=== PATIENT | female | born 1935 | race Caucasian/White ===

== ENCOUNTER → 2017-02-11 | Outpatient (CLI) | payer MEDICARE, MEDICAID ==
[~2017-02-11] MED LIST: AC325T PO; ACET-461 PO; ACET325T38 PO; ACHD5005 PO; ACID1TAB PO; ASPI-84 PO; AZIT-21 PO; CALC-53 PO; CALC-671 PO; CITA20TA12 PO; CLC200NA2; CYAN100081 SL; CYAN25005 SL; CYCL5TAB PO; DICL100G13 TOP; DIPH25TA82 PO; FEN12TD TD; FENT1PAT2 TD; FURO-125 PO; GUAI100S PO; HYDR-1231 PO; HYDR-3714 PO; HYDR12.570 PO; IBUP-1780 PO; IBUP800T26 PO; KCL20TCR PO; LISI10TA PO; LORA0.5T PO; LORA0.5T34 PO; MELA1TAB10 PO; MELA1TAB11 PO; MELA5CAP PO; METO25TA2 PO; METO50TA2 PO; MULT-301 PO; MULT1CAP27 PO; Mirtazapine PO; OLIV30OI EACH EAR; OMEG1CAP51 PO; OMEG1CAP58 PO; PANT40SU PO; PED1TAB. PO; PNT40TEC PO; POLY17PO23 PO; POLY17PO6 PO; PRV20T PO; SCR1T1 PO
--- NOTE | 2017-02-11 11:01 | Diagnostic Imaging Report ---
PROCEDURE: MRI lumbar spine. TECHNIQUE: Multiplanar, multisequence MRI of the lumbar spine was performed without contrast. INDICATION: Back pain. FINDINGS: The alignment of the posterior spinal line is satisfactory. There is however scoliosis convex to the left centered around L3 level. There are compression fractures involving all lumbar spine levels and T12 with kyphoplasty changes at L1 and L4. There is prominent vertebral body height loss at T12, L2, and L4. There is no significant marrow signal abnormality in the lumbar spine vertebra to suggest an acute fracture. There is mild bone marrow signal edema seen within T12 vertebra. This does not however appear to be related to an acute fracture component and is probably a reactive change to altered mechanical forces from the scoliosis and the fractures. Similarly, there is mild bone marrow edema along the anterior aspect of L2. There is disc desiccation at all levels. The cauda equina and conus medullaris appear grossly unremarkable. T11/12: There is minimal retropulsion of the upper endplates of T12 level from the compression fracture without significant spinal canal stenosis. No foraminal narrowing. T12/L1: There is no disc herniation, no spinal canal or foraminal stenosis. L1/2: There is a right posterolateral disc protrusion resulting in moderate to severe right lateral recess stenosis. There is no central canal or left lateral recess stenosis. No foraminal stenosis. L2/L3: There is minimal disc bulge. There is moderate to severe facet and ligamentous hypertrophy worse on the right side. There is no central canal or left lateral recess stenosis. There is moderate right lateral recess stenosis. The foramina demonstrate mild stenosis on the right side and no significant stenosis on the left. L3/4: There is no disc herniation. The facet joints demonstrate moderate to severe hypertrophic arthropathy. No central canal stenosis. There is mild to moderate lateral recess stenosis seen bilaterally. The foramina demonstrate no significant stenosis. L4/5: There is a diffuse disc bulge and bilateral severe facet hypertrophy. No central canal stenosis. There is bilateral lateral recess stenosis moderate to severe on the right side and severe on the left side abutting the descending L5 nerve roots particularly on the left. The foramina demonstrate severe stenosis on the right and moderate to severe stenosis on the left. L5/S1: There is minimal disc bulge and moderate to severe facet hypertrophy. No central canal, lateral recess or foramina stenosis. IMPRESSION: There is scoliosis, degenerative facet and disc changes and multilevel old compression fractures from T12-L5 levels. There is severe neural foraminal stenosis on the right side at L4/5 level and severe lateral recess stenosis on the left at L4/5 compressing the descending left L5 nerve roots. Other findings are described above. Dictated by: Dictated on workstation # [id number]
== END ==
LOC: RAD 07:45
PROVIDERS: ATTEND Physician Assistant
DX: M41.26 Other idiopathic scoliosis, lumbar region (principal); M51.16 Intervertebral disc disorders with radiculopathy, lumbar region; M48.00 Spinal stenosis, site unspecified; M48.56XA Collapsed vertebra, not elsewhere classified, lumbar region, initial encounter for fracture
CPT/HCPCS: 72148

== ENCOUNTER 2018-02-25 23:54 | Observation (INO) | payer MEDICARE, MEDICAID ==
[~2018-02-25] VITALS: Ht 152.4 cm; Wt 88.6 kg
[~2018-02-25 23:54] MED LIST changes: +METO50TA15 PO; -METO50TA2 PO
--- OUTSIDE RECORDS SUMMARY | 2018-02-26 00:02 | XMS REPORT | CCD ---
Author Author [facility] Address [address] [place] [address] Phone Care Team Providers Care Multi Punch Operator Name Role Phone Pushpa Bernabe PP Unavailable CCM Unavailable Summary Purpose Interface Exchange Insurance Providers Payer name Policy type / Coverage type Covered green party ID Effective Begin Date Effective End Date WPS Medicare Part B Medicare Part B [id number] Unknown Unknown [facility] Medicare Part B [id number] Unknown Unknown Family history Daughter Diagnosis Age At Onset No Family Disease Entered N/A Mother Diagnosis Age At Onset No Family Disease Entered N/A Daughter Diagnosis Age At Onset No Family Disease Entered N/A Son Diagnosis Age At Onset No Family Disease Entered N/A Brother Diagnosis Age At Onset No Family Disease Entered N/A Brother Diagnosis Age At Onset No Family Disease Entered N/A Daughter Diagnosis Age At Onset No Family Disease Entered N/A Sister Diagnosis Age At Onset No Family Disease Entered N/A Sister Diagnosis Age At Onset No Family Disease Entered N/A Daughter Diagnosis Age At Onset No Family Disease Entered N/A Brother Diagnosis Age At Onset No Family Disease Entered N/A Sister Diagnosis Age At Onset No Family Disease Entered N/A Father Diagnosis Age At Onset No Family Disease Entered N/A Sister Diagnosis Age At Onset No Family Disease Entered N/A Brother Diagnosis Age At Onset No Family Disease Entered N/A Daughter Diagnosis Age At Onset No Family Disease Entered N/A Son Diagnosis Age At Onset No Family Disease Entered N/A Social History Social History Element Codes Description Effective Dates Marital status Unknown 10/07/2016 Living arrangements Unknown Assisted Living 04/10/[address]: 731067000 Never smoker 05/22/[address]: 955991813 Never drinks alcohol 05/22/2012 Has the patient ever used illegal drugs? Unknown Has never used illegal drugs 05/22/2012 Allergies, Adverse Reactions, Alerts Allergies, Adverse Reactions, Alerts data not found Past Medical History Illness Codes Condition Status Onset Date Resolved Date Essential (primary) hypertension ICD-9: 401.9 ICD-10: I10 Active 02/23/2016 Unknown Major depressive disorder, single episode, unspecified ICD-9: 311 ICD-10: F32.9 Active 02/23/2016 Unknown Hypo-osmolality and hyponatremia ICD-9: 276.1 ICD-10: E87.1 Active 11/19/2015 Unknown Abnormal weight gain ICD-9: 783.1 ICD-10: R63.5 Active 05/29/2015 Unknown Anemia, unspecified ICD-9: 285.9 ICD-10: D64.9 Active 05/29/2015 Unknown DEPRESSIVE DISORDER NEC ICD-9: 311 Active 11/15/2013 Unknown ESSENTIAL HYPERTENSION ICD-9: 401.9 Active 06/13/2014 Unknown Lumbar pain ICD-9: 724.2 Active 07/08/2014 Unknown Vertebral compression fracture ICD-9: 805.8 Active 07/08/2014 Unknown COUGH ICD-9: 786.2 Active 06/13/2014 Unknown Seasonal allergies ICD -9: 477.9 Active 06/13/2014 Unknown VACCIN FOR INFLUENZA ICD-9: V04.81 ICD-10: Z23 Active 01/03/2014 Unknown INSOMNIA NOS ICD-9: 780.52 Active 11/15/2013 Unknown Memory loss ICD-9: 780.93 Active 11/15/2013 Unknown OSTEOPOROSIS ICD-9: 733.00 Active 11/15/2013 Unknown Depression Unknown Active 05/22/2012 Unknown Hyperlipidemia Unknown Active 05/22/2012 Unknown Hypertension Unknown Active 05/22/2012 Unknown HYPERLIPIDEMIA ICD-9: 272.4 Active 05/22/2012 Unknown Rash ICD-9: 782.1 Active 05/22/2012 Unknown Problems Condition Codes Effective Dates Condition Status Essential (primary) hypertension ICD-9: 401.9 ICD-10: I10 02/23/2016 Active Major depressive disorder, single episode, unspecified ICD-9: 311 ICD-10: F32.9 02/23/2016 Active Hypo-osmolality and hyponatremia ICD-9: 276.1 ICD-10: E87.1 11/19/2015 Active Abnormal weight gain ICD-9: 783.1 ICD-10: R63.5 05/29/2015 Active Anemia, unspecified ICD-9: 285.9 ICD-10: D64.9 05/29/2015 Active DEPRESSIVE DISORDER NEC ICD-9: 311 11/15/2013 Active ESSENTIAL HYPERTENSION ICD-9: 401.9 06/13/2014 Active Lumbar pain ICD-9: 724.2 07/08/2014 Active Vertebral compression fracture ICD-9: 805.8 07/08/2014 Active COUGH ICD-9: 786.2 06/13/2014 Active Seasonal allergies ICD -9: 477.9 06/13/2014 Active VACCIN FOR INFLUENZA ICD-9: V04.81 ICD-10: Z23 01/03/2014 Active INSOMNIA NOS ICD-9: 780.52 11/15/2013 Active Memory loss ICD-9: 780.93 11/15/2013 Active OSTEOPOROSIS ICD-9: 733.00 11/15/2013 Active Depression Unknown 05/22/2012 Active Hyperlipidemia Unknown 05/22/2012 Active Hypertension Unknown 05/22/2012 Active HYPERLIPIDEMIA ICD-9: 272.4 05/22/2012 Active Rash ICD-9: 782.1 05/22/2012 Active Medications Medication Codes Instructions Start Date Stop Date Status Fill Instructions sucralfate 1 gram tablet RxNorm: 869592 TAKE ONE TABLET BY MOUTH FOUR TIMES A DAY BEFORE MEALS AND AT BEDTIME 05/18/2017 Active metoprolol tartrate 50 mg tablet RxNorm: 114907 TAKE ONE TABLET BY MOUTH TWICE A DAY 03/31/2017 01/24/2018 Active K-Dur 20 mEq tablet,extended release RxNorm: 088411 TAKE ONE TABLET BY MOUTH TWICE A DAY WITH FOOD OR SNACK AND PLENTY OF WATER 201603/17/2018 Active lorazepam 0.5 mg tablet RxNorm: 481769 1 Tablet(s) TAKE ONE TABLET BY MOUTH AT BEDTIME FOR INSOMNIA 07/19/20162016 Inactive Lortab 5 mg-325 mg tablet RxNorm: 0066600 1 Tablet(s) PO Q4H as needed for pain 06/04/2016 06/13/2016 Inactive Tessalon Perles 100 mg capsule RxNorm: 118780 1-2 Capsule(s) PO TID as needed cough 05/14/2016 No Stop Date Active sucralfate 1 gram tablet RxNorm: 968441 TAKE ONE TABLET BY MOUTH FOUR TIMES A DAY BEFORE MEALS AND AT BEDTIME 05/12/201603/2017 Inactive lorazepam 0.5 mg tablet RxNorm: Tablet(s) TAKE ONE TABLET BY MOUTH AT BEDTIME FOR INSOMNIA 05/07/20162016 Inactive citalopram 20 mg tablet RxNorm: 841976 1 Tablet(s) PO QHS 05/0503/30/2017 Inactive K-Dur 20 mEq tablet,extended release RxNorm: 255361 1 Tablet(s) PO BID 05/05/2016 03/22/2017 Inactive metoprolol tartrate 50 mg tablet RxNorm: 147622 1 Tablet(s) PO BID 05/05/2016 03/30/2017 Inactive lorazepam 0.5 mg tablet RxNorm: Tablet(s) TAKE ONE TABLET BY MOUTH AT BEDTIME FOR INSOMNIA 03/03/20162015 Inactive lorazepam 0.5 mg tablet RxNorm: Tablet(s) TAKE ONE TABLET BY MOUTH AT BEDTIME FOR INSOMNIA 01/07/20162015 Inactive Lortab 5 mg-325 mg tablet RxNorm: 1635594 1 Tablet(s) PO Q4H as needed for pain 11/28/2015 06/03/2016 Inactive potassium chloride ER 20 mEq tablet,extended release(part/ cryst) RxNorm: 3286255 1 Tablet(s) PO BID 11/20/2015 No Stop Date Active calcium carbonate 600 mg-ergocalciferol (vit D2) 200 unit capsule RxNorm: 017975 1 Capsule(s) PO BID 11/20/2015 No Stop Date Active lorazepam 0.5 mg tablet RxNorm: 1/2 Tablet(s) PO Q6 as needed anxiety 10/17/2015 10/17/2015 Inactive lorazepam 0.5 mg tablet RxNorm: TAKE ONE TABLET BY MOUTH AT BEDTIME FOR INSOMNIA 10/17/2015 01/13/2016 Inactive Lasix 20 mg tablet RxNorm: 117040 1 Tablet(s) PO as needed Give with10 meq K+ for gain >3lbs in 3 days 04/18/20152015 Inactive lorazepam 0.5 mg tablet RxNorm: 1 Tablet(s) PO QHS 04/1806/20/2015 Inactive Miralax 17 gram oral powder packet RxNorm: 387045 17 Gram(s) PO daily as needed constipation 04/18/2015 11/19/2015 Inactive lorazepam 0.5 mg tablet RxNorm: 044524 1 Tablet(s) PO QHS as needed 02/20/2015 04/17/2015 Inactive lorazepam 0.5 mg tablet RxNorm: 138289 1 Tablet(s) PO QHS as needed 02/20/2015 02/19/2015 Inactive sucralfate 1 gram tablet RxNorm: 184973 1 Tablet(s) PO AC & HS 02/07/2015 02/06/2015 Inactive sucralfate 1 gram tablet RxNorm: 420857 1 Tablet(s) PO AC & HS 02/07/2015 05/07/2015 Inactive mirtazapine 15 mg tablet RxNorm: 421624 1/2 Tablet(s) PO QHS 04/17/2015 Inactive mirtazapine 15 mg tablet RxNorm: 348110 1/2 Tablet(s) PO QHS 01/26/2015 Inactive K-Dur 20 mEq tablet,extended release RxNorm: 254728 1 Tablet(s) PO BID 12/17/2014 12/16/2014 Inactive K-Dur 20 mEq tablet,extended release RxNorm: 323836 1 Tablet(s) PO BID 12/17/2014 04/15/2015 Inactive metoprolol tartrate 50 mg tablet RxNorm: 052554 1 Tablet(s) PO BID 11/18/2014 11/12/2015 Inactive hydrocodone 5 mg-acetaminophen 325 mg tablet RxNorm: 802511 1 Tablet(s) PO BID and 1 tabs po q 4 hours prn 10/15/2014 Inactive [SAVINGS FOR NON-COVERED DRUGS -- BIN:547149, PCN: ASPROD1, Group: XXXXX, ID# [id number], Questions: [phone]. THIS IS NOT INSURANCE.] lisinopril 10 mg tablet RxNorm: 554339 TAKE 1 TABLET BY MOUTH DAILY 10/15/2014 04/17/2015 Inactive Generic For:ZESTRIL 10 MG TABLET hydrocodone 5 mg-acetaminophen 325 mg tablet RxNorm: 733882 1 Tablet(s) PO BID and 1 tabs po q 4 hours prn 10/01/2014 Inactive [SAVINGS FOR NON-COVERED DRUGS -- BIN:929168, PCN: ASPROD1, Group: XXXXX, ID# [id number], Questions: [phone]. THIS IS NOT INSURANCE.] Voltaren 1 % topical gel RxNorm: 713462 TOP apply 4 grams to lower back four times daily 07/30/2014 07/29/2014 Inactive Voltaren 1 % topical gel RxNorm: 700508 TOP apply 4 grams to lower back four times daily 07/30/2014 09/23/2014 Inactive [SAVINGS FOR NON-COVERED DRUGS -- BIN: 095469, PCN: ASPROD1, Group: XXXXX, ID# [id number], Questions: . THIS IS NOT INSURANCE.] hydrocodone 5 mg-acetaminophen 325 mg tablet RxNorm: 733604 2 Tablet(s) PO BID and 1-2 tabs po q 4 hours prn 07/16/2014 09/30/2014 Inactive [SAVINGS FOR NON- COVERED DRUGS -- BIN:727870, PCN: ASPROD1, Group: XXXXX, ID# [id number], Questions : . THIS IS NOT INSURANCE.] calcitonin (salmon) 200 unit/actuation nasal spray RxNorm: 641399 1 Epworth in one nostril NASAL daily alternate nostril daily 07/08/2014 04/17/2015 Inactive [ SAVINGS FOR NON-COVERED DRUGS -- BIN:778567, PCN: ASPROD1, Group: XXXXX, ID# [id number], Questions: . THIS IS NOT INSURANCE.] betamethasone valerate 0.1 % topical ointment RxNorm: 284423 1 Application TOP TID to affected skin on arm, buttock, upper back and right ankle 06/13/2014 08/11/2014 Inactive [SAVINGS FOR UNINSURED PATIENTS -- BIN:635103, PCN: ASPROD1, Group : [id number], ID# [id number], Process claim through [employer], for questions: [phone]. THIS IS NOT INSURANCE.] Celexa 20 mg tablet RxNorm: 696663 1 Tablet(s) PO QPM 201411/23/2014 Inactive pt needs to start on 1/2 pill daily x 1 week, then increase to 1 pill at night fluticasone 50 mcg/actuation nasal spray,suspension RxNorm: 610922 1 Epworth NASAL BID 04/01/2014 07/29/2014 Inactive [SAVINGS FOR UNINSURED PATIENTS -- BIN:602111, PCN: ASPROD1, Group: [id number], ID# [id number], Process claim through [employer], for questions: . THIS IS NOT INSURANCE.] fluticasone 50 mcg/actuation nasal spray,suspension RxNorm: 803019 1 Epworth NASAL BID 03/07/2014 03/31/2014 Inactive [SAVINGS FOR UNINSURED PATIENTS -- BIN:069053, PCN: ASPROD1, Group: [id number], ID# [id number], Process claim through [employer], for questions: . THIS IS NOT INSURANCE.] Celexa 10 mg tablet RxNorm: 970598 1 Tablet(s) PO QPM 201305/27/2014 Inactive pt needs to start on 1/2 pill daily x 1 week, then increase to 1 pill at night prednisone 20 mg tablet RxNorm: 339977 Tablet(s) PO 07/12/2012 03/06/2014 Inactive 40 mg daily x 2 days then 20 mg daily x 3 days then stop Celexa 10 mg tablet RxNorm: 712878 1 Tablet(s) PO daily 201207/20/2012 Inactive calcium 500 mg tablet RxNorm: 2 Tablet(s) PO BID 05/22/2012 04/17/2015 Inactive pt take 1000mg bid Vitamin B-12 1,000 mcg/mL oral drops RxNorm: 1866397 1 Milliliter(s) SL daily No Start Date Active Systane Balance 0.6 % eye drops RxNorm: 3362905 1 Drop(s) OPH (BOTH EYES) BID No Start Date Active Protonix 40 mg tablet,delayed release RxNorm: 731009 1 Tablet(s) PO BID No Start Date Active Remeron 15 mg tablet RxNorm: 367157 1/2 Tablet(s) PO QHS No Start Date Active melatonin 3 mg tablet RxNorm: 359501 2 Tablet(s) PO QHS No Start Date Active multivitamin tablet RxNorm: 1 Tablet(s) PO daily No Start Date Active Lactobacillus acidophilus chewable tablet RxNorm: 1 Tablet(s) PO AC No Start Date Active calcium carbonate 600 mg (1,500 mg)-vitamin D3 200 unit tablet RxNorm: 234215 1 Tablet(s) PO BID No Start Date Active Tylenol Extra Strength 500 mg tablet RxNorm: 101474 2 Tablet(s) PO Q6 as needed for pain or increased temp No Start Date Active ketoconazole 2 % Shampoo RxNorm: 651468 1 Application TOP TIW use three times per week until rash resolved No Start Date Inactive Sweet Oil with Dropper RxNorm: 1 Drop(s) OTIC QW at bedtime No Start Date 08/20/2015 Inactive prednisone 20 mg tablet RxNorm: 036739 Tablet(s) PO No Start Date 07/11/2012 Inactive Lasix 20 mg tablet RxNorm: 844450 1 Tablet(s) PO as needed Give with K+ for gain >3lbs in 3 days No Start Date 2014 Inactive lorazepam 0.5 mg tablet RxNorm: 358793 1/2 Tablet(s) PO Q6 as needed anxiety No Start Date 10/16/2015 Inactive calcium carbonate 600 mg-ergocalciferol (vit D2) 200 unit capsule RxNorm: 878698 1 Capsule(s) PO BID No Start Date 2014 Inactive Tylenol Extra Strength 500 mg tablet RxNorm: 956726 1 Tablet(s) PO QPM No Start Date 04/17/2015 Inactive Sweet Oil with Dropper RxNorm: 1 Drop(s) OTIC BOTH EARS as needed EAR WAX No Start Date 11/19/2015 Inactive hydrocodone 5 mg-acetaminophen 325 mg tablet RxNorm: 884476 2 Tablet(s) PO BID and 1-2 tabs po q 4 hours prn No Start Date 07/15/2014 Inactive aspirin 81 mg tablet RxNorm: 558638 1 Tablet(s) PO daily No Start Date 04/17/2015 Inactive Fish Oil 1,000 mg capsule RxNorm: 1 Capsule(s) PO BID No Start Date 04/17/2015 Inactive melatonin 3 mg tablet RxNorm: 239376 1 Tablet(s) PO QHS No Start Date 04/17/2015 Inactive Benadryl 25 mg capsule RxNorm: 2283600 1 Capsule(s) PO QPM No Start Date 11/22/2013 Inactive citalopram 20 mg tablet RxNorm: 111310 1 Tablet(s) PO QHS No Start Date 05/04/2016 Inactive Tessalon Perles 100 mg capsule RxNorm: 545203 1-2 Capsule(s) PO TID as needed cough No Start Date 05/13/2016 Inactive lisinopril 10 mg tablet RxNorm: 395982 1 Tablet(s) PO daily No Start Date 10/14/2014 Inactive potassium chloride ER 10 mEq tablet,extended release RxNorm: 276124 1 Tablet(s) PO as needed edema; 1 TAB WITH 20 MG LASIX IF WEIGHT GAIN >3 LBS IN 3 DAYS No Start Date 11/19/2015 Inactive calcium 500 mg tablet RxNorm: 2 Tablet(s) PO daily No Start Date 05/21/2012 Inactive pt take 1000mg bid Lortab 5 mg-325 mg tablet RxNorm: 9591500 1 Tablet(s) PO Q4H as needed for pain No Start Date 11/27/2015 Inactive pravastatin 10 mg tablet RxNorm: 885455 1 Tablet(s) PO QPM No Start Date 04/17/2015 Inactive Miralax 17 gram oral powder packet RxNorm: 886035 17 Gram(s) PO daily No Start Date 04/17/2015 Inactive potassium chloride ER 20 mEq tablet,extended release RxNorm: 973487 1 Tablet(s) PO BID No Start Date 04/17/2015 Inactive Medication Administered No Medication Administered data Immunizations Vaccine Codes Date Status Influenza CVX: 141 01/03/2014 completed Influenza CVX: 141 01/24/2013 completed Assessments Condition Codes Effective Dates Major depressive disorder, single episode, unspecified ICD- 10: F32.9 ICD-9: 311 10/07/2016 Essential (primary) hypertension ICD-10: I10 ICD-9: 401.9 10/07/2016 Hypo-osmolality and hyponatremia ICD-10: E87.1 ICD-9: 276.1 11/20/2015 Abnormal weight gain ICD-10: R63.5 ICD-9: 783.1 05/30/2015 Anemia, unspecified ICD-10: D64.9 ICD-9: 285.9 05/30/2015 Osteoporosis ICD-9: 733.00 12/19/2014 ESSENTIAL HYPERTENSION ICD-9: 401.9 12/19 DEPRESSIVE DISORDER NEC ICD-9: 311 2014 Lumbar pain ICD-9: 724.2 07/08/2014 Vertebral compression fracture ICD-9: 805.8 07/08/2014 COUGH ICD-9: 786.2 06/13/2014 Seasonal allergies ICD-9: 477.9 2014 Nasal congestion ICD-9: 478.19 2013 VACCIN FOR INFLUENZA ICD-10: Z23 ICD-9: V04.81 01/03/2014 INSOMNIA NOS ICD-9: 780.52 11/15/2013 Memory loss ICD-9: 780.93 11/15/2013 HYPERLIPIDEMIA ICD-9: 272.4 05/22/2012 Rash ICD-9: 782.1 05/22/2012 Reason For Visit Reason For Visit Effective Dates Notes weight gain/obesity 10/07/2016 weight gain/obesity 02/24/2016 weight gain/obesity 11/20/2015 weight gain/obesity 08/21/2015 weight gain/obesity 05/30/2015 hypertension 12/19/2014 Hospital Follow Up 09/19/2014 memory loss 07/08/2014 memory loss 06/13/2014 memory loss 03/07/2014 memory loss 02/06/2014 memory loss 01/03/2014 memory loss 11/15/2013 anxiety 05/22/2012 Results Observation Observation Code Item Item Code Result Date Comp Metabolic Rhs626 NA 128 mEq/L 10/08/2016 Comp Metabolic Ced041 K 4.6 mEq/L 10/08/2016 Comp Metabolic Tkf205 CL 90 mEq/L 10/08/2016 Comp Metabolic Xyx514 CO2 27.0 mEq/L 10/08/2016 Comp Metabolic Ans467 ANION GAP 16 10/08/2016 Comp Metabolic Sui300 GLUCOSE 130 mg/dL 10/08/2016 Comp Metabolic Uyg905 Creat 0.6 mg/dL 10/08/2016 Comp Metabolic Onl907 eGFR 110 ml/min/1.73m2 10/08/2016 Comp Metabolic Edy064 BUN 9 mg/dL 10/08/2016 Comp Metabolic Ebb402 B/C Ratio 16.1 Ratio 10/08/2016 Comp Metabolic Zih848 CALCIUM 8.8 mg/dL 10/08/2016 Comp Metabolic Vkc305 ALK PHOS 47 U/L 10/08/2016 Comp Metabolic Cym374 AST(SGOT) 14 U/L 10/08/2016 Comp Metabolic Iad682 ALT(SGPT) 12 U/L 10/08/2016 Comp Metabolic Tto495 BILI T 0.6 mg/dL 10/08/2016 Comp Metabolic Tvm938 ALBUMIN 4.0 g/dL 10/08/2016 Comp Metabolic Vtu391 TPRO 6.4 g/dL 10/08/2016 Comp Metabolic Vog211 GLOB 2.4 g/dL 10/08/2016 Comp Metabolic Mua040 A/G Ratio 1.6 Ratio 10/08/2016 Comp Metabolic Znu692 Osmo 258 mOsmo 10/08/2016 Cbc With Differential Ord2 WBC 7.42 K/ul 10/08/2016 Cbc With Differential Ord2 RBC 5.00 M/ul 10/08/2016 Cbc With Differential Ord2 HGB 14.4 g/dl 10/08/2016 Cbc With Differential Ord2 Neut% 69.7 % 10/08/2016 Cbc With Differential Ord2 HCT 42.3 % 10/08/2016 Cbc With Differential Ord2 MCV 84.6 fl 10/08/2016 Cbc With Differential Ord2 Lymph% 22.6 % 10/08/2016 Cbc With Differential Ord2 MCH 28.8 pg 10/08/2016 Cbc With Differential Ord2 Amador% 4.9 % 10/08/2016 Cbc With Differential Ord2 MCHC 34.0 pg 10/08/2016 Cbc With Differential Ord2 Eos% 2.3 % 10/08/2016 Cbc With Differential Ord2 PLT 252 K/ul 10/08/2016 Cbc With Differential Ord2 Baso% 0.5 % 10/08/2016 Cbc With Differential Ord2 RDW 15.7 % 10/08/2016 Cbc With Differential Ord2 Neut ABS# 5.17 K/ul 10/08/2016 Cbc With Differential Ord2 Lymph ABS# 1.68 K/ul 10/08/2016 Cbc With Differential Ord2 Amador ABS# 0.4 K/ul 10/08/2016 Cbc With Differential Ord2 Eos ABS# 0.2 K/ul 10/08/2016 Cbc With Differential Ord2 Baso ABS# 0.0 K/ul 10/08/2016 Tsh Ord6 hTSH II 1.46 uIU/mL 10/08/2016 Comp Metabolic Kto067 NA 129 mEq/L 11/20/2015 Comp Metabolic Bsx465 K 4.5 mEq/L 11/20/2015 Comp Metabolic Hes497 CL 94 mEq/L 11/20/2015 Comp Metabolic Zpz790 CO2 30.0 mEq/L 11/20/2015 Comp Metabolic Ojb399 ANION GAP 10 11/20/2015 Comp Metabolic Htk502 GLUCOSE 103 mg/dL 11/20/2015 Comp Metabolic Dgb476 Creat 0.6 mg/dL 11/20/2015 Comp Metabolic Ycl145 eGFR 102 ml/min/1.73m2 11/20/2015 Comp Metabolic Jnh014 BUN 10 mg/dL 11/20/2015 Comp Metabolic Bdk731 B/C Ratio 16.7 Ratio 11/20/2015 Comp Metabolic Sid396 CALCIUM 8.9 mg/dL 11/20/2015 Comp Metabolic Tqb722 ALK PHOS 46 U/L 11/20/2015 Comp Metabolic Wyc052 AST(SGOT) 13 U/L 11/20/2015 Comp Metabolic Eto206 ALT(SGPT) 12 U/L 11/20/2015 Comp Metabolic Ljd097 BILI T 0.4 mg/dL 11/20/2015 Comp Metabolic Huo560 ALBUMIN 4.1 g/dL 11/20/2015 Comp Metabolic Goz003 TPRO 6.2 g/dL 11/20/2015 Comp Metabolic Awh851 GLOB 2.2 g/dL 11/20/2015 Comp Metabolic Zpl101 A/G Ratio 1.9 Ratio 11/20/2015 Comp Metabolic Tbc398 Osmo 258 mOsmo 11/20/2015 Cbc With Differential Ord2 WBC 7.23 K/ul 11/20/2015 Cbc With Differential Ord2 RBC 4.68 M/ul 11/20/2015 Cbc With Differential Ord2 HGB 13.7 g/dl 11/20/2015 Cbc With Differential Ord2 Neut% 68.4 % 11/20/2015 Cbc With Differential Ord2 HCT 41.2 % 11/20/2015 Cbc With Differential Ord2 MCV 88.0 fl 11/20/2015 Cbc With Differential Ord2 Lymph% 18.1 % 11/20/2015 Cbc With Differential Ord2 MCH 29.3 pg 11/20/2015 Cbc With Differential Ord2 Amador% 11.6 % 11/20/2015 Cbc With Differential Ord2 MCHC 33.3 pg 11/20/2015 Cbc With Differential Ord2 Eos% 1.5 % 11/20/2015 Cbc With Differential Ord2 PLT 264 K/ul 11/20/2015 Cbc With Differential Ord2 Baso% 0.4 % 11/20/2015 Cbc With Differential Ord2 RDW 15.2 % 11/20/2015 Cbc With Differential Ord2 Neut ABS# 4.94 K/ul 11/20/2015 Cbc With Differential Ord2 Lymph ABS# 1.31 K/ul 11/20/2015 Cbc With Differential Ord2 Amador ABS# 0.8 K/ul 11/20/2015 Cbc With Differential Ord2 Eos ABS# 0.1 K/ul 11/20/2015 Cbc With Differential Ord2 Baso ABS# 0.0 K/ul 11/20/2015 Cbc With Differential Ord2 WBC 8.04 K/ul 09/11/2015 Cbc With Differential Ord2 RBC 4.87 M/ul 09/11/2015 Cbc With Differential Ord2 HGB 14.0 g/dl 09/11/2015 Cbc With Differential Ord2 Neut% 67.2 % 09/11/2015 Cbc With Differential Ord2 HCT 41.8 % 09/11/2015 Cbc With Differential Ord2 MCV 85.8 fl 09/11/2015 Cbc With Differential Ord2 Lymph% 21.4 % 09/11/2015 Cbc With Differential Ord2 MCH 28.7 pg 09/11/2015 Cbc With Differential Ord2 Amador% 9.3 % 09/11/2015 Cbc With Differential Ord2 MCHC 33.5 pg 09/11/2015 Cbc With Differential Ord2 Eos% 1.9 % 09/11/2015 Cbc With Differential Ord2 PLT 274 K/ul 09/11/2015 Cbc With Differential Ord2 Baso% 0.2 % 09/11/2015 Cbc With Differential Ord2 RDW 16.0 % 09/11/2015 Cbc With Differential Ord2 Neut ABS# 5.40 K/ul 09/11/2015 Cbc With Differential Ord2 Lymph ABS# 1.72 K/ul 09/11/2015 Cbc With Differential Ord2 Amador ABS# 0.8 K/ul 09/11/2015 Cbc With Differential Ord2 Eos ABS# 0.2 K/ul 09/11/2015 Cbc With Differential Ord2 Baso ABS# 0.0 K/ul 09/11/2015 Cbc With Differential Ord2 New Analyzer Notice Please note new ref ranges starting 05-14-2015 due to implemntation of new five part differential hematolgy analyzer. 09/11/2015 Tsh Ord6 hTSH II 1.54 uIU/mL 09/11/2015 Comp Metabolic Ulu526 NA 130 mEq/L 09/11/2015 Comp Metabolic Sih268 K 4.4 mEq/L 09/11/2015 Comp Metabolic Fvh952 CL 88 mEq/L 09/11/2015 Comp Metabolic Gzq658 CO2 30.0 mEq/L 09/11/2015 Comp Metabolic Rrv260 ANION GAP 16 09/11/2015 Comp Metabolic Xzz405 GLUCOSE 90 mg/dL 09/11/2015 Comp Metabolic Gls425 Creat 0.6 mg/dL 09/11/2015 Comp Metabolic Nsn278 eGFR 112 ml/min/1.73m2 09/11/2015 Comp Metabolic Twv514 BUN 9 mg/dL 09/11/2015 Comp Metabolic Uxo040 B/C Ratio 16.4 Ratio 09/11/2015 Comp Metabolic Dfn314 CALCIUM 8.9 mg/dL 09/11/2015 Comp Metabolic Hoz291 ALK PHOS 50 U/L 09/11/2015 Comp Metabolic Obg989 AST(SGOT) 14 U/L 09/11/2015 Comp Metabolic Rbl187 ALT(SGPT) 12 U/L 09/11/2015 Comp Metabolic Fue443 BILI T 0.6 mg/dL 09/11/2015 Comp Metabolic Hhb326 ALBUMIN 4.2 g/dL 09/11/2015 Comp Metabolic Bew041 TPRO 6.7 g/dL 09/11/2015 Comp Metabolic Unf633 GLOB 2.5 g/dL 09/11/2015 Comp Metabolic Dhb233 A/G Ratio 1.6 Ratio 09/11/2015 Comp Metabolic Jhn972 Osmo 259 mOsmo 09/11/2015 Cbc With Differential Ord2 WBC 8.31 K/ul 08/21/2015 Cbc With Differential Ord2 RBC 4.87 M/ul 08/21/2015 Cbc With Differential Ord2 HGB 13.9 g/dl 08/21/2015 Cbc With Differential Ord2 Neut% 67.9 % 08/21/2015 Cbc With Differential Ord2 HCT 43.0 % 08/21/2015 Cbc With Differential Ord2 MCV 88.3 fl 08/21/2015 Cbc With Differential Ord2 Lymph% 19.0 % 08/21/2015 Cbc With Differential Ord2 MCH 28.5 pg 08/21/2015 Cbc With Differential Ord2 Amador% 10.6 % 08/21/2015 Cbc With Differential Ord2 MCHC 32.3 pg 08/21/2015 Cbc With Differential Ord2 Eos% 2.0 % 08/21/2015 Cbc With Differential Ord2 PLT 231 K/ul 08/21/2015 Cbc With Differential Ord2 Baso% 0.5 % 08/21/2015 Cbc With Differential Ord2 RDW 16.1 % 08/21/2015 Cbc With Differential Ord2 Neut ABS# 5.64 K/ul 08/21/2015 Cbc With Differential Ord2 Lymph ABS# 1.58 K/ul 08/21/2015 Cbc With Differential Ord2 Amador ABS# 0.9 K/ul 08/21/2015 Cbc With Differential Ord2 Eos ABS# 0.2 K/ul 08/21/2015 Cbc With Differential Ord2 Baso ABS# 0.0 K/ul 08/21/2015 Cbc With Differential Ord2 New Analyzer Notice Please note new ref ranges starting 05-14-2015 due to implemntation of new five part differential hematolgy analyzer. 08/21/2015 Comp Metabolic Fve437 NA 129 mEq/L 08/21/2015 Comp Metabolic Cae220 K 4.6 mEq/L 08/21/2015 Comp Metabolic Pwj264 CL 93 mEq/L 08/21/2015 Comp Metabolic Glm155 CO2 28.0 mEq/L 08/21/2015 Comp Metabolic Cmo373 ANION GAP 13 08/21/2015 Comp Metabolic Hxb726 GLUCOSE 101 mg/dL 08/21/2015 Comp Metabolic Xdi369 Creat 0.7 mg/dL 08/21/2015 Comp Metabolic Tfr743 eGFR 93 ml/min/1.73m2 08/21/2015 Comp Metabolic Wdd318 BUN 11 mg/dL 08/21/2015 Comp Metabolic Ryw150 B/C Ratio 16.9 Ratio 08/21/2015 Comp Metabolic Oep179 CALCIUM 9.3 mg/dL 08/21/2015 Comp Metabolic Vgy276 ALK PHOS 44 U/L 08/21/2015 Comp Metabolic Dfo282 AST(SGOT) 14 U/L 08/21/2015 Comp Metabolic Yds834 ALT(SGPT) 14 U/L 08/21/2015 Comp Metabolic Wmp224 BILI T 0.5 mg/dL 08/21/2015 Comp Metabolic Kfa009 ALBUMIN 4.1 g/dL 08/21/2015 Comp Metabolic Vbf708 TPRO 6.4 g/dL 08/21/2015 Comp Metabolic Lol610 GLOB 2.4 g/dL 08/21/2015 Comp Metabolic Uoj595 A/G Ratio 1.7 Ratio 08/21/2015 Comp Metabolic Oza879 Osmo 258 mOsmo 08/21/2015 Cbc With Differential Ord2 WBC 7.02 K/ul 05/30/2015 Cbc With Differential Ord2 RBC 5.14 M/ul 05/30/2015 Cbc With Differential Ord2 HGB 13.7 g/dl 05/30/2015 Cbc With Differential Ord2 Neut% 64.2 % 05/30/2015 Cbc With Differential Ord2 HCT 42.0 % 05/30/2015 Cbc With Differential Ord2 MCV 81.7 fl 05/30/2015 Cbc With Differential Ord2 Lymph% 20.4 % 05/30/2015 Cbc With Differential Ord2 MCH 26.7 pg 05/30/2015 Cbc With Differential Ord2 Amador% 12.5 % 05/30/2015 Cbc With Differential Ord2 MCHC 32.6 pg 05/30/2015 Cbc With Differential Ord2 Eos% 2.3 % 05/30/2015 Cbc With Differential Ord2 PLT 235 K/ul 05/30/2015 Cbc With Differential Ord2 Baso% 0.6 % 05/30/2015 Cbc With Differential Ord2 Neut ABS# 4.51 K/ul 05/30/2015 Cbc With Differential Ord2 RDW 26.0 % 05/30/2015 Cbc With Differential Ord2 Lymph ABS# 1.43 K/ul 05/30/2015 Cbc With Differential Ord2 Amador ABS# 0.9 K/ul 05/30/2015 Cbc With Differential Ord2 Eos ABS# 0.2 K/ul 05/30/2015 Cbc With Differential Ord2 Baso ABS# 0.0 K/ul 05/30/2015 Cbc With Differential Ord2 New Analyzer Notice Please note new ref ranges starting 05-14-2015 due to implemntation of new five part differential hematolgy analyzer. 05/30/2015 Comp Metabolic Krm635 NA 131 mEq/L 05/30/2015 Comp Metabolic Wpe738 K 4.6 mEq/L 05/30/2015 Comp Metabolic Kgb773 CL 95 mEq/L 05/30/2015 Comp Metabolic Yxl882 CO2 26.0 mEq/L 05/30/2015 Comp Metabolic Rcr043 ANION GAP 15 05/30/2015 Comp Metabolic Yce153 GLUCOSE 96 mg/dL 05/30/2015 Comp Metabolic Anx145 Creat 0.7 mg/dL 05/30/2015 Comp Metabolic Bob101 eGFR 86 ml/min/1.73m2 05/30/2015 Comp Metabolic Wox468 BUN 10 mg/dL 05/30/2015 Comp Metabolic Tgr908 B/C Ratio 14.5 Ratio 05/30/2015 Comp Metabolic Bmt606 CALCIUM 9.3 mg/dL 05/30/2015 Comp Metabolic Rfl400 ALK PHOS 46 U/L 05/30/2015 Comp Metabolic Jel769 AST(SGOT) 17 U/L 05/30/2015 Comp Metabolic Hld253 ALT(SGPT) 15 U/L 05/30/2015 Comp Metabolic Mgi258 BILI T 0.5 mg/dL 05/30/2015 Comp Metabolic Otw801 ALBUMIN 4.1 g/dL 05/30/2015 Comp Metabolic Iva924 TPRO 6.5 g/dL 05/30/2015 Comp Metabolic Jjh406 GLOB 2.4 g/dL 05/30/2015 Comp Metabolic Ebr058 A/G Ratio 1.7 Ratio 05/30/2015 Comp Metabolic Qpr091 Osmo 262 mOsmo 05/30/2015 B Type Natriuretic Peptide Udt9486 B-CONFIGURATOR 105.00 pg/ml 2015 Cbc With Differential Ord2 WBC 5.5 K/uL 03/20/2015 Cbc With Differential Ord2 LYM 1.7 K/uL 03/20/2015 Cbc With Differential Ord2 LYM% 30.9 % 03/20/2015 Cbc With Differential Ord2 NEUT/GRAN 3.1 K/uL 03/20/2015 Cbc With Differential Ord2 NEUT/GRAN % 56.1 % 03/20/2015 Cbc With Differential Ord2 MID 0.7 K/uL 03/20/2015 Cbc With Differential Ord2 MID% 13.0 % 03/20/2015 Cbc With Differential Ord2 RBC 3.78 M/uL 03/20/2015 Cbc With Differential Ord2 HGB 7.8 Result Verified By Repeat Analysis g/dL 03/20/2015 Cbc With Differential Ord2 HCT 25.4 % 03/20/2015 Cbc With Differential Ord2 MCV 67 fL 03/20/2015 Cbc With Differential Ord2 MCH 21 pg 03/20/2015 Cbc With Differential Ord2 MCHC 31 g/dL 03/20/2015 Cbc With Differential Ord2 PLT 283 K/uL 03/20/2015 Cbc With Differential Ord2 RDW 20.0 % 03/20/2015 Tsh Ord6 hTSH II 1.04 uIU/mL 03/20/2015 Comp Metabolic Hmm618 NA 133 mEq/L 03/20/2015 Comp Metabolic Szy778 K 5.2 mEq/L 03/20/2015 Comp Metabolic Mkl304 CL 97 mEq/L 03/20/2015 Comp Metabolic Elz434 CO2 30.0 mEq/L 03/20/2015 Comp Metabolic Lse402 ANION GAP 11 03/20/2015 Comp Metabolic Dbd484 GLUCOSE 84 mg/dL 03/20/2015 Comp Metabolic Mme481 Creat 0.6 mg/dL 03/20/2015 Comp Metabolic Xcc651 eGFR 100 ml/min/1.73m2 03/20/2015 Comp Metabolic Dsy291 BUN 11 mg/dL 03/20/2015 Comp Metabolic Cqe647 B/C Ratio 18.0 Ratio 03/20/2015 Comp Metabolic Zph475 CALCIUM 8.8 mg/dL 03/20/2015 Comp Metabolic Iuj695 ALK PHOS 45 U/L 03/20/2015 Comp Metabolic Ntx922 AST(SGOT) 12 U/L 03/20/2015 Comp Metabolic Hup500 ALT(SGPT) 9 U/L 03/20/2015 Comp Metabolic Ebp705 BILI T 0.3 mg/dL 03/20/2015 Comp Metabolic Qco340 ALBUMIN 3.5 g/dL 03/20/2015 Comp Metabolic Jfj484 TPRO 5.5 g/dL 03/20/2015 Comp Metabolic Vyn744 GLOB 2.0 g/dL 03/20/2015 Comp Metabolic Ann310 A/G Ratio 1.8 Ratio 03/20/2015 Comp Metabolic Dht723 Osmo 265 mOsmo 03/20/2015 Metabolic Ord15 NA 129 mEq/L 03/17/2015 Metabolic Ord15 K 4.5 mEq/L 03/17/2015 Metabolic Ord15 CL 93 mEq/L 03/17/2015 Metabolic Ord15 CO2 26.0 mEq/L 03/17/2015 Metabolic Ord15 GLUCOSE 93 mg/dL 03/17/2015 Metabolic Ord15 BUN 10 mg/dL 03/17/2015 Metabolic Ord15 Creat 0.6 mg/dL 03/17/2015 Metabolic Ord15 B/C Ratio 15.9 Ratio 03/17/2015 Metabolic Ord15 eGFR 96 ml/min/1.73m2 03/17/2015 Metabolic Ord15 Osmo 258 mOsmo 03/17/2015 Metabolic Ord15 ANION GAP 15 03/17/2015 Metabolic Ord15 CALCIUM 8.9 mg/dL 03/17/2015 Metabolic Ord15 NA 131 mEq/L 11/29/2014 Metabolic Ord15 K 4.6 mEq/L 11/29/2014 Metabolic Ord15 CL 94 mEq/L 11/29/2014 Metabolic Ord15 CO2 30.0 mEq/L 11/29/2014 Metabolic Ord15 GLUCOSE 90 mg/dL 11/29/2014 Metabolic Ord15 BUN 10 mg/dL 11/29/2014 Metabolic Ord15 Creat 0.6 mg/dL 11/29/2014 Metabolic Ord15 B/C Ratio 18.2 Ratio 11/29/2014 Metabolic Ord15 eGFR 112 ml/min/1.73m2 11/29/2014 Metabolic Ord15 Osmo 261 mOsmo 11/29/2014 Metabolic Ord15 ANION GAP 12 11/29/2014 Metabolic Ord15 CALCIUM 9.1 mg/dL 11/29/2014 CHEM 14 [id number] AST 18 U/L 11/15/2013 CHEM 14 [id number] ALT 13 U/L 11/15/2013 CHEM 14 [id number] BUN 10 MG/DL 11/15/2013 CHEM 14 [id number] ALBUMIN 4.4 GM/DL 11/15/2013 CHEM 14 0699102 CHLORIDE 89 MMOL/L 11/15/2013 CHEM 14 7561275 BILI TOT 0.4 MG/DL 11/15/2013 CHEM 14 7280217 ALK PHOS 47 U/L 11/15/2013 CHEM 14 3920996 SODIUM 128 MMOL/L 11/15/2013 CHEM 14 [id number] CREATININE 0.56 MG/DL 11/15/2013 CHEM 14 5553694 CALCIUM 9.5 MG/DL 11/15/2013 CHEM 14 5445535 POTASSIUM 4.5 MMOL/L 11/15/2013 CHEM 14 8734422 PROT TOT 7.1 GM/DL 11/15/2013 CHEM 14 0336093 GLUCOSE 92 MG/DL 11/15/2013 CHEM 14 3312584 BICARB 26 MMOL/L 11/15/2013 CHEM 14 7643092 ANION GAP 13 MMOL/L 11/15/2013 GFR CALC 2214406 GFR AA >60 ML/MIN 11/15/2013 GFR CALC 7710126 GFR NON-AA >60 ML/MIN 11/15/2013 VIT B 12 9686002 VIT B 12 563 PG/ML 11/15/2013 CHEM 14 5522606 AST 18 U/L 11/15/2013 CHEM 14 0146821 ALT 13 U/L 11/15/2013 CHEM 14 8830771 BUN 10 MG/DL 11/15/2013 CHEM 14 2699111 ALBUMIN 4.4 GM/DL 11/15/2013 CHEM 14 4836590 CHLORIDE 89 MMOL/L 11/15/2013 CHEM 14 3900629 BILI TOT 0.4 MG/DL 11/15/2013 CHEM 14 6560638 ALK PHOS 47 U/L 11/15/2013 CHEM 14 9366966 SODIUM 128 MMOL/L 11/15/2013 CHEM 14 4414393 CREATININE 0.56 MG/DL 11/15/2013 CHEM 14 3821236 CALCIUM 9.5 MG/DL 11/15/2013 CHEM 14 3796744 POTASSIUM 4.5 MMOL/L 11/15/2013 CHEM 14 2781832 PROT TOT 7.1 GM/DL 11/15/2013 CHEM 14 8430226 GLUCOSE 92 MG/DL 11/15/2013 CHEM 14 1825623 BICARB 26 MMOL/L 11/15/2013 CHEM 14 2145063 ANION GAP 13 MMOL/L 11/15/2013 VIT D TOTL 9014139 VIT D TOTL 43 NG/ML 11/15/2013 Review of Systems System Result Effective Dates Constitutional No recent illness 2016 Constitutional No chills 10/07/2016 Constitutional No diaphoresis 10/07/2016 Constitutional fatigue 10/07/2016 Constitutional No fever 10/07/2016 Constitutional weight gain 10/07/2016 Eyes No eye discharge 10/07/2016 Eyes No eye erythema 10/07/2016 Ears/Nose/Throat/Neck No nasal discharge 10/07/2016 Cardiovascular No chest pain/pressure 11/2016 Cardiovascular No dyspnea 10/07/2016 Respiratory No cough 10/07/2016 Gastrointestinal No abdominal pain 2016 Gastrointestinal No constipation 2016 Gastrointestinal No diarrhea 10/07/2016 Gastrointestinal No nausea 10/07/2016 Gastrointestinal No vomiting 10/07/2016 Musculoskeletal No joint complaint 2016 Dermatologic No rash 10/07/2016 Dermatologic No sores 10/07/2016 Neurologic No alteration of consciousness 10/07/2016 Psychiatric anxiety 10/07/2016 Psychiatric depression 10/07/2016 Ears/Nose/Throat/Neck No nasal allergies 10/07/2016 Respiratory No dyspnea 10/07/2016 Constitutional No recent illness 2015 Constitutional No anorexia 02/24/2016 Constitutional No night sweats 2015 Constitutional No chills 02/24/2016 Constitutional No diaphoresis 02/24/2016 Constitutional fatigue 02/24/2016 Constitutional No fever 02/24/2016 Constitutional No insomnia 02/24/2016 Constitutional No malaise 02/24/2016 Constitutional No weight loss 02/24/2016 Constitutional weight gain 02/24/2016 Eyes No eye discharge 02/24/2016 Eyes No eye erythema 02/24/2016 Ears/Nose/Throat/Neck No dizziness 2015 Ears/Nose/Throat/Neck No headache 2015 Ears/Nose/Throat/Neck No nasal discharge 02/24/2016 Cardiovascular No chest pain/pressure Cardiovascular No dyspnea 02/24/2016 Cardiovascular edema 02/24/2016 Respiratory No productive sputum 2015 Respiratory No chest congestion 2015 Respiratory No cough 02/24/2016 Gastrointestinal No abdominal pain 2015 Gastrointestinal No constipation 2015 Gastrointestinal No diarrhea 02/24/2016 Gastrointestinal No nausea 02/24/2016 Gastrointestinal No vomiting 02/24/2016 Genitourinary/Nephrology No dysuria 02/23 Musculoskeletal No joint complaint 2015 Dermatologic No rash 02/24/2016 Dermatologic No sores 02/24/2016 Neurologic No alteration of consciousness 02/24/2016 Psychiatric anxiety 02/24/2016 Psychiatric depression 02/24/2016 Constitutional No recent illness 2015 Constitutional No anorexia 11/20/2015 Constitutional No night sweats 2015 Constitutional No chills 11/20/2015 Constitutional No diaphoresis 11/20/2015 Constitutional fatigue 11/20/2015 Constitutional No fever 11/20/2015 Constitutional No insomnia 11/20/2015 Constitutional No malaise 11/20/2015 Constitutional No weight loss 11/20/2015 Constitutional weight gain 11/20/2015 Eyes No eye discharge 11/20/2015 Eyes No eye erythema 11/20/2015 Ears/Nose/Throat/Neck No dizziness 2015 Ears/Nose/Throat/Neck No headache 2015 Ears/Nose/Throat/Neck No nasal discharge 11/20/2015 Cardiovascular No chest pain/pressure Cardiovascular No dyspnea 11/20/2015 Cardiovascular edema 11/20/2015 Respiratory No productive sputum 2015 Respiratory No chest congestion 2015 Respiratory No cough 11/20/2015 Gastrointestinal No abdominal pain 2015 Gastrointestinal No constipation 2015 Gastrointestinal No diarrhea 11/20/2015 Gastrointestinal No nausea 11/20/2015 Gastrointestinal No vomiting 11/20/2015 Genitourinary/Nephrology No dysuria 11/19 Musculoskeletal No joint complaint 2015 Dermatologic No rash 11/20/2015 Dermatologic No sores 11/20/2015 Psychiatric anxiety 11/20/2015 Psychiatric depression 11/20/2015 Neurologic No alteration of consciousness 11/20/2015 Constitutional No night sweats 2015 Constitutional No recent illness 2015 Constitutional No anorexia 08/21/2015 Constitutional weight gain 08/21/2015 Constitutional No chills 08/21/2015 Constitutional No diaphoresis 08/21/2015 Constitutional fatigue 08/21/2015 Constitutional No fever 08/21/2015 Constitutional No insomnia 08/21/2015 Constitutional No malaise 08/21/2015 Eyes No eye discharge 08/21/2015 Eyes No eye erythema 08/21/2015 Ears/Nose/Throat/Neck No dizziness 2015 Ears/Nose/Throat/Neck No headache 2015 Ears/Nose/Throat/Neck No nasal discharge 08/21/2015 Cardiovascular No chest pain/pressure Cardiovascular No dyspnea 08/21/2015 Respiratory No productive sputum 2015 Respiratory No chest congestion 2015 Respiratory No cough 08/21/2015 Gastrointestinal No abdominal pain 2015 Gastrointestinal No constipation 2015 Gastrointestinal No diarrhea 08/21/2015 Gastrointestinal No nausea 08/21/2015 Gastrointestinal No vomiting 08/21/2015 Genitourinary/Nephrology No dysuria 08/20 Musculoskeletal No joint complaint 2015 Dermatologic No rash 08/21/2015 Dermatologic No sores 08/21/2015 Psychiatric anxiety 08/21/2015 Psychiatric depression 08/21/2015 Musculoskeletal back pain 08/21/2015 Constitutional No weight loss 08/21/2015 Cardiovascular edema 08/21/2015 Constitutional No recent illness 2015 Constitutional No anorexia 05/30/2015 Constitutional No night sweats 2015 Constitutional No chills 05/30/2015 Constitutional No diaphoresis 05/30/2015 Constitutional fatigue 05/30/2015 Constitutional No fever 05/30/2015 Constitutional No insomnia 05/30/2015 Constitutional No malaise 05/30/2015 Eyes No eye discharge 05/30/2015 Eyes No eye erythema 05/30/2015 Ears/Nose/Throat/Neck No dizziness 2015 Ears/Nose/Throat/Neck No headache 2015 Ears/Nose/Throat/Neck No nasal discharge 05/30/2015 Cardiovascular No chest pain/pressure Cardiovascular No dyspnea 05/30/2015 Respiratory No productive sputum 2015 Respiratory No chest congestion 2015 Respiratory No cough 05/30/2015 Gastrointestinal No abdominal pain 2015 Gastrointestinal No constipation 2015 Gastrointestinal No diarrhea 05/30/2015 Gastrointestinal No nausea 05/30/2015 Gastrointestinal No vomiting 05/30/2015 Genitourinary/Nephrology No dysuria 05/30 Musculoskeletal No joint complaint 2015 Dermatologic No rash 05/30/2015 Dermatologic No sores 05/30/2015 Psychiatric anxiety 05/30/2015 Psychiatric depression 05/30/2015 Constitutional weight gain 05/30/2015 Constitutional recent illness 12/19/2014 Constitutional No anorexia 12/19/2014 Constitutional No night sweats 2014 Constitutional No chills 12/19/2014 Constitutional No diaphoresis 12/19/2014 Constitutional fatigue 12/19/2014 Constitutional No fever 12/19/2014 Constitutional No insomnia 12/19/2014 Constitutional No malaise 12/19/2014 Eyes No eye discharge 12/19/2014 Eyes No eye erythema 12/19/2014 Ears/Nose/Throat/Neck No dizziness 2014 Ears/Nose/Throat/Neck No headache 2014 Ears/Nose/Throat/Neck No nasal discharge 12/19/2014 Cardiovascular No chest pain/pressure Cardiovascular No dyspnea 12/19/2014 Respiratory No productive sputum 2014 Respiratory No chest congestion 2014 Respiratory No cough 12/19/2014 Gastrointestinal No abdominal pain 2014 Gastrointestinal No constipation 2014 Gastrointestinal No diarrhea 12/19/2014 Gastrointestinal No nausea 12/19/2014 Gastrointestinal No vomiting 12/19/2014 Genitourinary/Nephrology No dysuria 12/19 Musculoskeletal back pain 12/19/2014 Musculoskeletal No joint complaint 2014 Dermatologic No rash 12/19/2014 Dermatologic No sores 12/19/2014 Psychiatric anxiety 12/19/2014 Psychiatric depression 12/19/2014 Constitutional recent illness 09/19/2014 Constitutional No anorexia 09/19/2014 Constitutional No night sweats 2014 Constitutional No chills 09/19/2014 Constitutional No diaphoresis 09/19/2014 Constitutional fatigue 09/19/2014 Constitutional No fever 09/19/2014 Constitutional No insomnia 09/19/2014 Constitutional No malaise 09/19/2014 Eyes No eye discharge 09/19/2014 Eyes No eye erythema 09/19/2014 Ears/Nose/Throat/Neck No dizziness 2014 Ears/Nose/Throat/Neck No headache 2014 Ears/Nose/Throat/Neck No nasal discharge 09/19/2014 Cardiovascular No chest pain/pressure Cardiovascular No dyspnea 09/19/2014 Respiratory No productive sputum 2014 Respiratory No chest congestion 2014 Respiratory No cough 09/19/2014 Gastrointestinal No abdominal pain 2014 Gastrointestinal No constipation 2014 Gastrointestinal No diarrhea 09/19/2014 Gastrointestinal No nausea 09/19/2014 Gastrointestinal No vomiting 09/19/2014 Genitourinary/Nephrology No dysuria 09/19 Musculoskeletal No joint complaint 2014 Dermatologic No rash 09/19/2014 Dermatologic No sores 09/19/2014 Psychiatric anxiety 09/19/2014 Psychiatric depression 09/19/2014 Musculoskeletal back pain 09/19/2014 Cardiovascular No chest pain/pressure 12/2014 Cardiovascular No dyspnea 07/08/2014 Cardiovascular edema 07/08/2014 Respiratory No cough 07/08/2014 Respiratory No chest congestion 2014 Ears/Nose/Throat/Neck nasal discharge 12/2014 Gastrointestinal constipation 07/08/2014 Gastrointestinal No diarrhea 07/08/2014 Gastrointestinal No vomiting 07/08/2014 Gastrointestinal No nausea 07/08/2014 Gastrointestinal No abdominal pain 2014 Musculoskeletal back pain 07/08/2014 Constitutional recent illness 07/08/2014 Constitutional No anorexia 07/08/2014 Constitutional No night sweats 2014 Constitutional No chills 07/08/2014 Constitutional No diaphoresis 07/08/2014 Constitutional fatigue 07/08/2014 Constitutional No fever 07/08/2014 Constitutional No insomnia 07/08/2014 Constitutional No malaise 07/08/2014 Eyes No eye discharge 07/08/2014 Eyes No eye erythema 07/08/2014 Ears/Nose/Throat/Neck No dizziness 2014 Ears/Nose/Throat/Neck No headache 2014 Respiratory No productive sputum 2014 Genitourinary/Nephrology No dysuria 07/08 Musculoskeletal joint complaint 2014 Dermatologic No rash 07/08/2014 Dermatologic No sores 07/08/2014 Psychiatric anxiety 07/08/2014 Psychiatric depression 07/08/2014 Musculoskeletal stiffness 07/08/2014 Constitutional No recent illness 2014 Constitutional No anorexia 06/13/2014 Constitutional No night sweats 2014 Constitutional No chills 06/13/2014 Constitutional No diaphoresis 06/13/2014 Constitutional fatigue 06/13/2014 Constitutional No fever 06/13/2014 Constitutional No insomnia 06/13/2014 Constitutional No malaise 06/13/2014 Constitutional No weight loss 06/13/2014 Constitutional No weight gain 06/13/2014 Eyes No eye discharge 06/13/2014 Eyes No eye erythema 06/13/2014 Ears/Nose/Throat/Neck No dizziness 2014 Ears/Nose/Throat/Neck No headache 2014 Ears/Nose/Throat/Neck No nasal discharge 06/13/2014 Cardiovascular No chest pain/pressure 04/2015 Cardiovascular No dyspnea 06/13/2014 Respiratory No productive sputum 2014 Respiratory No chest congestion 2014 Respiratory No cough 06/13/2014 Gastrointestinal No abdominal pain 2014 Gastrointestinal No constipation 2014 Gastrointestinal No diarrhea 06/13/2014 Gastrointestinal No nausea 06/13/2014 Gastrointestinal No vomiting 06/13/2014 Genitourinary/Nephrology No dysuria 06/13 Musculoskeletal No joint complaint 2014 Dermatologic No rash 06/13/2014 Dermatologic No sores 06/13/2014 Psychiatric anxiety 06/13/2014 Psychiatric depression 06/13/2014 Constitutional No recent illness 2013 Constitutional No anorexia 03/07/2014 Constitutional No night sweats 2013 Constitutional No chills 03/07/2014 Constitutional No diaphoresis 03/07/2014 Constitutional fatigue 03/07/2014 Constitutional No fever 03/07/2014 Constitutional No insomnia 03/07/2014 Constitutional No malaise 03/07/2014 Constitutional No weight loss 03/07/2014 Constitutional No weight gain 03/07/2014 Eyes No eye discharge 03/07/2014 Eyes No eye erythema 03/07/2014 Ears/Nose/Throat/Neck No dizziness 2013 Ears/Nose/Throat/Neck No headache 2013 Ears/Nose/Throat/Neck No nasal discharge 03/07/2014 Cardiovascular No chest pain/pressure 09/2013 Cardiovascular No dyspnea 03/07/2014 Respiratory No productive sputum 2013 Respiratory No chest congestion 2013 Respiratory No cough 03/07/2014 Gastrointestinal No abdominal pain 2013 Gastrointestinal No constipation 2013 Gastrointestinal No diarrhea 03/07/2014 Gastrointestinal No nausea 03/07/2014 Gastrointestinal No vomiting 03/07/2014 Genitourinary/Nephrology No dysuria 03/07 Musculoskeletal No joint complaint 2013 Dermatologic No rash 03/07/2014 Dermatologic No sores 03/07/2014 Psychiatric anxiety 03/07/2014 Psychiatric depression 03/07/2014 Constitutional No recent illness 2013 Constitutional No anorexia 02/06/2014 Constitutional No night sweats 2013 Constitutional No chills 02/06/2014 Constitutional No diaphoresis 02/06/2014 Constitutional fatigue 02/06/2014 Constitutional No fever 02/06/2014 Constitutional No insomnia 02/06/2014 Constitutional No malaise 02/06/2014 Constitutional No weight loss 02/06/2014 Constitutional No weight gain 02/06/2014 Eyes No eye discharge 02/06/2014 Eyes No eye erythema 02/06/2014 Ears/Nose/Throat/Neck No dizziness 2013 Ears/Nose/Throat/Neck No headache 2013 Ears/Nose/Throat/Neck No nasal discharge 02/06/2014 Cardiovascular No chest pain/pressure 11/2013 Cardiovascular No dyspnea 02/06/2014 Respiratory No productive sputum 2013 Respiratory No chest congestion 2013 Respiratory No cough 02/06/2014 Gastrointestinal No abdominal pain 2013 Gastrointestinal No constipation 2013 Gastrointestinal No diarrhea 02/06/2014 Gastrointestinal No nausea 02/06/2014 Gastrointestinal No vomiting 02/06/2014 Genitourinary/Nephrology No dysuria 02/06 Musculoskeletal No joint complaint 2013 Dermatologic No rash 02/06/2014 Dermatologic No sores 02/06/2014 Psychiatric anxiety 02/06/2014 Psychiatric depression 02/06/2014 Constitutional No recent illness 2013 Constitutional No anorexia 01/03/2014 Constitutional No night sweats 2013 Constitutional No chills 01/03/2014 Constitutional No diaphoresis 01/03/2014 Constitutional fatigue 01/03/2014 Constitutional No fever 01/03/2014 Constitutional No insomnia 01/03/2014 Constitutional No malaise 01/03/2014 Constitutional No weight loss 01/03/2014 Constitutional No weight gain 01/03/2014 Eyes No eye discharge 01/03/2014 Eyes No eye erythema 01/03/2014 Ears/Nose/Throat/Neck No dizziness 2013 Ears/Nose/Throat/Neck No headache 2013 Ears/Nose/Throat/Neck No nasal discharge 01/03/2014 Cardiovascular No chest pain/pressure 07/2013 Cardiovascular No dyspnea 01/03/2014 Respiratory No productive sputum 2013 Respiratory No chest congestion 2013 Respiratory No cough 01/03/2014 Gastrointestinal No abdominal pain 2013 Gastrointestinal No constipation 2013 Gastrointestinal No diarrhea 01/03/2014 Gastrointestinal No nausea 01/03/2014 Gastrointestinal No vomiting 01/03/2014 Genitourinary/Nephrology No dysuria 01/03 Musculoskeletal No joint complaint 2013 Dermatologic No rash 01/03/2014 Dermatologic No sores 01/03/2014 Psychiatric anxiety 01/03/2014 Psychiatric depression 01/03/2014 Constitutional No recent illness 2013 Constitutional No anorexia 11/15/2013 Constitutional No night sweats 2013 Constitutional No chills 11/15/2013 Constitutional No diaphoresis 11/15/2013 Constitutional fatigue 11/15/2013 Constitutional No fever 11/15/2013 Constitutional No insomnia 11/15/2013 Constitutional No malaise 11/15/2013 Constitutional No weight loss 11/15/2013 Constitutional No weight gain 11/15/2013 Eyes No eye discharge 11/15/2013 Eyes No eye erythema 11/15/2013 Ears/Nose/Throat/Neck No dizziness 2013 Ears/Nose/Throat/Neck No headache 2013 Ears/Nose/Throat/Neck No nasal discharge 11/15/2013 Cardiovascular No chest pain/pressure Cardiovascular No dyspnea 11/15/2013 Respiratory No productive sputum 2013 Respiratory No chest congestion 2013 Respiratory No cough 11/15/2013 Gastrointestinal No constipation 2013 Gastrointestinal No diarrhea 11/15/2013 Gastrointestinal No vomiting 11/15/2013 Gastrointestinal No nausea 11/15/2013 Gastrointestinal No abdominal pain 2013 Genitourinary/Nephrology No dysuria 11/15 Musculoskeletal No joint complaint 2013 Dermatologic No rash 11/15/2013 Dermatologic No sores 11/15/2013 Psychiatric anxiety 11/15/2013 Psychiatric depression 11/15/2013 Constitutional No recent illness 2012 Constitutional No anorexia 05/22/2012 Constitutional No night sweats 2012 Constitutional No chills 05/22/2012 Constitutional No diaphoresis 05/22/2012 Constitutional No fatigue 05/22/2012 Constitutional No fever 05/22/2012 Constitutional No insomnia 05/22/2012 Eyes No eye discharge 05/22/2012 Eyes No eye erythema 05/22/2012 Ears/Nose/Throat/Neck No dizziness 2012 Ears/Nose/Throat/Neck No nasal discharge 05/22/2012 Ears/Nose/Throat/Neck No headache 2012 Cardiovascular No chest pain/pressure Cardiovascular No dyspnea 05/22/2012 Cardiovascular No hypertension 2012 Respiratory No productive sputum 2012 Respiratory No chest congestion 2012 Respiratory No cough 05/22/2012 Gastrointestinal No vomiting 05/22/2012 Gastrointestinal No nausea 05/22/2012 Gastrointestinal No constipation 2012 Gastrointestinal No diarrhea 05/22/2012 Gastrointestinal No abdominal pain 2012 Genitourinary/Nephrology No dysuria 05/22 Musculoskeletal No joint complaint 2012 Neurologic No alteration of consciousness 05/22/2012 Physical Exam Exam Name System Name Item Name Status Result Effective Dates Notes Full Exam - General 1994 Constitutional general appearance Overall: well developed 10/07/2016 None Full Exam - General 1994 Constitutional general appearance Overall: in no acute distress 10/07/2016 None Full Exam - General 1994 Constitutional general appearance Overall: well nourished 10/07/2016 None Full Exam - General 1994 Constitutional general appearance Assistive Device: wheelchair 10/07/2016 None Full Exam - General 1994 Eyes conjunctiva /eyelids Overall: conjunctiva clear 10/07/2016 None Full Exam - General 1994 Eyes pupils and irises Overall: pupils equal, round, reactive to light and accomodation 10/07/2016 None Full Exam - General 1994 Ears/Nose/Throat otoscopic exam Overall: external auditory canals clear 10/07/2016 None Full Exam - General 1994 Ears/Nose/Throat otoscopic exam Overall: tympanic membranes clear 10/07/2016 None Full Exam - General 1994 Ears/Nose/Throat oral cavity/pharynx/larynx Overall: oral mucosa clear 10/07/2016 None Full Exam - General 1994 Respiratory auscultation Overall: breath sounds clear bilaterally 10/07/2016 None Full Exam - General 1994 Respiratory respiratory effort/rhythm Overall: no retractions 10/07/2016 None Full Exam - General 1994 Respiratory respiratory effort/rhythm Overall: normal rate 10/07/2016 None Full Exam - General 1994 Cardiovascular auscultation of heart Overall: regular rate 10/07/2016 None Full Exam - General 1994 Cardiovascular auscultation of heart Overall: normal heart sounds 10/07/2016 None Full Exam - General 1994 Abdomen abdominal exam Overall: no tenderness 10/07/2016 None Full Exam - General 1994 Abdomen abdominal exam Overall: normal bowel sounds 10/07/2016 None Full Exam - General 1994 Musculoskeletal head and neck Overall: head atraumatic 10/07/2016 None Full Exam - General 1994 Neurologic mental status Overall: alert 10/07/2016 None Full Exam - General 1994 Neurologic mental status Overall: oriented 10/07/2016 None Full Exam - General 1994 Neurologic cranial nerves Overall: crainial nerves 2 - 12 grossly intact 10/07/2016 None Full Exam - General 1994 Psychiatric orientation/consciousness Overall: oriented to person, place and time 10/07/2016 None Full Exam - General 1994 Psychiatric mood and affect Overall: normal mood and affect 10/07/2016 None Full Exam - General 1994 Psychiatric mood and affect Affect: mood congruent 10/07/2016 None Full Exam - General 1994 Psychiatric mood and affect Appropriateness: appropriate emotional responses 10/07/2016 None Full Exam - General 1994 Ears/Nose/Throat lips/teeth/gingiva Overall: benign lips 10/07/2016 None Full Exam - General 1994 Constitutional general appearance Overall: well developed 02/24/2016 None Full Exam - General 1994 Constitutional general appearance Overall: in no acute distress 02/24/2016 None Full Exam - General 1994 Constitutional general appearance Overall: well nourished 02/24/2016 None Full Exam - General 1994 Eyes conjunctiva /eyelids Overall: conjunctiva clear 02/24/2016 None Full Exam - General 1994 Eyes pupils and irises Overall: pupils equal, round, reactive to light and accomodation 02/24/2016 None Full Exam - General 1994 Ears/Nose/Throat otoscopic exam Overall: external auditory canals clear 02/24/2016 None Full Exam - General 1994 Ears/Nose/Throat otoscopic exam Overall: tympanic membranes clear 02/24/2016 None Full Exam - General 1994 Ears/Nose/Throat oral cavity/pharynx/larynx Overall: oral mucosa clear 02/24/2016 None Full Exam - General 1994 Respiratory auscultation Overall: breath sounds clear bilaterally 02/24/2016 None Full Exam - General 1994 Respiratory respiratory effort/rhythm Overall: no retractions 02/24/2016 None Full Exam - General 1994 Respiratory respiratory effort/rhythm Overall: normal rate 02/24/2016 None Full Exam - General 1994 Cardiovascular auscultation of heart Overall: regular rate 02/24/2016 None Full Exam - General 1994 Cardiovascular auscultation of heart Overall: normal heart sounds 02/24/2016 None Full Exam - General 1994 Abdomen abdominal exam Overall: no tenderness 02/24/2016 None Full Exam - General 1994 Abdomen abdominal exam Overall: normal bowel sounds 02/24/2016 None Full Exam - General 1994 Musculoskeletal gait and station Overall: normal gait 02/24/2016 None Full Exam - General 1994 Musculoskeletal gait and station Overall: normal station 02/24/2016 None Full Exam - General 1994 Musculoskeletal gait and station Gait: unable to turn quickly 02/24/2016 None Full Exam - General 1994 Musculoskeletal head and neck Overall: head atraumatic 02/24/2016 None Full Exam - General 1994 Neurologic deep tendon reflexes Overall: deep tendon reflexes intact 02/24/2016 None Full Exam - General 1994 Neurologic mental status Overall: alert 02/24/2016 None Full Exam - General 1994 Neurologic mental status Overall: oriented 02/24/2016 None Full Exam - General 1994 Neurologic cranial nerves Overall: crainial nerves 2 - 12 grossly intact 02/24/2016 None Full Exam - General 1994 Psychiatric orientation/consciousness Overall: oriented to person, place and time 02/24/2016 None Full Exam - General 1994 Psychiatric mood and affect Overall: normal mood and affect 02/24/2016 None Full Exam - General 1994 Psychiatric mood and affect Affect: mood congruent 02/24/2016 None Full Exam - General 1994 Psychiatric mood and affect Appropriateness: appropriate emotional responses 02/24/2016 None Full Exam - General 1994 Constitutional general appearance Assistive Device: wheelchair 02/24/2016 None Full Exam - General 1994 Constitutional general appearance Overall: well developed 11/20/2015 None Full Exam - General 1994 Constitutional general appearance Overall: in no acute distress 11/20/2015 None Full Exam - General 1994 Constitutional general appearance Overall: well nourished 11/20/2015 None Full Exam - General 1994 Eyes conjunctiva /eyelids Overall: conjunctiva clear 11/20/2015 None Full Exam - General 1994 Eyes pupils and irises Overall: pupils equal, round, reactive to light and accomodation 11/20/2015 None Full Exam - General 1994 Ears/Nose/Throat otoscopic exam Overall: external auditory canals clear 11/20/2015 None Full Exam - General 1994 Ears/Nose/Throat otoscopic exam Overall: tympanic membranes clear 11/20/2015 None Full Exam - General 1994 Ears/Nose/Throat oral cavity/pharynx/larynx Overall: oral mucosa clear 11/20/2015 None Full Exam - General 1994 Respiratory auscultation Overall: breath sounds clear bilaterally 11/20/2015 None Full Exam - General 1994 Respiratory respiratory effort/rhythm Overall: no retractions 11/20/2015 None Full Exam - General 1994 Respiratory respiratory effort/rhythm Overall: normal rate 11/20/2015 None Full Exam - General 1994 Cardiovascular auscultation of heart Overall: regular rate 11/20/2015 None Full Exam - General 1994 Cardiovascular auscultation of heart Overall: normal heart sounds 11/20/2015 None Full Exam - General 1994 Abdomen abdominal exam Overall: no tenderness 11/20/2015 None Full Exam - General 1994 Abdomen abdominal exam Overall: normal bowel sounds 11/20/2015 None Full Exam - General 1994 Musculoskeletal gait and station Overall: normal gait 11/20/2015 None Full Exam - General 1994 Musculoskeletal gait and station Overall: normal station 11/20/2015 None Full Exam - General 1994 Musculoskeletal gait and station Gait: unable to turn quickly 11/20/2015 None Full Exam - General 1994 Musculoskeletal head and neck Overall: head atraumatic 11/20/2015 None Full Exam - General 1994 Neurologic deep tendon reflexes Overall: deep tendon reflexes intact 11/20/2015 None Full Exam - General 1994 Neurologic mental status Overall: alert 11/20/2015 None Full Exam - General 1994 Neurologic mental status Overall: oriented 11/20/2015 None Full Exam - General 1994 Neurologic cranial nerves Overall: crainial nerves 2 - 12 grossly intact 11/20/2015 None Full Exam - General 1994 Psychiatric orientation/consciousness Overall: oriented to person, place and time 11/20/2015 None Full Exam - General 1994 Psychiatric mood and affect Overall: normal mood and affect 11/20/2015 None Full Exam - General 1994 Psychiatric mood and affect Affect: mood congruent 11/20/2015 None Full Exam - General 1994 Psychiatric mood and affect Appropriateness: appropriate emotional responses 11/20/2015 None Full Exam - General 1994 Constitutional general appearance Overall: well developed 08/21/2015 None Full Exam - General 1994 Constitutional general appearance Overall: in no acute distress 08/21/2015 None Full Exam - General 1994 Constitutional general appearance Overall: well nourished 08/21/2015 None Full Exam - General 1994 Eyes conjunctiva /eyelids Overall: conjunctiva clear 08/21/2015 None Full Exam - General 1994 Eyes pupils and irises Overall: pupils equal, round, reactive to light and accomodation 08/21/2015 None Full Exam - General 1994 Ears/Nose/Throat otoscopic exam Overall: external auditory canals clear 08/21/2015 None Full Exam - General 1994 Ears/Nose/Throat otoscopic exam Overall: tympanic membranes clear 08/21/2015 None Full Exam - General 1994 Ears/Nose/Throat oral cavity/pharynx/larynx Overall: oral mucosa clear 08/21/2015 None Full Exam - General 1994 Respiratory auscultation Overall: breath sounds clear bilaterally 08/21/2015 None Full Exam - General 1994 Respiratory respiratory effort/rhythm Overall: no retractions 08/21/2015 None Full Exam - General 1994 Respiratory respiratory effort/rhythm Overall: normal rate 08/21/2015 None Full Exam - General 1994 Cardiovascular auscultation of heart Overall: regular rate 08/21/2015 None Full Exam - General 1994 Cardiovascular auscultation of heart Overall: normal heart sounds 08/21/2015 None Full Exam - General 1994 Abdomen abdominal exam Overall: no tenderness 08/21/2015 None Full Exam - General 1994 Abdomen abdominal exam Overall: normal bowel sounds 08/21/2015 None Full Exam - General 1994 Musculoskeletal gait and station Overall: normal gait 08/21/2015 None Full Exam - General 1994 Musculoskeletal gait and station Overall: normal station 08/21/2015 None Full Exam - General 1994 Musculoskeletal gait and station Gait: unable to turn quickly 08/21/2015 None Full Exam - General 1994 Musculoskeletal head and neck Overall: head atraumatic 08/21/2015 None Full Exam - General 1994 Neurologic deep tendon reflexes Overall: deep tendon reflexes intact 08/21/2015 None Full Exam - General 1994 Neurologic mental status Overall: alert 08/21/2015 None Full Exam - General 1994 Neurologic mental status Overall: oriented 08/21/2015 None Full Exam - General 1994 Neurologic cranial nerves Overall: crainial nerves 2 - 12 grossly intact 08/21/2015 None Full Exam - General 1994 Psychiatric orientation/consciousness Overall: oriented to person, place and time 08/21/2015 None Full Exam - General 1994 Psychiatric mood and affect Appropriateness: appropriate emotional responses 08/21/2015 - pt tearful when discussing the frustrations from her - Full Exam - General 1994 Psychiatric mood and affect Affect: mood congruent 08/21/2015 None Full Exam - General 1994 Psychiatric mood and affect Overall: normal mood and affect 08/21/2015 None Full Exam - General 1994 Constitutional general appearance Overall: well developed 05/30/2015 None Full Exam - General 1994 Constitutional general appearance Overall: in no acute distress 05/30/2015 None Full Exam - General 1994 Constitutional general appearance Overall: well nourished 05/30/2015 None Full Exam - General 1994 Eyes conjunctiva /eyelids Overall: conjunctiva clear 05/30/2015 None Full Exam - General 1994 Eyes pupils and irises Overall: pupils equal, round, reactive to light and accomodation 05/30/2015 None Full Exam - General 1994 Ears/Nose/Throat otoscopic exam Overall: external auditory canals clear 05/30/2015 None Full Exam - General 1994 Ears/Nose/Throat otoscopic exam Overall: tympanic membranes clear 05/30/2015 None Full Exam - General 1994 Ears/Nose/Throat oral cavity/pharynx/larynx Overall: oral mucosa clear 05/30/2015 None Full Exam - General 1994 Respiratory auscultation Overall: breath sounds clear bilaterally 05/30/2015 None Full Exam - General 1994 Respiratory respiratory effort/rhythm Overall: no retractions 05/30/2015 None Full Exam - General 1994 Respiratory respiratory effort/rhythm Overall: normal rate 05/30/2015 None Full Exam - General 1994 Cardiovascular auscultation of heart Overall: regular rate 05/30/2015 None Full Exam - General 1994 Cardiovascular auscultation of heart Overall: normal heart sounds 05/30/2015 None Full Exam - General 1994 Abdomen abdominal exam Overall: no tenderness 05/30/2015 None Full Exam - General 1994 Abdomen abdominal exam Overall: normal bowel sounds 05/30/2015 None Full Exam - General 1994 Musculoskeletal gait and station Overall: normal gait 05/30/2015 None Full Exam - General 1994 Musculoskeletal gait and station Overall: normal station 05/30/2015 None Full Exam - General 1994 Musculoskeletal gait and station Gait: unable to turn quickly 05/30/2015 None Full Exam - General 1994 Musculoskeletal head and neck Overall: head atraumatic 05/30/2015 None Full Exam - General 1994 Neurologic mental status Overall: alert 05/30/2015 None Full Exam - General 1994 Neurologic mental status Overall: oriented 05/30/2015 None Full Exam - General 1994 Neurologic cranial nerves Overall: crainial nerves 2 - 12 grossly intact 05/30/2015 None Full Exam - General 1994 Psychiatric orientation/consciousness Overall: oriented to person, place and time 05/30/2015 None Full Exam - General 1994 Psychiatric mood and affect Affect: mood congruent 05/30/2015 None Full Exam - General 1994 Constitutional general appearance Nourishment: obese 05/30/2015 None Full Exam - General 1994 Psychiatric mood and affect Mood: flat 05/30/2015 None Full Exam - General 1994 Constitutional general appearance Overall: well developed 12/19/2014 None Full Exam - General 1994 Constitutional general appearance Overall: in no acute distress 12/19/2014 None Full Exam - General 1994 Constitutional general appearance Overall: well nourished 12/19/2014 None Full Exam - General 1994 Eyes conjunctiva /eyelids Overall: conjunctiva clear 12/19/2014 None Full Exam - General 1994 Eyes pupils and irises Overall: pupils equal, round, reactive to light and accomodation 12/19/2014 None Full Exam - General 1994 Ears/Nose/Throat otoscopic exam Overall: external auditory canals clear 12/19/2014 None Full Exam - General 1994 Ears/Nose/Throat otoscopic exam Overall: tympanic membranes clear 12/19/2014 None Full Exam - General 1994 Ears/Nose/Throat oral cavity/pharynx/larynx Overall: oral mucosa clear 12/19/2014 None Full Exam - General 1994 Respiratory auscultation Overall: breath sounds clear bilaterally 12/19/2014 None Full Exam - General 1994 Respiratory respiratory effort/rhythm Overall: no retractions 12/19/2014 None Full Exam - General 1994 Respiratory respiratory effort/rhythm Overall: normal rate 12/19/2014 None Full Exam - General 1994 Cardiovascular auscultation of heart Overall: regular rate 12/19/2014 None Full Exam - General 1994 Cardiovascular auscultation of heart Overall: normal heart sounds 12/19/2014 None Full Exam - General 1994 Abdomen abdominal exam Overall: no tenderness 12/19/2014 None Full Exam - General 1994 Abdomen abdominal exam Overall: normal bowel sounds 12/19/2014 None Full Exam - General 1994 Musculoskeletal gait and station Overall: normal gait 12/19/2014 None Full Exam - General 1994 Musculoskeletal gait and station Overall: normal station 12/19/2014 None Full Exam - General 1994 Musculoskeletal gait and station Gait: unable to turn quickly 12/19/2014 None Full Exam - General 1994 Musculoskeletal head and neck Overall: head atraumatic 12/19/2014 None Full Exam - General 1994 Neurologic deep tendon reflexes Overall: deep tendon reflexes intact 12/19/2014 None Full Exam - General 1994 Neurologic mental status Overall: alert 12/19/2014 None Full Exam - General 1994 Neurologic mental status Overall: oriented 12/19/2014 None Full Exam - General 1994 Neurologic cranial nerves Overall: crainial nerves 2 - 12 grossly intact 12/19/2014 None Full Exam - General 1994 Psychiatric orientation/consciousness Overall: oriented to person, place and time 12/19/2014 None Full Exam - General 1994 Psychiatric mood and affect Mood: depressed 12/19/2014 None Full Exam - General 1994 Psychiatric mood and affect Affect: mood congruent 12/19/2014 None Full Exam - General 1994 Psychiatric mood and affect Appropriateness: appropriate emotional responses 12/19/2014 - pt tearful when discussing the frustrations from her - Full Exam - General 1994 Constitutional general appearance Overall: well developed 09/19/2014 None Full Exam - General 1994 Constitutional general appearance Overall: in no acute distress 09/19/2014 None Full Exam - General 1994 Constitutional general appearance Overall: well nourished 09/19/2014 None Full Exam - General 1994 Eyes conjunctiva /eyelids Overall: conjunctiva clear 09/19/2014 None Full Exam - General 1994 Eyes pupils and irises Overall: pupils equal, round, reactive to light and accomodation 09/19/2014 None Full Exam - General 1994 Ears/Nose/Throat otoscopic exam Overall: external auditory canals clear 09/19/2014 None Full Exam - General 1994 Ears/Nose/Throat otoscopic exam Overall: tympanic membranes clear 09/19/2014 None Full Exam - General 1994 Ears/Nose/Throat oral cavity/pharynx/larynx Overall: oral mucosa clear 09/19/2014 None Full Exam - General 1994 Respiratory auscultation Overall: breath sounds clear bilaterally 09/19/2014 None Full Exam - General 1994 Respiratory respiratory effort/rhythm Overall: no retractions 09/19/2014 None Full Exam - General 1994 Respiratory respiratory effort/rhythm Overall: normal rate 09/19/2014 None Full Exam - General 1994 Cardiovascular auscultation of heart Overall: regular rate 09/19/2014 None Full Exam - General 1994 Cardiovascular auscultation of heart Overall: normal heart sounds 09/19/2014 None Full Exam - General 1994 Abdomen abdominal exam Overall: no tenderness 09/19/2014 None Full Exam - General 1994 Abdomen abdominal exam Overall: normal bowel sounds 09/19/2014 None Full Exam - General 1994 Musculoskeletal gait and station Gait: unable to turn quickly 09/19/2014 None Full Exam - General 1994 Musculoskeletal head and neck Overall: head atraumatic 09/19/2014 None Full Exam - General 1994 Neurologic deep tendon reflexes Overall: deep tendon reflexes intact 09/19/2014 None Full Exam - General 1994 Neurologic mental status Overall: alert 09/19/2014 None Full Exam - General 1994 Neurologic mental status Overall: oriented 09/19/2014 None Full Exam - General 1994 Neurologic cranial nerves Overall: crainial nerves 2 - 12 grossly intact 09/19/2014 None Full Exam - General 1994 Psychiatric orientation/consciousness Overall: oriented to person, place and time 09/19/2014 None Full Exam - General 1994 Psychiatric mood and affect Mood: depressed 09/19/2014 None Full Exam - General 1994 Psychiatric mood and affect Affect: mood congruent 09/19/2014 None Full Exam - General 1994 Psychiatric mood and affect Appropriateness: appropriate emotional responses 09/19/2014 - pt tearful when discussing the frustrations from her - Full Exam - General 1994 Musculoskeletal gait and station Overall: normal gait 09/19/2014 None Full Exam - General 1994 Musculoskeletal gait and station Overall: normal station 09/19/2014 None Full Exam - General 1994 Constitutional general appearance Overall: well developed 07/08/2014 None Full Exam - General 1994 Constitutional general appearance Overall: in no acute distress 07/08/2014 None Full Exam - General 1994 Constitutional general appearance Overall: well nourished 07/08/2014 None Full Exam - General 1994 Eyes conjunctiva /eyelids Overall: conjunctiva clear 07/08/2014 None Full Exam - General 1994 Eyes pupils and irises Overall: pupils equal, round, reactive to light and accomodation 07/08/2014 None Full Exam - General 1994 Ears/Nose/Throat otoscopic exam Overall: external auditory canals clear 07/08/2014 None Full Exam - General 1994 Ears/Nose/Throat otoscopic exam Overall: tympanic membranes clear 07/08/2014 None Full Exam - General 1994 Ears/Nose/Throat oral cavity/pharynx/larynx Overall: oral mucosa clear 07/08/2014 None Full Exam - General 1994 Respiratory auscultation Overall: breath sounds clear bilaterally 07/08/2014 None Full Exam - General 1994 Respiratory respiratory effort/rhythm Overall: no retractions 07/08/2014 None Full Exam - General 1994 Respiratory respiratory effort/rhythm Overall: normal rate 07/08/2014 None Full Exam - General 1994 Cardiovascular auscultation of heart Overall: regular rate 07/08/2014 None Full Exam - General 1994 Cardiovascular auscultation of heart Overall: normal heart sounds 07/08/2014 None Full Exam - General 1994 Abdomen abdominal exam Overall: no tenderness 07/08/2014 None Full Exam - General 1994 Abdomen abdominal exam Overall: normal bowel sounds 07/08/2014 None Full Exam - General 1994 Musculoskeletal head and neck Overall: head atraumatic 07/08/2014 None Full Exam - General 1994 Neurologic deep tendon reflexes Overall: deep tendon reflexes intact 07/08/2014 None Full Exam - General 1994 Neurologic mental status Overall: alert 07/08/2014 None Full Exam - General 1994 Neurologic mental status Overall: oriented 07/08/2014 None Full Exam - General 1994 Neurologic cranial nerves Overall: crainial nerves 2 - 12 grossly intact 07/08/2014 None Full Exam - General 1994 Psychiatric orientation/consciousness Overall: oriented to person, place and time 07/08/2014 None Full Exam - General 1994 Psychiatric mood and affect Mood: depressed 07/08/2014 None Full Exam - General 1994 Psychiatric mood and affect Affect: mood congruent 07/08/2014 None Full Exam - General 1994 Psychiatric mood and affect Appropriateness: appropriate emotional responses 07/08/2014 - pt tearful when discussing the frustrations from her - Full Exam - General 1994 Musculoskeletal gait and station Gait: unable to turn quickly 07/08/2014 None Full Exam - General 1994 Constitutional general appearance Overall: well developed 06/13/2014 None Full Exam - General 1994 Constitutional general appearance Overall: in no acute distress 06/13/2014 None Full Exam - General 1994 Constitutional general appearance Overall: well nourished 06/13/2014 None Full Exam - General 1994 Eyes conjunctiva /eyelids Overall: conjunctiva clear 06/13/2014 None Full Exam - General 1994 Eyes pupils and irises Overall: pupils equal, round, reactive to light and accomodation 06/13/2014 None Full Exam - General 1994 Ears/Nose/Throat otoscopic exam Overall: external auditory canals clear 06/13/2014 None Full Exam - General 1994 Ears/Nose/Throat otoscopic exam Overall: tympanic membranes clear 06/13/2014 None Full Exam - General 1994 Ears/Nose/Throat oral cavity/pharynx/larynx Overall: oral mucosa clear 06/13/2014 None Full Exam - General 1994 Respiratory auscultation Overall: breath sounds clear bilaterally 06/13/2014 None Full Exam - General 1994 Respiratory respiratory effort/rhythm Overall: no retractions 06/13/2014 None Full Exam - General 1994 Respiratory respiratory effort/rhythm Overall: normal rate 06/13/2014 None Full Exam - General 1994 Cardiovascular auscultation of heart Overall: regular rate 06/13/2014 None Full Exam - General 1994 Cardiovascular auscultation of heart Overall: normal heart sounds 06/13/2014 None Full Exam - General 1994 Abdomen abdominal exam Overall: no tenderness 06/13/2014 None Full Exam - General 1994 Abdomen abdominal exam Overall: normal bowel sounds 06/13/2014 None Full Exam - General 1994 Musculoskeletal gait and station Overall: normal gait 06/13/2014 None Full Exam - General 1994 Musculoskeletal gait and station Overall: normal station 06/13/2014 None Full Exam - General 1994 Musculoskeletal head and neck Overall: head atraumatic 06/13/2014 None Full Exam - General 1994 Neurologic deep tendon reflexes Overall: deep tendon reflexes intact 06/13/2014 None Full Exam - General 1994 Neurologic mental status Overall: alert 06/13/2014 None Full Exam - General 1994 Neurologic mental status Overall: oriented 06/13/2014 None Full Exam - General 1994 Neurologic cranial nerves Overall: crainial nerves 2 - 12 grossly intact 06/13/2014 None Full Exam - General 1994 Psychiatric orientation/consciousness Overall: oriented to person, place and time 06/13/2014 None Full Exam - General 1994 Psychiatric mood and affect Mood: depressed 06/13/2014 None Full Exam - General 1994 Psychiatric mood and affect Affect: mood congruent 06/13/2014 None Full Exam - General 1994 Psychiatric mood and affect Appropriateness: appropriate emotional responses 06/13/2014 - pt tearful when discussing the frustrations from her - Full Exam - General 1994 Constitutional general appearance Overall: well developed 03/07/2014 None Full Exam - General 1994 Constitutional general appearance Overall: in no acute distress 03/07/2014 None Full Exam - General 1994 Constitutional general appearance Overall: well nourished 03/07/2014 None Full Exam - General 1994 Eyes conjunctiva /eyelids Overall: conjunctiva clear 03/07/2014 None Full Exam - General 1994 Eyes pupils and irises Overall: pupils equal, round, reactive to light and accomodation 03/07/2014 None Full Exam - General 1994 Ears/Nose/Throat otoscopic exam Overall: external auditory canals clear 03/07/2014 None Full Exam - General 1994 Ears/Nose/Throat otoscopic exam Overall: tympanic membranes clear 03/07/2014 None Full Exam - General 1994 Ears/Nose/Throat oral cavity/pharynx/larynx Overall: oral mucosa clear 03/07/2014 None Full Exam - General 1994 Respiratory auscultation Overall: breath sounds clear bilaterally 03/07/2014 None Full Exam - General 1994 Respiratory respiratory effort/rhythm Overall: no retractions 03/07/2014 None Full Exam - General 1994 Respiratory respiratory effort/rhythm Overall: normal rate 03/07/2014 None Full Exam - General 1994 Cardiovascular auscultation of heart Overall: regular rate 03/07/2014 None Full Exam - General 1994 Cardiovascular auscultation of heart Overall: normal heart sounds 03/07/2014 None Full Exam - General 1994 Abdomen abdominal exam Overall: no tenderness 03/07/2014 None Full Exam - General 1994 Abdomen abdominal exam Overall: normal bowel sounds 03/07/2014 None Full Exam - General 1995 Musculoskeletal gait and station Overall: normal gait 03/07/2014 None Full Exam - General 1994 Musculoskeletal gait and station Overall: normal station 03/07/2014 None Full Exam - General 1994 Musculoskeletal head and neck Overall: head atraumatic 03/07/2014 None Full Exam - General 1994 Neurologic deep tendon reflexes Overall: deep tendon reflexes intact 03/07/2014 None Full Exam - General 1994 Neurologic mental status Overall: alert 03/07/2014 None Full Exam - General 1994 Neurologic mental status Overall: oriented 03/07/2014 None Full Exam - General 1994 Neurologic cranial nerves Overall: crainial nerves 2 - 12 grossly intact 03/07/2014 None Full Exam - General 1994 Psychiatric orientation/consciousness Overall: oriented to person, place and time 03/07/2014 None Full Exam - General 1994 Psychiatric mood and affect Mood: depressed 03/07/2014 None Full Exam - General 1994 Psychiatric mood and affect Affect: mood congruent 03/07/2014 None Full Exam - General 1994 Psychiatric mood and affect Appropriateness: appropriate emotional responses 03/07/2014 - pt tearful when discussing the frustrations from her - Full Exam - General 1994 Constitutional general appearance Overall: well developed 02/06/2014 None Full Exam - General 1994 Constitutional general appearance Overall: in no acute distress 02/06/2014 None Full Exam - General 1994 Constitutional general appearance Overall: well nourished 02/06/2014 None Full Exam - General 1994 Eyes conjunctiva /eyelids Overall: conjunctiva clear 02/06/2014 None Full Exam - General 1994 Eyes pupils and irises Overall: pupils equal, round, reactive to light and accomodation 02/06/2014 None Full Exam - General 1994 Ears/Nose/Throat otoscopic exam Overall: external auditory canals clear 02/06/2014 None Full Exam - General 1994 Ears/Nose/Throat otoscopic exam Overall: tympanic membranes clear 02/06/2014 None Full Exam - General 1994 Ears/Nose/Throat oral cavity/pharynx/larynx Overall: oral mucosa clear 02/06/2014 None Full Exam - General 1994 Respiratory auscultation Overall: breath sounds clear bilaterally 02/06/2014 None Full Exam - General 1994 Respiratory respiratory effort/rhythm Overall: no retractions 02/06/2014 None Full Exam - General 1994 Respiratory respiratory effort/rhythm Overall: normal rate 02/06/2014 None Full Exam - General 1994 Cardiovascular auscultation of heart Overall: regular rate 02/06/2014 None Full Exam - General 1994 Cardiovascular auscultation of heart Overall: normal heart sounds 02/06/2014 None Full Exam - General 1994 Abdomen abdominal exam Overall: no tenderness 02/06/2014 None Full Exam - General 1994 Abdomen abdominal exam Overall: normal bowel sounds 02/06/2014 None Full Exam - General 1995 Musculoskeletal gait and station Overall: normal gait 02/06/2014 None Full Exam - General 1994 Musculoskeletal gait and station Overall: normal station 02/06/2014 None Full Exam - General 1994 Musculoskeletal head and neck Overall: head atraumatic 02/06/2014 None Full Exam - General 1994 Neurologic deep tendon reflexes Overall: deep tendon reflexes intact 02/06/2014 None Full Exam - General 1994 Neurologic mental status Overall: alert 02/06/2014 None Full Exam - General 1994 Neurologic mental status Overall: oriented 02/06/2014 None Full Exam - General 1994 Neurologic cranial nerves Overall: crainial nerves 2 - 12 grossly intact 02/06/2014 None Full Exam - General 1994 Psychiatric orientation/consciousness Overall: oriented to person, place and time 02/06/2014 None Full Exam - General 1994 Psychiatric mood and affect Mood: depressed 02/06/2014 None Full Exam - General 1994 Psychiatric mood and affect Affect: mood congruent 02/06/2014 None Full Exam - General 1994 Psychiatric mood and affect Appropriateness: appropriate emotional responses 02/06/2014 - pt tearful when discussing the frustrations from her - Full Exam - General 1994 Constitutional general appearance Overall: well developed 01/03/2014 None Full Exam - General 1994 Constitutional general appearance Overall: in no acute distress 01/03/2014 None Full Exam - General 1994 Constitutional general appearance Overall: well nourished 01/03/2014 None Full Exam - General 1994 Eyes conjunctiva /eyelids Overall: conjunctiva clear 01/03/2014 None Full Exam - General 1994 Eyes pupils and irises Overall: pupils equal, round, reactive to light and accomodation 01/03/2014 None Full Exam - General 1994 Ears/Nose/Throat otoscopic exam Overall: external auditory canals clear 01/03/2014 None Full Exam - General 1994 Ears/Nose/Throat otoscopic exam Overall: tympanic membranes clear 01/03/2014 None Full Exam - General 1994 Ears/Nose/Throat oral cavity/pharynx/larynx Overall: oral mucosa clear 01/03/2014 None Full Exam - General 1994 Respiratory auscultation Overall: breath sounds clear bilaterally 01/03/2014 None Full Exam - General 1994 Respiratory respiratory effort/rhythm Overall: no retractions 01/03/2014 None Full Exam - General 1994 Respiratory respiratory effort/rhythm Overall: normal rate 01/03/2014 None Full Exam - General 1994 Cardiovascular auscultation of heart Overall: regular rate 01/03/2014 None Full Exam - General 1994 Cardiovascular auscultation of heart Overall: normal heart sounds 01/03/2014 None Full Exam - General 1994 Abdomen abdominal exam Overall: no tenderness 01/03/2014 None Full Exam - General 1994 Abdomen abdominal exam Overall: normal bowel sounds 01/03/2014 None Full Exam - General 1994 Musculoskeletal gait and station Overall: normal gait 01/03/2014 None Full Exam - General 1994 Musculoskeletal gait and station Overall: normal station 01/03/2014 None Full Exam - General 1994 Musculoskeletal head and neck Overall: head atraumatic 01/03/2014 None Full Exam - General 1994 Neurologic deep tendon reflexes Overall: deep tendon reflexes intact 01/03/2014 None Full Exam - General 1994 Neurologic mental status Overall: alert 01/03/2014 None Full Exam - General 1994 Neurologic mental status Overall: oriented 01/03/2014 None Full Exam - General 1994 Neurologic cranial nerves Overall: crainial nerves 2 - 12 grossly intact 01/03/2014 None Full Exam - General 1994 Psychiatric orientation/consciousness Overall: oriented to person, place and time 01/03/2014 None Full Exam - General 1994 Constitutional general appearance Overall: well developed 11/15/2013 None Full Exam - General 1994 Constitutional general appearance Overall: in no acute distress 11/15/2013 None Full Exam - General 1994 Constitutional general appearance Overall: well nourished 11/15/2013 None Full Exam - General 1994 Eyes conjunctiva /eyelids Overall: conjunctiva clear 11/15/2013 None Full Exam - General 1994 Eyes pupils and irises Overall: pupils equal, round, reactive to light and accomodation 11/15/2013 None Full Exam - General 1994 Ears/Nose/Throat otoscopic exam Overall: external auditory canals clear 11/15/2013 None Full Exam - General 1994 Ears/Nose/Throat otoscopic exam Overall: tympanic membranes clear 11/15/2013 None Full Exam - General 1994 Ears/Nose/Throat oral cavity/pharynx/larynx Overall: oral mucosa clear 11/15/2013 None Full Exam - General 1994 Respiratory auscultation Overall: breath sounds clear bilaterally 11/15/2013 None Full Exam - General 1994 Respiratory respiratory effort/rhythm Overall: no retractions 11/15/2013 None Full Exam - General 1994 Respiratory respiratory effort/rhythm Overall: normal rate 11/15/2013 None Full Exam - General 1994 Cardiovascular auscultation of heart Overall: regular rate 11/15/2013 None Full Exam - General 1994 Cardiovascular auscultation of heart Overall: normal heart sounds 11/15/2013 None Full Exam - General 1994 Abdomen abdominal exam Overall: no tenderness 11/15/2013 None Full Exam - General 1994 Abdomen abdominal exam Overall: normal bowel sounds 11/15/2013 None Full Exam - General 1994 Musculoskeletal gait and station Overall: normal gait 11/15/2013 None Full Exam - General 1994 Musculoskeletal gait and station Overall: normal station 11/15/2013 None Full Exam - General 1994 Musculoskeletal head and neck Overall: head atraumatic 11/15/2013 None Full Exam - General 1994 Neurologic deep tendon reflexes Overall: deep tendon reflexes intact 11/15/2013 None Full Exam - General 1994 Neurologic mental status Overall: alert 11/15/2013 None Full Exam - General 1994 Neurologic mental status Overall: oriented 11/15/2013 None Full Exam - General 1994 Neurologic cranial nerves Overall: crainial nerves 2 - 12 grossly intact 11/15/2013 None Full Exam - General 1994 Psychiatric orientation/consciousness Overall: oriented to person, place and time 11/15/2013 None Full Exam - General 1994 Constitutional general appearance Overall: well developed 05/22/2012 None Full Exam - General 1994 Constitutional general appearance Overall: in no acute distress 05/22/2012 None Full Exam - General 1994 Constitutional general appearance Overall: well nourished 05/22/2012 None Full Exam - General 1994 Psychiatric orientation/consciousness Overall: oriented to person, place and time 05/22/2012 None Full Exam - General 1994 Neurologic mental status Overall: alert 05/22/2012 None Full Exam - General 1994 Neurologic mental status Overall: oriented 05/22/2012 None Full Exam - General 1994 Neurologic cranial nerves Overall: crainial nerves 2 - 12 grossly intact 05/22/2012 None Full Exam - General 1994 Neurologic deep tendon reflexes Overall: deep tendon reflexes intact 05/22/2012 None Full Exam - General 1994 Integument inspection of skin Location: left arm 05/22/2012 None Full Exam - General 1995 Integument inspection of skin Location: right arm 05/22/2012 None Full Exam - General 1995 Integument inspection of skin Location: left leg 05/22/2012 None Full Exam - General 1994 Integument inspection of skin Location: right leg 05/22/2012 None Full Exam - General 1995 Integument inspection of skin Rash/Lesions: macule 05/22/2012 fine macular rash noted to arms and legs-pruritic Full Exam - General 1994 Musculoskeletal head and neck Overall: head atraumatic 05/22/2012 None Full Exam - General 1994 Musculoskeletal gait and station Overall: normal gait 05/22/2012 None Full Exam - General 1994 Musculoskeletal gait and station Overall: normal station 05/22/2012 None Full Exam - General 1994 Abdomen abdominal exam Overall: no tenderness 05/22/2012 None Full Exam - General 1994 Abdomen abdominal exam Overall: normal bowel sounds 05/22/2012 None Full Exam - General 1994 Cardiovascular auscultation of heart Overall: regular rate 05/22/2012 None Full Exam - General 1994 Cardiovascular auscultation of heart Overall: normal heart sounds 05/22/2012 None Full Exam - General 1994 Respiratory auscultation Overall: breath sounds clear bilaterally 05/22/2012 None Full Exam - General 1994 Respiratory respiratory effort/rhythm Overall: no retractions 05/22/2012 None Full Exam - General 1994 Respiratory respiratory effort/rhythm Overall: normal rate 05/22/2012 None Full Exam - General 1994 Ears/Nose/Throat otoscopic exam Overall: external auditory canals clear 05/22/2012 None Full Exam - General 1995 Ears/Nose/Throat otoscopic exam Overall: tympanic membranes clear 05/22/2012 None Full Exam - General 1994 Ears/Nose/Throat oral cavity/pharynx/larynx Overall: oral mucosa clear 05/22/2012 None Full Exam - General 1994 Eyes pupils and irises Overall: pupils equal, round, reactive to light and accomodation 05/22/2012 None Full Exam - General 1994 Eyes conjunctiva /eyelids Overall: conjunctiva clear 05/22/2012 None Procedures Procedure Codes Date FLU VAC NO PRSV 4 RICH 3 YRS+ CPT-4: 48120 01/03/2014 ADMIN INFLUENZA VIRUS VAC Assigned to/Anne-Marie Oliveira CPT-4: [id number] 01/03/2014 ROUTINE VENIPUNCTURE CPT-4: 73453 11/15/2013 PRESCRIP TRANSMIT VIA ERX SY CPT-4: G8553 05/22/2012 Vital Signs Date Vital 10/07/2016 Blood Pressure 1: 118/88 Code : 8480-6 BMI: 40.4 Code : 11373-1 Heart Rate 1 : 86 bpm Height: 5'1" SpO2: 92% Weight: 214 lbs 02/24/2016 Blood Pressure 1: 128/86 Code : 8480-6 BMI: 39.5 Code : 65330-7 Heart Rate 1 : 68 bpm Height: 5'1" SpO2: 94% Weight: 209 lbs 11/20/2015 Blood Pressure 1: 130/80 Code : 8480-6 BMI: 38.7 Code : 63344-7 Heart Rate 1 : 86 bpm Height: 5'1" SpO2: 91% Weight: 205 lbs 08/21/2015 Blood Pressure 1: 128/82 Code : 8480-6 BMI: 38.0 Code : 83792-7 Heart Rate 1 : 69 bpm Height: 5'1" SpO2: 97% Weight: 201 lbs 05/30/2015 Blood Pressure 1: 138/70 Code : 8480-6 BMI: 37.8 Code : 96192-8 Heart Rate 1 : 71 bpm Height: 5'1" SpO2: 93% Weight: 200 lbs 12/19/2014 Blood Pressure 1: 138/68 Code : 8480-6 BMI: 34.2 Code : 46706-6 Heart Rate 1 : 80 bpm Height: 5'1" SpO2: 96% Weight: 181 lbs 09/19/2014 Blood Pressure 1: 122/72 Code : 8480-6 Heart Rate 1: 77 bpm Height: SpO2: 97% Weight: 07/08/2014 Blood Pressure 1: 136/74 Code : 8480-6 BMI: 33.8 Code : 04402-8 Heart Rate 1 : 80 bpm Height: 5'1" Weight: 179 lbs 06/13/2014 Blood Pressure 1: 138/88 Code : 8480-6 BMI: 34.2 Code : 18636-9 Height: 5'1" Weight: 181 lbs 03/07/2014 Blood Pressure 1: 138/82 Code : 8480-6 BMI: 32.9 Code : 92145-4 Heart Rate 1 : 88 bpm Height: 5'1" Weight: 174 lbs 02/06/2014 Blood Pressure 1: 132/68 Code : 8480-6 BMI: 32.5 Code : 74632-7 Heart Rate 1 : 92 bpm Height: 5'1" SpO2: 98% Weight: 172 lbs 01/03/2014 Blood Pressure 1: 120/74 Code : 8480-6 BMI: 31.9 Code : 50869-6 Heart Rate 1 : 80 bpm Height: 5'1" Weight: 169 lbs 11/15/2013 Blood Pressure 1: 110/60 Code : 8480-6 BMI: 31.0 Code : 39075-7 Heart Rate 1 : 80 bpm Height: 5'1" Weight: 164 lbs 05/22/2012 Blood Pressure 1: 132/82 Code : 8480-6 BMI: 30.6 Code : 25823-3 Heart Rate 1 : 84 bpm Height: 5'1" Weight: 162 lbs Functional Status No Functional Status data History of Present Illness Symptom Name Status Result Effective Date Notes weight gain/obesity Location globally 10/07/2016 None weight gain/obesity Onset and Resolution sudden in onset 10/07/2016 None weight gain/obesity Onset of Symptom 6 months ago 10/07/2016 None weight gain/obesity Weight Status has gained 2 pounds in 06weeks 10/07/2016 None weight gain/obesity Pertinent Findings Denies depressed mood 10/07/2016 None weight gain/obesity Pertinent Findings Denies nausea 10/07/2016 None hypertension Quality chronic 10/07/2016 None hypertension Onset and Resolution ongoing 10/07/2016 None hypertension Onset of Symptom during adulthood 10/07/2016 None hypertension Blood Pressure Values not checking blood pressure at home 10/07/2016 [place] checks bp hypertension Severity mild 10/07/2016 None hypertension Triggers no known associated factors 10/07/2016 None hypertension Pertinent Findings Denies dizziness 10/07/2016 None hypertension Pertinent Findings Denies dyspnea 10/07/2016 None weight gain/obesity Location globally 02/24/2016 None weight gain/obesity Onset and Resolution sudden in onset 02/24/2016 None weight gain/obesity Onset of Symptom 6 months ago 02/24/2016 None weight gain/obesity Weight Status has gained 2 pounds in 06weeks 02/24/2016 None weight gain/obesity Pertinent Findings Denies depressed mood 02/24/2016 None weight gain/obesity Pertinent Findings Denies nausea 02/24/2016 None hypertension Quality chronic 02/24/2016 None hypertension Onset and Resolution ongoing 02/24/2016 None hypertension Onset of Symptom during adulthood 02/24/2016 None hypertension Blood Pressure Values not checking blood pressure at home 02/24/2016 [place] checks bp hypertension Severity mild 02/24/2016 None hypertension Pertinent Findings Denies dizziness 02/24/2016 None hypertension Pertinent Findings Denies dyspnea 02/24/2016 None hypertension Triggers no known associated factors 02/24/2016 None weight gain/obesity Location globally 11/20/2015 None weight gain/obesity Onset and Resolution sudden in onset 11/20/2015 None weight gain/obesity Onset of Symptom 6 months ago 11/20/2015 None weight gain/obesity Weight Status has gained 2 pounds in 06weeks 11/20/2015 None weight gain/obesity Pertinent Findings Denies depressed mood 11/20/2015 None weight gain/obesity Pertinent Findings Denies nausea 11/20/2015 None hypertension Quality chronic 11/20/2015 None hypertension Onset and Resolution ongoing 11/20/2015 None hypertension Onset of Symptom during adulthood 11/20/2015 None hypertension Blood Pressure Values not checking blood pressure at home 11/20/2015 [place] checks bp hypertension Severity mild 11/20/2015 None hypertension Pertinent Findings Denies dizziness 11/20/2015 None hypertension Pertinent Findings Denies dyspnea 11/20/2015 None weight gain/obesity Location globally 08/21/2015 None weight gain/obesity Onset and Resolution sudden in onset 08/21/2015 None weight gain/obesity Onset of Symptom 6 months ago 08/21/2015 None weight gain/obesity Weight Status has gained 2 pounds in 06weeks 08/21/2015 None weight gain/obesity Pertinent Findings Denies depressed mood 08/21/2015 None weight gain/obesity Pertinent Findings Denies nausea 08/21/2015 None hypertension Quality chronic 08/21/2015 None hypertension Onset and Resolution ongoing 08/21/2015 None hypertension Onset of Symptom during adulthood 08/21/2015 None hypertension Severity mild 08/21/2015 None hypertension Pertinent Findings Denies dizziness 08/21/2015 None hypertension Pertinent Findings Denies dyspnea 08/21/2015 None hypertension Blood Pressure Values not checking blood pressure at home 08/21/2015 [place] checks bp weight gain/obesity Location globally 05/30/2015 None weight gain/obesity Onset and Resolution sudden in onset 05/30/2015 None weight gain/obesity Onset of Symptom 6 months ago 05/30/2015 None weight gain/obesity Weight Status has gained 2 pounds in 06weeks 05/30/2015 None hypertension Quality chronic 12/19/2014 None hypertension Onset and Resolution ongoing 12/19/2014 None hypertension Onset of Symptom during adulthood 12/19/2014 None hypertension Severity mild 12/19/2014 None hypertension Pertinent Findings Denies dizziness 12/19/2014 None hypertension Pertinent Findings Denies dyspnea 12/19/2014 None Hospital Follow Up _ Other: _ 09/19/2014 Stayed in the hospital a few days for back surgery. Here for followup. Hospital Follow Up Pertinent Findings Denies pain 09/19/2014 None Hospital Follow Up Quality chronic weakness after surgery but pt feels as if the pain has improved 09/19/2014 None Hospital Follow Up _ musculoskeletal disorder 09/19/2014 None Hospital Follow Up Severity moderate 09/19/2014 None hypertension Pertinent Findings Denies dizziness 09/19/2014 None hypertension Pertinent Findings Denies dyspnea 09/19/2014 None hypertension Quality chronic 09/19/2014 None hypertension Onset and Resolution ongoing 09/19/2014 None hypertension Onset of Symptom during adulthood 09/19/2014 None hypertension Severity mild 09/19/2014 None memory loss Onset of Symptom 4 months ago 07/08/2014 None memory loss Limitation on Activities does not limit activities 07/08/2014 None memory loss Frequency of Episodes increasing 07/08/2014 None memory loss Triggers stress 07/08/2014 very hard of hearing and difficult to communicate with him. She feels as if he is ignoring her on purpose memory loss Pertinent Findings Denies ataxia 07/08/2014 None memory loss Pertinent Findings Denies motor deficits 07/08/2014 None memory loss Pertinent Findings personality changes 07/08/2014 becoming upset with memory loss Quality difficulty remembering names 07/08/2014 None hypertension Blood Pressure Values patient checking blood pressure at home - did not bring in readings 07/08/2014 lives at [facility] hypertension Pertinent Findings Denies dizziness 07/08/2014 None hypertension Pertinent Findings Denies dyspnea 07/08/2014 None hypertension Pertinent Findings Denies edema 07/08/2014 None skin lesion Onset of Symptom _ years ago 07/08/2014 mole under left breast that is itching. Has a crusty place on lower back and has a spot that is itching on right ankle.Using Hydrocortisone on her ankle. Also reports she has a spot under left arm that is itchy. back pain Location lumbar-sacral spine 07/08/2014 None back pain Quality aching 07/08/2014 None back pain Alleviating Factors heat 07/08/2014 None memory loss Onset of Symptom 4 months ago 06/13/2014 None memory loss Limitation on Activities does not limit activities 06/13/2014 None memory loss Frequency of Episodes increasing 06/13/2014 None memory loss Triggers stress 06/13/2014 very hard of hearing and difficult to communicate with him. She feels as if he is ignoring her on purpose memory loss Pertinent Findings Denies ataxia 06/13/2014 None memory loss Pertinent Findings Denies motor deficits 06/13/2014 None memory loss Pertinent Findings personality changes 06/13/2014 becoming upset with memory loss Quality difficulty remembering names 06/13/2014 None hypertension Blood Pressure Values patient checking blood pressure at home - did not bring in readings 06/13/2014 lives at [facility] hypertension Pertinent Findings Denies dizziness 06/13/2014 None hypertension Pertinent Findings Denies dyspnea 06/13/2014 None hypertension Pertinent Findings Denies edema 06/13/2014 None skin lesion Onset of Symptom _ years ago 06/13/2014 mole under left breast that is itching. Has a crusty place on lower back and has a spot that is itching on right ankle.Using Hydrocortisone on her ankle. Also reports she has a spot under left arm that is itchy. memory loss Onset of Symptom 4 months ago 03/07/2014 None memory loss Limitation on Activities does not limit activities 03/07/2014 None memory loss Frequency of Episodes increasing 03/07/2014 None memory loss Triggers stress 03/07/2014 very hard of hearing and difficult to communicate with him. She feels as if he is ignoring her on purpose memory loss Pertinent Findings Denies ataxia 03/07/2014 None memory loss Pertinent Findings Denies motor deficits 03/07/2014 None memory loss Pertinent Findings personality changes 03/07/2014 becoming upset with memory loss Quality difficulty remembering names 03/07/2014 None hypertension Blood Pressure Values patient checking blood pressure at home - did not bring in readings 03/07/2014 lives at [facility] hypertension Pertinent Findings Denies dizziness 03/07/2014 None hypertension Pertinent Findings Denies dyspnea 03/07/2014 None hypertension Pertinent Findings Denies edema 03/07/2014 None cough Location in the throat 03/07/2014 None cough Triggers change of seasons 03/07/2014 None cough Pertinent Findings Denies dyspnea 03/07/2014 None cough Pertinent Findings Denies hoarseness 03/07/2014 None memory loss Limitation on Activities does not limit activities 02/06/2014 None memory loss Onset of Symptom 4 months ago 02/06/2014 None memory loss Frequency of Episodes increasing 02/06/2014 None memory loss Triggers stress 02/06/2014 has alzheimers disease. She is having trouble handling his confusion and his loss of interest in activities. memory loss Pertinent Findings Denies ataxia 02/06/2014 None memory loss Pertinent Findings Denies motor deficits 02/06/2014 None memory loss Pertinent Findings personality changes 02/06/2014 becoming upset with memory loss Quality difficulty remembering names 02/06/2014 None depression Quality stable 02/06/2014 None depression Pertinent Findings depressed mood 02/06/2014 not any worse than it was depression Pertinent Findings Denies anxiety 02/06/2014 None depression Pertinent Findings Denies loss of interest in activities 02/06/2014 doing activities at [employer] depression Pertinent Findings sleep disturbance 02/06/2014 bed at 9pm and awake by 3am gets up for the day at 545 memory loss Limitation on Activities does not limit activities 01/03/2014 None memory loss Onset of Symptom 4 months ago 01/03/2014 None memory loss Frequency of Episodes increasing 01/03/2014 None memory loss Triggers stress 01/03/2014 very hard of hearing and difficult to communicate with him. She feels as if he is ignoring her on purpose memory loss Pertinent Findings Denies ataxia 01/03/2014 None memory loss Pertinent Findings Denies motor deficits 01/03/2014 None memory loss Pertinent Findings personality changes 01/03/2014 becoming upset with memory loss Quality difficulty remembering names 01/03/2014 None memory loss Onset of Symptom 4 months ago 11/15/2013 None memory loss Pertinent Findings personality changes 11/15/2013 becoming upset with memory loss Limitation on Activities does not limit activities 11/15/2013 None memory loss Frequency of Episodes increasing 11/15/2013 None memory loss Triggers stress 11/15/2013 very hard of hearing and difficult to communicate with him. She feels as if he is ignoring her on purpose memory loss Pertinent Findings Denies ataxia 11/15/2013 None memory loss Pertinent Findings Denies motor deficits 11/15/2013 None memory loss Quality difficulty remembering names 11/15/2013 None rash Location-Major on the legs 05/22/2012 None rash Location-Major on the abdomen 05/22/2012 None rash Location-Major on the arms 05/22/2012 None rash Quality acute None rash Onset of Symptom 1 month ago 05/22/2012 None rash Pertinent Findings itching 05/22/2012 None rash Prior Treatments previously untreated 05/22/2012 used hydrocortizone cream without relief. anxiety Quality acute 05/22/2012 None anxiety Onset and Resolution ongoing 05/22/2012 None anxiety Onset of Symptom 6 months ago 05/22/2012 diagnosed with alzheimers about 6 months ago. Thinks they need to go to assisted living but her doesn't think so. anxiety Limitation on Activities does not limit activities 05/22/2012 None anxiety Frequency of Episodes increasing 05/22/2012 None anxiety Significant Family History depression 05/22/2012 None anxiety Pertinent Findings Denies dizziness 05/22/2012 None anxiety Pertinent Findings Denies nausea 05/22/2012 None anxiety Pertinent Findings Denies lightheadedness 05/22/2012 None anxiety Pertinent Findings Denies insomnia 05/22/2012 None anxiety Pertinent Findings Denies tachycardia 05/22/2012 None anxiety Pertinent Findings Denies tachypnea 05/22/2012 None anxiety Pertinent Findings Denies vomiting 05/22/2012 None anxiety Exacerbating Factors activity 05/22/2012 states it is too much for her to take care of a big house. Advance Directives Advance Directives Present Encounters Encounter Performer Location Codes Date EST. PATIENT, LEVEL IV Diagnosis: Essential (primary) hypertension[ICD10: I10] Bee Bernabe MD, [facility] CPT-4: 98323 10/07/2016 [id number]) [id number] EST. PATIENT, LEVEL III Diagnosis: Essential (primary) hypertension[ICD10: I10] Diagnosis: Major depressive disorder, single episode, unspecified[ICD10: F32.9] Alivia Bernabe MD, [facility] CPT-4: 99126 02/24/2016 ([id number]) [id number] EST. PATIENT, LEVEL IV Diagnosis: Hypo-osmolality and hyponatremia[ICD10: E87.1] Diagnosis: Essential (primary) hypertension[ICD10: I10] Diagnosis: Major depressive disorder, single episode, unspecified[ICD10: F32.9] Alivia Bernabe MD, [facility] CPT-4: 12324 11/20/2015 ([id number]) 81830 EST. PATIENT, LEVEL IV Diagnosis: Essential (primary) hypertension[ICD10: I10] Diagnosis: Hypo-osmolality and hyponatremia[ICD10: E87.1] Diagnosis: Major depressive disorder, single episode, unspecified[ICD10: F32.9] Alivia Bernabe MD, [facility] CPT-4: 89191 08/21/2015 16497 EST. PATIENT, LEVEL III Diagnosis: Anemia, unspecified[ICD10: D64.9] Diagnosis: Abnormal weight gain[ICD10: R63.5] Bee Bernabe MD, [facility] CPT-4: 17598 05/30/2015 ([id number]) 75557 EST. PATIENT, LEVEL IV Diagnosis: ESSENTIAL HYPERTENSION[ICD9: 401.9] Diagnosis: DEPRESSIVE DISORDER NEC[ICD9: 311] Diagnosis: Osteoporosis[ICD9: 733.00] Pushpa Bernabe MD, [facility] CPT- 4: 11664 12/19/2014 ([id number]) 09135 EST. PATIENT, LEVEL IV Diagnosis: ESSENTIAL HYPERTENSION[ICD9: 401.9] Diagnosis: DEPRESSIVE DISORDER NEC[ICD9: 311] Pushpa Bernabe MD, [facility] CPT-4: 51340 09/19/2014 ([id number]) 39423 EST. PATIENT, LEVEL IV Diagnosis: Vertebral compression fracture[ICD9: 805.8] Diagnosis: Lumbar pain[ICD9: 724.2] Pushpa Bernabe MD, [facility] CPT-4: 67272 07/08/2014 ([id number]) 50981 EST. PATIENT, LEVEL IV Diagnosis: ESSENTIAL HYPERTENSION[ICD9: 401.9] Diagnosis: Seasonal allergies[ICD9: 477.9] Diagnosis: COUGH[ICD9: 786.2] Pushpa Bernabe MD, [facility] CPT-4: 96421 06/13/2014 ([id number]) 11175 EST. PATIENT, LEVEL IV Diagnosis: ESSENTIAL HYPERTENSION[ICD9: 401.9] Diagnosis: Nasal congestion[ICD9: 478.19] Diagnosis: Seasonal allergies[ICD9: 477.9] Diagnosis: COUGH[ICD9: 786.2] Pushpa Bernabe MD, [facility] CPT-4: 12537 03/07/2014 ([id number]) 40121 EST. PATIENT, LEVEL III Diagnosis: ESSENTIAL HYPERTENSION[ICD9: 401.9] Diagnosis: Depression[ICD9: 311] Pushpa Bernabe MD, [facility] CPT-4: 27593 02/06/2014 ([id number]) 39548 EST. PATIENT, LEVEL IV Diagnosis: ESSENTIAL HYPERTENSION[ICD9: 401.9] Diagnosis: Depression[ICD9: 311] Diagnosis: VACCIN FOR INFLUENZA[ICD10: Z23] Pushpa Bernabe MD, [facility] CPT-4: 42272 01/03/2014 ([id number]) 91321 EST. PATIENT, LEVEL IV Diagnosis: INSOMNIA NOS[ICD9: 780.52] Diagnosis: OSTEOPOROSIS[ICD9: 733.00] Diagnosis: Depression[ICD9: 311] Diagnosis: Memory loss[ICD9: 780.93] Alivia Bernabe MD, [facility] CPT-4: 63060 11/15/2013 OFFICE VISIT, NEW - LEVEL 3 Diagnosis: Rash[ICD9: 782.1] Diagnosis: Depression[ICD9: 311] Diagnosis: ESSENTIAL HYPERTENSION[SNOMED: [id number]] Diagnosis: HYPERLIPIDEMIA[ICD9: 272.4] Alivia Bernabe MD, [facility] CPT-4: 82791 05/22/2012 Plan of Care Planned Activity Notes Codes Status Date Visit Plan: Hypertension - well controlled - continue with current medications, continue with no added salt diet. Pt has been encouraged to exercise daily. The pt has been advised to call the office if there are any acute concerns about change in blood pressure readings at home. 10/07/2016 Visit Plan: Hypertension - well controlled - continue with current medications, continue with no added salt diet. Pt has been encouraged to exercise daily. The pt has been advised to call the office if there are any acute concerns about change in blood pressure readings at home. 10/07/2016 Appointment: [facility]el[facility] ([facility] min[facility] 10/07/2016 Patient Education: Patient Medication Summary Completed 10/07/2016 Patient Education: Obesity Completed 10/07/2016 Patient Education: Hypertension Completed 10/07/2016 Appointment: Alivia Stephenson WPtel: [phone] [place] (30 min) Complex 05/25/2016 Visit Plan: Hypertension - well controlled - continue with current medications, continue with no added salt diet. Pt has been encouraged to exercise daily. The pt has been advised to call the office if there are any acute concerns about change in blood pressure readings at home. Chronic Depression and anxiety - the pt has symptoms of chronic anxiety and depression that have been fairly well controlled since the last office visit. The pt has expected periods of exacerbation with abatement of the symptoms with change in situational exposure. No change in current medications. 02/24/2016 Appointment: Alivia Stephenson WPtel: [phone] (30 min) Complex 02/24/2016 Patient Education: Patient Medication Summary Completed 02/24/2016 Patient Education: Obesity Completed 02/24/2016 Patient Education: Hypertension Completed 02/24/2016 Visit Plan: Hypertension - well controlled - continue with current medications, continue with no added salt diet. Pt has been encouraged to exercise daily. The pt has been advised to call the office if there are any acute concerns about change in blood pressure readings at home. Low sodium- chronic-check sodium level Ycwsdzfexy-zoyvhg-ar changes 11/20/2015 Patient Education: Patient Medication Summary Completed 11/20/2015 Patient Education: Obesity Completed 11/20/2015 Patient Education: Hypertension Completed 11/20/2015 Visit Plan: Hypertension - well controlled - continue with current medications, continue with no added salt diet. Pt has been encouraged to exercise daily. The pt has been advised to call the office if there are any acute concerns about change in blood pressure readings at home. Low sodium- check labs-asking sign language instructor to serve gatorade daily Zwatkqcwtf-pitgezv-cgamnocj stable-no change in medications 08/21/2015 Patient Education: Patient Medication Summary Completed 08/21/2015 Patient Education: Obesity Completed 08/21/2015 Care Plan: BMI Below Normal followup CALC BMI BLW LOW RUBINA F/U SNOMED-CT : [id number] Ordered 07/17/2015 Visit Plan: weight gain - will check labs, monitor hyponatremia, will have pt work with PT to help increase and encourage physical activity. Pt is to be weighed weekly. Obesity - chronic issue with this patient. The pt has been counseled about diet changes, calorie restriction, and need to exercise. 05/30/2015 Appointment: (30 min) Complex 05/30/2015 Patient Education: Patient Medication Summary Completed 05/30/2015 Appointment: Pushpa Bernabe WPtel: [facility] (15 min) Moderate 03/20/2015 Visit Plan: Hypertension - well controlled - continue with current medications, continue with no added salt diet. Pt has been encouraged to exercise daily. The pt has been advised to call the office if there are any acute concerns about change in blood pressure readings at home. Depression - improved with improvement of back pain. Osteoporosis - on calcium, vitamin d. 12/19/2014 Appointment: Pushpa Bernabe WPtel: [facility] Follow up 12/19/2014 Patient Education: Patient Medication Summary Completed 12/19/2014 Visit Plan: Hypertension - well controlled - continue with current medications, continue with no added salt diet. Pt has been encouraged to exercise daily. The pt has been advised to call the office if there are any acute concerns about change in blood pressure readings at home. Chronic Depression and anxiety - the pt has symptoms of chronic anxiety and depression that have been fairly well controlled since the last office visit. The pt has expected periods of exacerbation with abatement of the symptoms with change in situational exposure. No change in current medications. 09/19/2014 Patient Education: Patient Medication Summary Completed 09/19/2014 Patient Education: Hypertension Completed 09/19/2014 Visit Plan: Vertebral compression fracture - recommended pt to have an MRI of the lumbar spine, schedule the hydrocodone and continue with PRN dosing - pt is also to start on calcitonin nasal spray and will have staff start voltaren gel, call if not improving. 07/08/2014 Appointment: Pushpa Bernabe WPtel: [phone] [facility] Follow up 07/08/2014 Patient Education: Patient Medication Summary Completed 07/08/2014 Visit Plan: Hypertension - well controlled - continue with current medications, continue with no added salt diet. Pt has been encouraged to exercise daily. The pt has been advised to call the office if there are any acute concerns about change in blood pressure readings at home. URI - Pt advised to increase fluids, vitamin C. Discussed natural and expected course of this diagnosis and need to alert me if symptoms do not follow expected course, or if any worse. RX sent to patient's pharmacy. 06/13/2014 Appointment: Pushpa Bernabel: [facility] Follow up 06/13/2014 Patient Education: Patient Medication Summary Completed 06/13/2014 Appointment: Pushpa Bernabetel: [address] [place], [place] [id number] Follow up 06/06/2014 Appointment: Pushpa Bernabetel: [address] [place] [address] Follow up 04/04/2014 Visit Plan: Hypertension - well controlled - continue with current medications, continue with no added salt diet. Pt has been encouraged to exercise daily. The pt has been advised to call the office if there are any acute concerns about change in blood pressure readings at home. URI - Pt advised to increase fluids, vitamin C. Discussed natural and expected course of this diagnosis and need to alert me if symptoms do not follow expected course, or if any worse. RX sent to patient's pharmacy. 03/07/2014 Appointment: Pushpa Bernabel: [address] [place], [place] [id number] Follow up 03/07/2014 Patient Education: Patient Medication Summary Completed 03/07/2014 Patient Education: Hypertension Completed 03/07/2014 Visit Plan: Hypertension - well controlled - continue with current medications, continue with no added salt diet. Pt has been encouraged to exercise daily. The pt has been advised to call the office if there are any acute concerns about change in blood pressure readings at home. Depression - uncontrolled - Pt has been counseled about the diagnosis of depression, the potential causes, and risks associated with the diagnosis. The pt denies suicidal ideation, or plans. The patient has been counseled about treatment options, and understands the risks associated with treatment of depression, as well as the risks associated with NOT treating the depression. I believe the pt will benefit from medical intervention and an antidepressant has been appropriately prescribed for this patient. increase celexa to 20mg daily. 02/06/2014 Appointment: [phone] Follow up 02/06/2014 Patient Education: Patient Medication Summary Completed 02/06/2014 Patient Education: Hypertension Completed 02/06/2014 Visit Plan: Hypertension - well controlled - continue with current medications, continue with no added salt diet. Pt has been encouraged to exercise daily. The pt has been advised to call the office if there are any acute concerns about change in blood pressure readings at home. Depression - uncontrolled - Pt has been counseled about the diagnosis of depression, the potential causes, and risks associated with the diagnosis. The pt denies suicidal ideation, or plans. The patient has been counseled about treatment options, and understands the risks associated with treatment of depression, as well as the risks associated with NOT treating the depression. I believe the pt will benefit from medical intervention and an antidepressant has been appropriately prescribed for this patient. I have recommended that the patient needs to have a trip out of town away from her as her depression and anxiety is worsened due to her and his dementia. She needs a mental health break away from her . 01/03/2014 Appointment: Pushpa Bernabe WPtel: [facility] Follow up 01/03/2014 Appointment: Pushpa Bernabe WPtel: [facility] [place] Follow up 01/03/2014 Patient Education: Patient Medication Summary Completed 01/03/2014 Patient Education: Hypertension Completed 01/03/2014 Visit Plan: Insomnia - Pt has been advised to increase the light in the house during the day, and start dimming the lights during the evening hours. Pt has been advised to cut out caffiene after 5pm. Daytime napping worsens night time insomnia. Melatonin ok-STOP BENADRYL Osteoporosis- check vitamin D level Memory loss-STOP BENDARYL AND MONITOR SYMPTOMS-check labs including vitamin B12 level 11/15/2013 Appointment: Other 11/15/2013 Patient Education: Patient Medication Summary Completed 11/15/2013 Appointment: Pushpa Bernabe WPtel: [facility] [place] Follow up 06/22/2012 Visit Plan: Rash-discussed natural and expected course of this diagnosis and to alert me if symptoms do not follow expected course, or if any worse. RX sent [facility]. Chronic Depression and anxiety - the pt has symptoms of chronic anxiety and depression that have been fairly well controlled since the last office visit. The pt has expected periods of exacerbation with abatement of the symptoms with change in situational exposure. No change in current medications. RECOMMEND FOR PATIENT AND HER TO RESEARCH ASSISTED LIVING FACILITIES SO THEY CAN GET THEIR NAME ON THE WAITING LIST AND HAVE A PLAN WHEN THE TIME COMES. Hypertension - well controlled - continue with current medications, continue with no added salt diet. Pt has been encouraged to exercise daily. The pt has been advised to call the office if there are any acute concerns about change in blood pressure readings at home Hyperlipidemia - pt has been counseled about appropriate diet, exercise, and need for low fat food choices. I have discussed the need for the patient to take medications as prescribed. If the patient has negative side effects from the medication, they are to CALL the office and not abruptly discontinue the medication without discussion with a practicioner in the office. We will check labs in 3-6 months for follow up on the patient's chronic medical problem and to assure normal liver response to medications. 05/22/2012 Appointment: Alivia Stephenson WPtel: [address] [place], [place] [id number] New Patient 05/22/2012 Patient Education: Patient Medication Summary Completed 05/22/2012 Patient Education: Hypertension Completed 05/22/2012 Instructions Comment . Hypertension - well controlled - continue with current medications, continue with no added salt diet. Pt has been encouraged to exercise daily. The pt has been advised to call the office if there are any acute concerns about change in blood pressure readings at home. Low sodium-check labs-asking sign language instructor to serve gatorade daily Ljfmqvvkps-uoehuxo-dhmpaeiv stable-no change in medications . Hypertension - well controlled - continue with current medications, continue with no added salt diet. Pt has been encouraged to exercise daily. The pt has been advised to call the office if there are any acute concerns about change in blood pressure readings at home. Depression - improved with improvement of back pain. Osteoporosis - on calcium, vitamin d. . Hypertension - well controlled - continue with current medications, continue with no added salt diet. Pt has been encouraged to exercise daily. The pt has been advised to call the office if there are any acute concerns about change in blood pressure readings at home. Chronic Depression and anxiety - the pt has symptoms of chronic anxiety and depression that have been fairly well controlled since the last office visit. The pt has expected periods of exacerbation with abatement of the symptoms with change in situational exposure. No change in current medications. . Hypertension - well controlled - continue with current medications, continue with no added salt diet. Pt has been encouraged to exercise daily. The pt has been advised to call the office if there are any acute concerns about change in blood pressure readings at home. URI - Pt advised to increase fluids, vitamin C. Discussed natural and expected course of this diagnosis and need to alert me if symptoms do not follow expected course, or if any worse. RX sent to patient's pharmacy. . Hypertension - well controlled - continue with current medications, continue with no added salt diet. Pt has been encouraged to exercise daily. The pt has been advised to call the office if there are any acute concerns about change in blood pressure readings at home. Low ciuldp-oesahqv-ichgc sodium level Yskrxvgoev-kcdtqy-gv changes . Hypertension - well controlled - continue with current medications, continue with no added salt diet. Pt has been encouraged to exercise daily. The pt has been advised to call the office if there are any acute concerns about change in blood pressure readings at home. . Hypertension - well controlled - continue with current medications, continue with no added salt diet. Pt has been encouraged to exercise daily. The pt has been advised to call the office if there are any acute concerns about change in blood pressure readings at home. . Hypertension - well controlled - continue with current medications, continue with no added salt diet. Pt has been encouraged to exercise daily. The pt has been advised to call the office if there are any acute concerns about change in blood pressure readings at home. Depression - uncontrolled - Pt has been counseled about the diagnosis of depression, the potential causes, and risks associated with the diagnosis. The pt denies suicidal ideation, or plans. The patient has been counseled about treatment options, and understands the risks associated with treatment of depression, as well as the risks associated with NOT treating the depression. I believe the pt will benefit from medical intervention and an antidepressant has been appropriately prescribed for this patient. increase celexa to 20mg daily. . Hypertension - well controlled - continue with current medications, continue with no added salt diet. Pt has been encouraged to exercise daily. The pt has been advised to call the office if there are any acute concerns about change in blood pressure readings at home. Chronic Depression and anxiety - the pt has symptoms of chronic anxiety and depression that have been fairly well controlled since the last office visit. The pt has expected periods of exacerbation with abatement of the symptoms with change in situational exposure. No change in current medications. . Hypertension - well controlled - continue with current medications, continue with no added salt diet. Pt has been encouraged to exercise daily. The pt has been advised to call the office if there are any acute concerns about change in blood pressure readings at home. URI - Pt advised to increase fluids, vitamin C. Discussed natural and expected course of this diagnosis and need to alert me if symptoms do not follow expected course, or if any worse. RX sent to patient's pharmacy. STOP BENADRYL . Insomnia - Pt has been advised to increase the light in the house during the day, and start dimming the lights during the evening hours. Pt has been advised to cut out caffiene after 5pm. Daytime napping worsens night time insomnia. Melatonin ok-STOP BENADRYL Osteoporosis-check vitamin D level Memory loss-STOP BENDARYL AND MONITOR SYMPTOMS-check labs including vitamin B12 level 1/2 pill of celexa at bedtime x 1 week, then increase to 1 pill at bedtime thereafter . Hypertension - well controlled - continue with current medications, continue with no added salt diet. Pt has been encouraged to exercise daily. The pt has been advised to call the office if there are any acute concerns about change in blood pressure readings at home. Depression - uncontrolled - Pt has been counseled about the diagnosis of depression, the potential causes, and risks associated with the diagnosis. The pt denies suicidal ideation, or plans. The patient has been counseled about treatment options, and understands the risks associated with treatment of depression, as well as the risks associated with NOT treating the depression. I believe the pt will benefit from medical intervention and an antidepressant has been appropriately prescribed for this patient. I have recommended that the patient needs to have a trip out of town away from her as her depression and anxiety is worsened due to her and his dementia. She needs a mental health break away from her . . Vertebral compression fracture - recommended pt to have an MRI of the lumbar spine, schedule the hydrocodone and continue with PRN dosing - pt is also to start on calcitonin nasal spray and will have staff start voltaren gel, call if not improving. Ketonconazole shampoo-use to body 3x weekly until rash is gone. . Rash-discussed natural and expected course of this diagnosis and to alert me if symptoms do not follow expected course, or if any worse. [facility]. Chronic Depression and anxiety - the pt has symptoms of chronic anxiety and depression that have been fairly well controlled since the last office visit. The pt has expected periods of exacerbation with abatement of the symptoms with change in situational exposure. No change in current medications. RECOMMEND FOR PATIENT AND HER TO RESEARCH ASSISTED LIVING FACILITIES SO THEY CAN GET THEIR NAME ON THE WAITING LIST AND HAVE A PLAN WHEN THE TIME COMES. Hypertension - well controlled - continue with current medications, continue with no added salt diet. Pt has been encouraged to exercise daily. The pt has been advised to call the office if there are any acute concerns about change in blood pressure readings at home Hyperlipidemia - pt has been counseled about appropriate diet, exercise, and need for low fat food choices. I have discussed the need for the patient to take medications as prescribed. If the patient has negative side effects from the medication, they are to CALL the office and not abruptly discontinue the medication without discussion with a practicioner in the office. We will check labs in 3-6 months for follow up on the patient's chronic medical problem and to assure normal liver response to medications. . weight gain - will check labs, monitor hyponatremia, will have pt work with PT to help increase and encourage physical activity. Pt is to be weighed weekly. Obesity - chronic issue with this patient. The pt has been counseled about diet changes, calorie restriction, and need to exercise.
--- OUTSIDE RECORDS SUMMARY | 2018-02-26 00:04 | XMS REPORT | Continuity of Care Document ---
Author Author [facility] Address Unknown Phone Unavailable Allergies Active Description Code Type Severity Reaction Onset Reported/Identified Relationship to Patient Clinical Status Yes Penicillins Drug Allergy N/A N/A 09/01/2013 Yes Penicillins [id number] Drug Allergy Moderate HIVES, EDEMA 08/05/2014 Medications There is no data. Problems Date Dx Coded Attending Type Code Diagnosis Diagnosed By 08/06/2010 Ot 462 09/01/2013 LINNEA FISHMAN APRN 786.2 COUGH 07/02/2014 Ot 724.2 LUMBAGO 07/02/2014 Ot 733.00 OSTEOPOROSIS NOS 07/02/2014 Ot 733.13 PATHOLOGIC FRACTURE, VERTEBRAE 07/26/2014 DANE ZARATE EQUIPMENT MAINTENANCE TECHNICIAN Ot 331.9 07/26/2014 DANE ZARATE EQUIPMENT MAINTENANCE TECHNICIAN Ot 780.93 07/26/2014 Ot 733.13 07/26/2014 Ot 733.13 07/31/2014 DANE ZARATE EQUIPMENT MAINTENANCE TECHNICIAN Ot 331.9 07/31/2014 DANE ZARATE EQUIPMENT MAINTENANCE TECHNICIAN Ot 780.93 07/31/2014 Ot 733.13 08/01/2014 KENDALL ROTHMAN, CLAUDIA Constantino Ot 276.1 08/01/2014 KENDALL ROTHMAN, CLAUDIA Constantino Ot 294.20 08/01/2014 KENDALL ROTHMAN, CLAUDIA Constantino Ot 311 08/01/2014 KENDALL ROTHMAN, CLAUDIA Constantino Ot 401.9 08/01/2014 KENDALL ROTHMAN, CLAUDIA Constantino Ot 414.01 08/01/2014 KENDALL ROTHMAN, CLAUDIA Constantino Ot 427.31 08/01/2014 KENDALL ROTHMAN, CLAUDIA Constantino Ot 564.00 08/01/2014 KENDALL ROTHMAN, CLAUDIA Constantino Ot 715.90 08/01/2014 KENDALL ROTHMAN, CLAUDIA Constantino Ot 724.5 08/01/2014 KENDALL ROTHMAN, CLAUDIA Constantino Ot 733.00 08/01/2014 KENDALL ROTHMAN, CLAUDIA A Ot V13.02 08/01/2014 KENDALL ROTHMAN, CLAUDIA A Ot V45.82 08/01/2014 Ot 733.13 08/01/2014 DANE ZARATE EQUIPMENT MAINTENANCE TECHNICIAN Ot 331.9 08/01/2014 DANE ZARATE EQUIPMENT MAINTENANCE TECHNICIAN Ot 780.93 08/01/2014 Ot 733.13 08/01/2014 KENDALL ROTHMAN, CLAUDIA A Ot 276.1 08/01/2014 KENDALL ROTHMAN, CLAUDIA A Ot 294.20 08/01/2014 KENDALL ROTHMAN, CLAUDIA A Ot 311 08/01/2014 KENDALL ROTHMAN, CLAUDIA A Ot 401.9 08/01/2014 KENDALL ROTHMAN, CLAUDIA A Ot 414.01 08/01/2014 KENDALL ROTHMAN, CLAUDIA A Ot 427.31 08/01/2014 KENDALL ROTHMAN, CLAUDIA A Ot 564.00 08/01/2014 KENDALL ROTHMAN, CLAUDIA A Ot 715.90 08/01/2014 KENDALL ROTHMAN, CLAUDIA A Ot 724.5 08/01/2014 KENDALL ROTHMAN, CLAUDIA A Ot 733.00 08/01/2014 KENDALL ROTHMAN, CLAUDIA A Ot V13.02 08/01/2014 KENDALL ROTHMAN, CLAUDIA A Ot V45.82 08/01/2014 KENDALL ROTHMAN, CLAUDIA A Ot 276.1 08/01/2014 KENDALL ROTHMAN, CLAUDIA A Ot 294.20 08/01/2014 KENDALL ROTHMAN, CLAUDIA A Ot 311 08/01/2014 KENDALL ROTHMAN, CLAUDIA A Ot 401.9 08/01/2014 KENDALL ROTHMAN, CLAUDIA A Ot 414.01 08/01/2014 KENDALL ROTHMAN, CLAUDIA A Ot 427.31 08/01/2014 KENDALL ROTHMAN, CLAUDIA A Ot 564.00 08/01/2014 KENDALL ROTHMAN, CLAUDIA A Ot 715.90 08/01/2014 KENDALL ROTHMAN, CLAUDIA A Ot 724.5 08/01/2014 KENDALL ROTHMAN, CLAUDIA A Ot 733.00 08/01/2014 KENDALL ROTHMAN, CLAUDIA A Ot V13.02 08/01/2014 KENDALL ROTHMAN, CLAUDIA A Ot V45.82 08/01/2014 KENDALL ROTHMAN, CLAUDIA A Ot 276.1 08/01/2014 KENDALL ROTHMAN, CLAUDIA A Ot 294.20 08/01/2014 KENDALL ROTHMAN, CLAUDIA A Ot 311 08/01/2014 KENDALL ROTHMAN, CLAUDIA A Ot 401.9 08/01/2014 KENDALL ROTHMAN, CLAUDIA A Ot 414.01 08/01/2014 KENDALL ROTHMAN, CLAUDIA A Ot 427.31 08/01/2014 KENDALL ROTHMAN, CLAUDIA A Ot 564.00 08/01/2014 KENDALL ROTHMAN, CLAUDIA A Ot 715.90 08/01/2014 KENDALL ROTHMAN, CLAUDIA A Ot 724.5 08/01/2014 KENDALL ROTHMAN, CLAUDIA A Ot 733.00 08/01/2014 KENDALL ROTHMAN, CLAUDIA A Ot V13.02 08/01/2014 KENDALL ROTHMAN, CLAUDIA A Ot V45.82 08/01/2014 KENDALL ROTHMAN, CLAUDIA A Ot 276.1 08/01/2014 KENDALL ROTHMAN, CLAUDIA A Ot 294.20 08/01/2014 KENDALL ROTHMAN, CLAUDIA A Ot 311 08/01/2014 KENDALL ROTHMAN, CLAUDIA A Ot 401.9 08/01/2014 KENDALL ROTHMAN, CLAUDIA A Ot 414.01 08/01/2014 KENDALL ROTHMAN, CLAUDIA A Ot 427.31 08/01/2014 KENDALL ROTHMAN, CLAUDIA A Ot 564.00 08/01/2014 KENDALL ROTHMAN, CLAUDIA A Ot 715.90 08/01/2014 KENDALL ROTHMAN, CLAUDIA A Ot 724.5 08/01/2014 KENDALL ROTHMAN, CLAUDIA A Ot 733.00 08/01/2014 KENDALL ROTHMAN, CLAUDIA A Ot V13.02 08/01/2014 KENDALL ROTHMAN, CLAUDIA A Ot V45.82 08/05/2014 KENDALL ROTHMAN, CLAUDIA A Ot 041.7 PSEUDOMONAS INFECT NOS 08/05/2014 KENDALL ROTHMAN, CLAUDIA A Ot 276.1 HYPOSMOLALITY 08/05/2014 KENDALL ROTHMAN, CLAUDIA A Ot 276.8 HYPOPOTASSEMIA 08/05/2014 KENDALL ROTHMAN, CLAUDIA A Ot 294.20 DEMENTIA, UNSPECIFIED, 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 08/05/2014 KENDALL ROTHMAN, CLAUDIA Constantino Ot 311 DEPRESSIVE DISORDER NEC 08/05/2014 KENDALL ROTHMAN, CLAUDIA A Ot 401.9 HYPERTENSION NOS 08/05/2014 KENDALL ROTHMAN, CLAUDIA A Ot 414.01 CORONARY ATHEROSCLEROSIS OF [place] CORON 08/05/2014 KENDALL ROTHMAN, CLAUDIA Constantino Ot 427.31 ATRIAL FIBRILLATION 08/05/2014 KENDALL ROTHMAN, CLAUDIA A Ot 564.00 UNSPEC CONSTIPATION 08/05/2014 KENDALL ROTHMAN, CLAUDIA A Ot 599.0 URIN TRACT INFECTION NOS 08/05/2014 KENDALL ROTHMAN, CLAUDIA A Ot 715.90 OSTEOARTHROS NOS-UNSPEC 08/05/2014 KENDALL ROTHMAN, CLAUDIA A Ot 724.5 BACKACHE NOS 08/05/2014 KENDALL ROTHMAN, CLAUDIA A Ot 733.00 OSTEOPOROSIS NOS 08/05/2014 KENDALL ROTHMAN, CLAUDIA A Ot V13.02 PERSONAL HISTORY, URINARY (TRACT) INFECT 08/05/2014 KENDALL ROTHMAN, CLAUDIA Constantino Ot V45.82 PERCUTANEOUS TRANSLUM CORON ANGIOPLASTY 08/07/2014 KENDALL ROTHMAN, CLAUDIA A Ot 041.7 08/07/2014 KENDALL ROTHMAN, CLAUDIA A Ot 276.1 08/07/2014 KENDALL ROTHMAN, CLAUDIA A Ot 276.8 08/07/2014 KENDALL ROTHMAN, CLAUDIA A Ot 294.20 08/07/2014 KENDALL ROTHMAN, CLAUDIA A Ot 311 08/07/2014 KENDALL ROTHMAN, CLAUDIA A Ot 401.9 08/07/2014 KENDALL ROTHMAN, CLAUDIA A Ot 414.01 08/07/2014 KENDALL ROTHMAN, CLAUDIA A Ot 427.31 08/07/2014 KENDALL ROTHMAN, CLAUDIA A Ot 564.00 08/07/2014 KENDALL ROTHMAN, CLAUDIA A Ot 599.0 08/07/2014 KENDALL ROTHMAN, CLAUDIA A Ot 715.90 08/07/2014 KENDALL ROTHMAN, CLAUDIA A Ot 724.5 08/07/2014 KENDALL ROTHMAN, CLAUDIA A Ot 733.00 08/07/2014 KENDALL ROTHMAN, CLAUDIA A Ot V45.82 08/12/2014 KENDALL ROTHMAN, CLAUDIA A Ot 041.7 08/12/2014 KENDALL ROTHMAN, CLAUDIA A Ot 276.1 08/12/2014 KENDALL ROTHMAN, CLAUDIA A Ot 276.8 08/12/2014 KENDALL ROTHMAN, CLAUDIA A Ot 294.20 08/12/2014 KENDALL ROTHMAN, CLAUDIA A Ot 311 08/12/2014 KENDALL ROTHMAN, CLAUDIA A Ot 401.9 08/12/2014 KENDALL ROTHMAN, CLAUDIA A Ot 414.01 08/12/2014 KENDALL ROTHMAN, CLAUDIA A Ot 427.31 08/12/2014 KENDALL ROTHMAN, CLAUDIA A Ot 564.00 08/12/2014 KENDALL ROTHMAN, CLAUDIA A Ot 599.0 08/12/2014 KENDALL ROTHMAN, CLAUDIA A Ot 715.90 08/12/2014 KENDALL ROTHMAN, CLAUDIA A Ot 724.5 08/12/2014 KENDALL ROTHMAN, CLAUDIA A Ot 733.00 08/12/2014 KENDALL ROTHMAN, CLAUDIA A Ot V45.82 08/13/2014 KENDALL ROTHMAN, CLAUDIA A Ot 041.7 08/13/2014 KENDALL ROTHMAN, CLAUDIA A Ot 276.1 08/13/2014 KENDALL ROTHMAN, CLAUDIA A Ot 276.8 08/13/2014 KENDALL ROTHMAN, CLAUDIA A Ot 294.20 08/13/2014 KENDALL ROTHMAN, CLAUDIA A Ot 311 08/13/2014 KENDALL ROTHMAN, CLAUDIA A Ot 401.9 08/13/2014 KENDALL ROTHMAN, CLAUDIA A Ot 414.01 08/13/2014 KENDALL ROTHMAN, CLAUDIA A Ot 427.31 08/13/2014 KENDALL ROTHMAN, CLAUDIA A Ot 564.00 08/13/2014 KENDALL ROTHMAN, CLAUDIA A Ot 599.0 08/13/2014 KENDALL ROTHMAN, CLAUDIA A Ot 715.90 08/13/2014 KENDALL ROTHMAN, CLAUDIA A Ot 724.5 08/13/2014 KENDALL ROTHMAN, CLAUDIA A Ot 733.00 08/13/2014 KENDALL ROTHMAN, CLAUDIA A Ot V45.82 08/16/2014 KENDALL ROTHMAN, CLAUDIA A Ot 041.7 08/16/2014 KENDALL ROTHMAN, CLAUDIA A Ot 276.1 08/16/2014 KENDALL ROTHMAN, CLAUDIA A Ot 276.8 08/16/2014 KENDALL ROTHMAN, CLAUDIA A Ot 294.20 08/16/2014 KENDALL ROTHMAN, CLAUDIA A Ot 311 08/16/2014 KENDALL ROTHMAN, CLAUDIA A Ot 401.9 08/16/2014 KENDALL ROTHMAN, CLAUDIA A Ot 414.01 08/16/2014 KENDALL ROTHMAN, CLAUDIA A Ot 427.31 08/16/2014 KENDALL ROTHMAN, CLAUDIA A Ot 564.00 08/16/2014 KENDALL ROTHMAN, CLAUDIA Constantino Ot 599.0 08/16/2014 KENDALL ROTHAMN, CLAUDIA Constantino Ot 715.90 08/16/2014 KENDALL ROTHMAN, CLAUDIA Constantino Ot 724.5 08/16/2014 KENDALL ROTHMAN, CLAUDIA Constantino Ot 733.00 08/16/2014 CLAUDIA ARGUETA MD Ot V45.82 08/19/2014 CLAUDIA ARGUETA MD Ot 041.7 PSEUDOMONAS INFECT NOS 08/19/2014 CLAUDIA ARGUETA MD Ot 276.1 HYPOSMOLALITY 08/19/2014 CLAUDIA ARGUETA MD Ot 276.8 HYPOPOTASSEMIA 08/19/2014 CLAUDIA ARGUETA MD Ot 285.9 ANEMIA NOS 08/19/2014 CLAUDIA ARGUETA MD Ot 294.20 DEMENTIA, UNSPECIFIED, 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 08/19/2014 KENDALL ROTHMAN, CLAUDIA Constantino Ot 311 DEPRESSIVE DISORDER NEC 08/19/2014 KENDALL ROTHMAN, CLAUDIA Constantino Ot 401.9 HYPERTENSION NOS 08/19/2014 KENDALL ROTHMAN, CLAUDIA Constantino Ot 414.01 CORONARY ATHEROSCLEROSIS OF [place] IN [place] CORON 08/19/2014 KENDALL ROTHMAN, CLAUDIA Constantino Ot 427.31 ATRIAL FIBRILLATION 08/19/2014 CLAUDIA ARGUETA MD Ot 530.3 ESOPHAGEAL STRICTURE 08/19/2014 CLAUDIA ARGUETA MD Ot 532.90 DUODENAL ULCER NOS 08/19/2014 CLAUDIA ARGUETA MD Ot 564.00 UNSPEC CONSTIPATION 08/19/2014 CLAUDIA ARGUETA MD Ot 578.9 GASTROINTEST HEMORR NOS 08/19/2014 CLAUDIA ARGUETA MD Ot 599.0 URIN TRACT INFECTION NOS 08/19/2014 CLAUDIA ARGUETA MD Ot 715.90 OSTEOARTHROS NOS-UNSPEC 08/19/2014 CLAUDIA ARGUETA MD Ot 724.5 BACKACHE NOS 08/19/2014 CLAUDIA ARGUETA MD Ot 733.00 OSTEOPOROSIS NOS 08/19/2014 CLAUDIA ARGUETA MD Ot V45.82 PERCUTANEOUS TRANSLUM CORON ANGIOPLASTY 09/04/2014 Ot 733.13 09/05/2014 DANE ZARATE EQUIPMENT MAINTENANCE TECHNICIAN Ot 331.9 09/05/2014 DANE ZARATE EQUIPMENT MAINTENANCE TECHNICIAN Ot 780.93 09/05/2014 Ot 733.13 09/27/2014 PRAMOD ZARATEIE M EQUIPMENT MAINTENANCE TECHNICIAN Ot 331.9 09/27/2014 DANE ZARATE EQUIPMENT MAINTENANCE TECHNICIAN Ot 780.93 09/27/2014 Ot 733.13 03/20/2015 TESSADANE EQUIPMENT MAINTENANCE TECHNICIAN Ot 331.9 03/20/2015 DANE ZARATE EQUIPMENT MAINTENANCE TECHNICIAN Ot 780.93 03/20/2015 Ot 733.13 03/21/2015 KENDALL ROTHMAN, CLAUDIA A Ot D64.9 03/21/2015 KENDALL ROTHMAN, CLAUDIA A Ot D64.9 03/21/2015 KENDALL ROTHMAN, CLAUDIA A Ot D64.9 03/21/2015 KENDALL ROTHMAN, CLAUDIA A Ot D64.9 03/31/2015 T[place]AD[place] EQUIPMENT MAINTENANCE TECHNICIAN Ot 331.9 03/31/2015 TESSADANE EQUIPMENT MAINTENANCE TECHNICIAN Ot 780.93 03/31/2015 Ot 733.13 03/31/2015 KENDALL ROTHMAN, CLAUDIA A Ot D64.9 04/01/2015 KENDALL ROTHMAN, CLAUDIA A Ot D50.9 04/02/2015 KENDALL ROTHMAN, CLAUDIA A Ot D50.9 04/04/2015 KENDALL ROTHMAN, CLAUDIA A Ot D50.9 04/07/2015 KENDALL ROTHMAN, CLAUDIA A Ot D50.9 04/07/2015 KENDALL ROTHMAN, CLAUDIA A Ot D50.9 04/07/2015 ZACKARY ROTHMAN, CHEN M Ot K20.9 ESOPHAGITIS, UNSPECIFIED 04/07/2015 ZACKARY ROTHMAN, CHEN M Ot K22.2 ESOPHAGEAL OBSTRUCTION 04/07/2015 ZACKARY ROTHMAN, CHEN M Ot K29.70 GASTRITIS, UNSPECIFIED, WITHOUT BLEEDING 04/07/2015 ZACKARY ROTHMAN, CHEN M Ot K44.9 DIAPHRAGMATIC HERNIA WITHOUT OBSTRUCTION 04/09/2015 KENDALL ROTHMAN, CLAUDIA A Ot D50.9 04/11/2015 KENDALL ROTHMAN, CLAUDIA A Ot D50.9 04/15/2015 KENDALL ROTHMAN, CLAUDIA A Ot D64.9 05/01/2015 KENDALL ROTHMAN, CLAUDIA A Ot D50.9 06/18/2015 KENDALL ROTHMAN, CLAUDIA A Ot D64.9 ANEMIA, UNSPECIFIED 06/29/2015 KENDALL ROTHMAN, CLAUDIA A Ot D50.9 IRON DEFICIENCY ANEMIA, UNSPECIFIED 02/10/2017 DANE ZARATE EQUIPMENT MAINTENANCE TECHNICIAN 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 02/10/2017 TESSAPRAMODJOSE Campbell EQUIPMENT MAINTENANCE TECHNICIAN Ot 780.93 MEMORY LOSS 02/10/2017 Ot 733.13 PATHOLOGIC FRACTURE, VERTEBRAE 02/10/2017 ZACKARY ROTHMAN, CHEN Campbell Ot D50.9 IRON DEFICIENCY ANEMIA, UNSPECIFIED 02/10/2017 ZACKARY ROTHMAN, CHEN Campbell Ot K21.9 GASTRO-ESOPHAGEAL REFLUX DISEASE WITHOUT 02/10/2017 ZACKARY ROTHMAN, CHEN Campbell Ot Z01.818 ENCOUNTER FOR OTHER PREPROCEDURAL EXAMIN 02/10/2017 CLAUDIA ARGUETA MD Ot D64.9 ANEMIA, UNSPECIFIED 02/10/2017 CLAUDIA ARGUETA MD Ot D50.9 IRON DEFICIENCY ANEMIA, UNSPECIFIED 02/11/2017 DANE ZARATE EQUIPMENT MAINTENANCE TECHNICIAN 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 02/11/2017 DANE ZARATE EQUIPMENT MAINTENANCE TECHNICIAN Ot 780.93 MEMORY LOSS 02/11/2017 Ot 733.13 PATHOLOGIC FRACTURE, VERTEBRAE 02/11/2017 CHEN RAYMUNDO MD Ot D50.9 IRON DEFICIENCY ANEMIA, UNSPECIFIED 02/11/2017 ZACKARY ROTHMAN, CHEN Campbell Ot K21.9 GASTRO-ESOPHAGEAL REFLUX DISEASE WITHOUT 02/11/2017 ZACKARY ROTHMAN, CHEN Campbell Ot Z01.818 ENCOUNTER FOR OTHER PREPROCEDURAL EXAMIN 02/11/2017 CLAUDIA ARGUETA MD Ot D64.9 ANEMIA, UNSPECIFIED 02/11/2017 CLAUDIA ARGUETA MD A Ot D50.9 IRON DEFICIENCY ANEMIA, UNSPECIFIED 02/14/2017 SWEET PA, STEPHANIE R Ot 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, LUMBAR REGIO 02/14/2017 SWEET PA, STEPHANIE R Ot M48.00 SPINAL STENOSIS, SITE UNSPECIFIED 02/14/2017 SWEET PA, STEPHANIE R Ot 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, NEC, LUMBAR REGION, 02/14/2017 SWEET PA, STEPHANIE R Ot M51.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 RADICULO 03/04/2017 SWEET PA, STEPHANIE R Ot 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, LUMBAR REGIO 03/04/2017 SWEET PA, STEPHANIE R Ot M48.00 SPINAL STENOSIS, SITE UNSPECIFIED 03/04/2017 SWEET PA, STEPHANIE R Ot 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, NEC, LUMBAR REGION, 03/04/2017 STEFANIA MICHELLESHUA R Ot M51.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 RADICULO 03/18/2017 STEFANIA MICHELLESHUA R Ot 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 Encounters ACCT No. Visit Date/Time Discharge Status Pt. Type Provider Facility Loc./Unit Complaint [id number] 09/01/2013 13:28:00 09/01/2013 23:59:59 CLS Outpatient LINNEA FISHMAN APRN [id number] 02/11/2017 07:45:00 02/11/2017 23:59:59 CLS Outpatient STEPHANIE MICHELLE [facility] RAD BACK PAIN M54.9 [id number] 06/30/2015 00:07:00 06/30/2015 23:59:59 CLS Preadmit CLAUDIA ARGUETA MD [facility] ANEMIA,IRON DEFICIENCY [id number] 04/11/2015 10:07:00 06/29/2015 00:01:00 DIS Outpatient CLAUDIA ARGUETA MD [facility] ANEMIA,IRON DEFICIENCY [id number] 06/19/2015 00:09:00 06/19/2015 23:59:59 CLS Preadmit CLAUDIA ARGUETA MD [facility] ANEMIA [id number] 03/21/2015 12:28:00 06/18/2015 00:01:00 DIS Outpatient CLAUDIA ARGUETA MD [facility] ANEMIA [id number] 04/07/2015 10:44:00 04/07/2015 13:20:00 DIS Outpatient CHEN ARYMUNDO MD [facility] SDC HX EROSIONS,GERD, STRICTURE,IRON DEF. ANEMIA [id number] 03/31/2015 05:43:00 03/31/2015 23:59:59 CLS Outpatient CHEN RAYMUNDO MD [facility] PREOP EGD, POSSIBLE DILATION [id number] 08/05/2014 09:27:00 08/19/2014 10:40:00 DIS Inpatient CLAUDIA ARGUETA MD [facility] 4TH SWB-HYPONATREMIA,BACK PAIN,TACYCARDIA [id number] 07/31/2014 15:09:00 08/05/2014 09:06:00 DIS Inpatient CLAUDIA ARGUETA MD [facility] 4TH HYPONATREMIA,WEAKNESS,AMS ,DEPRESSION [id number] 11/16/2013 15:21:00 11/16/2013 23:59:59 CLS Outpatient DANE ZARATE [facility] RAD MEMORY LOSS [id number] 07/10/2014 15:20:00 Document Registration [id number] 07/02/2014 03:51:00 Document Registration [id number] 08/06/2010 18:58:00 Document Registration 0000 12/09/2016 07:50:01 12/09/2016 23:59:59 CLS Outpatient Claudia Argueta
[2018-02-26] MEDS ORDERED: SCOPOLAMINE 1.5 MG (TRANSDERM-SCOP) PATCH TD ONE (00:15)
[2018-02-26] MEDS ORDERED: MECLIZINE 25 MG (ANTIVERT) TAB PO ONE (00:15)
[2018-02-26] MEDS ORDERED: ONDANSETRON 4 MG/2 ML (SDV) Z0FRAN IVP ONE (00:15)
[2018-02-26 00:22] LABS: BASOPHILS % (AUTO) 0 % (0-10); EOSINOPHILS # (AUTO) 0.2 10^3/uL (0.0-0.3); EOSINOPHILS % (AUTO) 2 % (0-10); HEMATOCRIT 43 % (35-52); HEMOGLOBIN 14.3 G/DL (11.5-16.0); LYMPHOCYTES # (AUTO) 1.9 X 10^3 (1.0-4.0); LYMPHOCYTES % (AUTO) 20 % (12-44); MEAN CORPUSCULAR HEMOGLOBIN 28 PG (25-34); MEAN CORPUSCULAR HGB CONC 33 G/DL (32-36); MEAN CORPUSCULAR VOLUME 85 FL (80-99); MEAN PLATELET VOLUME 10.5 FL (7.4-10.4); MONOCYTES # (AUTO) 0.9 X 10^3 (0.0-1.0); MONOCYTES % (AUTO) 9 % (0-12); NEUTROPHILS # (AUTO) 6.8 X 10^3 (1.8-7.8); NEUTROPHILS % (AUTO) 70 % (42-75); PLATELET COUNT 258 10^3/uL (130-400); RED BLOOD COUNT 5.08 10^6/uL (4.35-5.85); WHITE BLOOD COUNT 9.8 10^3/uL (4.3-11.0)
[2018-02-26 00:39] LABS: INR 0.9 (0.8-1.4); PROTHROMBIN TIME PATIENT 12.6 SEC (12.2-14.7)
[2018-02-26 00:54] LABS: ALANINE AMINOTRANSFERASE 13 U/L (0-55); ALBUMIN 4.3 GM/DL (3.2-4.5); ALKALINE PHOSPHATASE 49 U/L (40-136); AMYLASE 63 U/L (25-125); BILIRUBIN,TOTAL 0.7 MG/DL (0.1-1.0); BUN/CREATININE RATIO 11; CALCIUM 9.5 MG/DL (8.5-10.1); CARBON DIOXIDE 22 MMOL/L (21-32); CHLORIDE 92 MMOL/L (98-107); CREATINE KINASE 21 U/L (29-168); GFR ESTIMATED > 60; GLUCOSE 141 MG/DL (70-105); LIPASE 22 U/L (8-78); MAGNESIUM 2.3 MG/DL (1.8-2.4); POTASSIUM 4.3 MMOL/L (3.6-5.0); SODIUM 129 MMOL/L (135-145); TOTAL PROTEIN 7.7 GM/DL (6.4-8.2)
[2018-02-26 01:16] LABS: TSH (THYROID ANALYZER) 2.41 UIU/ML (0.35-4.94)
[2018-02-26] MEDS ORDERED: NS IV 1000 ML 1,000 ML IV ONE (01:16)
[2018-02-26 02:12] LABS: BILIRUBIN,URINE NEGATIVE (NEGATIVE); CLARITY,URINE SLIGHTLY CLOUDY; COLOR,URINE YELLOW; GLUCOSE, URINE (UA) NEGATIVE (NEGATIVE); KETONES,URINE NEGATIVE (NEGATIVE); LEUKOCYTE ESTERASE ,URINE NEGATIVE (NEGATIVE); NITRITE,URINE NEGATIVE (NEGATIVE); PH,URINE 8 (5-9); PROTEIN,URINE NEGATIVE (NEGATIVE); UROBILINOGEN,URINE NORMAL (NORMAL)
[2018-02-26 02:18] LABS: BACTERIA,URINE LARGE /HPF; WBC,URINE RARE /HPF
--- OUTSIDE RECORDS SUMMARY | 2018-02-26 02:32 | XMS REPORT | Continuity of Care Document ---
Author Author [facility] Address Unknown Phone Unavailable Allergies Active Description Code Type Severity Reaction Onset Reported/Identified Relationship to Patient Clinical Status Yes Penicillins Drug Allergy N/A N/A 09/01/2013 Yes Penicillins [id number] Drug Allergy Moderate HIVES, EDEMA 08/05/2014 Medications There is no data. Problems Date Dx Coded Attending Type Code Diagnosis Diagnosed By 08/06/2010 Ot 462 09/01/2013 LINNEA FISHMAN APRN 786.2 COUGH 07/02/2014 Ot 724.2 LUMBAGO 07/02/2014 Ot 733.00 OSTEOPOROSIS NOS 07/02/2014 Ot 733.13 PATHOLOGIC FRACTURE, VERTEBRAE 07/26/2014 DANE ZARATE SUPERANNUATION CLERK Ot 331.9 07/26/2014 DANE ZARATE SUPERANNUATION CLERK Ot 780.93 07/26/2014 Ot 733.13 07/26/2014 Ot 733.13 07/31/2014 DANE ZARATE SUPERANNUATION CLERK Ot 331.9 07/31/2014 DANE ZARATE SUPERANNUATION CLERK Ot 780.93 07/31/2014 Ot 733.13 08/01/2014 KENDALL [...] V45.82 08/01/2014 Ot 733.13 08/01/2014 DANE ZARATE SUPERANNUATION CLERK Ot 331.9 08/01/2014 DANE ZARATE SUPERANNUATION CLERK Ot 780.93 08/01/2014 Ot 733.13 08/01/2014 KENDALL [...] ROTHMAN, CLAUDIA A Ot 733.00 08/01/2014 KENDALL ROHTMAN, CLAUDIA A Ot V13.02 08/01/2014 KENDALL ROTHMAN, [...] CLAUDIA A Ot 414.01 CORONARY ATHEROSCLEROSIS OF [place] CORON 08/05/2014 KENDALL ROTHMAN, CLAUDIA Constantino Ot [...] ROTHMAN, CLAUDIA Constantino Ot 599.0 08/16/2014 KENDALL ROTHMAN, CLAUDIA Constantino Ot 715.90 08/16/2014 KENDALL ROTHMAN, [...] CLAUDIA Constantino Ot 414.01 CORONARY ATHEROSCLEROSIS OF [place] CORON 08/19/2014 KENDALL ROTHMAN, CLAUDIA Constantino Ot [...] ANGIOPLASTY 09/04/2014 Ot 733.13 09/05/2014 DANE ZARATE SUPERANNUATION CLERK Ot 331.9 09/05/2014 DANE ZARATE SUPERANNUATION CLERK Ot 780.93 09/05/2014 Ot 733.13 09/27/2014 PRAMOD ZARATEIE M SUPERANNUATION CLERK Ot 331.9 09/27/2014 DANE ZARATE SUPERANNUATION CLERK Ot 780.93 09/27/2014 Ot 733.13 03/20/2015 TESSADANE SUPERANNUATION CLERK Ot 331.9 03/20/2015 DANE ZARATE SUPERANNUATION CLERK Ot 780.93 03/20/2015 Ot 733.13 03/21/2015 KENDALL ROTHMAN, CLAUDIA A Ot D64.9 03/21/2015 KENDALL ROTHMAN, CLAUDIA A Ot D64.9 03/21/2015 KENDALL ROTHMAN, CLAUDIA A Ot D64.9 03/21/2015 KENDALL ROTHMAN, CLAUDIA A Ot D64.9 03/31/2015 TESSADANE SUPERANNUATION CLERK Ot 331.9 03/31/2015 TESSADANE SUPERANNUATION CLERK Ot 780.93 03/31/2015 Ot 733.13 03/31/2015 KENDALL [...] DIAPHRAGMATIC HERNIA WITHOUT OBSTRUCTION 04/09/2015 KENDALL ROTHMAN, LCAUDIA A Ot D50.9 04/11/2015 KENDALL ROTHMAN, CLAUDIA A Ot D50.9 04/15/2015 KENDALL ROTHMAN, CLAUDIA A Ot D64.9 05/01/2015 KENDALL ROTHMAN, CLAUDIA A Ot D50.9 06/18/2015 KENDALL ROTHMAN, CLAUDIA A Ot D64.9 ANEMIA, UNSPECIFIED 06/29/2015 KENDALL ROTHMAN, CLAUDIA A Ot D50.9 IRON DEFICIENCY ANEMIA, UNSPECIFIED 02/10/2017 DANE ZARATE SUPERANNUATION CLERK 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 02/10/2017 TESSAPRAMODJOSE Campbell SUPERANNUATION CLERK Ot 780.93 MEMORY LOSS 02/10/2017 Ot 733.13 [...] IRON DEFICIENCY ANEMIA, UNSPECIFIED 02/11/2017 DANE ZARATE SUPERANNUATION CLERK 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 02/11/2017 DANE ZARATE SUPERANNUATION CLERK Ot 780.93 MEMORY LOSS 02/11/2017 Ot 733.13 [...] 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, NEC, LUMBAR REGION, 03/04/2017 STEPHANIE MICHELLE Ot M51.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 RADICULO 03/18/2017 STEPHANIE MICHELLE Ot 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, LUMBAR REGIO 03/18/2017 STEPHANIE MICHELLE Ot M48.00 SPINAL STENOSIS, SITE UNSPECIFIED 03/18/2017 STEPHANIE MICHELLE Ot 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3 g/dL 11.5-16.0 Blood hematocrit (volume fraction) 43 % 35-52 Automated erythrocyte mean corpuscular volume 85 [foz_us] 80-99 Automated erythrocyte mean corpuscular hemoglobin (mass per erythrocyte) 28 pg 25-34 Automated erythrocyte mean corpuscular hemoglobin concentration measurement ( mass/volume) 33 g/dL 32-36 Automated erythrocyte distribution width ratio 15.0 % 10.0-14.5 Automated blood platelet count (count/volume) 258 10*3/uL 130-400 Automated blood platelet mean volume measurement 10.5 [foz_us] 7.4-10.4 Automated blood neutrophils/100 leukocytes 70 % 42-75 Automated blood lymphocytes/100 leukocytes 20 % 12-44 Blood monocytes/100 leukocytes 9 % 0-12 Automated blood eosinophils/100 leukocytes 2 % 0-10 Automated blood basophils/100 leukocytes 0 % 0-10 Blood neutrophils automated count (number/volume) 6.8 10*3 1.8-7.8 Blood lymphocytes automated count (number/volume) 1.9 10*3 1.0-4.0 Blood monocytes automated count (number/volume) 0.9 10*3 0.0-1.0 Automated eosinophil count 0.2 10*3/uL 0.0-0.3 Automated blood basophil count (count/volume) 0.0 10*3/uL 0.0-0.1 PT panel in platelet poor plasma by coagulation assay - 02/26/18 00:12 Prothrombin time (PT) in platelet poor plasma by coagulation assay 12.6 s 12.2-14.7 INR in platelet poor plasma or blood by coagulation assay 0.9 0.8-1.4 Activated partial thromboplastin time (aPTT) in platelet poor plasma bycoagulation assay - 02/26/18 00:12 Activated partial thromboplastin time (aPTT) in platelet poor plasma bycoagulation assay 33 s 24-35 Comprehensive metabolic panel - 02/26/18 00:12 Serum or plasma sodium measurement (moles/volume) 129 mmol/L 135-145 Serum or plasma potassium measurement (moles/volume) 4.3 mmol/L 3.6-5.0 Serum or plasma chloride measurement (moles/volume) 92 mmol/L 98-107 Carbon dioxide 22 mmol/L 21-32 Serum or plasma anion gap determination (moles/volume) 15 mmol/L 5-14 Serum or plasma urea nitrogen measurement (mass/volume) 8 mg/dL 7-18 Serum or plasma creatinine measurement (mass/volume) 0.70 mg/dL 0.60-1.30 Serum or plasma urea nitrogen/creatinine mass ratio 11 NRG Serum or plasma creatinine measurement with calculation of estimated glomerular filtration rate > NRG Serum or plasma glucose measurement (mass/volume) 141 mg/dL 70-105 Serum or plasma calcium measurement (mass/volume) 9.5 mg/dL 8.5-10.1 Serum or plasma total bilirubin measurement (mass/volume) 0.7 mg/dL 0.1-1.0 Serum or plasma alkaline phosphatase measurement (enzymatic activity/volume) 49 U/L 40-136 Serum or plasma aspartate aminotransferase measurement (enzymatic activity/ volume) 17 U/L 5-34 Serum or plasma alanine aminotransferase measurement (enzymatic activity/volume ) 13 U/L 0-55 Serum or plasma protein measurement (mass/volume) 7.7 g/dL 6.4-8.2 Serum or plasma albumin measurement (mass/volume) 4.3 g/dL 3.2-4.5 CALCIUM CORRECTED 9.3 mg/dL 8.5-10.1 Magnesium - 02/26/18 00:12 Magnesium 2.3 mg/dL 1.8-2.4 Serum or plasma creatine kinase measurement (enzymatic activity/volume) - 02/26 00:12 Serum or plasma creatine kinase measurement (enzymatic activity/volume) 21 U/L 29-168 Serum or plasma creatine kinase MB measurement (enzymatic activity/volume) - 00:12 Serum or plasma creatine kinase MB measurement (enzymatic activity/volume) 1.0 ng/mL <6.6 Serum or plasma troponin i.cardiac measurement (mass/volume) - 02/26/18 00:12 Serum or plasma troponin i.cardiac measurement (mass/volume) < ng/ mL <0.30 Serum or plasma lithium measurement (moles/volume) - 02/26/18 00:12 BNP level 76.6 pg/mL <100.0 Serum or plasma amylase measurement (enzymatic activity/volume) - 02/26/18 00: 12 Serum or plasma amylase measurement (enzymatic activity/volume) 63 U /L 25-125 Lipase - 02/26/18 00:12 Lipase 22 U/L 8-78 Serum or plasma thyrotropin measurement by detection limit <=0.05 miu/l (units/ volume) - 02/26/18 00:12 Serum or plasma thyrotropin measurement by detection limit <=0.05 miu/l (units/ volume) 2.41 u[iU]/mL 0.35-4.94 Blood lactic acid measurement (moles/volume) - 02/26/18 00:21 Blood lactic acid measurement (moles/volume) 2.65 mmol/L 0.50-2.00 Influenza virus A and B antigen detection - 02/26/18 00:33 FLU RESULT NEGATIVE FOR INFLUENZA A AND B ANTIGENS BY IA NRG Complete urinalysis with reflex to culture - 02/26/18 02:08 Urine color determination YELLOW NRG Urine clarity determination SLIGHTLY CLOUDY NRG Urine pH measurement by test strip 8 5-9 Specific gravity of urine by test strip 1.010 1.016- 1.022 Urine protein assay by test strip, semi-quantitative NEGATIVE NEGATIVE Urine glucose detection by automated test strip NEGATIVE NEGATIVE Erythrocytes detection in urine sediment by light microscopy NEGATIVE NEGATIVE Urine ketones detection by automated test strip NEGATIVE NEGATIVE Urine nitrite detection by test strip NEGATIVE NEGATIVE Urine total bilirubin detection by test strip NEGATIVE NEGATIVE Urine urobilinogen measurement by automated test strip (mass/volume) NORMAL NORMAL Urine leukocyte esterase detection by dipstick NEGATIVE NEGATIVE Automated urine sediment erythrocyte count by microscopy (number/high power field) NONE NRG Automated urine sediment leukocyte count by microscopy (number/high power field ) RARE NRG Bacteria detection in urine sediment by light microscopy LARGE NRG Squamous epithelial cells detection in urine sediment by light microscopy NONE NRG Crystals detection in urine sediment by light microscopy NONE NRG Casts detection in urine sediment by light microscopy NONE NRG Mucus detection in urine sediment by light microscopy NEGATIVE NRG Complete urinalysis with reflex to culture YES NRG Encounters ACCT No. Visit Date/Time Discharge Status Pt. Type Provider Facility Loc./Unit Complaint [id number] 09/01/2013 13:28:00 09/01/2013 23:59:59 CLS Outpatient LINNEA FISHMAN APRN [id number] 02/11/2017 07:45:00 02/11/2017 23:59:59 CLS Outpatient STEPHANIE MICHELLE [facility] RAD BACK PAIN M54.9 [id number] 06/30/2015 00:07:00 06/30/2015 23:59:59 CLS Preadmit CLAUDIA ARGUETA MD [facility] ANEMIA,IRON DEFICIENCY [id number] 04/11/2015 10:07:00 06/29/2015 00:01:00 DIS Outpatient CLAUDIA ARGUETA MD [facility] ANEMIA,IRON DEFICIENCY [id number] 06/19/2015 00:09:00 06/19/2015 23:59:59 CLS Preadmit CLAUDIA ARGUETA MD [facility] ANEMIA [id number] 03/21/2015 12:28:00 06/18/2015 00:01:00 DIS Outpatient CLAUDIA ARGUETA MD [facility] ANEMIA [id number] 04/07/2015 10:44:00 04/07/2015 13:20:00 DIS Outpatient CHEN RAYMUNDO MD [facility] HX EROSIONS,GERD, STRICTURE,IRON DEF. ANEMIA [id number] 03/31/2015 05:43:00 03/31/2015 23:59:59 CLS Outpatient ZACKARY ROTHMAN, CHEN Campbell [facility] PREOP EGD, POSSIBLE DILATION [id number] 08/05/2014 09:27:00 08/19/2014 10:40:00 DIS Inpatient CLAUDIA ARGUETA MD [facility] 4TH SWB-HYPONATREMIA,BACK PAIN,TACYCARDIA [id number] 07/31/2014 15:09:00 08/05/2014 09:06:00 DIS Inpatient CLAUDIA ARGUETA MD [facility] 4TH HYPONATREMIA,WEAKNESS,AMS ,DEPRESSION [id number] 11/16/2013 15:21:00 11/16/2013 23:59:59 CLS Outpatient DANE ZARATE [facility] RAD MEMORY LOSS [id number] 02/26/2018 00:23:00 Document Registration [id number] 07/10/2014 15:20:00 Document Registration [id number] 07/02/2014 03:51:00 Document Registration [id number] 08/06/2010 18:58:00 Document Registration 0000 12/09/2016 07:50:01 12/09/2016 23:59:59 CLS Outpatient Claudia Argueta
[2018-02-26 04:00] VITALS: BP 186/84
[2018-02-26] MEDS ORDERED: NS IV 1000 ML 1,000 ML IV SCH (05:30)
[2018-02-26] MEDS ORDERED: ONDANSETRON 4 MG/2 ML (SDV) Z0FRAN IV PRN (05:30)
[2018-02-26] MEDS ORDERED: MECLIZINE 25 MG (ANTIVERT) TAB PO PRN (05:30)
[2018-02-26 06:00] VITALS: BP 183/81
[2018-02-26 06:42] LABS: BASOPHILS % (AUTO) 0 % (0-10); EOSINOPHILS # (AUTO) 0.1 10^3/uL (0.0-0.3); EOSINOPHILS % (AUTO) 1 % (0-10); HEMATOCRIT 43 % (35-52); HEMOGLOBIN 14.7 G/DL (11.5-16.0); LYMPHOCYTES # (AUTO) 1.8 X 10^3 (1.0-4.0); LYMPHOCYTES % (AUTO) 18 % (12-44); MEAN CORPUSCULAR HEMOGLOBIN 29 PG (25-34); MEAN CORPUSCULAR HGB CONC 34 G/DL (32-36); MEAN CORPUSCULAR VOLUME 85 FL (80-99); MEAN PLATELET VOLUME 10.9 FL (7.4-10.4); MONOCYTES # (AUTO) 0.7 X 10^3 (0.0-1.0); MONOCYTES % (AUTO) 7 % (0-12); NEUTROPHILS # (AUTO) 7.3 X 10^3 (1.8-7.8); NEUTROPHILS % (AUTO) 74 % (42-75); PLATELET COUNT 207 10^3/uL (130-400); RED BLOOD COUNT 5.11 10^6/uL (4.35-5.85); RED CELL DISTRIBUTION WIDTH 15.1 % (10.0-14.5); WHITE BLOOD COUNT 9.9 10^3/uL (4.3-11.0)
--- NOTE | 2018-02-26 06:42 | Diagnostic Imaging Report ---
EXAMINATION: Portable erect AP chest at 1216 AM INDICATION: Dizziness The cardiomegaly noted on the prior exam of 08/13/2014 is again evident and not significantly changed. The central pulmonary vascularity may be slightly more prominent than on the prior study. The possibility that there is an element of mild chronic congestion or early pulmonary congestion should be considered. In the interval since the prior study mild right lower lobe atelectasis/infiltrate has developed. The right upper lung and left lung are generally clear although the left retrocardiac region is not well penetrated. The mediastinum is not widened. The osseous structures are intact. 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 IMPRESSION: There is cardiomegaly and the slight prominence of the central pulmonary vascularity when compared to the prior exam does raise the question of early/mild pulmonary congestion. There is also right lower lobe atelectasis/infiltrate. A followup exam would be recommended for continued evaluation. Dictated by: Dictated on workstation # [id number]
--- NOTE | 2018-02-26 06:54 | Diagnostic Imaging Report ---
EXAMINATION: CT head without contrast INDICATION: Dizziness Contiguous axial sections were taken through the skull. There are no prior studies available for comparison. There is no mass, shift of midline or hemorrhage to suggest an acute intracranial abnormality. The normal tentorial blush is noted. The ventricles are not abnormally dilated. There are vague areas of low density in the periventricular white matter bilaterally. These findings are nonspecific but may be related to encephalomalacia from microvascular ischemia. Cortical atrophy is also seen. The degree of atrophy is consistent with the patient's age. The bone windows show no evidence for a fracture or for a destructive lesion. The orbits are symmetrical and within normal limits. The sinuses, where visualized, are clear. IMPRESSION: 1. There is no evidence for acute intracranial abnormality. 2. If clinical concern regarding an underlying abnormality persists, then MRI would be recommended for further study. Dictated by: Dictated on workstation # [id number]
[2018-02-26 07:09] LABS: ALANINE AMINOTRANSFERASE 11 U/L (0-55); ALBUMIN 4.3 GM/DL (3.2-4.5); ALKALINE PHOSPHATASE 47 U/L (40-136); BILIRUBIN,TOTAL 0.6 MG/DL (0.1-1.0); BUN/CREATININE RATIO 11; CALCIUM 9.1 MG/DL (8.5-10.1); CARBON DIOXIDE 22 MMOL/L (21-32); CHLORIDE 94 MMOL/L (98-107); CREATININE SERUM 0.61 MG/DL (0.60-1.30); GFR ESTIMATED > 60; GLUCOSE 101 MG/DL (70-105); POTASSIUM 4.1 MMOL/L (3.6-5.0); SODIUM 131 MMOL/L (135-145); TOTAL PROTEIN 7.1 GM/DL (6.4-8.2)
--- NOTE | 2018-02-26 07:12 | ED General ---
General Chief Complaint: Dizziness/Syncope Stated Complaint: VERTIGO,HYPONATREMIA Nursing Triage Note: PATIENT FROM [facility] VIA PRIVATE VEHICLE WITH DAUGHTER WITH COMPLAINT OF SUDDEN ONSET OF NAUSEA, VOMITING AND DIZZINESS. PATIENT STATES SHE BROKE OUT IN A COLD SWEAT AROUND 23:00 TONIGHT AND SUDDENLY BECAME DIZZY. 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 Nayely WADDELL HAD BEEN BY TO SEE HER AT 2100 TONIGHT FOR ROUTINE ROUNDS AND SHE WAS FEELING FINE. PT DENIES PAIN ANYWHERE NO CHEST PAIN NO HEADACHE NO ABDOMINAL PAIN NO SHORTNESS OF BREATH IS NO LONGER NAUSEATED ? STILL WITH DIZZINESS ? PCP: DR. Nayely WADDELL Allergies and Home Medications Allergies Coded Allergies: Penicillins (Verified Allergy, Intermediate, HIVES, EDEMA, 08/05/14) Home Medications Acetaminophen 500 Mg Tablet, 1,000 MG PO Q6H PRN for PAIN/TEMP, (Reported) TAKES 2 (500MG) TABLETS Acidophilus/Bulgaricus 1 Tab.chew Tab.chew, 1 TAB.CHEW PO AC Prescribed by: CLAUDIA ARGUETA on 08/19/14 0909 Calcium Carbonate/Vitamin D3 1 Each Tab.chew, 1 TAB.CHEW PO BID, (Reported) Citalopram Hydrobromide 20 Mg Tablet, 20 MG PO HS, (Reported) Cyanocobalamin (Vitamin B-12) 1,000 Mcg/1 Ml Drops, 1 ML SL DAILY, (Reported) Furosemide 20 Mg Tablet, 20 MG PO DAILY, (Reported) Hydrocodone Bit/Acetaminophen 1 Tab Tablet, 1-2 TAB PO Q4H PRN for PAIN Prescribed by: CLAUDIA ARGUETA on 08/19/14 0918 Lorazepam 0.5 Mg Tablet, 0.25 MG PO Q6H PRN for ANXIETY, (Reported) TAKES 1/2 (0.5MG) TABLET Lorazepam 0.5 Mg Tablet, 0.5 MG PO HS PRN for INSOMNIA, (Reported) Melatonin/Pyridoxine 1 Each Tablet, 1 EACH PO HS, (Reported) Metoprolol Tartrate 50 Mg Tablet, 50 MG PO BID, (Reported) Multivitamin 1 Each Tablet, 1 EACH PO DAILY, (Reported) Derwent Oil 30 Ml Oil, 1 DROP EACH EAR UD, (Reported) Pantoprazole Sodium 40 Mg Granpkt.dr, 40 MG PO DAILY, (Reported) Polyethylene Glycol 3350 17 Gm Powd.pack, 17 GM PO DAILY, (Reported) Potassium Chloride 20 Meq Tab, 20 MEQ PO BID WITH MEALS Prescribed by: CLAUDIA ARGUETA on 08/19/14908 Sucralfate 1 Gm Tab, 1 GM PO ACHS Prescribed by: CLAUDIA ARGUETA on 08/19/14908 [Mirtazapine] 15 MG TAB, 7.5 MG PO HS Prescribed by: CLAUDIA ARGUETA on 08/19/14908 Patient Home Medication List Home Medication List Reviewed: Yes Review of Systems Review of Systems Constitutional: see HPI, chills, diaphoresis, dizziness, malaise, weakness EENTM: no symptoms reported; No blurred vision, No double vision Respiratory: no symptoms reported; No cough, No short of breath Cardiovascular: no symptoms reported; No chest pain, No edema, No palpitations , No syncope Gastrointestinal: see HPI; No abdominal pain, No diarrhea; nausea Genitourinary: no symptoms reported Musculoskeletal: no symptoms reported Skin: no symptoms reported Psychiatric/Neurological: See HPI; Denies Headache, Denies Numbness, Denies Paresthesia, Denies Seizure, Denies Tingling Hematologic/Lymphatic: No Symptoms Reported Immunological/Allergic: no symptoms reported Past Gsntazd-Pvckpr-Czhmai Hx Patient Social History Alcohol Use: Denies Use Number of Drinks Today: AA Recreational Drug Use: No Smoking Status: Never a Smoker 2nd Hand Smoke Exposure: No Recent Foreign Travel: No Contact w/Someone Who Travel: No Recent Infectious Disease Expo: No Immunizations Up To Date Tetanus Booster (TDap): Unknown PED Vaccines UTD: Yes Date of Pneumonia Vaccine: Apr 07, 2010 Date of Influenza Vaccine: Jan 06, 2015 Seasonal Allergies Seasonal Allergies: No Past Medical History Surgeries: Yes (LUMBAR SURGERY; CARDIAC CATH WITH STENTS) Cardiac, Coronary Stent, Orthopedic, Tubal Ligation Respiratory: No Cardiac: Yes (HTN, STENTS) Atrial Fibrillation, Coronary Artery Disease, Hypertension Neurological: Yes Dementia 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: Tubal Ligation, Menopausal Sexually Transmitted Disease: No HIV/AIDS: No Genitourinary: Yes UTI-Chronic Gastrointestinal: Yes Chronic Constipation Musculoskeletal: Yes Osteoporosis, Arthritis Endocrine: No Loss of Vision: Denies Hearing Impairment: Denies Cancer: No Psychosocial: Yes Depression Integumentary: No Blood Disorders: No Adverse Reaction/Blood Tranf: No Family Medical History Cardiovascular disease Myocardial infarction 19 FATHER No Family History of: AIDS Abdominal aortic aneurysm [place]'s disease Alcoholism Alzheimer's disease Aphasia Arthritis Asthma Cancer of mouth Cataracts Colon cancer Completed stroke Congenital disease Congenital heart disease Coronary thrombosis Cystic fibrosis Deafness or hearing loss Dementia Diabetes mellitus Drug abuse Dysphasia Fibrocystic disease of breast Gastroenteritis Glaucoma Headache disorder Hypercholesterolemia Hypertension Infertility Kidney disease Neoplasm Not obtainable due to adoption Osteoporosis Parkinson's disease Prostate cancer Psychosocial problem Respiratory disorder Seizure disorder Severe allergy Thyroid disease Tuberculosis Visual disorder Heart Disease, Hypertension Physical Exam Vital Signs Vital Signs - First Documented 02/26/18 00:05 Temp 97.8 Pulse 79 Resp 18 B/P (MAP) 180/93 (122) Pulse Ox 98 O2 Delivery Room Air Capillary Refill : Less Than 3 Seconds Height, Weight, BMI Height: 5'0" Weight: 197lbs. 3.0oz. 89.898452ob; BMI Method:Stated General Appearance: WD/WN, Other (MOSTLY KEEPS EYES CLOSED AND MOANS. ) HEENT: PERRL/EOMI, Normal ENT Inspection Neck: Normal Inspection Respiratory: Normal Breath Sounds, No Accessory Muscle Use, No Respiratory Distress Cardiovascular: Regular Rate, Rhythm, No Murmur Gastrointestinal: Non Tender, Soft Back: No CVA Tenderness Extremity: Normal Capillary Refill, Non Tender, No Calf Tenderness, Pedal Edema (TRACE BILATERALLY) Neurologic/Psychiatric: Alert, No Motor/Sensory Deficits (GROSSLY INTACT), mule rider II-XII Norm as Tested, Other (PT ORIENTED TO PERSON, PLACE AND APPEARS TO BE GENERALLY ORIENTED TO SITUATION) Skin: Normal Color, Warm/Dry Focused Exam Lactate Level 02/26/18 00:21: Lactic Acid Level 2.65*H 02/26/18 02:13: Lactic Acid Level 2.23*H Progress/Results/Core Measures Suspected Sepsis Recent Fever Within 48 Hours: No Infection Criteria Present: None New/Unexplained Altered Menta: No Sepsis Screen: No Definite Risk SIRS Temperature:96.9 Pulse: 85 Respiratory Rate: 16 Laboratory Tests 02/26/18 00:12: White Blood Count 9.8 02/26/18 06:08: White Blood Count 9.9 Blood Pressure 183 /81 Mean: 115 02/26/18 00:21: Lactic Acid Level 2.65*H 02/26/18 02:13: Lactic Acid Level 2.23*H Laboratory Tests 02/26/18 00:12: Creatinine 0.70, INR Comment 0.9, Platelet Count 258, Total Bilirubin 0.7 02/26/18 06:08: Platelet Count 207 Results/Orders Lab Results Laboratory Tests Test 02/26/18 00:12 02/26/18 00:21 02/26/18 02:08 02/26/18 02:13 Range/Units White Blood Count 9.8 4.3-11.0 10^3/uL Red Blood Count 5.08 4.35-5.85 10^6/uL Hemoglobin 14.3 11.5-16.0 G/DL Hematocrit 43 35-52 % Mean Corpuscular Volume 85 80-99 FL Mean Corpuscular Hemoglobin 28 25-34 PG Mean Corpuscular Hemoglobin Concent 33 32-36 G/DL Red Cell Distribution Width 15.0 H 10.0-14.5 % Platelet Count 258 130-400 10^3/uL Mean Platelet Volume 10.5 H 7.4-10.4 FL Neutrophils (%) (Auto) 70 42-75 % Lymphocytes (%) (Auto) 20 12-44 % Monocytes (%) (Auto) 9 0-12 % Eosinophils (%) (Auto) 2 0-10 % Basophils (%) (Auto) 0 0-10 % Neutrophils # (Auto) 6.8 1.8-7.8 X 10^3 Lymphocytes # (Auto) 1.9 1.0-4.0 X 10^3 Monocytes # (Auto) 0.9 0.0-1.0 X 10^3 Eosinophils # (Auto) 0.2 0.0-0.3 10^3/uL Basophils # (Auto) 0.0 0.0-0.1 10^3/uL Prothrombin Time 12.6 12.2-14.7 SEC INR Comment 0.9 0.8-1.4 Activated Partial Thromboplast Time 33 24-35 SEC Sodium Level 129 L 135-145 MMOL/L Potassium Level 4.3 3.6-5.0 MMOL/L Chloride Level 92 L 98-107 MMOL/L Carbon Dioxide Level 22 21-32 MMOL/L Anion Gap 15 H 5-14 MMOL/L Blood Urea Nitrogen 8 7-18 MG/DL Creatinine 0.70 0.60-1.30 MG/DL Estimat Glomerular Filtration Rate > 60 BUN/Creatinine Ratio 11 Glucose Level 141 H 70-105 MG/DL Calcium Level 9.5 8.5-10.1 MG/DL Corrected Calcium 9.3 8.5-10.1 MG/DL Magnesium Level 2.3 1.8-2.4 MG/DL Total Bilirubin 0.7 0.1-1.0 MG/DL Aspartate Amino Transf (AST/SGOT) 17 5-34 U/L Alanine Aminotransferase (ALT/SGPT) 13 0-55 U/L Alkaline Phosphatase 49 40-136 U/L Total Creatine Kinase 21 L 29-168 U/L Creatine Kinase MB 1.0 <6.6 NG/ML Troponin I < 0.30 <0.30 NG/ML B-Type Natriuretic Peptide 76.6 <100.0 PG/ML Total Protein 7.7 6.4-8.2 GM/DL Albumin 4.3 3.2-4.5 GM/DL Amylase Level 63 25-125 U/L Lipase 22 8-78 U/L TSH Castro Testing 2.41 0.35-4.94 UIU/ML Lactic Acid Level 2.65 *H 2.23 *H 0.50-2.00 MMOL/L Urine Color YELLOW Urine Clarity SLIGHTLY CLOUDY Urine pH 8 5-9 Urine Specific [place] 1.010 L 1.016-1.022 Urine Protein NEGATIVE NEGATIVE Urine Glucose (UA) NEGATIVE NEGATIVE Urine Ketones NEGATIVE NEGATIVE Urine Nitrite NEGATIVE NEGATIVE Urine Bilirubin NEGATIVE NEGATIVE Urine Urobilinogen NORMAL NORMAL MG/DL Urine Leukocyte Esterase NEGATIVE NEGATIVE Urine RBC (Auto) NEGATIVE NEGATIVE Urine RBC NONE /HPF Urine WBC RARE /HPF Urine Squamous Epithelial Cells NONE /HPF Urine Crystals NONE /LPF Urine Bacteria LARGE H /HPF Urine Casts NONE /LPF Urine Mucus NEGATIVE /LPF Urine Culture Indicated YES Test 02/26/18 06:08 Range/Units White Blood Count 9.9 4.3-11.0 10^3/uL Red Blood Count 5.11 4.35-5.85 10^6/uL Hemoglobin 14.7 11.5-16.0 G/DL Hematocrit 43 35-52 % Mean Corpuscular Volume 85 80-99 FL Mean Corpuscular Hemoglobin 29 25-34 PG Mean Corpuscular Hemoglobin Concent 34 32-36 G/DL Red Cell Distribution Width 15.1 H 10.0-14.5 % Platelet Count 207 130-400 10^3/uL Mean Platelet Volume 10.9 H 7.4-10.4 FL Neutrophils (%) (Auto) 74 42-75 % Lymphocytes (%) (Auto) 18 12-44 % Monocytes (%) (Auto) 7 0-12 % Eosinophils (%) (Auto) 1 0-10 % Basophils (%) (Auto) 0 0-10 % Neutrophils # (Auto) 7.3 1.8-7.8 X 10^3 Lymphocytes # (Auto) 1.8 1.0-4.0 X 10^3 Monocytes # (Auto) 0.7 0.0-1.0 X 10^3 Eosinophils # (Auto) 0.1 0.0-0.3 10^3/uL Basophils # (Auto) 0.0 0.0-0.1 10^3/uL Micro Results Microbiology 02/26/18 Influenza Types A,B Antigen (RAMEZ) - Final, Complete My Orders Orders - ALANNA BOLIVAR DO Saline Lock/Iv-Start (02/26/18 00:10) Ekg Tracing (02/26/18 00:10) Monitor-Rhythm Ecg Trace Only (02/26/18 00:10) Ct Head Wo-R/O Stroke (02/26/18 00:10) Amylase (02/26/18 00:10) BNP (02/26/18 00:10) Cbc With Automated Diff (02/26/18 00:10) Comprehensive Metabolic Panel (02/26/18 00:10) Creatine Kinase (02/26/18 00:10) Creatine Kinase Mb (02/26/18 00:10) Lactic Acid Analyzer (02/26/18 00:10) Lipase (02/26/18 00:10) Magnesium (02/26/18 00:10) Protime With Inr (02/26/18 00:10) Partial Thromboplastin Time (02/26/18 00:10) Thyroid Analyzer (02/26/18 00:10) Troponin I (02/26/18 00:10) Ua Culture If Indicated (02/26/18 00:10) Blood Culture (02/26/18 00:10) Influenza A And B Antigens (02/26/18 00:10) Chest 1 View, Ap/Pa Only (02/26/18 00:10) Ondansetron Injection (Zofran Injectio (02/26/18 00:15) Scopolamine Patch (Transderm-Scop Patch) (02/26/18 00:15) Meclizine Tablet (Antivert Tablet) (02/26/18 00:15) Catheter(Urinary) Insert & Ass ,15 (02/26/18 01:13) Saline Lock/Iv-Start (02/26/18 01:16) Ns Iv 1000 Ml (Sodium Chloride 0.9%) (02/26/18 01:16) Urine Culture (02/26/18 02:08) Medications Given in ED Current Medications Medications Dose Ordered Sig/Dennis Route Start Time Stop Time Status Last Admin Dose Admin Meclizine HCl 50 mg ONCE ONCE PO 02/26/18 00:15 02/26/18 00:16 DC 02/26/18 01:20 50 MG Ondansetron HCl 4 mg ONCE ONCE IVP 02/26/18 00:15 02/26/18 00:16 DC 02/26/18 01:20 4 MG Scopolamine 1.5 mg ONCE ONCE TD 02/26/18 00:15 02/26/18 00:16 DC 02/26/18 01:20 1.5 MG Sodium Chloride 1,000 ml @ 0 mls/hr Q0M ONCE IV 02/26/18 01:16 02/26/18 01:17 DC 02/26/18 01:20 1,000 MLS/HR Vital Signs/I&O 02/26/18 02/26/18 02/26/18 02/26/18 00:05 04:00 04:58 06:00 Temp 97.8 97.3 96.9 Pulse 79 74 82 85 Resp 18 16 16 B/P (MAP) 180/93 (122) 186/84 (118) 183/81 (115) Pulse Ox 98 96 95 O2 Delivery Room Air Room Air Room Air Capillary Refill : Less Than 3 Seconds Blood Pressure Mean: 115 Progress Note : Progress Note PT STATES SHE IS FEELING MUCH BETTER AT TIME OF ADMIT. ECG Initial ECG Impression Date: Feb 26, 2018 Initial ECG Impression Time: 00:17 Initial ECG Rate: 74 Initial ECG Rhythm: Normal Sinus Diagnostic Imaging Comments CXR--MILD VASCULAR CONGESTION, BIBASILAR ATELECTASIS, PENDING RADIOLOGIST REVIEW CT HEAD--NO ACUTE PROCESS, PER [facility] VIA FAX @ [phone] Reviewed: Reviewed by Me Departure Communication (Admissions) [id number]--SPOKE WITH DR. HARRIS, LUBRICATION SERVICER FOR HOSPITALIST. ACCEPTS PT FOR ADMIT Impression Primary Impression: Generalized weakness Additional Impressions: Hyponatremia Vertigo Disposition: ADMITTED INPATIENT Condition: Improved Admissions Decision to Admit Reason: Admit from ER (General) Decision to Admit/Date: Feb 26, 2018 Time/Decision to Admit Time: 01:30 Departure-Patient Inst. Referrals: HELENA WADDELL MD (PCP) Primary Care Physician ALANNA BOLIVAR DO Feb 26, 2018 07:12
[2018-02-26] MEDS ORDERED: FLU QUADRIvalent (5+ YOA) 2018-2019 (AFLURIA) 0.5 ML IM ONE (08:00)
[2018-02-26] MEDS ORDERED: GUAI100L13 PO (08:13)
[2018-02-26 08:27] VITALS: BP 139/64
--- NOTE | 2018-02-26 10:40 | History & Physical-Hospitalist ---
History of Present Illness HPI/Chief Complaint CC: Vertigo with fall risk HPI: This is an 83-year-old white female retirement patient at [facility] of Dr. Joshua Batista who presented to the emergency room with an abrupt onset of vertigo with weakness and fall risk. Workup ensued with results revealing hyponatremia and severe vertigo see she was placed in in inpatient observation status with IV fluids and supportive care and currently is doing much better. Her daughter left her room at the retirement at 9 o' clock and then at 1130 she had this abrupt onset of acute vertigo prompting ER evaluation. We will be in the process of discontinuing telemetry since it has been sinus rhythm and hep locking IV fluids and she is tolerating a clear liquid diet we will advance the diet to regular and she is requesting a flu shot we also will discontinue catheter. I reviewed all imaging and laboratory evaluation from the ER. I have restarted most of her home meds. Source: patient, RN/MD Exam Limitations: no limitations Date Seen 02/26/18 Time Seen by a Provider: 10:45 Attending Physician Joshua Batista MD PCP Joshua Batista MD Referring Physician Date of Admission Feb 26, 2018 at 01:30 Home Medications & Allergies Home Medications Reviewed patient Home Medication Reconciliation performed by pharmacy medication reconciliations windows laptop technician and/or nursing. Patients Allergies have been reviewed. Allergies Allergies Coded Allergies Penicillins (Verified Allergy, Intermediate, HIVES, EDEMA, 02/26/18) Past Qvbavhs-Tnprst-Canhez Hx Past Med/Social Hx: Reviewed Nursing Past Med/Soc Hx, Reviewed and Corrections made Patient Social History Marrital Status: single Employed/Student: retired Alcohol Use: Denies Use Number of Drinks Today: AA Recreational Drug Use: No Smoking Status: Never a Smoker 2nd Hand Smoke Exposure: No Physical Abuse Screen: No Sexual Abuse: No Recent Foreign Travel: No Contact w/other who traveled: No Recent Infectious Disease Expo: No Immunizations Up To Date Tetanus Booster (TDap): Unknown Pediatric: Yes Date of Pneumonia Vaccine: Apr 07, 2010 Date of Influenza Vaccine: Jan 06, 2015 Seasonal Allergies Seasonal Allergies: No Past Medical History Surgeries: Cardiac, Coronary Stent, Orthopedic, Tubal Ligation Cardiac: Atrial Fibrillation, Coronary Artery Disease, Hypertension Neurological: Dementia 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: No Sexually Transmitted Disease: No HIV/AIDS: No Tubal Ligation, Menopausal Genitourinary: UTI-Chronic Gastrointestinal: Chronic Constipation Musculoskeletal: Osteoporosis, Arthritis Loss of Vision: Denies Hearing Impairment: Denies Psychosocial: Depression History of Blood Disorders: No Adverse Reaction to Blood Moyer: No Family History Cardiovascular disease Myocardial infarction 19 FATHER No Family History of: AIDS Abdominal aortic aneurysm Graham's disease Alcoholism Alzheimer's disease Aphasia Arthritis Asthma Cancer of mouth Cataracts Colon cancer Completed stroke Congenital disease Congenital heart disease Coronary thrombosis Cystic fibrosis Deafness or hearing loss Dementia Diabetes mellitus Drug abuse Dysphasia Fibrocystic disease of breast Gastroenteritis Glaucoma Headache disorder Hypercholesterolemia Hypertension Infertility Kidney disease Neoplasm Not obtainable due to adoption Osteoporosis Parkinson's disease Prostate cancer Psychosocial problem Respiratory disorder Seizure disorder Severe allergy Thyroid disease Tuberculosis Visual disorder Heart Disease, Hypertension Review of Systems Constitutional: see HPI, dizziness, malaise, weakness EENTM: no symptoms reported Respiratory: no symptoms reported Cardiovascular: no symptoms reported Gastrointestinal: loss of appetite, nausea Genitourinary: decreased output Musculoskeletal: back pain Skin: no symptoms reported Psychiatric/Neurological: No Symptoms Reported All Other Systems Reviewed Negative Unless Noted: Yes Physical Exam Physical Exam Vital Signs Vital Signs - First Documented 02/26/18 00:05 Temp 97.8 Pulse 79 Resp 18 B/P (MAP) 180/93 (122) Pulse Ox 98 O2 Delivery Room Air Capillary Refill : Less Than 3 Seconds Height, Weight, BMI Height: 5'0.00" Weight: 195lbs. 5.0oz. 88.594442dh; 38.1 BMI Method:Stated General Appearance: No Apparent Distress, WD/WN, Chronically ill, Obese Eyes: Bilateral Eye Normal Inspection, Bilateral Eye PERRL HEENT: PERRL/EOMI, Normal ENT Inspection, Pharynx Normal Neck: Full Range of Motion, Normal Inspection, Non Tender, Supple, Carotid Bruit Respiratory: Chest Non Tender, Lungs Clear, Normal Breath Sounds, No Accessory Muscle Use, No Respiratory Distress Cardiovascular: Regular Rate, Rhythm, No Edema, No Gallop, No JVD, No Murmur, Normal Peripheral Pulses Gastrointestinal: Normal Bowel Sounds, No Organomegaly, No Pulsatile Mass, Non Tender, Soft Back: Normal Inspection, No CVA Tenderness, No Vertebral Tenderness Extremity: Normal Capillary Refill, Normal Inspection, Normal Range of Motion, Non Tender, No Calf Tenderness, No Pedal Edema Neurologic/Psychiatric: Alert, No Motor/Sensory Deficits, Normal Mood/Affect, Disoriented Skin: Normal Color, Warm/Dry Lymphatic: No Adenopathy Results Results/Procedures Labs Laboratory Tests 02/26/18 00:12 02/26/18 06:08 Patient resulted labs reviewed. Assessment/Plan Admission Diagnosis Assessment: Severe vertigo with fall risk Hyponatremia Hypertension Chronic lower extremity edema Hypokalemia Dementia Atelectasis on chest x-ray without elevated white count and no fever will recheck tomorrow Elevated lactic acid of uncertain source Plan: Reconcile and restarted most home meds Hep-locked IV fluid Discontinue Wiley catheter DC telemetry Flu shot as she is requesting Ambulate with assistance Admission Status: Observation Diagnosis/Problems Diagnosis/Problems (1) Vertigo Status: Acute (2) Lactic acid increased Status: Acute (3) Hyponatremia Status: Acute (4) Atelectasis of right lung Status: Acute (5) Falls Status: Acute Qualifiers: Encounter type: initial encounter Qualified Codes: W19.XXXA - Unspecified fall, initial encounter (6) Dementia Status: Chronic Qualifiers: Dementia type: Alzheimer's disease Alzheimer's disease onset: unspecified onset Dementia behavioral disturbance: without behavioral disturbance Qualified Codes: G30.9 - Alzheimer's disease, unspecified; F02.80 - Dementia in other diseases classified elsewhere without behavioral disturbance (7) Hypertension Status: Chronic Qualifiers: Hypertension type: essential hypertension Qualified Codes: I10 - Essential (primary) hypertension (8) Edema Status: Chronic Qualifiers: Edema type: unspecified Qualified Codes: R60.9 - Edema, unspecified (9) GERD (gastroesophageal reflux disease) Status: Chronic Qualifiers: Esophagitis presence: without esophagitis Qualified Codes: K21.9 - Gastro- esophageal reflux disease without esophagitis (10) Generalized weakness Status: Acute (11) Altered mental status Status: Acute Qualifiers: Altered mental status type: disorientation Qualified Codes: R41.0 - Disorientation, unspecified (12) Osteoporosis Status: Chronic Qualifiers: Osteoporosis type: unspecified Clinical Quality Measures DVT/VTE Risk/Contraindication: Risk Factor Score Per Nursin RFS Level Per Nursing on Admit: 2=Moderate KISHORE HARRIS DO Feb 26, 2018 10:40
[2018-02-26] MEDS ORDERED: HYDROcodone/APAP 5 MG/325 MG (LORTAB) TAB PO PRN (11:45)
[2018-02-26] MEDS ORDERED: ACETAMINOPHEN 500 MG TAB (TYLENOL) PO PRN (11:45)
[2018-02-26 12:00] VITALS: BP 131/69
[2018-02-26] MEDS ORDERED: PATIENT MAY USE OWN MEDS, ALL MC SCH (13:30)
[2018-02-26 16:02] VITALS: BP 126/60
[2018-02-26] MEDS: SUCRALFATE 1 GM (CARAFATE) TAB PO SCH ×2 (16:12→20:20)
[2018-02-26] MEDS: KCL 20 MEQ TAB (K-DUR) PO SCH (16:13)
[2018-02-26] MEDS: LACTOBACILLUS ACIDOPHILUS (PROBIOTIC) CAPSULE PO SCH (16:35)
[2018-02-26 19:53] VITALS: BP 146/69
[2018-02-26] MEDS: meTOprolol TARTRATE 50 MG (LOPRESSOR) TAB PO SCH (20:18)
[2018-02-26] MEDS: MICONAZOLE 2% POWDER (DESENEX AF) 90 GM TOP SCH (20:21)
[2018-02-26] MEDS ORDERED: POLYETHYLENE GLYCOL 17 GM (MIRALAX) PACK PO SCH (21:00)
[2018-02-26] MEDS ORDERED: MELATONIN 3 MG TABLET PO SCH (21:00)
[2018-02-27] VITALS: BP 144/66
[2018-02-27 04:00] VITALS: BP 140/70
[2018-02-27] MEDS: KCL 20 MEQ TAB (K-DUR) PO SCH (06:08)
[2018-02-27] MEDS: SUCRALFATE 1 GM (CARAFATE) TAB PO SCH ×2 (06:09→11:34)
[2018-02-27] MEDS: LACTOBACILLUS ACIDOPHILUS (PROBIOTIC) CAPSULE PO SCH ×2 (06:10→11:34)
[2018-02-27 06:38] LABS: BASOPHILS % (AUTO) 0 % (0-10); EOSINOPHILS # (AUTO) 0.2 10^3/uL (0.0-0.3); EOSINOPHILS % (AUTO) 2 % (0-10); HEMATOCRIT 40 % (35-52); HEMOGLOBIN 12.9 G/DL (11.5-16.0); LYMPHOCYTES # (AUTO) 1.8 X 10^3 (1.0-4.0); LYMPHOCYTES % (AUTO) 19 % (12-44); MEAN CORPUSCULAR HEMOGLOBIN 28 PG (25-34); MEAN CORPUSCULAR HGB CONC 33 G/DL (32-36); MEAN CORPUSCULAR VOLUME 87 FL (80-99); MEAN PLATELET VOLUME 10.9 FL (7.4-10.4); MONOCYTES # (AUTO) 0.9 X 10^3 (0.0-1.0); MONOCYTES % (AUTO) 10 % (0-12); NEUTROPHILS # (AUTO) 6.3 X 10^3 (1.8-7.8); NEUTROPHILS % (AUTO) 69 % (42-75); PLATELET COUNT 243 10^3/uL (130-400); RED BLOOD COUNT 4.57 10^6/uL (4.35-5.85); WHITE BLOOD COUNT 9.2 10^3/uL (4.3-11.0)
[2018-02-27 07:21] LABS: ALANINE AMINOTRANSFERASE 12 U/L (0-55); ALBUMIN 3.7 GM/DL (3.2-4.5); ALKALINE PHOSPHATASE 37 U/L (40-136); BILIRUBIN,TOTAL 0.7 MG/DL (0.1-1.0); BUN/CREATININE RATIO 13; CARBON DIOXIDE 23 MMOL/L (21-32); CHLORIDE 98 MMOL/L (98-107); CREATININE SERUM 0.63 MG/DL (0.60-1.30); GFR ESTIMATED > 60; GLUCOSE 90 MG/DL (70-105); POTASSIUM 4.4 MMOL/L (3.6-5.0); SODIUM 130 MMOL/L (135-145); TOTAL PROTEIN 6.2 GM/DL (6.4-8.2)
--- NOTE | 2018-02-27 08:08 | Diagnostic Imaging Report ---
INDICATION: Abnormal chest x-ray and dizziness. PA and lateral views of the chest are obtained. Comparison is made to study of 02/26/2018. FINDINGS: There is mild cardiomegaly. Pulmonary vascularity is within normal limits. There is mild linear density in the perihilar regions likely due to atelectasis and/or scarring. There is no consolidation or pneumothorax. Advanced degenerative findings are seen in the shoulders and thoracic spine. IMPRESSION: Mild cardiomegaly with perihilar atelectasis and/or scarring. There is minimal residual basilar infiltrate. Dictated by: Dictated on workstation # [id number]
[2018-02-27] MEDS: meTOprolol TARTRATE 50 MG (LOPRESSOR) TAB PO SCH (08:32)
[2018-02-27] MEDS: MICONAZOLE 2% POWDER (DESENEX AF) 90 GM TOP SCH (08:32)
[2018-02-27 08:33] VITALS: BP 150/69
[2018-02-27] MEDS ORDERED: LORA10TA7 PO (12:11)
[2018-02-27 12:14] VITALS: BP 171/74
[2018-02-27] MEDS ORDERED: ACET-168 PO (12:21)
[2018-02-27] MEDS ORDERED: MULT1CAP27 PO (12:21)
[2018-02-27] MEDS ORDERED: HYDR-3812 PO (12:21)
[2018-02-27] MEDS ORDERED: VITS42.53 TP (12:21)
[2018-02-27] MEDS ORDERED: CALC-6 PO (12:21)
[2018-02-27] MEDS ORDERED: SUCR1TAB36 PO (12:21)
[2018-02-27] MEDS ORDERED: MELA3TAB PO (12:21)
[2018-02-27] MEDS ORDERED: L. A1POW4 PO (12:21)
[2018-02-27] MEDS ORDERED: POTA-51 PO (12:21)
[2018-02-27] MEDS ORDERED: GUAI-613 PO (12:21)
[2018-02-27] MEDS ORDERED: CYAN100081 PO (12:21)
[2018-02-27] MEDS ORDERED: POTA10CA43 PO (12:21)
[2018-02-27] MEDS ORDERED: POLY17PO6 PO (12:23)
--- NOTE | 2018-02-27 12:26 | Discharge Summary ---
Diagnosis/Chief Complaint Date of Admission Feb 26, 2018 at 01:30 Date of Discharge February 27, 2018 Admission Diagnosis Admission Diagnosis (1) Vertigo (2) Lactic acid increased (3) Hyponatremia (4) Atelectasis of right lung (5) Falls Status: Acute Qualifiers: Encounter type: initial encounter Qualified Codes: W19.XXXA - Unspecified fall, initial encounter (6) Dementia Qualifiers: Dementia type: Alzheimer's disease Alzheimer's disease onset: unspecified onset Dementia behavioral disturbance: without behavioral disturbance Qualified Codes: G30.9 - Alzheimer's disease, unspecified; F02.80 - Dementia in other diseases classified elsewhere without behavioral disturbance (7) I10 - Essential (primary) hypertension (8) R60.9 - Edema (9) K21.9 - Gastro-esophageal reflux disease without esophagitis (10) Generalized weakness (11) Altered mental status R41.0 - Disorientation, unspecified (12) Osteoporosis Discharge Diagnosis (1) Vertigo (2) Lactic acid increased (3) Hyponatremia (4) Atelectasis of right lung (5) Falls Status: Acute Qualifiers: Encounter type: initial encounter Qualified Codes: W19.XXXA - Unspecified fall, initial encounter (6) Dementia Qualifiers: Dementia type: Alzheimer's disease Alzheimer's disease onset: unspecified onset Dementia behavioral disturbance: without behavioral disturbance Qualified Codes: G30.9 - Alzheimer's disease, unspecified; F02.80 - Dementia in other diseases classified elsewhere without behavioral disturbance (7) I10 - Essential (primary) hypertension (8) R60.9 - Edema (9) K21.9 - Gastro-esophageal reflux disease without esophagitis (10) Generalized weakness (11) Altered mental status - improved/resolved R41.0 - Disorientation, unspecified (12) Osteoporosis Reason Hospital Visit CC: Vertigo with fall risk HPI: This is an 83-year-old white female longterm patient at [facility] of Dr. Joshua Waddell who presented to the emergency room with an abrupt onset of vertigo with weakness and fall risk. Workup ensued with results revealing hyponatremia and severe vertigo see she was placed in in inpatient observation status with IV fluids and supportive care and currently is doing much better. Her daughter left her room at the longterm at 9 o' clock and then at 1130 she had this abrupt onset of acute vertigo prompting ER evaluation. We will be in the process of discontinuing telemetry since it has been sinus rhythm and hep locking IV fluids and she is tolerating a clear liquid diet we will advance the diet to regular and she is requesting a flu shot we also will discontinue catheter. I reviewed all imaging and laboratory evaluation from the ER. I have restarted most of her home meds. Discharge Summary Hospital Course Hospital Course 83 yo F admitted for vertigo and fall risk. She was rehydrated with IVF. She was noted to have hyponatremia, she has a history of this but it was much lower at that time. Pt was eating breakfast and drinking fluids AM of discharge. She reports she is ready to go back to [facility]. The jolley was re-inserted due to urinary retention but was removed prior to discharge. Still unsteady on her feet but able to walk without much issue. Lactic acid was noted to be elevated but did decrease on this admission. She did have a right buttock sore that is now getting daily care. I did check on patient after she got to [facility] and she did urinate without difficulty. Labs Laboratory Tests 02/26/18 00:12: Red Cell Distribution Width 15.0H, Mean Platelet Volume 10.5H, Sodium Level 129L , Chloride Level 92L, Anion Gap 15H, Glucose Level 141H, Total Creatine Kinase 21L 02/26/18 00:21: Lactic Acid Level 2.65*H 02/26/18 02:08: Urine Specific [place] 1.010L, Urine Bacteria LARGEH 02/26/18 02:13: Lactic Acid Level 2.23*H 02/26/18 06:08: Red Cell Distribution Width 15.1H, Mean Platelet Volume 10.9H, Sodium Level 131L , Chloride Level 94L, Anion Gap 15H 02/27/18 05:39: Red Cell Distribution Width 15.0H, Mean Platelet Volume 10.9H, Sodium Level 130L , Alkaline Phosphatase 37L, Total Protein 6.2L Procedures None. Discharge Physical Examination Allergies: Coded Allergies: Penicillins (Verified Allergy, Intermediate, HIVES, EDEMA, 02/26/18) Vitals & I&Os Vital Signs Date Time Temp Pulse Resp B/P (MAP) Pulse Ox O2 Delivery O2 Flow Rate FiO2 02/27/18 14:55 76 16 171/74 94 Room Air 02/27/18 12:14 97.8 General Appearance: Alert, Oriented X3, Cooperative HEENT: Atraumatic Respiratory: Clear to Auscultation Cardiovascular: Regular Rate Abdominal: Normal Bowel Sounds, Soft Skin: Other (right buttock sore) Psych/Mental Status: Mental Status NL, Mood NL Discharge Home Medications Reviewed and agree with Discharge Medication list on patient's Discharge Instruction sheet Condition at Discharge improved Instructions to Patient/Family Please see electronic discharge instructions given to patient. Clinical Quality Measures DVT/VTE Risk/Contraindication: Risk Factor Score Per Nursin RFS Level Per Nursing on Admit: 2=Moderate JOSHUA WADDELL MD Feb 27, 2018 12:26
--- NOTE | 2018-02-27 12:29 | Discharge Inst-Simple/Standard ---
Discharge Inst-Standard Discharge Medications New, Converted or Re-Newed RX: Other Patient Instructions/Follow Up Plan of Care/Instructions/FU: resume home medications monitor urine output monitor blood pressure Activity as Tolerated: Yes Discharge Diet: Regular Diet Return to The Hospital For: new concerns HELENA WADDELL MD Feb 27, 2018 12:29
[2018-02-27 14:55] VITALS: BP 171/74
--- OUTSIDE RECORDS SUMMARY | 2018-03-01 15:15 | XMS REPORT | Continuity of Care Document ---
Author Author [facility] Address Unknown Phone Unavailable Allergies Active Description Code Type Severity Reaction Onset Reported/Identified Relationship to Patient Clinical Status Yes Penicillins Drug Allergy N/A N/A 09/01/2013 Yes Penicillins [id number] Drug Allergy Moderate HIVES, EDEMA 02/26/2018 Medications There is no data. Problems Date Dx Coded Attending Type Code Diagnosis Diagnosed By 08/06/2010 Ot 462 09/01/2013 LINNEA FISHMAN APRN 786.2 COUGH 07/02/2014 Ot 724.2 LUMBAGO 07/02/2014 Ot 733.00 OSTEOPOROSIS NOS 07/02/2014 Ot 733.13 PATHOLOGIC FRACTURE, VERTEBRAE 07/26/2014 DANE ZARATE [employer]GMENT[employer]ING SUPERVISOR Ot 331.9 07/26/2014 DANE ZARATE SEGMENTAL PAVING SUPERVISOR Ot 780.93 07/26/2014 Ot 733.13 07/26/2014 Ot 733.13 07/31/2014 DANE ZARATE SEGMENT[employer] PAVING SUPERVISOR Ot 331.9 07/31/2014 DANE ZARATE SEGMENTAL PAVING SUPERVISOR Ot 780.93 07/31/2014 Ot 733.13 08/01/2014 KENDALL [...] V45.82 08/01/2014 Ot 733.13 08/01/2014 DANE ZARATE SEGMENT[employer] PAVING SUPERVISOR Ot 331.9 08/01/2014 DANE ZARATE SEGMENTAL PAVING SUPERVISOR Ot 780.93 08/01/2014 Ot 733.13 08/01/2014 KENDALL [...] CLAUDIA A Ot 414.01 CORONARY ATHEROSCLEROSIS OF [place] CORON 08/05/2014 KENDALL ROTHMAN, CLAUDIA Constantino Ot [...] CLAUDIA A Ot V45.82 08/16/2014 KENDALL ROTHMAN, CALUDIA A Ot 041.7 08/16/2014 KENDALL ROTHMAN, CLAUDIA [...] CLAUDIA Constantino Ot 414.01 CORONARY ATHEROSCLEROSIS OF [place] CORON 08/19/2014 KENDALL ROTHMAN, CLAUDIA Constantino Ot [...] ANGIOPLASTY 09/04/2014 Ot 733.13 09/05/2014 DANE ZARATE SE[employer]ING SUPERVISOR Ot 331.9 09/05/2014 DANE ZARATE SEGMENTAL PAVING SUPERVISOR Ot 780.93 09/05/2014 Ot 733.13 09/27/2014 PRAMOD ZARATEIE M SEGMENTAL PAVING SUPERVISOR Ot 331.9 09/27/2014 DANE ZARATE SEGMENTAL PAVING SUPERVISOR Ot 780.93 09/27/2014 Ot 733.13 03/20/2015 TESSADANE SEGMENT[employer] PAVING SUPERVISOR Ot 331.9 03/20/2015 DANE ZARATE SEGMENTAL PAVING SUPERVISOR Ot 780.93 03/20/2015 Ot 733.13 03/21/2015 KENDALL ROTHMAN, CLAUDIA A Ot D64.9 03/21/2015 KENDALL ROTHMAN, CLAUDIA A Ot D64.9 03/21/2015 KENDALL ROTHMAN, CLAUDIA A Ot D64.9 03/21/2015 KENDALL ROTHMAN, CLAUDIA A Ot D64.9 03/31/2015 TESSADANE SEGMENT[employer]ING SUPERVISOR Ot 331.9 03/31/2015 TESSADANE SEGMENTAL PAVING SUPERVISOR Ot 780.93 03/31/2015 Ot 733.13 03/31/2015 KENDALL [...] IRON DEFICIENCY ANEMIA, UNSPECIFIED 02/10/2017 DANE ZARATE SEGMENT[employer] P[employer]ING SUPERVISOR 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 02/10/2017 TESSAPRAMODJOSE Campbell SEGMENTAL PAVING SUPERVISOR Ot 780.93 MEMORY LOSS 02/10/2017 Ot 733.13 [...] IRON DEFICIENCY ANEMIA, UNSPECIFIED 02/11/2017 DANE ZARATE SEGMENT[employer] PAVING SUPERVISOR 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 02/11/2017 DANE ZARATE SEGMENTAL PAVING SUPERVISOR Ot 780.93 MEMORY LOSS 02/11/2017 Ot 733.13 [...] 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, NEC, LUMBAR REGION, 03/04/2017 SWEET PA, STEPHANIE R Ot M51.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 RADICULO 03/18/2017 SWEET PA, STEPHANIE R Ot 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, LUMBAR REGIO 03/18/2017 SWEET PA, STEPHANIE R Ot M48.00 SPINAL STENOSIS, SITE UNSPECIFIED 03/18/2017 SWEET PA, STEPHANIE R Ot 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, NEC, LUMBAR REGION, 03/18/2017 SWEET PA, STEPHANIE R Ot M51.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 RADICULO 02/26/2018 DANE ZARATE SEGMENTAL PAVING SUPERVISOR 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 02/26/2018 DANE ZARATE SEGMENTAL PAVING SUPERVISOR Ot 780.93 MEMORY LOSS 02/26/2018 Ot 733.13 PATHOLOGIC FRACTURE, VERTEBRAE 02/26/2018 ZACKARY ROTHMAN, CHEN Campbell Ot D50.9 IRON DEFICIENCY ANEMIA, UNSPECIFIED 02/26/2018 ZACKARY ROTHMAN, CHEN Campbell Ot K21.9 GASTRO-ESOPHAGEAL REFLUX DISEASE WITHOUT 02/26/2018 ZACKARY ROTHMAN, CHEN Campbell Ot Z01.818 ENCOUNTER FOR OTHER PREPROCEDURAL EXAMIN 02/26/2018 KENDALL ROTHMAN, CLAUDIA Constantino Ot D64.9 ANEMIA, UNSPECIFIED 02/26/2018 KENDALL ROTHMAN, CLAUDIA Constantino Ot D50.9 IRON DEFICIENCY ANEMIA, UNSPECIFIED 02/26/2018 SWEET PA, STEPHANIE R Ot 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, LUMBAR REGIO 02/26/2018 SWEET PA, STEPHANIE R Ot M48.00 SPINAL STENOSIS, SITE UNSPECIFIED 02/26/2018 SWEET PA, STEPHANIE R Ot 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, NEC, LUMBAR REGION, 02/26/2018 SWEET PA, STEPHANIE R Ot M51.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 RADICULO 02/26/2018 KENDALL ROTHMAN, CLAUDIA Constantino Ot D64.9 ANEMIA, UNSPECIFIED 02/26/2018 CLAUDIA ARGUETA MD Ot D50.9 IRON DEFICIENCY ANEMIA, UNSPECIFIED Procedures Code Description Performed By Performed On [...] lactic acid measurement (moles/volume) 2.65 mmol/L 0.50-2.00 Bacterial blood culture - 02/26/18 00:21 Bacterial blood culture NG NRG Influenza virus A and B antigen detection - 02/26/18 00:33 FLU RESULT NEGATIVE FOR INFLUENZA A AND B ANTIGENS BY IA NRG Bacterial blood culture - 02/26/18 00:58 Bacterial blood culture NG NRG Complete urinalysis with reflex to culture [...] urinalysis with reflex to culture YES NRG Bacterial urine culture - 02/26/18 02:08 Bacterial urine culture PROGRESS NRG COLONY COUNT . NRG FTX;REPORTABLE RML SENT REPORT 02/26 17:06 NRG FREE TEXT ENTRY 2 AND 02/27/18 12:05 NRG Serum or plasma lactate measurement (moles/volume) - 02/26/18 02:13 Serum or plasma lactate measurement (moles/volume) 2.23 mmol/L 0.50-2.00 Complete blood count (CBC) with automated white blood cell (WBC) differential - 02/26/18 06:08 Blood leukocytes automated count (number/volume) 9.9 10*3/uL 4.3-11.0 Blood erythrocytes automated count (number/volume) 5.11 10*6/uL 4.35-5.85 Venous blood hemoglobin measurement (mass/volume) 14.7 g/dL 11.5-16.0 Blood hematocrit (volume fraction) 43 % 35-52 Automated erythrocyte mean corpuscular volume 85 [foz_us] 80-99 Automated erythrocyte mean corpuscular hemoglobin (mass per erythrocyte) 29 pg 25-34 Automated erythrocyte mean corpuscular hemoglobin concentration measurement ( mass/volume) 34 g/dL 32-36 Automated erythrocyte distribution width ratio 15.1 % 10.0-14.5 Automated blood platelet count (count/volume) 207 10*3/uL 130-400 Automated blood platelet mean volume measurement 10.9 [foz_us] 7.4-10.4 Automated blood neutrophils/100 leukocytes 74 % 42-75 Automated blood lymphocytes/100 leukocytes 18 % 12-44 Blood monocytes/100 leukocytes 7 % 0-12 Automated blood eosinophils/100 leukocytes 1 % 0-10 Automated blood basophils/100 leukocytes 0 % 0-10 Blood neutrophils automated count (number/volume) 7.3 10*3 1.8-7.8 Blood lymphocytes automated count (number/volume) 1.8 10*3 1.0-4.0 Blood monocytes automated count (number/volume) 0.7 10*3 0.0-1.0 Automated eosinophil count 0.1 10*3/uL 0.0-0.3 Automated blood basophil count (count/volume) 0.0 10*3/uL 0.0-0.1 Comprehensive metabolic panel - 02/26/18 06:08 Serum or plasma sodium measurement (moles/volume) 131 mmol/L 135-145 Serum or plasma potassium measurement (moles/volume) 4.1 mmol/L 3.6-5.0 Serum or plasma chloride measurement (moles/volume) 94 mmol/L 98-107 Carbon dioxide 22 mmol/L 21-32 Serum or plasma anion gap determination (moles/volume) 15 mmol/L 5-14 Serum or plasma urea nitrogen measurement (mass/volume) 7 mg/dL 7-18 Serum or plasma creatinine measurement (mass/volume) 0.61 mg/dL 0.60-1.30 Serum or plasma urea nitrogen/creatinine mass ratio 11 NRG Serum or plasma creatinine measurement with calculation of estimated glomerular filtration rate > NRG Serum or plasma glucose measurement (mass/volume) 101 mg/dL 70-105 Serum or plasma calcium measurement (mass/volume) 9.1 mg/dL 8.5-10.1 Serum or plasma total bilirubin measurement (mass/volume) 0.6 mg/dL 0.1-1.0 Serum or plasma alkaline phosphatase measurement (enzymatic activity/volume) 47 U/L 40-136 Serum or plasma aspartate aminotransferase measurement (enzymatic activity/ volume) 13 U/L 5-34 Serum or plasma alanine aminotransferase measurement (enzymatic activity/volume ) 11 U/L 0-55 Serum or plasma protein measurement (mass/volume) 7.1 g/dL 6.4-8.2 Serum or plasma albumin measurement (mass/volume) 4.3 g/dL 3.2-4.5 CALCIUM CORRECTED 8.9 mg/dL 8.5-10.1 Complete blood count (CBC) with automated white blood cell (WBC) differential - 02/27/18 05:39 Blood leukocytes automated count (number/volume) 9.2 10*3/uL 4.3-11.0 Blood erythrocytes automated count (number/volume) 4.57 10*6/uL 4.35-5.85 Venous blood hemoglobin measurement (mass/volume) 12.9 g/dL 11.5-16.0 Blood hematocrit (volume fraction) 40 % 35-52 Automated erythrocyte mean corpuscular volume 87 [foz_us] 80-99 Automated erythrocyte mean corpuscular hemoglobin (mass per erythrocyte) 28 pg 25-34 Automated erythrocyte mean corpuscular hemoglobin concentration measurement ( mass/volume) 33 g/dL 32-36 Automated erythrocyte distribution width ratio 15.0 % 10.0-14.5 Automated blood platelet count (count/volume) 243 10*3/uL 130-400 Automated blood platelet mean volume measurement 10.9 [foz_us] 7.4-10.4 Automated blood neutrophils/100 leukocytes 69 % 42-75 Automated blood lymphocytes/100 leukocytes 19 % 12-44 Blood monocytes/100 leukocytes 10 % 0-12 Automated blood eosinophils/100 leukocytes 2 % 0-10 Automated blood basophils/100 leukocytes 0 % 0-10 Blood neutrophils automated count (number/volume) 6.3 10*3 1.8-7.8 Blood lymphocytes automated count (number/volume) 1.8 10*3 1.0-4.0 Blood monocytes automated count (number/volume) 0.9 10*3 0.0-1.0 Automated eosinophil count 0.2 10*3/uL 0.0-0.3 Automated blood basophil count (count/volume) 0.0 10*3/uL 0.0-0.1 Comprehensive metabolic panel - 02/27/18 05:39 Serum or plasma sodium measurement (moles/volume) 130 mmol/L 135-145 Serum or plasma potassium measurement (moles/volume) 4.4 mmol/L 3.6-5.0 Serum or plasma chloride measurement (moles/volume) 98 mmol/L 98-107 Carbon dioxide 23 mmol/L 21-32 Serum or plasma anion gap determination (moles/volume) 9 mmol/L 5-14 Serum or plasma urea nitrogen measurement (mass/volume) 8 mg/dL 7-18 Serum or plasma creatinine measurement (mass/volume) 0.63 mg/dL 0.60-1.30 Serum or plasma urea nitrogen/creatinine mass ratio 13 NRG Serum or plasma creatinine measurement with calculation of estimated glomerular filtration rate > NRG Serum or plasma glucose measurement (mass/volume) 90 mg/dL 70-105 Serum or plasma calcium measurement (mass/volume) 9.0 mg/dL 8.5-10.1 Serum or plasma total bilirubin measurement (mass/volume) 0.7 mg/dL 0.1-1.0 Serum or plasma alkaline phosphatase measurement (enzymatic activity/volume) 37 U/L 40-136 Serum or plasma aspartate aminotransferase measurement (enzymatic activity/ volume) 13 U/L 5-34 Serum or plasma alanine aminotransferase measurement (enzymatic activity/volume ) 12 U/L 0-55 Serum or plasma protein measurement (mass/volume) 6.2 g/dL 6.4-8.2 Serum or plasma albumin measurement (mass/volume) 3.7 g/dL 3.2-4.5 CALCIUM CORRECTED 9.2 mg/dL 8.5-10.1 Encounters ACCT No. Visit Date/Time Discharge Status Pt. Type Provider Facility Loc./Unit Complaint [id number] 09/01/2013 13:28:00 09/01/2013 23:59:59 CLS Outpatient LINNEA FISMHAN APRN [id number] 02/11/2017 07:45:00 02/11/2017 23:59:59 CLS Outpatient STEPHANIE MICHELLE [facility] RAD BACK PAIN M54.9 [id number] 06/30/2015 00:07:00 06/30/2015 23:59:59 CLS Preadmit CLAUDIA ARGUETA MD [facility] ANEMIA,IRON DEFICIENCY [id number] 04/11/2015 10:07:00 06/29/2015 00:01:00 DIS Outpatient CLAUDIA ARGUETA MD [facility] ANEMIA,IRON DEFICIENCY [id number] 06/19/2015 00:09:00 06/19/2015 23:59:59 CLS Preadmit CLAUDIA ARGUETA MD [facility] ANEMIA [id number] 03/21/2015 12:28:00 06/18/2015 00:01:00 DIS Outpatient CLAUDIA ARGUETA MD [facility] ANEMIA [id number] 04/07/2015 10:44:00 04/07/2015 13:20:00 DIS Outpatient CHEN RAYMUNDO MD [facility] HX EROSIONS,GERD, STRICTURE,IRON DEF. ANEMIA [id number] 03/31/2015 05:43:00 03/31/2015 23:59:59 CLS Outpatient CHEN RAYMUNDO MD [facility] PREOP EGD, POSSIBLE DILATION [id number] 08/05/2014 09:27:00 08/19/2014 10:40:00 DIS Inpatient CLAUDIA ARGUETA MD [facility] 4TH SWB-HYPONATREMIA,BACK PAIN,TACYCARDIA [id number] 07/31/2014 15:09:00 08/05/2014 09:06:00 DIS Inpatient CLAUDIA ARGUETA MD [facility] 4TH HYPONATREMIA,WEAKNESS,AMS ,DEPRESSION [id number] 11/16/2013 15:21:00 11/16/2013 23:59:59 CLS Outpatient DANE ZARATE [facility] RAD MEMORY LOSS [id number] 02/26/2018 01:30:00 ACT Inpatient HELENA WADDELL MD [facility] 4TH VERTIGO,HYPONATREMIA [id number] 07/10/2014 15:20:00 Document Registration [id number] 07/02/2014 03:51:00 Document Registration [id number] 08/06/2010 18:58:00 Document Registration 0000 12/09/2016 07:50:01 12/09/2016 23:59:59 CLS Outpatient Claudia Argueta
[2018-03-01] MEDS ORDERED: SCOPOLAMINE 1.5 MG (TRANSDERM-SCOP) PATCH TOP SCH (21:00)
== END 2018-02-27 12:27 ==
LOC: EDUNIT# 23:54 → ER 23:56 → 4TH 23:57 → UNDOADMOB 02-26 01:30 → UNDODISOB 02-27 14:55
PROVIDERS: ADMIT Internal Medicine; ATTEND Family Medicine
DX: E87.1 Hypo-osmolality and hyponatremia (principal); R42 Dizziness and giddiness; R53.1 Weakness; E87.6 Hypokalemia; R60.0 Localized edema; J98.11 Atelectasis; R33.9 Retention of urine, unspecified; I48.91 Unspecified atrial fibrillation; I25.10 Atherosclerotic heart disease of native coronary artery without angina pectoris; I10 Essential (primary) hypertension; G30.9 Alzheimer's disease, unspecified; F02.80 Dementia in other diseases classified elsewhere, unspecified severity, without behavioral disturbance, psychotic disturbance, mood disturbance, and anxiety; K59.09 Other constipation; M81.0 Age-related osteoporosis without current pathological fracture; F32.9 Major depressive disorder, single episode, unspecified; R74.0 Nonspecific elevation of levels of transaminase and lactic acid dehydrogenase [LDH]; K21.9 Gastro-esophageal reflux disease without esophagitis; R41.0 Disorientation, unspecified; L98.9 Disorder of the skin and subcutaneous tissue, unspecified; Z79.899 Other long term (current) drug therapy; Z95.5 Presence of coronary angioplasty implant and graft; Z87.440 Personal history of urinary (tract) infections
CPT/HCPCS: 36415; 70450; 71045; 71046; 80053; 81000; 82150; 82550; 82553; 83605; 83690; 83735; 83880; 84443; 84484; 85025; 85610; 85730; 87040; 87077; 87088; 87804; 90471; 90686; 93005; 93041; 94664; 96374; G0378

== ENCOUNTER → 2018-08-29 | Outpatient (CLI) | payer MEDICARE, MEDICAID ==
[~2018-08-29] MED LIST changes: +ACET-168 PO; +CALC-6 PO; +CYAN100081 PO; +GUAI-613 PO; +GUAI100L13 PO; +HYDR-3812 PO; +L. A1POW4 PO; +LORA10TA7 PO; +MELA3TAB PO; +POTA-51 PO; +POTA10CA43 PO; +SUCR1TAB36 PO; +VITS42.53 TP
--- NOTE | 2018-08-29 13:21 | Diagnostic Imaging Report ---
Indication: Wrist pain. Technique: Multiple realtime grayscale images were obtained over the dorsal aspect of left wrist in various projections. Findings: There is a benign-appearing cyst in the dorsal aspect of the wrist measuring 2.1 x 0.8 x 4.5 cm. This is most suspect for ganglion cyst. No other discrete solid or cystic masses are appreciated. Impression: Large ganglion cyst in the dorsal aspect of the left wrist. Dictated by: Dictated on workstation # [id number]
== END ==
LOC: RAD 09:58
PROVIDERS: ATTEND Family Medicine
DX: M67.432 Ganglion, left wrist (principal)
CPT/HCPCS: 76881

== ENCOUNTER 2018-12-07 07:56 | Outpatient (CLI) | payer MEDICARE, MEDICAID ==
[~2018-12-07] VITALS: Ht 152.4 cm; Wt 85.3 kg
[2018-12-07 09:10] VITALS: BP 135/76
== END 2018-12-07 10:38 | disposition home or self-care (01) ==
LOC: PREOP 07:56
PROVIDERS: ATTEND Orthopaedic Surgery
DX: Z01.818 Encounter for other preprocedural examination (principal)
CPT/HCPCS: 87081

== ENCOUNTER 2018-12-13 07:50 | Day surgery (SDC) | payer MEDICARE, MEDICAID ==
--- NOTE | 2018-12-04 10:09 | HISTORY AND PHYSICAL ---
DATE OF SERVICE: ADMISSION HISTORY AND PHYSICAL This will be for outpatient surgery on 12/13/2018, for left wrist ganglion cyst excision. HISTORY OF PRESENT ILLNESS: The patient is an 83-year-old female with complaints of dorsal left wrist cyst. She reports that this has been present since July and has grown in size. She reports it is painful. She reports activity limitations because of it. Due to functional impairment, the patient elected to proceed with surgical intervention. REVIEW OF SYSTEMS: No chest pain, no shortness of breath, no dysuria. PAST MEDICAL HISTORY: Significant for coronary artery disease, allergic rhinitis, anemia, constipation, dementia, edema, reflux, hypertension, hypothyroidism, insomnia, and peripheral vascular disease. PAST SURGICAL HISTORY: Tubal ligation, tonsillectomy, coronary stent placement. SOCIAL HISTORY: The patient denies alcohol and tobacco use. FAMILY HISTORY: Significant for coronary artery disease. PRIMARY CARE PROVIDER: Dr. Batista. MEDICATIONS: Calcium, Lactinex, Lasix, loratadine, melatonin, metoprolol, MiraLax, potassium. ALLERGIES: PENICILLIN. SOCIAL HISTORY: The patient denies tobacco and alcohol use. RADIOGRAPHS: Reveal diffuse degenerative changes in her left wrist and left thumb CMC joint. PHYSICAL EXAMINATION: GENERAL: The patient is a well-developed, well-nourished, in no acute distress. HEENT: Normocephalic, atraumatic. Pupils are equal, round, reactive to light. Oropharynx is clear. NECK: Supple, no lymphadenopathy. LUNGS: Clear to auscultation bilaterally. HEART: Regular rate and rhythm. ABDOMEN: Soft, nontender, nondistended. EXTREMITIES: The left wrist demonstrates a cystic mass on the dorsal aspect of the distal radial radioulnar joint. It is mobile, moves independently of her extensor tendons approximately 6 x 2 cm in size. IMPRESSION: Left wrist dorsal ganglion cyst. PLAN: Left wrist dorsal ganglion cyst excision. The risks, benefits, options, ramifications and recovery have been discussed at length with the patient. She understands and wishes to proceed. Job ID: [id number] DocumentID: [id number] Dictated Date: 12/04/2018 08:09:46 Barrel Charrer Date: 12/04/2018 10:08:33 Dictated By: JOSHUA MOORE MD
[2018-12-13] VITALS (9 sets, daily range): BP systolic 125–166; BP diastolic 63–92
[~2018-12-13] VITALS: Ht 152.4 cm; Wt 85.3 kg
--- NOTE | 2018-12-13 08:16 | Progress Note-Pre Operative ---
Pre-Operative Progress Note H&P Reviewed The H&P was reviewed, patient examined and no changes noted. Date Seen by Provider: Dec 13, 2018 Time Seen by Provider: 08:16 Date H&P Reviewed: Dec 13, 2018 Time H&P Reviewed: 08:16 Pre-Operative Diagnosis: left wrist dorsal ganglion cyst JOSHUA MOORE MD Dec 13, 2018 08:16
--- NOTE | 2018-12-13 08:17 | Progress Note-Pre Operative ---
Pre-Operative Progress Note H&P Reviewed The H&P was reviewed, patient examined and no changes noted. Date Seen by Provider: Dec 13, 2018 Time Seen by Provider: 08:16 Date H&P Reviewed: Dec 13, 2018 Time H&P Reviewed: 08:16 Pre-Operative Diagnosis: left wrist doral ganglion cyst JOSHUA MOORE MD Dec 13, 2018 08:17
--- NOTE | 2018-12-13 08:18 | Progress Note-Post Operative ---
Post-Operative Progess Note Surgeon (s)/Tar Distillation Supervisor (s) Surgeon JOSHUA MOORE MD Tar Distillation Supervisor: Domingo Maurer Pre-Operative Diagnosis left wrist doral ganglion cyst Post-Operative Diagnosis left wrist dorsal ganglion cyst Procedure & Operative Findings Date of Procedure 12/13/18 Procedure Performed/Findings left wrist dorsal ganglion cyst excision Anesthesia Type GETA Estimated Blood Loss Estimated blood loss (mL): minimal Specimens/Packing Specimens Removed cyst Packing: none JOSHUA MOORE MD Dec 13, 2018 08:18
[2018-12-13] MEDS ORDERED: LACTATED RINGERS 1,000 ML IV PRN (08:25)
[2018-12-13] MEDS ORDERED: CLINDAMYCIN 600 MG/50 ML IVPB 50 ML IV ONE (08:30)
[2018-12-13] MEDS ORDERED: HYDROcodone/APAP 7.5 MG/325 MG (LORTAB, LORCET PLUS) TABLET PO PRN (08:30)
[2018-12-13] MEDS ORDERED: proPOfol 200 MG/20 ML (DIPRIVAN) VIAL IV ONE (08:31)
[2018-12-13] MEDS ORDERED: BUPIVACAINE 0.5% 30 ML (SENSORCAINE) VIAL ONE (08:31)
[2018-12-13] MEDS ORDERED: fentaNYL INJECTION 100 MCG/2 ML AMP ONE (08:44)
[2018-12-13] MEDS ORDERED: KETAMINE/NaCl 50 MG/5 ML SYRINGE ONE (09:12)
[2018-12-13] MEDS ORDERED: ONDANSETRON 4 MG/2 ML (SDV) Z0FRAN IVP PRN (10:00)
[2018-12-13] MEDS ORDERED: fentaNYL INJECTION 100 MCG/2 ML AMP IVP ONE (10:00)
--- NOTE | 2018-12-13 10:04 | Anesthesia-General Post-Op ---
MAC Patient Condition Mental Status/LOC: Same as Preop Cardiovascular: Satisfactory Nausea/Vomiting: Absent Respiratory: Satisfactory Pain: Controlled Complications: Absent Post Op Complications Complications None Follow Up Care/Instructions Patient Instructions None needed. Anesthesiology Discharge Order Discharge Order Patient is doing well, no complaints, stable vital signs, no apparent adverse anesthesia problems. No complications reported per nursing. MONI ALLRED CRNA Dec 13, 2018 10:04
[2018-12-13] MEDS ORDERED: HYDR-3816 PO (11:09)
--- NOTE | 2018-12-13 14:36 | OPERATIVE REPORT ---
DATE OF SERVICE: 12/13/2018 PREOPERATIVE DIAGNOSIS: Left wrist dorsal ganglion cyst. POSTOPERATIVE DIAGNOSIS: Left wrist dorsal ganglion cyst. PROCEDURE: Left wrist dorsal ganglion cyst excision. SURGEON: Karthikeyan Moore MD. ENROBER TENDER: Domingo Maurer, who assisted throughout the procedure and closed the incision. ANESTHESIA: Monitored anesthesia care plus local by Penelope Medrano CRNA. TOURNIQUET TIME: 9 minutes at 250 mmHg. ESTIMATED BLOOD LOSS: Minimal. DRAINS: None. COMPLICATIONS: None. POSTOPERATIVE PLAN: Brace wear for 2 weeks. The patient was transported to the recovery room awake and in stable condition. STATEMENT OF MEDICAL NECESSITY: The patient is an 83-year-old right hand dominant female with complaints of several month history of painful left dorsal ganglion cyst. She had findings consistent with ganglion cyst on dorsal aspect of her left wrist at the distal radial ulnar joint. She had tried rest, activity modifications without relief and due to functional impairment and failure to improve with conservative measures, the patient and her family elected to proceed with surgical excision. DESCRIPTION OF PROCEDURE: After risks and benefits of procedure were discussed and questions were answered, an informed consent was placed on chart. The operative site was confirmed in the preoperative holding area initialed by the surgeon. The patient was then transferred to the operating room. After adequate levels of monitored anesthesia care were obtained, a timeout was called, confirming the operative site and under sterile conditions, the incision site was infiltrated with combination of plain lidocaine and plain Marcaine. The left upper extremity was then prepped and draped in the usual sterile fashion. With the arm elevated, tourniquet was inflated to 250 mmHg. A longitudinal incision was made which was then deviated ulnarly on the dorsal aspect of the left wrist. The underlying soft tissues were carefully dissected. A large ganglion cyst was identified and excised in its entirety. This appeared to arise from distal radial ulnar joint. The edges of this were cauterized after excising the ganglion cyst, which was sent for pathologic examination though no gross abnormalities were noted. The tourniquet was deflated for a time of 9 minutes. Pressure was used for hemostasis as was cautery. The wound was copiously irrigated and then closed with 4-0 nylon in vertical mattress interrupted fashion. A soft dressing and brace were applied and the patient was transferred to the recovery room awake and in stable condition. Job ID: [id number] DocumentID: [id number] Dictated Date: 12/13/2018 09:47:13 Admeasurer Date: 12/13/2018 14:36:23 Dictated By: KARHTIKEYAN MOORE MD
== END 2018-12-13 11:40 | disposition home or self-care (01) ==
LOC: SDC 07:50
PROVIDERS: ATTEND Orthopaedic Surgery
DX: M67.432 Ganglion, left wrist (principal); E03.9 Hypothyroidism, unspecified; E66.9 Obesity, unspecified; K21.9 Gastro-esophageal reflux disease without esophagitis; I25.10 Atherosclerotic heart disease of native coronary artery without angina pectoris; I10 Essential (primary) hypertension; F03.90 Unspecified dementia, unspecified severity, without behavioral disturbance, psychotic disturbance, mood disturbance, and anxiety; D64.9 Anemia, unspecified; G47.00 Insomnia, unspecified; M81.0 Age-related osteoporosis without current pathological fracture; M62.81 Muscle weakness (generalized); M12.9 Arthropathy, unspecified; F33.9 Major depressive disorder, recurrent, unspecified; Z68.36 Body mass index [BMI] 36.0-36.9, adult; Z95.5 Presence of coronary angioplasty implant and graft; Z88.0 Allergy status to penicillin
CPT/HCPCS: 88304

== ENCOUNTER → 2019-09-01 | Outpatient (CLI) | payer MEDICARE, MEDICAID ==
[~2019-09-01] MED LIST changes: +GUAI-1052 PO; -GUAI-613 PO; +HYDR-34 PO; -HYDR-3812 PO; -MELA3TAB PO; +MELA3TAB39 PO
[2019-09-01 07:44] LABS: BILIRUBIN,URINE NEGATIVE (NEGATIVE); CLARITY,URINE CLOUDY; COLOR,URINE YELLOW; GLUCOSE, URINE (UA) NEGATIVE (NEGATIVE); KETONES,URINE TRACE (NEGATIVE); LEUKOCYTE ESTERASE ,URINE 1+ (NEGATIVE); NITRITE,URINE POSITIVE (NEGATIVE); PROTEIN,URINE NEGATIVE (NEGATIVE)
[2019-09-01 07:59] LABS: BACTERIA,URINE LARGE /HPF
== END ==
LOC: LABNPT 07:37
PROVIDERS: ATTEND Family Medicine
DX: N39.0 Urinary tract infection, site not specified (principal)
CPT/HCPCS: 81000; 87088

== ENCOUNTER 2019-09-18 08:48 | Emergency (ER) | payer MEDICARE, MEDICAID ==
[~2019-09-18] VITALS: Ht 160 cm; Wt 76.6 kg
--- OUTSIDE RECORDS SUMMARY | 2019-09-18 08:56 | XMS REPORT | Encounter Summary ---
Author Author [facility] Delvin Stout, [place], [place], [facility] Organization [facility] [place], [place], [facility] Address Unknown Phone Unavailable Care Team Providers Care Forming Fixer Name Role Phone PCP Unavailable Encounter Details Care Team Description Date Type Department Latosha Durant, [address] [place] [address] Pure hypercholesterolem (Primary Dx); JOINT PAIN-UP/ARM 08/13/[address] [id number] Social History Date Tobacco Use Types Packs/Day Years Used Never Assessed Sex Assigned at Date Recorded Not on file Industry Job Start Date Occupation Not on file Not on file Not on file Travel End Travel History Travel Start No recent travel history available. documented as of this encounter Plan of Treatment Not on filedocumented as of this encounter Visit Diagnoses Diagnosis Pure hypercholesterolem - Primary Pure hypercholesterolemia Pain in joint, upper arm documented in this encounter
--- OUTSIDE RECORDS SUMMARY | 2019-09-18 08:56 | XMS REPORT | Encounter Summary ---
Author Author [facility] Delvin Stout, [place], [place], [facility] Organization [facility] [place], [place], [facility] Address Unknown Phone Unavailable Care Team Providers Care Meat And Seafood Manager Name Role Phone PCP Unavailable Encounter Details Care Team Description Date Type Department Latosha Durant, [address] [place] [address] Pure hypercholesterolem (Primary Dx) 08/17/2002 Outpatient [facility] [address] [place] [id number] Social History Date Tobacco Use Types [...] Diagnosis Pure hypercholesterolem - Primary Pure hypercholesterolemia documented in this encounter
--- OUTSIDE RECORDS SUMMARY | 2019-09-18 08:56 | XMS REPORT ---
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 Name Role Phone HAN BERNABE Unavailable HELEAN WADDELL Unavailable Han Bernabe PP Unavailable Han Bernabe MD, [facility] Unavailable HAN BERNABE MD Unavailable Unavailable HAN BERNABE MD Unavailable Unavailable HELENA WADDELL MD Unavailable Unavailable KIMBERLY MENDOZA, KISHORE Unavailable Unavailable DANE ZARATEP Unavailable Unavailable ZACKARY ROTHMAN, CHEN Campbell Unavailable Unavailable KATT DO, MARY K Unavailable Unavailable ELVIS GAMEZ, STEPHANIE Burris Unavailable Unavailable Migration, Doctor Unavailable Unavailable Han Bernabe Unavailable Unavailable HELENA WADDELL PCP TERESA ROTHMAN, JOSHUA Zelaya Unavailable Unavailable Unavailable Unavailable Unavailable Unavailable Unavailable Unavailable Unavailable Unavailable Allergies The data below is from unstructured sourcesAllergies, Adverse Reactions, Alerts data not foundAllergies, Adverse Reactions, Alerts data not foundAllergies, Adverse Reactions, Alerts data not foundAllergies, Adverse Reactions, Alerts data not foundAllergies, Adverse Reactions, Alerts data not found No Information No Information Medications Medication Ingredient Drug Dose Dates Status Sig Sig Care Class(es) (Normalized) (Original) Provid er no Acetaminoph no 08-20-19 Complete take 5 Acetaminophe Han blank en/Hydrocod information 15 - d tablets by n/H ydrocodon A (3 one Bitart 04-01-20 mouth twice e Bitart Cranst sources.) (Lortab 5 15 daily, then (Lortab 5 on (no Mg) 1 Tab take 1 Mg) 1 Tab phone) Tab, 1 Tab tablet by Tab, 1 Tab Oral mouth Oral Twice A Day 08/19/14 Discontinued no Acidophilus no 08-20-19 Complete no Acidophilus H lalo information (Lactinex information 15 - d information (Lac tinex A (3 Tab) 1 02-28-20 Tab) 1 Cranst sources.) Tab.chew 18 Tab.chew on (no Tab.chew, 1 Tab.chew, 1 phone) Tab.chew Tab.chew Oral Oral Before Meals 08/19/14 Discontinued no Aspirin no 81 mg 08-20-19 Complete take 1 Aspirin ( no information (Flakita) 81 information 15 d tablet by (Baye r) 81 phone) (3 Mg mouth once Mg sources.) Tablet.dr, daily, then Tablet.dr, 81 Mg Oral take 1 81 Mg Oral tablet by Daily mouth Discontinued no Azithromyci no 250 mg 08-07-19 Complete take 1 Azithr omycin Mary K information n information 11 - d tablet by (Zithroma x [place]ack[place] (3 (Zithromax 07-03-19 mouth once Tab) 250 Mg (no sources.) Tab) 250 Mg 15 daily, then Tab, 2 Tab phone) Tab, 2 Tab take 2 Oral Daily Oral tablets by 08/06/10 mouth Discontinued no Calcium no 08-01-19 Complete no Calcium (no information Carbonate/V information 15 d information Ca rbonate/Vi phone) (3 itamin D3 tamin D3 sources.) (Calcium + (Calcium + D D 600 Mg 600 Mg Tablet) 1 Tablet) 1 Each Each Tablet, Tablet, 1 1 Each Oral Each Oral Twice A Day Discontinued no Calcium no 02-28-20 Complete take 600 Calcium (no information Carbonate/V information 18 d tablets by Car bonate/Vi phone) (3 itamin D3 mouth once tamin D3 sources.) (Calcium daily (Calcium 600 600 With With Vit D Vit D Chew Chew Tb) 1 Tb) 1 Each Each Tab.chew, 1 Tab.chew, 1 Tab.chew Tab.chew Oral Oral Twice A Day Discontinued no Cyanocobala no 2500 08-01-19 Complete take 1 Cyanoc obalam (no information min (B12) information ug 15 d tablet und er in (B12) phone) (3 2,500 Mcg the tongue 2,500 Mcg sources.) Tab.subl, 1 once daily Tab.subl, 1 Ml Ml Sublingual Sublingual Daily Discontinued no Cyanocobala no 1000 Complete take 1000 ug Cyanocobal am (no information min information ug d by mouth in (Vitamin phone) (3 (Vitamin once daily B-12) sources.) B-12) (Vitamin (Vitamin B-12) 1,000 B-12) 1,000 Mcg/1 Ml Mcg/1 Ml Drops 1,000 Drops Mcg ORAL Daily no Cyanocobala no 02-28-20 Complete no Cyanocobalam (no information min information 18 d information in (Vit whalen phone) (3 (Vitamin B-12) sources.) B-12) (Vitamin (Vitamin B-12) 1,000 B-12) 1,000 Mcg/1 Ml Mcg/1 Ml Drops, 1 Ml Drops, 1 Ml Sublingual Sublingual Daily Discontinued no Diphenhydra no 25 mg 07-03-19 Complete no Diphen hydram (no information mine Hcl information 15 d information ine H cl phone) (3 (Diphenhydr (Diphenhydra sources.) amine 25 mine 25 Mg) Mg) 25 Mg 25 Mg Tablet, 1 Tablet, 1 Each Oral Each Oral Bedtime Discontinued no Docosahexan no 08-20-19 Complete no Docosahexano (no information oic information 15 d information ic Acid /Epa phone) (3 Acid/Epa (Fish Oil sources.) (Fish Oil 1,000 Mg 1,000 Mg Softgel) 1 Softgel) 1 Cap Capsule, Cap 1000 Mg Oral Capsule, Twice A Day 1000 Mg Discontinued Oral no Fentanyl 1 no 04-01-20 Complete no Fentanyl 1 (no information Each information 15 d information Each phone) (1 source.) Patch.td72, Patch.td72, 12 Mcg 12 Mcg Transdermal Transdermal Every 72 Hours Discontinued no Guaifenesin no 04-01-20 Complete no Guaifenesin ( no information (Robitussin information 15 d information (R obitussin) phone) (3 ) 100 Mg/5 100 Mg/5 Ml sources.) Ml Btl, 5 Btl, 5 Ml Ml Oral Oral Every 4HRS as needed for Cough Discontinued no Hydrochloro no 12.5 08-20-19 Complete take 1 Hydroc hlorot (no information thiazide information mg 15 d capsule by hiazide phone) (3 (Hctz) 12.5 mouth once (Hctz) 12.5 sources.) Mg Cap, daily Mg Cap, 12.5 12.5 Mg Mg Oral Oral Daily Discontinued no L. no Complete no L. (no information Acidophilus information d information Acido philus/ phone) (3 /L.bulgaric L.bulgaricus sources.) us (Lactobacill (Lactobacil us Powder jessika Powder Packet) 1 Packet) 1 Each Each Powd.pack 1 Powd.pack Packet ORAL Three Times A Day loratadine loratadine no 10 mg Complete no Loratadine ( no 10 mg oral information d information 10 Mg Tablet ph one) tablet (3 10 Mg ORAL sources.) Every 48 Hours no Melatonin/P no 02-28-20 Complete no Melatonin/Py (no information yridoxine information 18 d information rido xine phone) (3 (Melatonin (Melatonin 3 sources.) 3 Mg Mg Tablet) 1 Tablet) 1 Each Tablet, Each 1 Each Oral Tablet, 1 Bedtime Each Oral Discontinued no Mirtazapine no 15 mg 08-20-19 Complete take 2 Mirtaz apine Han information 15 Mg Tab, information 15 - d tablets by 15 M g Tab, A (3 7.5 Mg Oral 02-28-20 mouth at 7.5 Mg Oral Cranst sources.) 18 bedtime Bedtime on (no 08/19/14 phone) Discontinued no Multivitami no 02-28-20 Complete no Multivitamin (no information n information 18 d information (Multi- Day phone) (3 (Multi-Day Vitamins) 1 sources.) Vitamins) 1 Each Tablet, Each 1 Each Oral Tablet, 1 Daily Each Oral Discontinued no Multivitami no Complete take 1 Multivitamin (n o information n information d capsule by (Multivit ami phone) (3 (Multivitam mouth once ns) 1 Each sources.) ins) 1 Each daily Capsule 1 Capsule Cap ORAL Daily no [place] Oil no 1 Complete no [place] [employer] (no information (Sweet Oil) information drop(s d information (S weet Oil) phone) (3 30 Ml Oil ) 30 Ml Oil 1 sources.) Drop AURICULAR (OTIC) As Directed as needed for Ear Wax no [place]-3/Ome no 08-01-19 Complete no [place]-3/Omeg (no information ga-6/[place]- information 15 d information a- 6/[place]-9 phone) (3 9 Fatty Fatty Acids sources.) Acids (Lovaza 1000 (Lovaza Mg) 1 Each 1000 Mg) 1 Capsule, 1 Each Each Oral Capsule, 1 Twice A Day Each Oral Discontinued no Pantoprazol no 08-20-19 Complete take 1 Pantoprazole Han information e Sod information 15 - d tablet by Sod A (3 (Protonix 04-01-20 mouth twice (Protonix Cranst sources.) Tab) 40 Mg 15 daily Tab) 40 Mg on (no Tab, 40 Mg Tab, 40 Mg phone) Oral Oral Bid@07,21 08/19/14 Discontinued no Ped no 04-01-20 Complete no Ped Multivit (no information Multivit information 15 d information #22/V it phone) (3 #22/Vit D3/Vit K sources.) D3/Vit K (Multivitami (Multivitam ns Chewable ins Tablet) 1 Chewable Each Tablet) 1 Tab.chew, 1 Each Tab.chew Tab.chew, 1 Oral Daily Tab.chew Discontinued Oral no Potassium no 08-20-19 Complete no Potassium Han information Chloride information 15 - d information Chlor isacc A (3 (Klor-Con 02-28-20 (Klor-Con Cranst sources.) M20) 20 Meq 18 M20) 20 Meq on (no Tab, 20 Meq Tab, 20 Meq phone) Oral Oral Twice A Day With Meals 08/19/14 Discontinued no Pyridoxine/ no 04-01-20 Complete no Pyridoxine/M (no information Melatonin information 15 d information elat onin phone) (3 (Melatonin (Melatonin 3 sources.) 3 Mg Mg Tablet) 1 Tablet) 1 Tab Tablet, Tab Tablet, 3 Mg Oral 3 Mg Oral Bedtime Discontinued no Sucralfate no 1 g 08-20-19 Complete take 1 Sucralf ate Han information (Carafate) information 15 - d tablet by (Yane fate) 1 A (3 1 Gm Tab, 1 02-28-20 mouth at Gm Tab, 1 Gm Cranst sources.) Gm Oral 18 bedtime Oral Before on (no Meals And At phone) Bedtime 08/19/14 Discontinued no Vits A And no 42.5 g Complete no Vits A And (no information D/White information d information D/White phone) (2 Pet/Lanolin Pet/Lanolin sources.) (A And D (A And D Ointment) Ointment) 42.5 Gm 42.5 Gm Oint...g. Oint...g. TOPICAL Daily APPLY TO AREA ON RIGHT BUTTOCK no Vits A And no 42.5 g 12-08-19 Complete no Vits A And (no information D/White information 19 d information D/Whit e phone) (1 source.) Pet/Lanolin Pet/Lanolin (A And D (A And D Ointment) Ointment) 42.5 Gm 42.5 Gm Oint...g., Oint...g., Topical Topical Daily Discontinued Problems Active Problems Problem Normalized Date Last Normalized Normalized Provider Fa cility Classification Problem(s) Recorded Problem Problem Sta tus Duration Allergic Allergy status Episodic Active JOSHUA GARCÍACHRISTIAN [facility] Via reactions (1 to penicillin , MD [facility] source.) [facility] - [place] ([address]) Other Arthropathy, Chronic Active JOSHUA MOORE [facility] Via non-traumatic unspecified , MD [place] joint Hospital - disorders (1 [place] source.) ([address]401) Cardiac Atrial Chronic Active HAN ENRIQUEZSTON [facility] Via dysrhythmias fibrillation , MD [place] (18 sources.) Translations: Hospital - [ UNSPECIFIED [place] ATRIAL (72563) FIBRILLATION] Other Body mass Chronic Active JOSHUA WILLIAMROD [facility] Via nutritional; index (BMI) , MD [place] endocrine; and 36.0-36.9, Hospital - metabolic adult [place] disorders (1 (24204) source.) Other Cerebral Chronic Active DANE [facility] Via hereditary and degenerationTESSA degenerative unspecified Hospital nervous system [place] conditions (6 (66021) sources.) Coronary Coronary Chronic Active HAN KENDALL [facility] Via atherosclerosi atherosclerosi , MD [facility] s and other s of [facility] - heart disease coronary [place] (6 sources.) artery (27742) Translations: [ ATHSCL HEART DISEASE OF [place] CORONARY ] Delirium Dementia, Chronic Active HAN BERNABE [facility] Via dementia and unspecified, , MD [place] amnestic and without Hospital - other behavioral [place] cognitive disturbance (83814) disorders (22 Translations: sources.) [ ALZHEIMER'S DISEASE, UNSPECIFIED, DEMENTIA IN OT DISEASES CLASSD ELSWHR W, DEMENTIA IN OTH DISEASES CLASSD ELSWHR W, UNSPECIFIED DEMENTIA 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L ] Abdominal Diaphragmatic Episodic Active CHEN RAYMUNDO [facility] Via hernia (6 hernia without , MD [place] sources.) obstruction or Hospital - gangrene [place] (97420) Gastroduodenal Duodenal Chronic Active HAN BERNABE [facility] Via ulcer (except ulcer, , MD [place] hemorrhage) (5 unspecified as Hospital - sources.) acute or [place] chronic, (88156) without hemorrhage or perforation, without mention of obstruction Residual Edema Episodic Active HELENA BAIRON [place] Via codes; [address] Pat unclassified Hospital (1 source.) (05195) Esophageal Esophageal no information Active CHEN RAYMUNDO [facility] Via disorders (9 obstruction , MD [place] sources.) Translations: Hospital - [ ESOPHAGITIS, [place] UNSPECIFIED, (99653) ESOPHAGITIS, UNSPECIFIED] Other Falls Episodic Active HELENA BAIRON Via Nil[place] i connective [address] Hospital tissue disease [place] (3 sources.) (93410) Other Ganglion cyst Episodic Active HELENA BAIRON [facility]delrahman Via connective [id number] [place] [address] tissue [facility] (1 source.) (91289) Other Ganglion, left Episodic Active HELENA BAIRON , [facility] Via connective wrist MD Stewart tissue disease Hospital - (5 sources.) [place] ([address]448) Gastritis and Gastritis, Episodic Active CHEN RAYMUNDO [facility] Via duodenitis (6 unspecified, , MD [place] sources.) without Hospital - bleeding [place] (55501) Thyroid Hypothyroidism Chronic Active JOSHUA ZAFUTA [facility] Via disorders (1 , unspecified , MD [place] source.) Hospital - [place] (47261) Residual Insomnia, Episodic Active JOSHUA ZAFUTA [facility] Via codes; unspecified , MD [place] unclassified Hospital - (1 source.) [place] (03754) Other Muscle Episodic Active JOSHUA ZAFUTA [facility] Via connective weakness , MD [place] tissue disease (generalized) Hospital - (1 source.) [place] (37500) Other Obesity, Chronic Active JOSHUA ZAFUTA [facility] Via nutritional; unspecified MD [place] endocrine; and Hospital - metabolic [place] disorders (1 (49645) source.) Osteoarthritis Osteoarthrosis Chronic Active HAN RODRIGUEZ N [facility] Via (10 sources.) , unspecified , MD [place] whether Hospital - [facility] or [place] localized, (80984) site unspecified Other bone Other Chronic Active STEPHANIE SWEET , [facility] Via disease and idiopathic FRANCO [place] musculoskeleta scoliosis, Hospital - l deformities lumbar region [place] (6 sources.) (75599) Pathological Pathologic Episodic Active MARY KATT , DO [facility] Via fracture (11 fracture of Pat sources.) vertebrae [facility] - [place] (66620) Coronary Percutaneous no information Active HAN BERNABE [facility] Via atherosclerosi transluminal , MD Pat shea and other coronary Hospital - heart disease angioplasty [place] (17 sources.) status (77454) Translations: [ CORONARY ATHEROSCLEROSI S OF [place] CORON, PRESENCE OF CORONARY ANGIOPLASTY IMPLANT, ATHSCL HEART DISEASE OF [place] CORONARY , CORONARY ATHEROSCLEROSI S OF [place] CORON, ATHSCL HEART DISEASE OF [place] CORONARY ] Coronary Percutaneous Episodic Active HAN BERNABE [facility] Via atherosclerosi transluminal , MD Pat shea and other coronary Hospital - heart disease angioplasty [place] (6 sources.) status (45453) Translations: [ PRESENCE OF CORONARY ANGIOPLASTY IMPLANT] Genitourinary Personal 09-04-2019 - Episodic Active HAN ZOE ROMEROWalker [facility] Via symptoms and history, , MD [place] ill-defined urinary Hospital - conditions (15 (tract) [place] sources.) infection (98301) Translations: [ URIN TRACT INFECTION NOS, URINARY TRACT INFECTION, SITE NOT SPECIF] Esophageal Stricture and Chronic Active HAN BERNABE [facility] Via disorders (21 stenosis of , MD [place] sources.) esophagus Hospital - Translations: [place] [ (73588) GASTRO-ESOPHAG EAL REFLUX DISEASE WITHOUT] Conditions Vertigo Episodic Active HELENA WADDELL [facility] Via associated Translations: MD [place] with dizziness [ DIZZINESS Hospital - or vertigo (13 AND GIDDINESS] [place] sources.) (21145) Past or Other Problems Problem Normalized Date Last Normalized Normalized Provider Fa cility Classification Problem(s) Recorded Problem Problem Sta tus Duration Deficiency and Anemia, Episodic Completed HAN BERNABE [facility] Via other anemia unspecified , MD [place] (5 sources.) Hospital - [place] (13761) Pleurisy; Atelectasis Episodic Completed HELENA WADDELL [facility] V ia pneumothorax; Translations: MD [facility] pulmonary [ ATELECTASIS] Hospital - collapse (10 [place] sources.) (10050) Other Collapsed Episodic Completed STEPHANIE LEAL [facility] Via fractures (6 vertebra, not [place] Pat sources.) elsewhere Hospital - classified, [place] lumbar region, (27731) initial encounter for fracture Other Constipation, Episodic Completed HAN BERNABE [facility] Via gastrointestin unspecified , MD [place] al disorders Hospital - (10 sources.) [place] (61773) Other skin Disorder of Episodic Completed HELENA WADDELL [facility] Via disorders (8 the skin and MD [place] sources.) subcutaneous Hospital - tissue, [place] unspecified (27751) Residual Disorientation Episodic Completed HELENA WADDELL [facility] Via codes; , unspecified MD [place] unclassified Hospital - (4 sources.) [place] (41457) External Fall no information no information HELENA WADDELL Via Pat Injury - Fall [address] [place] [address] (2 sources.) [place] ([address]49) Gastrointestin Hemorrhage of Episodic Completed HAN BERNABE [facility] Via al hemorrhage gastrointestin , MD [place] (5 sources.) al tract, Hospital - unspecified [place] (16444) Deficiency and Iron Episodic Completed CHEN RAYMUNDO [facility] Via other anemia deficiency , MD [place] (16 sources.) anemia, Hospital - unspecified [place] (65686) Residual Localized Episodic Completed HELENA WADDELL [facility] Via codes; edema MD [place] unclassified Hospital - (3 sources.) [place] (62834) Other liver Nonspecific Episodic Completed HELENALeonor WADDELL , [facility] Via diseases (8 elevation of MD Stewart sources.) levels of Hospital - transaminase [place] and lactic (29432) acid dehydrogenase [LDH] Other Other Episodic Completed HELENA BAIRON , [facility] Via gastrointestin constipation MD Stewart al disorders Hospital - (8 sources.) [place] (89298) Other Other long Episodic Completed HELENA WADDELL [facility] Vi a aftercare (8 term (current) MD [place] sources.) drug therapy [facility] - [place] (10539) Genitourinary Personal Episodic Completed HELENA BAIRON , [facility] Via symptoms and history of MD [place] ill-defined urinary Hospital - conditions (11 (tract) [place] sources.) infections (13686) Translations: [ RETENTION OF URINE, UNSPECIFIED, RETENTION OF URINE, UNSPECIFIED] Bacterial Pseudomonas Episodic Completed HAN BERNABE [facility] V ia infection; infection in , MD [place] unspecified conditions Hospital - site (10 classified [place] sources.) elsewhere and (93025) of unspecified site Unclassified no information no information no information HELENA WADDELL Via [facility] ([address] sources[address] [place] [address] ([address]35) Procedures Procedure Normalized Procedure Procedure Result Performer Facility Date 08-14-2014 Colonoscopy no information no name [facility] Via [facility] (26422) NEGATED Colonoscopy no information no name no informat ion Colonoscopy no information no name [facility] Via [facility] (15714) 02-26-2018 Ct Head Wo-R/O Stroke no information MARY BOLIVAR V ia [facility] (20565) 02-27-2018 Diagnostic radiography no information KISHORE HARRIS Via [facility] of chest, combined [place] (68717) and lateral 08-07-2014 Dilation of esophagus no information no name [facility] Via [facility] (64520) Dilation of esophagus no information no name [facility] Via [facility] (81740) 02-26-2018 Electrocardiographic no information MARY BOLIVAR Vi a [facility] procedure [place] (89506) 08-07-2014 ESOPHAGOGASTRODUODENOS no information no name [facility] Via [facility] COPY [EGD] W/[facility] (49272) ESOPHAGOGASTRODUODENOS no information no name [facility] Via [facility] COPY [EGD] W/[facility] (79563) 12-13-2018 Excision of ganglion no information JOSHUA MURRAY A [facility] Via [facility] (00826) 02-26-2018 Plain chest X-ray no information M[facility] [address] [facility] ([address]) Immunizations Normalized Immunization Date Notes Care Provider Facili ty Immunization influenza, 02-26-2018 - no information HELENA WADDELL [address] Via [facility] injectable,quadrival 02-26-2018 [place] (20069) ent, preservative free, pediatric Results Test Name Value Interpretation Reference Range Date Time Fa cility (Normalized) (Normalized) (Medline Reference) not yet categorized on 2019-09-01 COLONY COUNT . (no code) 09-01-2019 PENDING LOCAT ION 03:38-0400 [facility] (03705) COLONY COUNT >100,000/ML (no code) 09-01-2019 PENDING LOCAT ION 03:38-0400 [facility] (36908) SUSCEPTIBILITY WITH >100,000ML (no code) 09-01-2019 PENDING LOCATION OF AEROCOCCUS 03:38-0400 [facility] (09014) SPECIES laboratory on 2019-09-01 Bacteria PROGRESS (no code) 09-01-2019 PENDING LOCATI ON identified Cx 03:38-0400 [facility] (68134) Nom (U) Bacteria GRAM POS M (no code) 09-01-2019 PENDING LOCATI ON identified Cx 03:38-0400 [facility] (64250) Nom (U) Bacteria SEE COMMEN (no code) 09-01-2019 PENDING LOCATI ON identified Cx 03:38-0400 [facility] (40510) Nom (U) Bacteria LM Ql LARGE (A) 09-01-2019 PENDING LOC ATION (Urine sed) 03:38-0400 [facility] (54832) Bilirubin Ql (U) Negative (no code) 09-01-2019 PENDING L OCATION 03:38-0400 [facility] (58428) Casts LM Ql NONE (no code) 09-01-2019 PENDING LOCATI ON (Urine sed) 03:38-0400 [facility] (13308) Clarity (U) CLOUDY (no code) 09-01-2019 PENDING LOCATI ON 03:38-0400 [facility] (35644) Color (U) YELLOW (no code) 09-01-2019 PENDING LOCATI ON 03:38-0400 [facility] (24788) Crystals LM Ql NONE (no code) 09-01-2019 PENDING LOC ATION (Urine sed) 03:38-0400 [facility] (18078) Epithelial 10-25 (A) 09-01-2019 PENDING LOCATI ON cells.squamous 03:38-0400 [facility] (87598) LM Ql (Urine sed) Glucose Auto Negative (no code) 09-01-2019 PENDING LOCAT ION test strip Ql 03:38-0400 [facility] (84250) (U) Ketones Auto TRACE (A) 09-01-2019 PENDING LOCAT ION test strip Ql 03:38-0400 [facility] (15071) (U) Leukocyte 1+ (A) 09-01-2019 PENDING LOCATI ON esterase Test 03:38-0400 [facility] (81039) strip Ql (U) Mucus Ql (Urine Negative (no code) 09-01-2019 PENDING LO CATION sed) 03:38-0400 [facility] (76711) Nitrite Ql (U) Positive (A) 09-01-2019 PENDING LOC ATION 03:38-0400 [facility] (52893) pH (U) 7.0 [pH] (no code) 4.6 - 8 [pH] 09-01-2019 PENDING L OCATION 03:38-0400 [facility] (99294) Protein Ql (U) Negative (no code) 09-01-2019 PENDING LOC ATION 03:38-0400 [facility] (87897) RBC LM.HPF NONE (no code) 09-01-2019 PENDING LOCATI ON (Urine sed) 03:38-0400 [facility] (32656) [#/Area] RBC Ql (U) Negative (no code) 09-01-2019 PENDING LOCATI ON 03:38-0400 [facility] (82193) Specific gravity 1.015 (L) 09-01-2019 PENDING L OCATION (U) [Rel 03:38-0400 [facility] (56301) density] Urinalysis YES (no code) 09-01-2019 PENDING LOCATI ON complete W 03:38-0400 [facility] (96433) Reflex Culture panel - Urine Urobilinogen (U) 1.0 mg/dL (no code) 09-01-2019 PENDING L OCATION [Mass/Vol] 03:38-0400 [facility] (44191) WBC LM.HPF no information (A) 09-01-2019 PENDING LOC ATION (Urine sed) 03:38-0400 [facility] (87048) [#/Area] methicillin resistant staphylococcus aureus (mrsa) screening culture on 2018-12-07 MRSA isol Org MRSA not (no code) [place] Via specific cx Ql isolated [facility] (Unsp spec) (62620) venous blood hemoglobin measurement (mass/volume) on 2018-02-27 Hemoglobin mass 12.9 g/dL (no code) 12.1 - 17.2 g/dL Via [facility] (Bld[facility] (37038) serum or plasma urea nitrogen/creatin ine mass ratio on 2018-02-27 Urea 13 mg/mg (no code) 6 - 22 mg/mg Via [facility] nitrogen/Creatin Hospital ine mass ratio [place] (06454) serum or plasma urea nitrogen measurement (mass/volume) on 2018-02-27 Urea nitrogen 8 mg/dL (no code) 7 - 20 mg/dL Via [facility] (45767) serum or plasma total bilirubin measurement (mass/volume) on 2018-02-27 Bilirubin mass 0.7 mg/dL (no code) 0.1 - 1.2 mg/dL Via [facility] (49644) serum or plasma sodium measurement (moles/volume) on 2018-02-27 Sodium molar 130 mmol/L (L) 135 - 145 mmol/L Via [facility] (72311) serum or plasma protein measurement (mass/volume) on 2018-02-27 Protein mass 6.2 g/dL (L) 6.4 - 8.3 g/dL Via [facility] (95818) serum or plasma potassium measurement (moles/volume) on 2018-02-27 Potassium molar 4.4 mmol/L (no code) 3.7 - 5.2 mmol/L Via [facility] (49226) serum or plasma glucose measurement (mass/volume) on 2018-02-27 Glucose mass 90 mg/dL (no code) 60 - 125 mg/dL Via [facility] (92950) serum or plasma creatinine measurement with calculation of estimated glomerular filtration rate on 2018-02-27 GFR/1.73 sq M no information (no code) Via [facility] vol rate/area (49115) (S/P/Bld) serum or plasma creatinine measurement (mass/volume) on 2018-02-27 Creatinine mass 0.63 mg/dL (no code) Via [facility] ([id number]) serum or plasma chloride measurement (moles/volume) on 2018-02-27 Chloride molar 98 mmol/L (no code) 95 - 106 mmol/L Via [facility] ([id number]) serum or plasma calcium measurement (mass/volume) on 2018-02-27 Calcium mass 9.0 mg/dL (no code) 8.5 - 10.2 mg/dL Via [facility] ([id number]) serum or plasma aspartate aminotransferase measurement (enzymatic activity/volume) on 2018-02-27 AST enzyme 13 U/L (no code) 10 - 34 U/L Via [facility] ([id number]) serum or plasma anion gap determination (moles/volume) on 2018-02-27 Anion gap 3 9 mmol/L (no code) 3 - 11 mmol/L Via [facility] ([id number]) serum or plasma alkaline phosphatase measurement (enzymatic activity/volume) on 2018-02-27 ALP enzyme 37 U/L (L) 44 - 147 U/L Via Pat act/[facility] ([id number]) serum or plasma albumin measurement (mass/volume) on 2018-02-27 Albumin mass 3.7 g/dL (no code) 3.4 - 5.4 g/dL Via [facility] ([id number]) serum or plasma alanine aminotransferase measurement (enzymatic activity/volume) on 2018-02-27 ALT enzyme 12 U/L (no code) 4 - 40 U/L Via [facility] act/[facility] () carbon dioxide on 2018-02-27 CO2 molar conc 23 mmol/L (no code) 23 - 29 mmol/L Via [facility] () calcium measurement corrected for albumin on 2018-02-27 Calcium mass 9.2 mg/dL (no code) 8.5 - 10.2 mg/dL Via [facility] () blood neutrophils automated count (number/volume) on 2018-02-27 Neutrophils Auto 6.3 10*3/uL (no code) 1.7 - 7 10*3/uL Via Pat #/vol (Bld) [facility] () blood monocytes/100 leukocytes on 2018-02-27 Monocytes/100 10 % (no code) 2 - 8 % Via [facility] WBC Auto (d) [facility] () blood monocytes automated count (number/volume) on 2018-02-27 Monocytes Auto 0.9 10*3/uL (no code) 0.3 - 0.9 Via Pat #/vol (Bld) 10*3/uL [facility] ([id number]) blood lymphocytes automated count (number/volume) on 2018-02-27 Lymphocytes Auto 1.8 10*3/uL (no code) 0.9 - 2.9 Via [facility] ti #/vol (Bld) 10*3/uL [facility] ([id number]) blood leukocytes automated count (number/volume) on 2018-02-27 WBC Auto #/vol 9.2 10*3/uL (no code) 3.5 - 10.5 Via Pat (Bld) 10*3/uL [facility] ([id number]) blood hematocrit (volume fraction) on 2018-02-27 Hematocrit Auto 40 % (no code) 36.1 - 50.3 % [facility] (Bld) [place] ([id number]) blood erythrocytes automated count (number/volume) on 2018-02-27 RBC Auto #/vol 4.57 10*6/uL (no code) 4.2 - 6.1 Via Nilay i (Bld) 10*6/uL [facility] ([id number]) automated erythrocyte mean corpuscular volume on 2018-02-27 MCV Auto Entitic 87 fL (no code) 80 - 100 fL Via Chri sti volume (RBC) [facility] ([id number]) automated erythrocyte mean corpuscular hemoglobin concentration measurement (mass/volume) on 2018-02-27 MCHC Auto mass 33 g/dL (no code) 32 - 36 g/dL Via Brian ti conc (RBC) [facility] ([id number]) automated erythrocyte mean corpuscular hemoglobin (mass per erythrocyte) on 2018-02-27 MCH Auto Entitic 28 pg (no code) 27 - 31 pg Via Brian ti mass (RBC) [facility] ([id number]) automated erythrocyte distribution width ratio on 2018-02-27 Erythrocyte 15.0 % (H) 11.6 - 14.6 % Via [facility] distribution Hospital width Auto Ratio [place] (RBC) ([id number]) automated eosinophil count on 2018-02-27 Eosinophils Auto 0.2 10*3/uL (no code) 0.05 - 0.5 Via Brian ti #/vol (Bld) 10*3/uL [facility] ([id number]) automated blood platelet mean volume measurement on 2018-02-27 Platelet mean 10.9 fL (H) 7.2 - 11.7 fL Via Brian ti volume Auto Hospital Entitic volume [place] (Bld) ([id number]) automated blood platelet count (count/volume) on 2018-02-27 Platelets Auto 243 10*3/uL (no code) 150 - 450 Via Pat #/vol (Bld) 10*3/uL [facility] ([id number]) automated blood neutrophils/100 leukocytes on 2018-02-27 Neutrophils/100 69 % (no code) 40 - 60 % Via Nilay i WBC Auto (Bld) [facility] ([id number]) automated blood lymphocytes/100 leukocytes on 2018-02-27 Lymphocytes/100 19 % (no code) 20 - 40 % Via [facility] i WBC Auto (Bld) [facility] ([id number]) automated blood eosinophils/100 leukocytes on 2018-02-27 Eosinophils/100 2 % (no code) 1 - 4 % Via [facility] WBC Auto (d) [facility] ([id number]) automated blood basophils/100 leukocytes on 2018-02-27 Basophils/100 0 % (no code) 0.5 - 1 % Via [facility] WBC Auto (d) [facility] ([id number]) automated blood basophil count (count/volume) on 2018-02-27 Basophils Auto 0.0 10*3/uL (no code) 0 - 0.3 10*3/uL Via risti #/vol (d) [facility] ([id number]) urine urobilinogen measurement by automated test strip (mass/volume) on 2018-02-26 Urobilinogen NORMAL (no code) Via [facility] Test strip [facility] ([id number]) urine total bilirubin detection by test strip on 2018-02-26 Bilirubin Ql (U) Negative (no code) Via [facility] ([id number]) urine protein assay by test strip, semi-quantitativ e on 2018-02-26 Protein Test Negative (no code) Via [facility] strip () [facility] ([id number]) urine ph measurement by test strip on 2018-02-26 pH Test strip 8 [pH] (no code) 4.6 - 8 [pH] Via [facility] ([facility] ([id number]) urine nitrite detection by test strip on 2018-02-26 Nitrite Test Negative (no code) Via [facility] strip ([facility] ([id number]) urine ketones detection by automated test strip on 2018-02-26 Ketones Negative (no code) Via [facility] Automated test Hospital strip Ql () [place] ([id number]) urine glucose detection by automated test strip on 2018-02-26 Glucose Negative (no code) Via [facility] Automated test Hospital strip Ql () [place] ([id number]) urine color determination on 2018-02-26 Color Nom (U) YELLOW (no code) Via [facility] ([id number]) urine clarity determination on 2018-02-26 Clarity Nom (U) SLIGHTLY CLOUDY (no code) Via [facility] ([id number]) squamous epithelial cells detection in urine sediment by light microscopy on 2018-02-26 Epithelial NONE (no code) Via [facility] cells.squamous Hospital LM Ql (Urine [place] sed) ([id number]) specific gravity of urine by test strip on 2018-02-26 Specific gravity 1.010 (*) Via [facility] Relative Density [facility] (U) [place] () serum or plasma troponin i.cardiac measurement (mass/volume) on 2018-02-26 Troponin no information (no code) Via [facility] I.cardiac mass [facility] (69821) serum or plasma thyrotropin measurement by detection limit <=0.05 miu/l (units/volume) on 2018-02-26 Thyrotropin Qn 2.41 m[IU]/L (no code) 0.4 - 4 m[IU]/L [facility] ([id number][facility] serum or plasma lactate measurement (moles/volume) on 2018-02-26 Lactate molar 2.23 mmol/L () 0.5 - 2.2 mmol/L Via [facility] ([id number]) serum or plasma creatine kinase measurement (enzymatic activity/volume) on 2018-02-26 CK enzyme 21 U/L (L) Via [facility] ([id number]) serum or plasma creatine kinase mb measurement (enzymatic activity/volume) on 2018-02-26 CK.MB mass conc 1.0 ng/mL (no code) 0 - 4.3 ng/mL Via [facility] ([id number]) serum or plasma amylase measurement (enzymatic activity/volume) on 2018-02-26 Amylase enzyme 63 U/L (no code) 40 - 140 U/L Via [facility] ([id number]) prothrombin time (pt) in platelet poor plasma by coagulation assay on 2018-02-26 Prothrombin time 12.6 s (no code) 9.4 - 12.5 s Via [facility] (PT) [facility] ([facility]) [place] ([id number]) mucus detection in urine sediment by light microscopy on 2018-02-26 Mucus LM Ql Negative (no code) Via [facility] (Urine sed) [facility] ([id number]) magnesium on 2018-02-26 Magnesium mass 2.3 mg/dL (no code) 1.7 - 2.2 mg/dL Via [facility] ([id number]) lipase on 2018-02-26 Lipase enzyme 22 U/L (no code) 10 - 73 U/L Via [facility] ([id number]) leukocyte esterase on 2018-02-26 Leukocyte Negative (no code) Via Pat esterase Test Hospital strip Ql (U) [place] ([id number]) inr in platelet poor plasma or blood by coagulation assay on 2018-02-26 INR Coag RelTime 0.9 (no code) Via [facility] (Platelet poor Hospital plasma or blood) [place] ([id number]) erythrocytes detection in urine sediment by light microscopy on 2018-02-26 RBC LM Ql (Urine Negative (no code) Via Pat sed) [facility] ([id number]) crystals detection in urine sediment by light microscopy on 2018-02-26 Crystals LM Ql NONE (no code) Via [facility] (Urine sed) [facility] ([id number]) complete urinalysis with reflex to culture on 2018-02-26 Urinalysis YES (no code) Via Pat complete W Hospital Reflex Culture [place] panel - Urine ([id number]) casts detection in urine sediment by light microscopy on 2018-02-26 Casts LM Ql NONE (no code) Via [facility] (Urine sed) [facility] ([id number]) bnp level on 2018-02-26 Natriuretic 76.6 pg/mL (no code) 0 - 100 pg/mL Via Pat peptide [facility] conc (Bld) [place] ([id number]) blood lactic acid measurement (moles/volume) on 2018-02-26 Lactate molar 2.65 mmol/L () 0.5 - 2.2 mmol/L [facility] ([id number][facility] bacterial urine culture on 2018-02-26 Bacteria Organism: (no code) Via Pat identified Cx CULTURE IN Hospital Nom (U) PROGRESS [place] ([id number]) Bacteria Organism: (no code) Via Pat identified Cx Streptococcus Hospital Nom (U) lutetiensis [place] ([id number]) Bacteria Organism: (no code) Via Pat identified Cx Aerococcus Hospital Nom (U) species [place] ([id number]) Bacteria Organism: SEE (no code) Via Pat identified Cx COMMENTS Hospital Nom (U) [place] (05571) bacterial blood culture on 2018-02-26 Bacteria No growth (no code) Via Pat identified Cx Hospital Nom (Bld) [place] (50933) bacteria detection in urine sediment by light microscopy on 2018-02-26 Bacteria LM Ql LARGE (*) Via Pat (Urine sed) [facility] ([id number]) automated urine sediment leukocyte count by microscopy (number/high power field) on 2018-02-26 WBC LM.HPF RARE (no code) Via Pat #/area (Urine [facility] sed) [place] ([id number]) automated urine sediment erythrocyte count by microscopy (number/high power field) on 2018-02-26 RBC LM.HPF NONE (no code) Via [facility] #/area (Urine [facility] sed) [place] ([id number]) activated partial thromboplastin time (aptt) in platelet poor plasma bycoagulation assay on 2018-02-26 aPTT Coag time 33 s (no code) 25 - 35 s Via [facility] (Bld) [facility] ([id number]) Vital Signs The data below is from unstructured sources Vital Response Date/Time Temperature (Fahrenheit) 98.8 degree s F (97.6 - 99.5) 04/07/2015 1:20pm Temperature (Calculated Celsius) 37. 05911 degrees C (36.4 - 37.5) 04/07/2015 1:20pm Temperature Source Tympanic 04/07/2015 1:20pm Pulse Rate (adult) 73 bpm (60 - 90) 04/07/2015 1:20pm Respiratory Rate 18 bpm (12 - 24) 04/07/2015 1:20pm O2 Sat by Pulse Oximetry 94 % (88 - 100) 04/07/2015 1:20pm Blood Pressure 136/78 mm Hg 04/07/2015 1:20pm Pain Pain Intensity 0 2014 1:20pm Height (Feet) 4 feet 10/2014 11:12am Height (Inches) 11.00 inches 04/07/2015 11:12am Height (Calculated Centimeters) 149. 901230 cm 04/07/2015 11:12am Weight (Pounds) 174 pounds 04/07/2015 11:12am Weight (Ounces) 9.0 oz 1 06/08/2014 11:12am Weight (Calculated Grams) 34360.219 gm 04/07/2015 11:12am Weight (Calculated Kilograms) 79.180 219 kilograms 04/07/2015 11:12am Calculated BMI 35.14 10/2014 11:05am Vital Response Date/Time Height 4 ft 11 in Weight 174 lb Body Mass Index 35.3 kg/m^2 Vital Response Date/Time Temperature (Fahrenheit) 97.5 degree s F (97.6 - 99.5) Temperature (Calculated Celsius) 36. 69403 degrees C (36.4 - 37.5) Temperature Source Tympanic Pulse Rate (adult) 101 bpm (60 - 90) Respiratory Rate 21 bpm (12 - 24) O2 Sat by Pulse Oximetry 97 % (88 - 100) Blood Pressure 155/89 mm Hg Pain Pain Intensity 0 Height (Feet) 4 feet Height (Inches) 11.00 inches Height (Calculated Centimeters) 149. 883482 cm Weight (Pounds) 174 pounds Weight (Ounces) 9.0 oz Weight (Calculated Grams) 57178.219 gm Weight (Calculated Kilograms) 79.180 219 kilograms Calculated BMI 35.14 Vital Response Date/Time Temperature (Fahrenheit) 97.3 degree s F (97.6 - 99.5) Temperature (Calculated Celsius) 36. 39155 degrees C (36.4 - 37.5) Temperature Source Tympanic Pulse Rate (adult) 87 bpm (60 - 90) Respiratory Rate 20 bpm (12 - 24) O2 Sat by Pulse Oximetry 97 % (88 - 100) Blood Pressure 163/94 mm Hg Pain Pain Intensity 8 Height (Feet) 4 feet Height (Inches) 11.00 inches Height (Calculated Centimeters) 149. 611424 cm Weight (Pounds) 174 pounds Weight (Ounces) 9.0 oz Weight (Calculated Grams) 50275.219 gm Weight (Calculated Kilograms) 79.180 219 kilograms Calculated BMI 35.14 Vital Response Date/Time Temperature (Fahrenheit) 97.8 degree s F (97.6 - 99.5) Temperature (Calculated Celsius) 36. 62625 degrees C (36.4 - 37.5) Temperature Source Temporal Pulse Rate (adult) 106 bpm (60 - 90) Respiratory Rate 16 bpm (12 - 24) O2 Sat by Pulse Oximetry 93 % (88 - 100) Blood Pressure 183/107 mm Hg Pain Pain Intensity 10 Height (Feet) 5 feet Height (Inches) 1 inches Height (Calculated Centimeters) 154. 893888 cm Weight (Pounds) 220 pounds Weight (Calculated Kilograms) 99.790 322 kilograms Calculated BMI 41.56 Vital Response Date/Time Temperature (Fahrenheit) 97.8 degree s F (97.6 - 99.5) 02/27/2018 2:55pm Temperature (Calculated Celsius) 36. 53369 degrees C (36.4 - 37.5) 02/27/2018 12:14pm Temperature Source Temporal 02/27/2018 2:55pm Pulse Rate (adult) 76 bpm (60 - 90) 02/27/2018 2:55pm Respiratory Rate 16 bpm (12 - 24) 02/27/2018 2:55pm O2 Sat by Pulse Oximetry 94 % (88 - 100) 02/27/2018 2:55pm Blood Pressure 171/74 mm Hg 02/27/2018 2:55pm Blood Pressure Mean 106 mm Hg (65 - 110) 02/27/2018 12:14pm Pain Numeric Pain Scale 0-No Pain 02/27/2018 2:55pm Height (Feet) 5 feet 8:56am Height (Inches) 0.00 inches 02/26/2018 8:56am Height (Calculated Centimeters) 152. 484826 cm 02/26/2018 8:56am Height Method Stated 12:05am Weight (Pounds) 195 pounds 02/26/2018 8:56am Weight (Ounces) 5.0 oz 1 8:56am Weight (Calculated Grams) 02550.26 gm 02/26/2018 8:56am Weight (Calculated Kilograms) 88.592 261 kilograms 02/26/2018 8:56am Calculated BMI 38.1 01/31 8:56am Weight Method Stated 12:05am Weight Measurement Method [facility] 02/26/2018 8:56am Capillary Refill Capillary Refill Less Than 3 Seconds 02/27/2018 8:50am Vital Response Date/Time Temperature (Fahrenheit) 98.4 degree s F (97.6 - 99.5) 12/13/2018 11:30am Temperature (Calculated Celsius) 36. 03649 degrees C (36.4 - 37.5) 12/13/2018 11:25am Temperature Source Temporal 12/13/2018 11:30am Pulse Rate (adult) 68 bpm (60 - 90) 12/13/2018 11:30am Respiratory Rate 16 bpm (12 - 24) 12/13/2018 11:30am O2 Sat by Pulse Oximetry 94 % (88 - 100) 12/13/2018 11:30am Blood Pressure 125/63 mm Hg 12/13/2018 11:30am Blood Pressure Mean 102 mm Hg (65 - 110) 12/13/2018 10:25am Pain Numeric Pain Scale 0-No Pain 12/13/2018 11:30am Pain Intensity 0 2018 11:25am Height (Feet) 5 feet 8:00am Height (Inches) 0.00 inches 12/13/2018 8:00am Height (Calculated Centimeters) 152. 959862 cm 12/13/2018 8:00am Weight (Pounds) 188 pounds 12/13/2018 8:00am Weight (Ounces) 0.0 oz 0 12/13/2018 8:00am Weight (Calculated Grams) 68509.37 gm 12/13/2018 8:00am Weight (Calculated Kilograms) 85.275 366 kilograms 12/13/2018 8:00am Calculated BMI 36.7 11/30 8:00am Vital Response Date/Time Temperature (Fahrenheit) 98.4 degree s F (97.6 - 99.5) 12/13/2018 11:30am Temperature (Calculated Celsius) 36. 71683 degrees C (36.4 - 37.5) 12/13/2018 11:25am Temperature Source Temporal 12/13/2018 11:30am Pulse Rate (adult) 68 bpm (60 - 90) 12/13/2018 11:30am Respiratory Rate 16 bpm (12 - 24) 12/13/2018 11:30am O2 Sat by Pulse Oximetry 94 % (88 - 100) 12/13/2018 11:30am Blood Pressure 125/63 mm Hg 12/13/2018 11:30am Blood Pressure Mean 102 mm Hg (65 - 110) 12/13/2018 10:25am Pain Numeric Pain Scale 0-No Pain 12/13/2018 11:30am Pain Intensity 0 2018 11:25am Height (Feet) 5 feet 8:00am Height (Inches) 0.00 inches 12/13/2018 8:00am Height (Calculated Centimeters) 152. 145141 cm 12/13/2018 8:00am Weight (Pounds) 188 pounds 12/13/2018 8:00am Weight (Ounces) 0.0 oz 0 12/13/2018 8:00am Weight (Calculated Grams) 82785.37 gm 12/13/2018 8:00am Weight (Calculated Kilograms) 85.275 366 kilograms 12/13/2018 8:00am Calculated BMI 36.7 11/30 8:00am Interventions No Information Plan of Treatment The data below is from unstructured sources Discharge Date 04/07/15 1:20pm Instructions/Education Provided EGD- ESOPHAGOGASTRODUODENOSCOPY Prescriptions See Medication Section Prescriptions See Medication Section Discharge Date 08/05/14 9:06am Disposition 30 STILL A PATIENT Instructions/Education Provided Hypo natremia (DC) Prescriptions See Medications Sectio n Discharge Date 08/19/14 10:40am Disposition 30 STILL A PATIENT Instructions/Education Provided Hypo natremia (DC) Prescriptions See Medications Sectio n Referrals han bernabe md (Unspec ified) Reason(s) for Referral: call for appt with kendall in the next 2 weeks from discharge. (Physical Medicine and Rehab) (Physical Medicine and Rehab) Discharge Date 02/27/18 2:55pm Disposition 03 XFER SNF Instructions/Education Provided Vert igo (a Type of Dizziness) Prescriptions See Medication Section Discharge Date 02/27/18 12:27pm Disposition 03 XFER SNF Instructions/Education Provided Vert igo (a Type of Dizziness) Prescriptions See Medication Section Discharge Date 12/13/18 11:40am Instructions/Education Provided ANES THESIA INSTRUCTIONS POSTOP DR. MOORE-GENERAL INSTRUCTION Prescriptions See Medication Section Discharge Date 12/13/18 11:40am Instructions/Education Provided ANES THESIA INSTRUCTIONS POSTOP DR. MOORE-GENERAL INSTRUCTION Prescriptions See Medication Section Goals No Information Social History No Information Functional Status The data below is from unstructured sources Query Response Date Andrew rded Patient Orientation Person Time Situation August 02, 2014 4:23pm Comprehension Ability Understands Co ncepts August 05, 2014 8:32am Query Response Date Andrew rded Patient Orientation Person Time Situation August 19, 2014 10:12am Comprehension Ability Understands Co ncepts August 15, 2014 8:00pm Query Response Date Andrew rded Patient Orientation Person Place Time Eyes Open Normal For Age February 27, 2018 8:11am Comprehension Ability Understands Co ncepts February 27, 2018 8:50am No functional status information available. Mental Status No Information Encounters Encounter Normalized Encounter Encounter Diagnosis Care Provi char Organization Date Type 12-13-2018 Admission to day no information JOSHUA MOORE Wo rk no organization name - surgery Phone: 12-13-2018 02-26-2018 Emergency department no information no name no organization name patient visit 02-26-2018 Evaluation and Osteoporosis HELENA WADDELL Work no organization name management of inpatient 02-26-2018 Evaluation and Osteoporosis HELENA WADDELL Work no organization name - management of Phone: 02-27-2018 inpatient 02-25-2018 Evaluation and no information no name no organ ization name - management of 02-27-2018 inpatient 02-26-2018 Patient encounter no information no name no or ganization name - 02-27-2018 02-26-2018 Patient encounter no information no name no or ganization name - 02-27-2018 02-11-2017 Patient encounter no information no name no or ganization name 06-30-2015 Patient encounter no information no name no or ganization name 06-19-2015 Patient encounter no information no name no or ganization name 04-11-2015 Patient encounter no information no name no or ganization name - 06-29-2015 04-07-2015 Patient encounter no information no name no or ganization name - 04-07-2015 03-21-2015 Patient encounter no information no name no or ganization name - 06-18-2015 11-16-2013 Patient encounter no information no name no or ganization name Patient encounter no information no name no organizat ion name 09-01-2019 Patient encounter no information HELENA WADDELL MD (no [facility] procedure phone) [facility] (no phone) 12-13-2018 Patient encounter no information no name no or ganization name procedure 12-13-2018 Patient encounter no information no name no or ganization name - procedure 12-13-2018 12-07-2018 Patient encounter no information JOSHUA MOORE W ork no organization name - procedure Phone: 12-07-2018 12-07-2018 Patient encounter no information no name no or ganization name - procedure 12-07-2018 08-29-2018 Patient encounter no information no name no or ganization name procedure 08-29-2018 Patient encounter no information no name no or ganization name procedure 02-11-2017 Patient encounter no information no name no or ganization name procedure 04-11-2015 Patient encounter no information no name no or ganization name - procedure 06-28-2015 03-31-2015 Patient encounter no information no name no or ganization name procedure 03-21-2015 Patient encounter no information no name no or ganization name - procedure 06-17-2015 11-16-2013 Patient encounter no information no name no or ganization name procedure no information Encounter for other no name no organiz ation name preprocedural examination Medical Equipment No Information Payers Normalized Payer Value Unknown [id number]) Medicare [id number] ([id number]) Advance Directives Directive Response Recor ded Date/Time Advance Directives Yes 1 06/08/14 11:12am Health Care Power of Heat Treat Inspector Y POA- VANE (DAUGHTER) 04/07/15 11:12am Organ Donor No 04/07/15 11:12am Resuscitation Status Full Code 04/07/15 11:12am Directive Response Recor ded Date/Time Advance Directives Yes 1 06/08/14 11:12am Health Care Power of Heat Treat Inspector Y POA- VANE (DAUGHTER) 04/07/15 11:12am Organ Donor No 04/07/15 11:12am Resuscitation Status Full Code 03/21/15 1:30pm Directive Response Recor ded Date/Time Advance Directives Yes 0 07/31/14 4:06pm Health Care Power of Heat Treat Inspector POA- E VELYN (DAUGHTER) 07/31/14 4:06pm Organ Donor No 07/31/14 4:06pm Resuscitation Status DNR-Order Obtained 07/31/14 4:06pm Directive Response Recor ded Date/Time Advance Directives Yes 0 08/05/14 9:15am Health Care Power of Heat Treat Inspector POA- E VELYN (DAUGHTER) 08/05/14 9:15am Organ Donor No 08/05/14 9:15am Resuscitation Status DNR-Order Obtained 08/05/14 9:15am Directive Response Recor ded Date/Time Advance Directives Yes 0 07/02/14 4:06am Resuscitation Status DNR-Order Obtained 07/02/14 4:06am Directive Response Recor ded Date/Time Advance Directives Yes 1 3:16am Health Care Power of Heat Treat Inspector [place]rem[place]ne CIFUENTES (DAUGHTER) 02/26/18 3:16am Organ Donor No 02/26/18 3:16am Resuscitation Status DNR-Pt Request 02/26/18 3:16am Directive Response Recor ded Date/Time Advance Directives Yes 0 12/13/18 8:00am Health Care Power of Heat Treat Inspector Yes 12/13/18 8:00am Organ Donor No 12/13/18 8:00am Resuscitation Status Full Code 12/13/18 8:00am Discharge Instructions Patient Instructions Physician Instructions New, Converted or Re-Newed RX: Other Plan of Care/Instructions/FU: Follow-up with her primary physician Dr. Bernabe Activity as Tolerated: Yes Discharge Diet: No Restrictions Care Plan Patient Instructions:: Follow-up with her primary physician Dr. Bernabe No hospital discharge instructions.No hospital discharge instructions. Patient Instructions Physician Instructions Prescription: RX on Chart Patient Instructions: keep appt with dr. garcia for surgery on 08/24/14 Resume Normal Activity: Yes Discharge Diet: Regular Diet Diet for 24 Hours: No [place] Foods, No Spicy Foods Diet After 24 Hours: Clear Liquid if Nauseous Return to The Hospital For: any concern for lifethreatening event or illness Symptoms to Reoprt to : Bleeding Excessive, Constipation(Persistant), Fever Over 101 Degrees F, Diarrhea(Persistant), Questions/Concerns, Shortness of Breath For Problems or Questions: Contact Your Physician, Go to Emergency Room Care Plan Patient Instructions:: keep appt with dr. garcia for surgery on 08/24/14 No hospital discharge instructions.No hospital discharge instruction information available.No hospital discharge instruction information available.No hospital discharge instruction information available. Chief Complaint and Reason for Visit Chief Complaint VERTIGO,HYPONATREMIA Reason for Visit Osteoporosis Altered mental status Generalized weakness Vertigo Hyponatremia Lactic acid increased Atelectasis of right lung Falls Dementia Hypertension Edema GERD (gastroesophageal reflux disease) Summary Purpose Interface ExchangeInterface ExchangeInterface Exchange Family History Diagnosis Age At Onset No Family Disease Entered N/A Assessments Condition Codes Effectiv e Dates Essential (primary) hypertension ICD -10: I10 ICD-9: 401.9 10/07/2016 Major depressive disorder, single episode, unspecified ICD-10: F32.9 ICD-9: 311 02/24/2016 Hypo-osmolality and hyponatremia ICD -10: E87.1 ICD-9: 276.1 11/20/2015 Abnormal weight gain ICD-10: R63.5 ICD-9: 783.1 05/30/2015 Anemia, unspecified ICD-10: D64.9 ICD-9: 285.9 05/30/2015 Osteoporosis ICD-9: 733.00 12/19/2014 ESSENTIAL HYPERTENSION ICD-9: 401.9 12/19/2014 DEPRESSIVE DISORDER NEC ICD-9: 311 12/19/2014 Lumbar pain ICD-9: 724.2 07/08/2014 Vertebral compression fracture ICD-9: 805. 8 07/08/2014 COUGH ICD-9: 786.2 06/13 Seasonal allergies ICD-9: 477.9 06/13/2014 Nasal congestion ICD-9: 478.19 03/07/2014 VACCIN FOR INFLUENZA ICD-10: Z23 ICD-9: V04.81 01/03/2014 INSOMNIA NOS ICD-9: 780.52 11/15/2013 Memory loss ICD-9: 780.93 11/15/2013 HYPERLIPIDEMIA ICD-9: 272.4 05/22/2012 Rash ICD-9: 782.1 2012 Chief Complaint Reason For Visit Effective Dates Notes weight gain/obesity 10/07/2016 weight gain/obesity 02/24/2016 weight gain/obesity 11/20/2015 weight gain/obesity 08/21/2015 weight gain/obesity 05/30/2015 hypertension 12/19/2014 Hospital Follow Up 09/19/2014 memory loss 07/08/2014 memory loss 06/13/2014 memory loss 03/07/2014 memory loss 02/06/2014 memory loss 01/03/2014 memory loss 11/15/2013 anxiety 05/22/2012 Review of System System Result Effective Dates Constitutional No recent illness 10/07/2016 Constitutional No chills 10/07/2016 Constitutional No diaphoresis 10/07/2016 Constitutional fatigue 0 10/07/2016 Constitutional No fever 10/07/2016 Constitutional weight gain 10/07/2016 Eyes No eye discharge Eyes No eye erythema 11/2016 Ears/Nose/Throat/Neck No nasal discharge 10/07/2016 Cardiovascular No chest pain/pressure 10/07/2016 Cardiovascular No dyspnea 10/07/2016 Respiratory No cough 11/2016 Gastrointestinal No abdominal pain 10/07/2016 Gastrointestinal No constipation 10/07/2016 Gastrointestinal No diarrhea 10/07/2016 Gastrointestinal No nausea 10/07/2016 Gastrointestinal No vomiting 10/07/2016 Musculoskeletal No joint complaint 10/07/2016 Dermatologic No rash 11/2016 Dermatologic No sores Neurologic No alteration of consciousness 10/07/2016 Psychiatric anxiety 11/2016 Psychiatric depression 0 10/07/2016 Ears/Nose/Throat/Neck No nasal allergies 10/07/2016 Respiratory No dyspnea 0 10/07/2016 Constitutional No recent illness 02/24/2016 Constitutional No anorexia 02/24/2016 Constitutional No night sweats 02/24/2016 Constitutional No chills 02/24/2016 Constitutional No diaphoresis 02/24/2016 Constitutional fatigue 1 Constitutional No fever 02/24/2016 Constitutional No insomnia 02/24/2016 Constitutional No malaise 02/24/2016 Constitutional No weight loss 02/24/2016 Constitutional weight gain 02/24/2016 Eyes No eye discharge Eyes No eye erythema Ears/Nose/Throat/Neck No dizziness 02/24/2016 Ears/Nose/Throat/Neck No headache 02/24/2016 Ears/Nose/Throat/Neck No nasal discharge 02/24/2016 Cardiovascular No chest pain/pressure 02/24/2016 Cardiovascular No dyspnea 02/24/2016 Cardiovascular edema Respiratory No productive sputum 02/24/2016 Respiratory No chest congestion 02/24/2016 Respiratory No cough Gastrointestinal No abdominal pain 02/24/2016 Gastrointestinal No constipation 02/24/2016 Gastrointestinal No diarrhea 02/24/2016 Gastrointestinal No nausea 02/24/2016 Gastrointestinal No vomiting 02/24/2016 Genitourinary/Nephrology No dysuria 02/24/2016 Musculoskeletal No joint complaint 02/24/2016 Dermatologic No rash Dermatologic No sores Neurologic No alteration of consciousness 02/24/2016 Psychiatric anxiety 01/31 Psychiatric depression 1 Constitutional No recent illness 11/20/2015 Constitutional No anorexia 11/20/2015 Constitutional No night sweats 11/20/2015 Constitutional No chills 11/20/2015 Constitutional No diaphoresis 11/20/2015 Constitutional fatigue 0 11/20/2015 Constitutional No fever 11/20/2015 Constitutional No insomnia 11/20/2015 Constitutional No malaise 11/20/2015 Constitutional No weight loss 11/20/2015 Constitutional weight gain 11/20/2015 Eyes No eye discharge Eyes No eye erythema Ears/Nose/Throat/Neck No dizziness 11/20/2015 Ears/Nose/Throat/Neck No headache 11/20/2015 Ears/Nose/Throat/Neck No nasal discharge 11/20/2015 Cardiovascular No chest pain/pressure 11/20/2015 Cardiovascular No dyspnea 11/20/2015 Cardiovascular edema Respiratory No productive sputum 11/20/2015 Respiratory No chest congestion 11/20/2015 Respiratory No cough Gastrointestinal No abdominal pain 11/20/2015 Gastrointestinal No constipation 11/20/2015 Gastrointestinal No diarrhea 11/20/2015 Gastrointestinal No nausea 11/20/2015 Gastrointestinal No vomiting 11/20/2015 Genitourinary/Nephrology No dysuria 11/20/2015 Musculoskeletal No joint complaint 11/20/2015 Dermatologic No rash Dermatologic No sores Psychiatric anxiety 10/31 Psychiatric depression 0 11/20/2015 Neurologic No alteration of consciousness 11/20/2015 Constitutional No night sweats 08/21/2015 Constitutional No recent illness 08/21/2015 Constitutional No anorexia 08/21/2015 Constitutional weight gain 08/21/2015 Constitutional No chills 08/21/2015 Constitutional No diaphoresis 08/21/2015 Constitutional fatigue 0 08/21/2015 Constitutional No fever 08/21/2015 Constitutional No insomnia 08/21/2015 Constitutional No malaise 08/21/2015 Eyes No eye discharge Eyes No eye erythema Ears/Nose/Throat/Neck No dizziness 08/21/2015 Ears/Nose/Throat/Neck No headache 08/21/2015 Ears/Nose/Throat/Neck No nasal discharge 08/21/2015 Cardiovascular No chest pain/pressure 08/21/2015 Cardiovascular No dyspnea 08/21/2015 Respiratory No productive sputum 08/21/2015 Respiratory No chest congestion 08/21/2015 Respiratory No cough Gastrointestinal No abdominal pain 08/21/2015 Gastrointestinal No constipation 08/21/2015 Gastrointestinal No diarrhea 08/21/2015 Gastrointestinal No nausea 08/21/2015 Gastrointestinal No vomiting 08/21/2015 Genitourinary/Nephrology No dysuria 08/21/2015 Musculoskeletal No joint complaint 08/21/2015 Dermatologic No rash Dermatologic No sores Psychiatric anxiety 08/01 Psychiatric depression 0 08/21/2015 Musculoskeletal back pain 08/21/2015 Constitutional No weight loss 08/21/2015 Cardiovascular edema Constitutional No recent illness 05/30/2015 Constitutional No anorexia 05/30/2015 Constitutional No night sweats 05/30/2015 Constitutional No chills 05/30/2015 Constitutional No diaphoresis 05/30/2015 Constitutional fatigue 0 05/30/2015 Constitutional No fever 05/30/2015 Constitutional No insomnia 05/30/2015 Constitutional No malaise 05/30/2015 Eyes No eye discharge Eyes No eye erythema Ears/Nose/Throat/Neck No dizziness 05/30/2015 Ears/Nose/Throat/Neck No headache 05/30/2015 Ears/Nose/Throat/Neck No nasal discharge 05/30/2015 Cardiovascular No chest pain/pressure 05/30/2015 Cardiovascular No dyspnea 05/30/2015 Respiratory No productive sputum 05/30/2015 Respiratory No chest congestion 05/30/2015 Respiratory No cough Gastrointestinal No abdominal pain 05/30/2015 Gastrointestinal No constipation 05/30/2015 Gastrointestinal No diarrhea 05/30/2015 Gastrointestinal No nausea 05/30/2015 Gastrointestinal No vomiting 05/30/2015 Genitourinary/Nephrology No dysuria 05/30/2015 Musculoskeletal No joint complaint 05/30/2015 Dermatologic No rash Dermatologic No sores Psychiatric anxiety 05/03 Psychiatric depression 0 05/30/2015 Constitutional weight gain 05/30/2015 Constitutional recent illness 12/19/2014 Constitutional No anorexia 12/19/2014 Constitutional No night sweats 12/19/2014 Constitutional No chills 12/19/2014 Constitutional No diaphoresis 12/19/2014 Constitutional fatigue 0 12/19/2014 Constitutional No fever 12/19/2014 Constitutional No insomnia 12/19/2014 Constitutional No malaise 12/19/2014 Eyes No eye discharge Eyes No eye erythema Ears/Nose/Throat/Neck No dizziness 12/19/2014 Ears/Nose/Throat/Neck No headache 12/19/2014 Ears/Nose/Throat/Neck No nasal discharge 12/19/2014 Cardiovascular No chest pain/pressure 12/19/2014 Cardiovascular No dyspnea 12/19/2014 Respiratory No productive sputum 12/19/2014 Respiratory No chest congestion 12/19/2014 Respiratory No cough Gastrointestinal No abdominal pain 12/19/2014 Gastrointestinal No constipation 12/19/2014 Gastrointestinal No diarrhea 12/19/2014 Gastrointestinal No nausea 12/19/2014 Gastrointestinal No vomiting 12/19/2014 Genitourinary/Nephrology No dysuria 12/19/2014 Musculoskeletal back pain 12/19/2014 Musculoskeletal No joint complaint 12/19/2014 Dermatologic No rash Dermatologic No sores Psychiatric anxiety 12/01 Psychiatric depression 0 12/19/2014 Constitutional recent illness 09/19/2014 Constitutional No anorexia 09/19/2014 Constitutional No night sweats 09/19/2014 Constitutional No chills 09/19/2014 Constitutional No diaphoresis 09/19/2014 Constitutional fatigue 0 09/19/2014 Constitutional No fever 09/19/2014 Constitutional No insomnia 09/19/2014 Constitutional No malaise 09/19/2014 Eyes No eye discharge Eyes No eye erythema Ears/Nose/Throat/Neck No dizziness 09/19/2014 Ears/Nose/Throat/Neck No headache 09/19/2014 Ears/Nose/Throat/Neck No nasal discharge 09/19/2014 Cardiovascular No chest pain/pressure 09/19/2014 Cardiovascular No dyspnea 09/19/2014 Respiratory No productive sputum 09/19/2014 Respiratory No chest congestion 09/19/2014 Respiratory No cough Gastrointestinal No abdominal pain 09/19/2014 Gastrointestinal No constipation 09/19/2014 Gastrointestinal No diarrhea 09/19/2014 Gastrointestinal No nausea 09/19/2014 Gastrointestinal No vomiting 09/19/2014 Genitourinary/Nephrology No dysuria 09/19/2014 Musculoskeletal No joint complaint 09/19/2014 Dermatologic No rash Dermatologic No sores Psychiatric anxiety 0505/2014 Psychiatric depression 0 09/19/2014 Musculoskeletal back pain 09/19/2014 Cardiovascular No chest pain/pressure 07/08/2014 Cardiovascular No dyspnea 07/08/2014 Cardiovascular edema 12/2014 Respiratory No cough 12/2014 Respiratory No chest congestion 07/08/2014 Ears/Nose/Throat/Neck nasal discharge 07/08/2014 Gastrointestinal constipation 07/08/2014 Gastrointestinal No diarrhea 07/08/2014 Gastrointestinal No vomiting 07/08/2014 Gastrointestinal No nausea 07/08/2014 Gastrointestinal No abdominal pain 07/08/2014 Musculoskeletal back pain 07/08/2014 Constitutional recent illness 07/08/2014 Constitutional No anorexia 07/08/2014 Constitutional No night sweats 07/08/2014 Constitutional No chills 07/08/2014 Constitutional No diaphoresis 07/08/2014 Constitutional fatigue 0 07/08/2014 Constitutional No fever 07/08/2014 Constitutional No insomnia 07/08/2014 Constitutional No malaise 07/08/2014 Eyes No eye discharge Eyes No eye erythema 12/2014 Ears/Nose/Throat/Neck No dizziness 07/08/2014 Ears/Nose/Throat/Neck No headache 07/08/2014 Respiratory No productive sputum 07/08/2014 Genitourinary/Nephrology No dysuria 07/08/2014 Musculoskeletal joint complaint 07/08/2014 Dermatologic No rash 12/2014 Dermatologic No sores Psychiatric anxiety 0312/2014 Psychiatric depression 0 07/08/2014 Musculoskeletal stiffness 07/08/2014 Constitutional No recent illness 06/13/2014 Constitutional No anorexia 06/13/2014 Constitutional No night sweats 06/13/2014 Constitutional No chills 06/13/2014 Constitutional No diaphoresis 06/13/2014 Constitutional fatigue 0 06/13/2014 Constitutional No fever 06/13/2014 Constitutional No insomnia 06/13/2014 Constitutional No malaise 06/13/2014 Constitutional No weight loss 06/13/2014 Constitutional No weight gain 06/13/2014 Eyes No eye discharge Eyes No eye erythema 04/2015 Ears/Nose/Throat/Neck No dizziness 06/13/2014 Ears/Nose/Throat/Neck No headache 06/13/2014 Ears/Nose/Throat/Neck No nasal discharge 06/13/2014 Cardiovascular No chest pain/pressure 06/13/2014 Cardiovascular No dyspnea 06/13/2014 Respiratory No productive sputum 06/13/2014 Respiratory No chest congestion 06/13/2014 Respiratory No cough 04/2015 Gastrointestinal No abdominal pain 06/13/2014 Gastrointestinal No constipation 06/13/2014 Gastrointestinal No diarrhea 06/13/2014 Gastrointestinal No nausea 06/13/2014 Gastrointestinal No vomiting 06/13/2014 Genitourinary/Nephrology No dysuria 06/13/2014 Musculoskeletal No joint complaint 06/13/2014 Dermatologic No rash 04/2015 Dermatologic No sores Psychiatric anxiety 06/02 Psychiatric depression 0 06/13/2014 Constitutional No recent illness 03/07/2014 Constitutional No anorexia 03/07/2014 Constitutional No night sweats 03/07/2014 Constitutional No chills 03/07/2014 Constitutional No diaphoresis 03/07/2014 Constitutional fatigue 1 05/07/2013 Constitutional No fever 03/07/2014 Constitutional No insomnia 03/07/2014 Constitutional No malaise 03/07/2014 Constitutional No weight loss 03/07/2014 Constitutional No weight gain 03/07/2014 Eyes No eye discharge Eyes No eye erythema 09/2013 Ears/Nose/Throat/Neck No dizziness 03/07/2014 Ears/Nose/Throat/Neck No headache 03/07/2014 Ears/Nose/Throat/Neck No nasal discharge 03/07/2014 Cardiovascular No chest pain/pressure 03/07/2014 Cardiovascular No dyspnea 03/07/2014 Respiratory No productive sputum 03/07/2014 Respiratory No chest congestion 03/07/2014 Respiratory No cough 09/2013 Gastrointestinal No abdominal pain 03/07/2014 Gastrointestinal No constipation 03/07/2014 Gastrointestinal No diarrhea 03/07/2014 Gastrointestinal No nausea 03/07/2014 Gastrointestinal No vomiting 03/07/2014 Genitourinary/Nephrology No dysuria 03/07/2014 Musculoskeletal No joint complaint 03/07/2014 Dermatologic No rash 09/2013 Dermatologic No sores Psychiatric anxiety 1109/2013 Psychiatric depression 1 05/07/2013 Constitutional No recent illness 02/06/2014 Constitutional No anorexia 02/06/2014 Constitutional No night sweats 02/06/2014 Constitutional No chills 02/06/2014 Constitutional No diaphoresis 02/06/2014 Constitutional fatigue 1 Constitutional No fever 02/06/2014 Constitutional No insomnia 02/06/2014 Constitutional No malaise 02/06/2014 Constitutional No weight loss 02/06/2014 Constitutional No weight gain 02/06/2014 Eyes No eye discharge Eyes No eye erythema 11/2013 Ears/Nose/Throat/Neck No dizziness 02/06/2014 Ears/Nose/Throat/Neck No headache 02/06/2014 Ears/Nose/Throat/Neck No nasal discharge 02/06/2014 Cardiovascular No chest pain/pressure 02/06/2014 Cardiovascular No dyspnea 02/06/2014 Respiratory No productive sputum 02/06/2014 Respiratory No chest congestion 02/06/2014 Respiratory No cough 11/2013 Gastrointestinal No abdominal pain 02/06/2014 Gastrointestinal No constipation 02/06/2014 Gastrointestinal No diarrhea 02/06/2014 Gastrointestinal No nausea 02/06/2014 Gastrointestinal No vomiting 02/06/2014 Genitourinary/Nephrology No dysuria 02/06/2014 Musculoskeletal No joint complaint 02/06/2014 Dermatologic No rash 11/2013 Dermatologic No sores Psychiatric anxiety 11/2013 Psychiatric depression 1 Constitutional No recent illness 01/03/2014 Constitutional No anorexia 01/03/2014 Constitutional No night sweats 01/03/2014 Constitutional No chills 01/03/2014 Constitutional No diaphoresis 01/03/2014 Constitutional fatigue 0 01/03/2014 Constitutional No fever 01/03/2014 Constitutional No insomnia 01/03/2014 Constitutional No malaise 01/03/2014 Constitutional No weight loss 01/03/2014 Constitutional No weight gain 01/03/2014 Eyes No eye discharge Eyes No eye erythema 07/2013 Ears/Nose/Throat/Neck No dizziness 01/03/2014 Ears/Nose/Throat/Neck No headache 01/03/2014 Ears/Nose/Throat/Neck No nasal discharge 01/03/2014 Cardiovascular No chest pain/pressure 01/03/2014 Cardiovascular No dyspnea 01/03/2014 Respiratory No productive sputum 01/03/2014 Respiratory No chest congestion 01/03/2014 Respiratory No cough 07/2013 Gastrointestinal No abdominal pain 01/03/2014 Gastrointestinal No constipation 01/03/2014 Gastrointestinal No diarrhea 01/03/2014 Gastrointestinal No nausea 01/03/2014 Gastrointestinal No vomiting 01/03/2014 Genitourinary/Nephrology No dysuria 01/03/2014 Musculoskeletal No joint complaint 01/03/2014 Dermatologic No rash 07/2013 Dermatologic No sores Psychiatric anxiety 0907/2013 Psychiatric depression 0 01/03/2014 Constitutional No recent illness 11/15/2013 Constitutional No anorexia 11/15/2013 Constitutional No night sweats 11/15/2013 Constitutional No chills 11/15/2013 Constitutional No diaphoresis 11/15/2013 Constitutional fatigue 0 11/15/2013 Constitutional No fever 11/15/2013 Constitutional No insomnia 11/15/2013 Constitutional No malaise 11/15/2013 Constitutional No weight loss 11/15/2013 Constitutional No weight gain 11/15/2013 Eyes No eye discharge Eyes No eye erythema Ears/Nose/Throat/Neck No dizziness 11/15/2013 Ears/Nose/Throat/Neck No headache 11/15/2013 Ears/Nose/Throat/Neck No nasal discharge 11/15/2013 Cardiovascular No chest pain/pressure 11/15/2013 Cardiovascular No dyspnea 11/15/2013 Respiratory No productive sputum 11/15/2013 Respiratory No chest congestion 11/15/2013 Respiratory No cough Gastrointestinal No constipation 11/15/2013 Gastrointestinal No diarrhea 11/15/2013 Gastrointestinal No vomiting 11/15/2013 Gastrointestinal No nausea 11/15/2013 Gastrointestinal No abdominal pain 11/15/2013 Genitourinary/Nephrology No dysuria 11/15/2013 Musculoskeletal No joint complaint 11/15/2013 Dermatologic No rash Dermatologic No sores Psychiatric anxiety 10/30 Psychiatric depression 0 11/15/2013 Constitutional No recent illness 05/22/2012 Constitutional No anorexia 05/22/2012 Constitutional No night sweats 05/22/2012 Constitutional No chills 05/22/2012 Constitutional No diaphoresis 05/22/2012 Constitutional No fatigue 05/22/2012 Constitutional No fever 05/22/2012 Constitutional No insomnia 05/22/2012 Eyes No eye discharge Eyes No eye erythema Ears/Nose/Throat/Neck No dizziness 05/22/2012 Ears/Nose/Throat/Neck No nasal discharge 05/22/2012 Ears/Nose/Throat/Neck No headache 05/22/2012 Cardiovascular No chest pain/pressure 05/22/2012 Cardiovascular No dyspnea 05/22/2012 Cardiovascular No hypertension 05/22/2012 Respiratory No productive sputum 05/22/2012 Respiratory No chest congestion 05/22/2012 Respiratory No cough Gastrointestinal No vomiting 05/22/2012 Gastrointestinal No nausea 05/22/2012 Gastrointestinal No constipation 05/22/2012 Gastrointestinal No diarrhea 05/22/2012 Gastrointestinal No abdominal pain 05/22/2012 Genitourinary/Nephrology No dysuria 05/22/2012 Musculoskeletal No joint complaint 05/22/2012 Neurologic No alteration of consciousness 05/22/2012 Physical Exam Exam Name System Name It em Name Status Result Effective Dates Notes Full [...] None Full Exam - General 1994 Eyes conjunctiva/eyelids Overall: conjunctiva clear 10/07/2016 None Full Exam [...] None Full Exam - General 1994 Eyes conjunctiva/eyelids Overall: conjunctiva clear 02/24/2016 None Full Exam [...] None Full Exam - General 1994 Eyes conjunctiva/eyelids Overall: conjunctiva clear 11/20/2015 None Full Exam [...] None Full Exam - General 1994 Eyes conjunctiva/eyelids Overall: conjunctiva clear 08/21/2015 None Full Exam [...] None Full Exam - General 1994 Eyes conjunctiva/eyelids Overall: conjunctiva clear 05/30/2015 None Full Exam [...] None Full Exam - General 1994 Eyes conjunctiva/eyelids Overall: conjunctiva clear 12/19/2014 None Full Exam [...] None Full Exam - General 1994 Eyes conjunctiva/eyelids Overall: conjunctiva clear 09/19/2014 None Full Exam [...] None Full Exam - General 1994 Eyes conjunctiva/eyelids Overall: conjunctiva clear 07/08/2014 None Full Exam [...] None Full Exam - General 1994 Eyes conjunctiva/eyelids Overall: conjunctiva clear 06/13/2014 None Full Exam [...] None Full Exam - General 1994 Eyes conjunctiva/eyelids Overall: conjunctiva clear 03/07/2014 None Full Exam [...] None Full Exam - General 1994 Eyes conjunctiva/eyelids Overall: conjunctiva clear 02/06/2014 None Full Exam [...] None Full Exam - General 1994 Eyes conjunctiva/eyelids Overall: conjunctiva clear 01/03/2014 None Full Exam [...] None Full Exam - General 1994 Eyes conjunctiva/eyelids Overall: conjunctiva clear 11/15/2013 None Full Exam [...] arm 05/22/2012 None Full Exam - General 1994 Integument inspection of skin Location: right arm 05/22/2012 None Full Exam - General 1994 Integument inspection of skin Location: left leg 05/22/2012 None Full Exam - General 1994 Integument inspection of skin Location: right leg 05/22/2012 None Full Exam - General 1994 Integument inspection of skin Rash/Lesions: macule 05/22/2012 fine macular rash noted t o arms and legs-pruritic Full Exam - General [...] None Full Exam - General 1994 Eyes conjunctiva/eyelids Overall: conjunctiva clear 05/22/2012 None History of Present Illness Symptom Name Status Resu lt Effective Date Notes weight gain/obesity Location globally 10/07/2016 None weight gain/obesity Onset and Resolution sudden in onset 10/07/2016 None weight gain/obesity Onset of Symptom 6 months ago 10/07/2016 None weight gain/obesity Weight Status has gained 2 pounds in 06weeks 10/07/2016 None weight gain/obesity Pertinent Findings Denies depressed mood 10/07/2016 None weight gain/obesity Pertinent Findings Denies nausea 10/07/2016 None hypertension Quality chr onic 10/07/2016 None hypertension Onset and Resolution ongoing 10/07/2016 None hypertension Onset of Symptom during adulthood 10/07/2016 None hypertension Blood Pressure Values not checking blood pressure at home 10/07/2016 [place] checks bp hypertension Severity mi ld 10/07/2016 None hypertension Triggers no known associated [...] Findings Denies nausea 02/24/2016 None hypertension Quality chr onic 02/24/2016 None hypertension Onset and Resolution ongoing 02/24/2016 None hypertension Onset of Symptom during adulthood 02/24/2016 None hypertension Blood Pressure Values not checking blood pressure at home 02/24/2016 [place] checks bp hypertension Severity mi ld 02/24/2016 None hypertension Pertinent Findings Denies dizziness [...] Findings Denies nausea 11/20/2015 None hypertension Quality chr onic 11/20/2015 None hypertension Onset and Resolution ongoing 11/20/2015 None hypertension Onset of Symptom during adulthood 11/20/2015 None hypertension Blood Pressure Values not checking blood pressure at home 11/20/2015 [place] checks bp hypertension Severity mi ld 11/20/2015 None hypertension Pertinent Findings Denies dizziness [...] Findings Denies nausea 08/21/2015 None hypertension Quality chr onic 08/21/2015 None hypertension Onset and Resolution ongoing 08/21/2015 None hypertension Onset of Symptom during adulthood 08/21/2015 None hypertension Severity mi ld 08/21/2015 None hypertension Pertinent Findings Denies dizziness 08/21/2015 None hypertension Pertinent Findings Denies dyspnea 08/21/2015 None hypertension Blood Pressure Values not checking blood pressure at home 08/21/2015 [place] checks bp weight gain/obesity Location globally 05/30/2015 None weight gain/obesity Onset and Resolution sudden in onset 05/30/2015 None weight gain/obesity Onset of Symptom 6 months ago 05/30/2015 None weight gain/obesity Weight Status has gained 2 pounds in 06weeks 05/30/2015 None hypertension Quality chr onic 12/19/2014 None hypertension Onset and Resolution ongoing 12/19/2014 None hypertension Onset of Symptom during adulthood 12/19/2014 None hypertension Severity mi ld 12/19/2014 None hypertension Pertinent Findings Denies dizziness 12/19/2014 None hypertension Pertinent Findings Denies dyspnea 12/19/2014 None Hospital Follow Up _ Oth er: _ 09/19/2014 Stayed in the hospital a few days for back surgery. Here for followup. Hospital Follow Up Pertinent Findings Denies pain 09/19/2014 None Hospital Follow Up Quality chronic weakness after surgery but pt feels as if the pain has improved 09/19/2014 None Hospital Follow Up _ mus culoskeletal disorder 09/19/2014 None Hospital Follow Up Severity moderate 09/19/2014 None hypertension Pertinent Findings Denies dizziness 09/19/2014 None hypertension Pertinent Findings Denies dyspnea 09/19/2014 None hypertension Quality chr onic 09/19/2014 None hypertension Onset and Resolution ongoing 09/19/2014 None hypertension Onset of Symptom during adulthood 09/19/2014 None hypertension Severity mi ld 09/19/2014 None memory loss Onset of Symptom 4 months ago 07/08/2014 None memory loss Limitation on Activities does not limit activities 07/08/2014 None memory loss Frequency of Episodes increasing 07/08/2014 None memory loss Triggers str ess 07/08/2014 very hard of hear ing and difficult to communicate with him. She feels as if he is ignoring her on purpose memory loss Pertinent Findings Denies ataxia 07/08/2014 None memory loss Pertinent Findings Denies motor deficits 07/08/2014 None memory loss Pertinent Findings personality changes 07/08/2014 becoming upset with memory loss Quality diff iculty remembering names 07/08/2014 None hypertension Blood Pressure Values patient checking blood pressure at home - did not bring in readings 07/08/2014 lives at [facility] hypertension Pertinent Findings Denies dizziness 07/08/2014 None hypertension Pertinent Findings Denies dyspnea 07/08/2014 None hypertension Pertinent Findings Denies edema 07/08/2014 None skin lesion Onset of Symptom _ years ago 07/08/2014 mole under left breast th at is itching. Has a crusty place on lower back and has a spot that is itching on right ankle.Using Hydrocortisone on her ankle. Also reports she has a spot under left arm that is itchy. back pain Location lumba r-sacral spine 07/08/2014 None back pain Quality aching 07/08/2014 None back pain Alleviating Factors heat 07/08/2014 None memory loss Onset of Symptom 4 months ago 06/13/2014 None memory loss Limitation on Activities does not limit activities 06/13/2014 None memory loss Frequency of Episodes increasing 06/13/2014 None memory loss Triggers str ess 06/13/2014 very hard of hear ing and difficult to communicate with him. She feels as if he is ignoring her on purpose memory loss Pertinent Findings Denies ataxia 06/13/2014 None memory loss Pertinent Findings Denies motor deficits 06/13/2014 None memory loss Pertinent Findings personality changes 06/13/2014 becoming upset with memory loss Quality diff iculty remembering names 06/13/2014 None hypertension Blood Pressure Values patient checking blood pressure at home - did not bring in readings 06/13/2014 lives at [facility] hypertension Pertinent Findings Denies dizziness 06/13/2014 None hypertension Pertinent Findings Denies dyspnea 06/13/2014 None hypertension Pertinent Findings Denies edema 06/13/2014 None skin lesion Onset of Symptom _ years ago 06/13/2014 mole under left breast th at is itching. Has a crusty place on [...] Episodes increasing 03/07/2014 None memory loss Triggers str ess 03/07/2014 very hard of hear ing and difficult to communicate with him. She feels as if he is ignoring her on purpose memory loss Pertinent Findings Denies ataxia 03/07/2014 None memory loss Pertinent Findings Denies motor deficits 03/07/2014 None memory loss Pertinent Findings personality changes 03/07/2014 becoming upset with memory loss Quality diff iculty remembering names 03/07/2014 None hypertension Blood Pressure Values patient checking blood pressure at home - did not bring in readings 03/07/2014 lives at [facility] hypertension Pertinent Findings Denies dizziness 03/07/2014 None hypertension Pertinent Findings Denies dyspnea 03/07/2014 None hypertension Pertinent Findings Denies edema 03/07/2014 None cough Location in the th roat 03/07/2014 None cough Triggers change of seasons 03/07/2014 None cough Pertinent Findings Denies dyspnea 03/07/2014 None cough Pertinent Findings Denies hoarseness 03/07/2014 None memory loss Limitation on Activities does not limit activities 02/06/2014 None memory loss Onset of Symptom 4 months ago 02/06/2014 None memory loss Frequency of Episodes increasing 02/06/2014 None memory loss Triggers str ess 02/06/2014 has alzheimers gucci ramon. She is having trouble handling his confusion and his loss of interest in activities. memory loss Pertinent Findings Denies ataxia 02/06/2014 None memory loss Pertinent Findings Denies motor deficits 02/06/2014 None memory loss Pertinent Findings personality changes 02/06/2014 becoming upset with memory loss Quality diff iculty remembering names 02/06/2014 None depression Quality stable 02/06/2014 None depression Pertinent Findings depressed mood 02/06/2014 not any worse than it was depression Pertinent Findings Denies anxiety 02/06/2014 None depression Pertinent Findings Denies loss of interest in activities 02/06/2014 doing activities at [facility] depression Pertinent Findings sleep disturbance 02/06/2014 bed at 9pm and awake by 3am gets up for the day at 545 memory loss Limitation on Activities does not limit activities 01/03/2014 None memory loss Onset of Symptom 4 months ago 01/03/2014 None memory loss Frequency of Episodes increasing 01/03/2014 None memory loss Triggers str ess 01/03/2014 very hard of hear ing and difficult to communicate with him. She feels as if he is ignoring her on purpose memory loss Pertinent Findings Denies ataxia 01/03/2014 None memory loss Pertinent Findings Denies motor deficits 01/03/2014 None memory loss Pertinent Findings personality changes 01/03/2014 becoming upset with memory loss Quality diff iculty remembering names 01/03/2014 None memory loss Onset of Symptom 4 months ago 11/15/2013 None memory loss Pertinent Findings personality changes 11/15/2013 becoming upset with memory loss Limitation on Activities does not limit activities 11/15/2013 None memory loss Frequency of Episodes increasing 11/15/2013 None memory loss Triggers str ess 11/15/2013 very hard of hear ing and difficult to communicate with him. She feels as if he is ignoring her on purpose memory loss Pertinent Findings Denies ataxia 11/15/2013 None memory loss Pertinent Findings Denies motor deficits 11/15/2013 None memory loss Quality diff iculty remembering names 11/15/2013 None rash Location-Major on t he legs 05/22/2012 None rash Location-Major on t he abdomen 05/22/2012 None rash Location-Major on t he arms 05/22/2012 None rash Quality acute 05/22/2012 None rash Onset of Symptom 1 month ago 05/22/2012 None rash Pertinent Findings itching 05/22/2012 None rash Prior Treatments pr eviously untreated 05/22/2012 used hydrocortizone cream without relief. anxiety Quality acute 05/22/2012 None anxiety Onset and Resolution ongoing 05/22/2012 None anxiety Onset of Symptom 6 months ago 05/22/2012 diagnosed with al alidaimers about 6 months ago. Thinks they need [...] to take care of a big house. Instructions Comment . Hypertension - wel l controlled - continue with current medications, continue with no added salt diet. Pt has been encouraged to exercise daily. The pt has been advised to call the office if there are any acute concerns about change in blood pressure readings at home. Low sodium-check labs-asking assistant quality manager to serve gatorade daily Nwlgovbszz-vjwcnwr-injhimsv stable-no change in medications . Hypertension - wel l controlled - continue with current medications, continue with no added salt diet. Pt has been encouraged to exercise daily. The pt has been advised to call the office if there are any acute concerns about change in blood pressure readings at home. Depression - improved with improvement of back pain. Osteoporosis - on calcium, vitamin d. . Hypertension - wel l controlled - continue with current medications, continue [...] change in current medications. . Hypertension - wel l controlled - continue with current medications, continue [...] sent to patient's pharmacy. . Hypertension - wel l controlled - continue with current medications, continue with no added salt diet. Pt has been encouraged to exercise daily. The pt has been advised to call the office if there are any acute concerns about change in blood pressure readings at home. Low wyuwvs-buhjdtr-uqldx sodium level Gxshtbcakf-lnlmfa-ot changes . Hypertension - wel l controlled - continue with current medications, continue with no added salt diet. Pt has been encouraged to exercise daily. The pt has been advised to call the office if there are any acute concerns about change in blood pressure readings at home. . Hypertension - wel l controlled - continue with current medications, continue [...] celexa to 20mg daily. . Hypertension - wel l controlled - continue with current medications, continue [...] Insomnia - Pt has been advised to incr ease the light in the house during the day, and start dimming the lights during the evening hours. Pt has been advised to cut out caffiene after 5pm. Daytime napping worsens night time insomnia. Melatonin ok-STOP BENADRYL Osteoporosis-check vitamin D level Memory loss-STOP BENDARYL AND MONITOR SYMPTOMS-check labs including vitamin B12 level 1/2 pill of celexa a t bedtime x 1 week, then increase to 1 pill at bedtime thereafter . Hypertension - well controlled - dora nue with current medications, continue with no added [...] break away from her . . Vertebral compress ion fracture - recommended pt to have an MRI of the lumbar spine, schedule the hydrocodone and continue with PRN dosing - pt is also to start on calcitonin nasal spray and will have staff start voltaren gel, call if not improving. Ketonconazole shampo o-use to body 3x weekly until rash is gone. . Rash-discussed natural and expected course of this diagnosis and to alert me if symptoms do not follow expected course, or if any worse. [facility]. Chronic Depression and anxiety - the [...] changes, calorie restriction, and need to exercise. Comment . Hypertension - wel l controlled - continue with current medications, continue with no added salt diet. Pt has been encouraged to exercise daily. The pt has been advised to call the office if there are any acute concerns about change in blood pressure readings at home. Low sodium-check labs-asking assistant quality manager to serve gatorade daily Iygexudkis-loylhmi-fabqtdhf stable-no change in medications . Hypertension - wel l controlled - continue with current medications, continue with no added salt diet. Pt has been encouraged to exercise daily. The pt has been advised to call the office if there are any acute concerns about change in blood pressure readings at home. Depression - improved with improvement of back pain. Osteoporosis - on calcium, vitamin d. . Hypertension - wel l controlled - continue with current medications, continue [...] change in current medications. . Hypertension - wel l controlled - continue with current medications, continue [...] sent to patient's pharmacy. . Hypertension - wel l controlled - continue with current medications, continue with no added salt diet. Pt has been encouraged to exercise daily. The pt has been advised to call the office if there are any acute concerns about change in blood pressure readings at home. Low kfqrgt-fhaejvy-wunvz sodium level Ujktaeflxy-ojjypk-ur changes . Hypertension - wel l controlled - continue with current medications, continue with no added salt diet. Pt has been encouraged to exercise daily. The pt has been advised to call the office if there are any acute concerns about change in blood pressure readings at home. . Hypertension - wel l controlled - continue with current medications, continue [...] celexa to 20mg daily. . Hypertension - wel l controlled - continue with current medications, continue [...] Insomnia - Pt has been advised to incr ease the light in the house during the day, and start dimming the lights during the evening hours. Pt has been advised to cut out caffiene after 5pm. Daytime napping worsens night time insomnia. Melatonin ok-STOP BENADRYL Osteoporosis-check vitamin D level Memory loss-STOP BENDARYL AND MONITOR SYMPTOMS-check labs including vitamin B12 level 1/2 pill of celexa a t bedtime x 1 week, then increase to 1 pill at bedtime thereafter . Hypertension - well controlled - dora nue with current medications, continue with no added [...] break away from her . . Vertebral compress ion fracture - recommended pt to have an MRI of the lumbar spine, schedule the hydrocodone and continue with PRN dosing - pt is also to start on calcitonin nasal spray and will have staff start voltaren gel, call if not improving. Ketonconazole shampo o-use to body 3x weekly until rash is [...] changes, calorie restriction, and need to exercise. Additional Source Comments This clinical document has been generated using [employer] software that has been certified by the Office of the National Coordinator for Health Information Technology (ONC 15.99.04.3023.Diam.31.00.0.395243) and the National Committee for Analysis Consultant (NCQA, as an eMeasure certified technology). FOR RECORDS PERTAINING TO PATIENTS WHO ARE OR HAVE BEEN ENROLLED IN A CHEMICAL D EPENDENCY/SUBSTANCE ABUSE PROGRAM, SOME INFORMATION MAY BE OMITTED. This clinica l summary was aggregated from multiple sources. Caution should be exercised in using it in the provision of clinical care. This summary normalizes information from multiple sources, and as a consequence, information in this document may ma terially change the coding, format and clinical context of patient data. In jacky tion, data may be omitted in some cases. CLINICAL DECISIONS SHOULD BE BASED ON T HE PRIMARY CLINICAL RECORDS. [employer]. provides no warranty or guara ntee of the accuracy or completeness of information in this document.The followi ng information is based on time limited clinical information UNRECOGNIZED CONTENT PROVIDED BELOW FOR UNRECOGNIZED SECTION REASON FOR VISIT EMR-Dariusz
--- OUTSIDE RECORDS SUMMARY | 2019-09-18 08:56 | XMS REPORT | Clinical Summary ---
Author Author [facility], [employer], [place], [place], [facility] Organization [facility] [employer], [place], [place], [facility] Address Unknown Phone Unavailable Care Team Providers Care Electric Welder Helper Name Role Phone PCP Unavailable Allergies Not on File Medications Not on file Active Problems Not on file Social History Date Tobacco Use Types Packs/Day Years Used Never Assessed Sex Assigned at Date Recorded Not on file Industry Job Start Date Occupation Not on file Not on file Not on file Travel End Travel History Travel Start No recent travel history available. Last Filed Vital Signs Not on file Plan of Treatment Health Maintenance Due Date Last Done Comments ZOSTER VACCINE (1 of 2) 1983 OSTEOPOROSIS SCREENING 1998 PNEUMOCOCCAL VACCINE 65+ 1998 YEARS (1 of 2 - PCV13) INFLUENZA VACCINE 11/30/2018 Results Not on filefrom Last 3 Months
--- OUTSIDE RECORDS SUMMARY | 2019-09-18 08:56 | XMS REPORT | Encounter Summary ---
Author [facility] [place] [place], [facility] Organization [facility]ensia [place], [place], [facility] Address Unknown Phone Unavailable Care Team Providers Care Solderer Barrel Ribs Name Role Phone PCP Unavailable Encounter Details Care Team Description Date Type Department Latosha Durant, [address] [place] [address] HYPERLIPIDEMIA NEC/NOS (Primary Dx); GI SYSTEM SYMPTOMS OTHER 10/31/2002 Outpatient [facility] [address] [place] [phone] Social History Date Tobacco Use Types Packs/Day Years Used Never Assessed Sex Assigned at Date Recorded Not on file Industry Job Start Date Occupation Not on file Not on file Not on file Travel End Travel History Travel Start No recent travel history available. documented as of this encounter Plan of Treatment Not on filedocumented as of this encounter Visit Diagnoses Diagnosis Other and unspecified hyperlipidemia - Primary Other symptoms involving digestive syst em(787.99) Other symptoms involving digestive syst em documented in this encounter
--- OUTSIDE RECORDS SUMMARY | 2019-09-18 08:56 | XMS REPORT | Encounter Summary ---
Author Author [facility] Delvin Stout, [place], [place], [facility] Organization [facility] [place], [place], [facility] Address Unknown Phone Unavailable Care Team Providers Care Lead Inspector Name Role Phone PCP Unavailable Encounter Details Care Team Description Date Type Department Latosha Durant, [address] [place] [address] Pure hypercholesterolem (Primary Dx) 11/09/2002 Outpatient [facility] [address] [place] [phone] Social History Date Tobacco Use Types [...]
--- OUTSIDE RECORDS SUMMARY | 2019-09-18 08:57 | XMS REPORT | Encounter Summary ---
Author [facility] [place] Organization [facility] [place], [facility] Address Unknown Phone Unavailable Care Team Providers Care Brim Pouncer Machine Operator Name Role Phone PCP Unavailable Encounter Details Care Team Description Date Type Department 08/31/1995 Inpatient Historical Social History Date Tobacco Use Types Packs/Day Years Used Never Assessed Sex Assigned at Date Recorded Not on file Industry Job Start Date Occupation Not on file Not on file Not on file Travel End Travel History Travel Start No recent travel history available. documented as of this encounter Plan of Treatment Not on filedocumented as of this encounter Visit Diagnoses Not on filedocumented in this encounter
--- OUTSIDE RECORDS SUMMARY | 2019-09-18 08:57 | XMS REPORT | Encounter Summary ---
Author Author [facility] Delvin [place]out [place], [place], [facility] Organization [facility] Delvin Stout [place], [place], [facility] Address Unknown Phone Unavailable Care Team Providers Care Automation And Controls Instructor Name Role Phone PCP Unavailable Encounter Details Care Team Description Date Type Department Octavio Reynaga MD [address] [facility] [address] [place] [address] [address]/[facility] [facility] [place] [address] [facility] [address] [phone] Social History Date Tobacco Use Types Packs/Day [...]
--- OUTSIDE RECORDS SUMMARY | 2019-09-18 08:57 | XMS REPORT | Encounter Summary ---
Author Author [facility], Delvin Stout, [place], [place], [facility] Organization [facility] [place], [place], [facility] Address Unknown Phone Unavailable Care Team Providers Care Sweetbread Trimmer Name Role Phone PCP Unavailable Encounter Details Care Team Description Date Type Department Latosha Durant, [address] [place] [address] JOINT PAIN-SHLDER (Primary Dx) 08/13/2002 Outpatient [facility] [address] [place] [phone] Social History Date Tobacco Use Types Packs/Day Years Used Never Assessed Sex Assigned at Date Recorded Not on file Industry Job Start Date Occupation Not on file Not on file Not on file Travel End Travel History Travel Start No recent travel history available. documented as of this encounter Plan of Treatment Not on filedocumented as of this encounter Visit Diagnoses Diagnosis Pain in joint, shoulder region - Primar y documented in this encounter
--- OUTSIDE RECORDS SUMMARY | 2019-09-18 08:59 | XMS REPORT | Continuity of Care Document ---
Author Organization Unknown Address Unknown Phone Unavailable Allergies Active Description Code Type Severity Reaction Onset Reported/Identified Relationship to Patient Clinical Status Yes Penicillins Drug Allergy N/A N/A 09/01/2013 Yes Penicillins [id number] Drug Aller gy Moderate HIVES, EDEMA 12/07/2018 Medications There is no data. Problems Date Dx Coded Attending Type Code Diagnosis Diagnosed By 08/06/2010 Ot 462 09/01/2013 LINNEA FISHMAN APRN 786.2 COUGH 07/02/2014 Ot 724.2 LUMBAGO 07/02/2014 Ot 733.00 OST EOPOROSIS NOS 07/02/2014 Ot 733.13 PAT HOLOGIC FRACTURE, VERTEBRAE 07/26/2014 DANE ZARATE [facility] Ot 331.9 07/26/2014 DANE ZARATE [facility] Ot 780.93 07/26/2014 Ot 733.13 07/26/2014 Ot 733.13 07/31/2014 DANE ZARATE [facility] Ot 331.9 07/31/2014 DANE ZARATE [facility] Ot 780.93 07/31/2014 Ot 733.13 08/01/2014 KENDALL ROTHMAN, CLAUDIA Constantino Ot 276.1 08/01/2014 KENDALL ROTHMAN, CLAUDIA Constantino Ot 294.20 08/01/2014 KENDALL ROTHMAN, CLAUDIA A Ot 31 1 08/01/2014 KENDALL ROTHMAN, CLAUDIA A Ot 401.9 08/01/2014 KENDALL ROTHMAN, CLAUDIA A Ot 414.01 08/01/2014 KENDALL ROTHMAN, CLAUDIA A Ot 427.31 08/01/2014 KENDALL ROTHMAN, CLAUDIA A Ot 564.00 08/01/2014 KENDALL ROTHMAN, CLAUDIA A Ot 715.90 08/01/2014 KENDALL ROTHMAN, CLAUDIA Constantino Ot 724.5 08/01/2014 KENDALL ROTHMAN, CLAUDIA Constantino Ot 733.00 08/01/2014 KENDALL ROTHMAN, CLAUDIA Constantino Ot V13.02 08/01/2014 KENDALL ROTHMAN, CLAUDIA A Ot V45.82 08/01/2014 Ot 733.13 08/01/2014 DANE ZARATE [facility] Ot 331.9 08/01/2014 DANE ZARATE [facility] Ot 780.93 08/01/2014 Ot 733.13 08/01/2014 KENDALL ROTHMAN, CLAUDIA A Ot 276.1 08/01/2014 KENDALL ROTHMAN, CLAUDIA A Ot 294.20 08/01/2014 KENDALL ROTHMAN, CLAUDIA A Ot 31 1 08/01/2014 KENDALL ROTHMAN, CLAUDIA A Ot 401.9 [...] 294.20 08/01/2014 KENDALL ROTHMAN, CLAUDIA A Ot 31 1 08/01/2014 KENDALL ROTHMAN, CLAUDIA A Ot 401.9 [...] 294.20 08/01/2014 KENDALL ROTHMAN, CLAUDIA A Ot 31 1 08/01/2014 KENDALL ROTHMAN, CLAUDIA A Ot 401.9 [...] 294.20 08/01/2014 KENDALL ROTHMAN, CLAUDIA A Ot 31 1 08/01/2014 KENDALL ROTHMAN, CLAUDIA A Ot 401.9 [...] Ot 276.8 HYPOPOTASSEMIA 08/05/2014 KENDALL ROTHMAN, CLAUDIA Constantino Ot 294.20 DEMENTIA, UNSPECIFIED, 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 08/05/2014 KENDALL ROTHMAN, CLAUDIA Constantino Ot 31 1 DEPRESSIVE DISORDER NEC 08/05/2014 KENDALL ROTHMAN, CLAUDIA A Ot 401.9 HYPERTENSION NOS 08/05/2014 KENDALL ROTHMAN, CLAUDIA A Ot 414.01 CORONARY ATHEROSCLEROSIS OF [place] CORON 08/05/2014 KENDALL ROTHMAN, CLAUDIA A Ot 427.31 ATRIAL FIBRILLATION 08/05/2014 KENDALL ROTHMAN, [...] TRANSLUM CORON ANGIOPLASTY 08/07/2014 KENDALL ROTHMAN, CLAUDIA Constantino Ot 041.7 08/07/2014 KENDALL ROTHMAN, CLAUDIA A Ot 276.1 08/07/2014 KENDALL ROTHMAN, CLAUDIA A Ot 276.8 08/07/2014 KENDALL ROTHMAN, CLAUDIA A Ot 294.20 08/07/2014 KENDALL ROTHMAN, CLAUDIA A Ot 31 1 08/07/2014 KENDALL ROTHMAN, CLAUDIA A Ot 401.9 [...] 294.20 08/12/2014 KENDALL ROTHMAN, CLAUDIA A Ot 31 1 08/12/2014 KENDALL ROTHMAN, CLAUDIA A Ot 401.9 [...] 294.20 08/13/2014 KENDALL ROTHMAN, CLAUDIA A Ot 31 1 08/13/2014 KENDALL ROTHMAN, CLAUDIA A Ot 401.9 [...] 294.20 08/16/2014 KENDALL ROTHMAN, CLAUDIA A Ot 31 1 08/16/2014 KENDALL ROTHMAN, CLAUDIA A Ot 401.9 [...] Ot 294.20 DEMENTIA, UNSPECIFIED, 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 08/19/2014 CLAUDIA ARGUETA MD Ot 31 1 DEPRESSIVE DISORDER NEC 08/19/2014 CLAUDIA ARGUETA MD Ot 401.9 HYPERTENSION NOS 08/19/2014 CLAUDIA ARGUETA MD Ot 414.01 CORONARY ATHEROSCLEROSIS OF [place] CORON 08/19/2014 CLAUDIA ARGUETA MD Ot 427.31 ATRIAL FIBRILLATION 08/19/2014 CLAUDIA ARGUETA [...] ANGIOPLASTY 09/04/2014 Ot 733.13 09/05/2014 DANE ZARATE [facility] Ot 331.9 09/05/2014 DANE ZARATE [facility] Ot 780.93 09/05/2014 Ot 733.13 09/27/[address] BOY Ot 331.9 09/27/[address] [facility] BOY Ot 780.93 09/27/2014 Ot 733.13 03/20/2015 [address] [facility] BOY Ot 331.9 03/20/2015 [address] [facility] Ot 780.93 03/20/2015 Ot 733.13 03/21/2015 KENDALL ROTHMAN, CLAUDIA A Ot D64.9 03/21/2015 KENDALL ROTHMAN, CLAUDIA A Ot D64.9 03/21/2015 KENDALL ROTHMAN, CLAUDIA A Ot D64.9 03/21/2015 KENDALL ROTHMAN, CLAUDIA A Ot D64.9 03/31/2015 TESSA DANE Campbell [facility] BOY Ot 331.9 03/31/2015 TESSA DANE Campbell [facility]Y Ot 780.93 03/31/2015 Ot 733.13 03/31/2015 KENDALL [...] Ot D50.9 IRON DEFICIENCY ANEMIA, UNSPECIFIED 02/10/2017 LACEY ZARATEHANJOSE Campbell [facility] 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 02/10/2017 [address] [facility]Y Ot 780.93 MEMORY LOSS 02/10/2017 Ot 733.13 PAT HOLOGIC FRACTURE, VERTEBRAE 02/10/2017 ZACKARY ROTHMAN, CHEN M Ot D50.9 IRON DEFICIENCY ANEMIA, UNSPECIFIED 02/10/2017 ZACKARY ROTHMAN, CHEN M Ot K21.9 GASTRO-ESOPHAGEAL REFLUX DISEASE WITHOUT 02/10/2017 ZACKARY ROTHMAN, CHEN M Ot Z01.818 ENCOUNTER FOR OTHER PREPROCEDURAL EXAMIN 02/10/2017 KENDALL ROTHMAN, CLAUDIA Constantino Ot D64.9 ANEMIA, UNSPECIFIED 02/10/2017 KENDALL ROTHMAN, CLAUDIA A Ot D50.9 IRON DEFICIENCY ANEMIA, UNSPECIFIED 02/11/2017 DANE ZARATE [facility] 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 02/11/2017 LACEY ZARATEHANJOSE Campbell BUS BOY Ot 780.93 MEMORY LOSS 02/11/2017 Ot 733.13 PAT HOLOGIC FRACTURE, VERTEBRAE 02/11/2017 ZACKARY ROTHMAN, CHEN M Ot D50.9 IRON DEFICIENCY ANEMIA, UNSPECIFIED 02/11/2017 ZACKARY ROTHMAN, CHEN M Ot K21.9 GASTRO-ESOPHAGEAL REFLUX DISEASE WITHOUT 02/11/2017 ZACKARY ROTHMAN, CHEN M Ot Z01.818 ENCOUNTER FOR OTHER PREPROCEDURAL EXAMIN 02/11/2017 KENDALL ROTHMAN, CLAUDIA A Ot D64.9 ANEMIA, UNSPECIFIED 02/11/2017 KENDALL ROTHMAN, CLAUDIA A Ot D50.9 IRON DEFICIENCY ANEMIA, UNSPECIFIED 02/14/2017 SWEET PA, STEPHANIE R Ot 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 00 SPINAL STENOSIS, SITE UNSPECIFIED 02/14/2017 SWEET PA, STEPHANIE R Ot 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, NEC, LUMBAR REGION, 02/14/2017 SWEET PA, STEPHANIE R Ot M51. 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 RADICULO 03/04/2017 SWEET PA, STEPHANIE R Ot M41. 26 OTHER IDIOPATHIC SCOLIOSIS, LUMBAR REGIO 03/04/2017 SWEET PA, STEPHANIE R Ot M48. 00 SPINAL STENOSIS, SITE UNSPECIFIED 03/04/2017 SWEET PA, STEPHANIE R Ot 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, NEC, LUMBAR REGION, 03/04/2017 SWEET PA, STEPHANIE R Ot M51. 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 26 OTHER IDIOPATHIC SCOLIOSIS, LUMBAR REGIO 03/18/2017 SWEET PA, STEPHANIE R Ot M48. 00 SPINAL STENOSIS, SITE UNSPECIFIED 03/18/2017 SWEET PA, STEPHANIE R Ot 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, NEC, LUMBAR REGION, 03/18/2017 SWEET PA, STEPHANIE R Ot M51. 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 RADICULO 02/26/2018 DANE ZARATE [facility] 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 02/26/2018 DANE ZARATE [facility] Ot 780.93 MEMORY LOSS 02/26/2018 Ot 733.13 PAT HOLOGIC FRACTURE, VERTEBRAE 02/26/2018 ZACKARY ROTHMAN, CHEN Campbell Ot D50.9 IRON DEFICIENCY ANEMIA, UNSPECIFIED 02/26/2018 ZACKARY ROTHMAN, CHEN Campbell Ot K21.9 GASTRO-ESOPHAGEAL REFLUX DISEASE WITHOUT 02/26/2018 ZACKARY ROTHMAN, CHEN Campbell Ot Z01.818 ENCOUNTER FOR OTHER PREPROCEDURAL EXAMIN 02/26/2018 KENDALL ROTHMAN, CLAUDIA Constantino Ot D64.9 ANEMIA, UNSPECIFIED 02/26/2018 KENDALL ROTHMAN, CLAUDIA Constantino Ot D50.9 IRON DEFICIENCY ANEMIA, UNSPECIFIED 02/26/2018 SWEET PA, STEPHANIE R Ot M41. 26 OTHER IDIOPATHIC SCOLIOSIS, LUMBAR REGIO 02/26/2018 SWEET PA, STEPHANIE R Ot M48. 00 SPINAL STENOSIS, SITE UNSPECIFIED 02/26/2018 SWEET PA, STEPHANIE R Ot 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, NEC, LUMBAR REGION, 02/26/2018 SWEET PA, STEPHANIE R Ot M51. 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 RADICULO 02/26/2018 CLAUDIA ARGUETA MD Ot D64.9 ANEMIA, UNSPECIFIED 02/26/2018 CLAUDIA ARGUETA MD Ot D50.9 IRON DEFICIENCY ANEMIA, UNSPECIFIED 02/27/2018 BAIRON ROTHMAN, HELENA Moya Ot E87. 1 HYPO-OSMOLALITY AND HYPONATREMIA 02/27/2018 BAIRON ROTHMAN, HELENA Moya Ot E87. 6 HYPOKALEMIA 02/27/2018 HELENA WADDELL MD Ot F02. 80 DEMENTIA IN OTH DISEASES CLASSD ELSWHR W 02/27/2018 HELENA WADDELL MD, Ot F32. 9 MAJOR DEPRESSIVE DISORDER, SINGLE EPISOD 02/27/2018 HELENA WADDELL MD, Ot G30. 9 ALZHEIMER'S DISEASE, UNSPECIFIED 02/27/2018 HELENA WADDELL MD, Ot I10 ESSENTIAL (PRIMARY) HYPERTENSION 02/27/2018 HELENA WADDELL MD, Ot I25. 10 ATHSCL HEART DISEASE OF [place] CORONARY 02/27/2018 HELENA WADDELL MD, Ot I48. 91 UNSPECIFIED ATRIAL FIBRILLATION 02/27/2018 HELENA WADDELL MD, Ot J98. 11 ATELECTASIS 02/27/2018 HELENA WADDELL MD, Ot K21. 9 GASTRO-ESOPHAGEAL REFLUX DISEASE WITHOUT 02/27/2018 HELENA WADDELL MD, Ot K59. 09 OTHER CONSTIPATION 02/27/2018 HELENA WADDELL MD, Ot L98. 9 DISORDER OF THE SKIN AND SUBCUTANEOUS TI 02/27/2018 HELENA WADDELL MD, Ot M81. 0 AGE-RELATED OSTEOPOROSIS W/O CURRENT PAT 02/27/2018 HELENA WADDELL MD, Ot R33. 9 RETENTION OF URINE, UNSPECIFIED 02/27/2018 HELENA WADDELL MD, Ot R41. 0 DISORIENTATION, UNSPECIFIED 02/27/2018 HELENA WADDELL MD, Ot R42 DIZZINESS AND GIDDINESS 02/27/2018 HELENA WADDELL MD, Ot R53. 1 WEAKNESS 02/27/2018 HELENA WADDELL MD, Ot R60. 0 LOCALIZED EDEMA 02/27/2018 HELENA WADDELL MD, Ot R74. 0 NONSPEC ELEV OF LEVELS OF TRANSAMNS LA 02/27/2018 HELENA WADDELL MD, Ot Z79.899 OTHER SENIOR CARE (CURRENT) DRUG THERAPY 02/27/2018 HELNEA WADDELL MD, Ot Z87.440 PERSONAL HISTORY OF URINARY (TRACT) INFE 02/27/2018 HELENA WADDELL MD, Ot Z95. 5 PRESENCE OF CORONARY ANGIOPLASTY IMPLANT 02/27/2018 HELENA WADDELL MD, Ot E87. 1 HYPO-OSMOLALITY AND HYPONATREMIA 02/27/2018 HELENA WADDELL MD, Ot E87. 6 HYPOKALEMIA 02/27/2018 HELENA WADDELL MD, Ot F02. 80 DEMENTIA IN OTH DISEASES CLASSD ELSWHR W 02/27/2018 HELENA WADDELL MD, Ot F32. 9 MAJOR DEPRESSIVE DISORDER, SINGLE EPISOD 02/27/2018 HELENA WADDELL MD, Ot G30. 9 ALZHEIMER'S DISEASE, UNSPECIFIED 02/27/2018 HELENA WADDELL MD, Ot I10 ESSENTIAL (PRIMARY) HYPERTENSION 02/27/2018 HELENA WADDELL MD, Ot I25. 10 ATHSCL HEART DISEASE OF [place] CORONARY 02/27/2018 HELENA WADDELL MD, Ot I48. 91 UNSPECIFIED ATRIAL FIBRILLATION 02/27/2018 HELENA WADDELL MD, Ot J98. 11 ATELECTASIS 02/27/2018 HELENA WADDELL MD, Ot K21. 9 GASTRO-ESOPHAGEAL REFLUX DISEASE WITHOUT 02/27/2018 HELENA WADDELL MD, Ot K59. 09 OTHER CONSTIPATION 02/27/2018 HELENA WADDELL MD, Ot L98. 9 DISORDER OF THE SKIN AND SUBCUTANEOUS TI 02/27/2018 HELENA WADDELL MD, Ot M81. 0 AGE-RELATED OSTEOPOROSIS W/O CURRENT PAT 02/27/2018 HELENA WADDELL MD, Ot R33. 9 RETENTION OF URINE, UNSPECIFIED 02/27/2018 HELENA WADDELL MD, Ot R41. 0 DISORIENTATION, UNSPECIFIED 02/27/2018 HELENA WADDELL MD, Ot R42 DIZZINESS AND GIDDINESS 02/27/2018 HELENA WADDELL MD, Ot R53. 1 WEAKNESS 02/27/2018 HELENA WADDELL MD, Ot R60. 0 LOCALIZED EDEMA 02/27/2018 HELENA WADDELL MD, Ot R74. 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 5 PRESENCE OF CORONARY ANGIOPLASTY IMPLANT 08/28/2018 DANE ZARATE 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 08/28/2018 DANE ZARATE Ot 780.93 MEMORY LOSS 08/28/2018 Ot 733.13 PAT HOLOGIC FRACTURE, VERTEBRAE 08/28/2018 CHEN RAYMUNDO MD, Ot D50.9 IRON DEFICIENCY ANEMIA, UNSPECIFIED 08/28/2018 RAYMUNDO MD, CHEN M Ot K21.9 GASTRO-ESOPHAGEAL REFLUX DISEASE WITHOUT 08/28/2018 ZACKARY ROTHMAN, CHEN Campbell Ot Z01.818 ENCOUNTER FOR OTHER PREPROCEDURAL EXAMIN 08/28/2018 KENDALL ROTHMAN, CLAUDIA Constantino Ot D64.9 ANEMIA, UNSPECIFIED 08/28/2018 CLAUDIA ARGUETA MD Ot D50.9 IRON DEFICIENCY ANEMIA, UNSPECIFIED 08/28/2018 SWEET PA, STEPHANIE R Ot M41. 26 OTHER IDIOPATHIC SCOLIOSIS, LUMBAR REGIO 08/28/2018 SWEET PA, STEPHANIE R Ot M48. 00 SPINAL STENOSIS, SITE UNSPECIFIED 08/28/2018 SWEET PA, STEPHANIE R Ot 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, NEC, LUMBAR REGION, 08/28/2018 SWEET PA, STEPHANIE R Ot M51. 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 RADICULO 08/30/2018 BAIRON ROTHMAN, HELENA C Ot M67.432 GANGLION, LEFT WRIST 09/19/2018 BAIRON ROTHMAN, HELENA C Ot M67.432 GANGLION, LEFT WRIST 12/07/2018 DANE ZARATE [facility] 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 12/07/2018 DANE ZARATE [facility]Y Ot 780.93 MEMORY LOSS 12/07/2018 Ot 733.13 PAT HOLOGIC FRACTURE, VERTEBRAE 12/07/2018 ZACKARY ROTHMAN, CHEN Campbell Ot D50.9 IRON DEFICIENCY ANEMIA, UNSPECIFIED 12/07/2018 ZACKARY ROTHMAN, CHEN Campbell Ot K21.9 GASTRO-ESOPHAGEAL REFLUX DISEASE WITHOUT 12/07/2018 ZACKARY ROTHMAN, CHEN Campbell Ot Z01.818 ENCOUNTER FOR OTHER PREPROCEDURAL EXAMIN 12/07/2018 KENDALL ROTHMAN, CLAUDIA Constantino Ot D64.9 ANEMIA, UNSPECIFIED 12/07/2018 CLAUDIA ARGUETA MD Ot D50.9 IRON DEFICIENCY ANEMIA, UNSPECIFIED 12/07/2018 SWEET PA, STEPHANIE R Ot M41. 26 OTHER IDIOPATHIC SCOLIOSIS, LUMBAR REGIO 12/07/2018 SWEET PA, STEPHANIE R Ot M48. 00 SPINAL STENOSIS, SITE UNSPECIFIED 12/07/2018 SWEET PA, STEPHANIE R Ot 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, NEC, LUMBAR REGION, 12/07/2018 SWEET PA, STEPHANIE R Ot M51. 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 RADICULO 12/07/2018 BAIRON ROTHMAN, HELENA C Ot M67.432 GANGLION, LEFT WRIST 12/07/2018 KENDALL ROTHMAN, CLAUDIA Constantino Ot D64.9 ANEMIA, UNSPECIFIED 12/07/2018 KENDALL ROTHMAN, CLAUDIA Constantino Ot D50.9 IRON DEFICIENCY ANEMIA, UNSPECIFIED 12/07/2018 TERESA ROTHMAN, JOSHUA Zelaya Ot Z01.818 ENCOUNTER FOR OTHER PREPROCEDURAL EXAMIN 12/08/2018 TERESA ROTHMAN, JOSHUA Zelaya Ot Z01.818 ENCOUNTER FOR OTHER PREPROCEDURAL EXAMIN 12/13/2018 [address] Z[address] BUS BOY 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 12/13/2018 DANE ZARATE BUS [facility]Y Ot 780.93 MEMORY LOSS 12/13/2018 Ot 733.13 PAT HOLOGIC FRACTURE, VERTEBRAE 12/13/2018 ZACKARY ROTHMAN, CHEN Campbell Ot D50.9 IRON DEFICIENCY ANEMIA, UNSPECIFIED 12/13/2018 ZACKARY ROTHMAN, CHEN Campbell Ot K21.9 GASTRO-ESOPHAGEAL REFLUX DISEASE WITHOUT 12/13/2018 ZACKARY ROTHMAN, CHEN Campbell Ot Z01.818 ENCOUNTER FOR OTHER PREPROCEDURAL EXAMIN 12/13/2018 KENDALL ROTHMAN, CLAUDIA Constantino Ot D64.9 ANEMIA, UNSPECIFIED 12/13/2018 KENDALL ROTHMAN, CLAUDIA Constantino Ot D50.9 IRON DEFICIENCY ANEMIA, UNSPECIFIED 12/13/2018 ELVIS GAMEZ STEPHANIE R Ot M41. 26 OTHER IDIOPATHIC SCOLIOSIS, LUMBAR REGIO 12/13/2018 STEFANIA MICHELLESHUA R Ot M48. 00 SPINAL STENOSIS, SITE UNSPECIFIED 12/13/2018 ELVIS GAMEZ STEPHANIE R Ot 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, NEC, LUMBAR REGION, 12/13/2018 STEFANIA MICHELLESHUA R Ot M51. 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 RADICULO 12/13/2018 BAIRON ROTHMAN, HELENA C Ot M67.432 GANGLION, LEFT WRIST 12/13/2018 TERESA ROTHMAN, JOSHUA Zelaya Ot D64.9 ANEMIA, UNSPECIFIED 12/13/2018 TERESA ROTHMAN, JOSHUA Zelaya Ot E03.9 HYPOTHYROIDISM, UNSPECIFIED 12/13/2018 TERESA ROTHMAN, JOSHUA Zelaya Ot E66.9 OBESITY, UNSPECIFIED 12/13/2018 TERESA ROTHMAN, JOSHUA Zelaya Ot F03.90 UNSPECIFIED DEMENTIA 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L 12/13/2018 TERESA ROTHMAN, JOSHUA Zelaya Ot F33.9 MAJOR DEPRESSIVE DISORDER, RECURRENT, UN 12/13/2018 JOSHUA MOORE MD, Ot G47.00 INSOMNIA, UNSPECIFIED 12/13/2018 JOSHUA MOORE MD, Ot I1 0 ESSENTIAL (PRIMARY) HYPERTENSION 12/13/2018 JOSHUA MOORE MD, Ot I25.10 ATHSCL HEART DISEASE OF [place] CORONARY 12/13/2018 JOSHUA MOORE MD, Ot K21.9 GASTRO-ESOPHAGEAL REFLUX DISEASE WITHOUT 12/13/2018 JOSHUA MOORE MD, Ot M12.9 ARTHROPATHY, UNSPECIFIED 12/13/2018 JOSHUA MOORE MD, Ot M62.81 MUSCLE WEAKNESS (GENERALIZED) 12/13/2018 JOSHUA MOORE MD, Ot M67.432 GANGLION, LEFT WRIST 12/13/2018 JOSHUA MOORE MD, Ot M81.0 AGE-RELATED OSTEOPOROSIS W/O CURRENT PAT 12/13/2018 JOSHUA MOORE MD, Ot Z68.36 BODY MASS INDEX (BMI) 36.0-36.9, ADULT 12/13/2018 JOSHUA MOORE MD, Ot Z88.0 ALLERGY STATUS TO PENICILLIN 12/13/2018 JOSHUA MOORE MD, Ot Z95.5 PRESENCE OF CORONARY ANGIOPLASTY IMPLANT 01/06/2019 JOSHUA MOORE MD, Ot Z01.818 ENCOUNTER FOR OTHER PREPROCEDURAL EXAMIN 09/03/2019 HELENA WADDELL MD Ot N39. 0 URINARY TRACT INFECTION, SITE NOT SPECIF 09/04/2019 HELENA WADDELL MD, Ot N39. 0 URINARY TRACT INFECTION, SITE NOT SPECIF Procedures Code Description Performed By Per formed On 42.92 ESOP HAGEAL DILATION 08/07/2014 45.16 ESOP HAGOGASTRODUODENOSCOPY [EGD] W/CLOSE 08/07/2014 45.23 COLO NOSCOPY 08/14/2014 Results Test Result Range Complete blood count (CBC) with automate d white blood cell (WBC) differential - 02/26/18 00:12 Blood leukocytes automated count (number/volume) 9.8 10*3/uL 4.3-11.0 Blood erythrocytes automated count (number/volume) 5.08 10*6/uL 4.35-5.85 Venous blood hemoglobin measurement (mass/volume) 14.3 g/dL 11.5-16.0 Blood hematocrit (volume fraction) 43 % 35-52 Automated erythrocyte mean corpuscular volume 85 [ foz_us] 80-99 Automated erythrocyte mean corpuscular h emoglobin (mass per erythrocyte) 28 pg 25-34 Automated erythrocyte mean corpuscular h emoglobin concentration measurement (mass/volume) 33 g/dL 32-36 Automated erythrocyte distribution width ratio 15. 0 % 10.0- 14.5 Automated blood platelet count (count/volume) 258 10*3/uL [...] 10*3 1.0-4.0 Blood monocytes automated count (number/volume) 0. 9 10*3 0.0-1.0 Automated eosinophil count 0.2 10*3/uL 0 .0-0.3 Automated blood basophil count (count/volume) 0.0 10*3/uL 0.0-0.1 PT panel in platelet poor plasma by coag ulation assay - 02/26/18 00:12 Prothrombin time (PT) in platelet poor plasma by coagu lation assay 12.6 s 12.2-14.7 INR in platelet poor plasma or blood by coagulation as say 0.9 0.8-1.4 Activated partial thromboplastin time (a PTT) in platelet poor plasma bycoagulation assay - 02/26/18 00:12 Activated partial thromboplastin time (a PTT) in platelet poor plasma bycoagulation assay 33 s 24-35 Comprehensive metabolic panel - 02/26/18 00:12 Serum or plasma sodium measurement (moles/volume) 129 mmol/L 135-145 Serum or plasma potassium measurement (moles/volume) 4.3 mmol/L 3.6-5.0 Serum or plasma chloride measurement (moles/volume) 92 mmol/L 98-107 Carbon dioxide 22 mmol/L 21-32 Serum or plasma anion gap determination (moles/volume) 15 mmol/L 5-14 Serum or plasma urea nitrogen measurement (mass/volume ) 8 mg/dL 7-18 Serum or plasma creatinine measurement (mass/volume) 0.70 mg/dL 0.60-1.30 Serum or plasma urea nitrogen/creatinine mass ratio 11 NRG Serum or plasma creatinine measurement w ith calculation of estimated glomerular filtration rate > NRG Serum or plasma glucose measurement (mass/volume) 141 mg/dL 70-105 Serum or plasma calcium measurement (mass/volume) 9.5 mg/dL 8.5-10.1 Serum or plasma total bilirubin measurement (mass/volu me) 0.7 mg/dL 0.1-1.0 Serum or plasma alkaline phosphatase irineo surement (enzymatic activity/volume) 49 U/L 40-136 Serum or plasma aspartate aminotransfera se measurement (enzymatic activity/volume) 17 U/L 5-34 Serum or plasma alanine aminotransferase measurement (enzymatic activity/volume) 13 U/L 0-55 Serum or plasma protein measurement (mass/volume) 7.7 g/dL 6.4-8.2 Serum or plasma albumin measurement (mass/volume) 4.3 g/dL 3.2-4.5 CALCIUM CORRECTED 9.3 mg/dL 8.5-10.1 Magnesium - 02/26/18 00:12 Magnesium 2.3 mg/dL 1.8-2.4 Serum or plasma creatine kinase measurem ent (enzymatic activity/volume) - 02/26/18 00:12 Serum or plasma creatine kinase measurem ent (enzymatic activity/volume) 21 U/L 29-168 Serum or plasma creatine kinase MB measu rement (enzymatic activity/volume) - 02/26/18 00:12 Serum or plasma creatine kinase MB measu rement (enzymatic activity/volume) 1.0 ng/mL <6.6 Serum or plasma troponin i.cardiac measu rement (mass/volume) - 02/26/18 00:12 Serum or plasma troponin i.cardiac measurement (mass/v olume) < ng/mL <0.30 Serum or plasma lithium measurement (mol es/volume) - 02/26/18 00:12 BNP level 76.6 pg/mL <100.0 Serum or plasma amylase measurement (enz ymatic activity/volume) - 02/26/18 00:12 Serum or plasma amylase measurement (enzymatic activit y/volume) 63 U/L 25-125 Lipase - 02/26/18 00:12 Lipase 22 U/L 8-78 Serum or plasma thyrotropin measurement by detection limit <=0.05 miu/l (units/volume) - 02/26/18 00:12 Serum or plasma thyrotropin measurement by detection limit <=0.05 miu/l (units/volume) 2.41 u[iU]/mL 0.35-4.94 Blood lactic acid measurement (moles/vol ume) - 02/26/18 00:21 Blood lactic acid measurement (moles/volume) 2.65 mmol/L 0.50-2.00 Bacterial blood culture - 02/26/18 00:21 Bacterial blood culture NG NRG Influenza virus A and B antigen detectio n - 02/26/18 00:33 FLU RESULT NEGATIVE FOR INFLUENZA A AND B ANTIGENS BY IA NRG Bacterial blood culture - 02/26/18 00:58 Bacterial blood culture NG NRG Complete urinalysis with reflex to cultu re - 02/26/18 02:08 Urine color determination YELLOW NRG Urine clarity determination SLIGHTLY CLOUDY NRG Urine pH measurement by test strip 8 5-9 Specific gravity of urine by test strip 1.010 1.016-1.022 Urine protein assay by test strip, semi-quantitative NEGATIVE NEGATIVE Urine glucose detection by automated test strip NE GATIVE NEGATIVE Erythrocytes detection in urine sediment by light micr oscopy NEGATIVE NEGATIVE Urine ketones detection by automated test strip NE GATIVE NEGATIVE Urine nitrite detection by test strip NEGATIVE NEGATIVE Urine total bilirubin detection by test strip NEGA TIVE NEGATIVE Urine urobilinogen measurement by automated test strip (mass/volume) NORMAL NORMAL Urine leukocyte esterase detection by dipstick NEG ATIVE NEGATIVE Automated urine sediment erythrocyte cou nt by microscopy (number/high power field) NONE NRG Automated urine sediment leukocyte count by microscopy (number/high power field) RARE NRG Bacteria detection in urine sediment by light microsco py LARGE NRG Squamous epithelial cells detection in u rine sediment by light microscopy NONE NRG Crystals detection in urine sediment by light microsco py NONE NRG Casts detection in urine sediment by light microscopy NONE NRG Mucus detection in urine sediment by light microscopy NEGATIVE NRG Complete urinalysis with reflex to culture YES NRG Bacterial urine culture - 02/26/18 02:08 Bacterial urine culture PROGRESS NRG COLONY COUNT . NRG FTX;REPORTABLE RML SENT REPORT 02/26 17:06 NRG FREE TEXT ENTRY 2 AND 02/27/18 12:05 NR G Serum or plasma lactate measurement (mol es/volume) - 02/26/18 02:13 Serum or plasma lactate measurement (moles/volume) 2.23 mmol/L 0.50-2.00 Complete blood count (CBC) with automate d white blood cell (WBC) differential - 02/26/18 06:08 Blood leukocytes automated count (number/volume) 9.9 10*3/uL 4.3-11.0 Blood erythrocytes automated count (number/volume) 5.11 10*6/uL 4.35-5.85 Venous blood hemoglobin measurement (mass/volume) 14.7 g/dL 11.5-16.0 Blood hematocrit (volume fraction) 43 % 35-52 Automated erythrocyte mean corpuscular volume 85 [ foz_us] 80-99 Automated erythrocyte mean corpuscular h emoglobin (mass per erythrocyte) 29 pg 25-34 Automated erythrocyte mean corpuscular h emoglobin concentration measurement (mass/volume) 34 g/dL 32-36 Automated erythrocyte distribution width ratio 15. 1 % 10.0- 14.5 Automated blood platelet count (count/volume) 207 10*3/uL [...] 10*3 1.0-4.0 Blood monocytes automated count (number/volume) 0. 7 10*3 0.0-1.0 Automated eosinophil count 0.1 10*3/uL 0 .0-0.3 Automated blood basophil count (count/volume) 0.0 10*3/uL 0.0-0.1 Comprehensive metabolic panel - 02/26/18 06:08 Serum or plasma sodium measurement (moles/volume) 131 mmol/L 135-145 Serum or plasma potassium measurement (moles/volume) 4.1 mmol/L 3.6-5.0 Serum or plasma chloride measurement (moles/volume) 94 mmol/L 98-107 Carbon dioxide 22 mmol/L 21-32 Serum or plasma anion gap determination (moles/volume) 15 mmol/L 5-14 Serum or plasma urea nitrogen measurement (mass/volume ) 7 mg/dL 7-18 Serum or plasma creatinine measurement (mass/volume) 0.61 mg/dL 0.60-1.30 Serum or plasma urea nitrogen/creatinine mass ratio 11 NRG Serum or plasma creatinine measurement w ith calculation of estimated glomerular filtration rate > NRG Serum or plasma glucose measurement (mass/volume) 101 mg/dL 70-105 Serum or plasma calcium measurement (mass/volume) 9.1 mg/dL 8.5-10.1 Serum or plasma total bilirubin measurement (mass/volu me) 0.6 mg/dL 0.1-1.0 Serum or plasma alkaline phosphatase irineo surement (enzymatic activity/volume) 47 U/L 40-136 Serum or plasma aspartate aminotransfera se measurement (enzymatic activity/volume) 13 U/L 5-34 Serum or plasma alanine aminotransferase measurement (enzymatic activity/volume) 11 U/L 0-55 Serum or plasma protein measurement (mass/volume) 7.1 g/dL 6.4-8.2 Serum or plasma albumin measurement (mass/volume) 4.3 g/dL 3.2-4.5 CALCIUM CORRECTED 8.9 mg/dL 8.5-10.1 Complete blood count (CBC) with automate d white blood cell (WBC) differential - 02/27/18 05:39 Blood leukocytes automated count (number/volume) 9.2 10*3/uL 4.3-11.0 Blood erythrocytes automated count (number/volume) 4.57 10*6/uL 4.35-5.85 Venous blood hemoglobin measurement (mass/volume) 12.9 g/dL 11.5-16.0 Blood hematocrit (volume fraction) 40 % 35-52 Automated erythrocyte mean corpuscular volume 87 [ foz_us] 80-99 Automated erythrocyte mean corpuscular h emoglobin (mass per erythrocyte) 28 pg 25-34 Automated erythrocyte mean corpuscular h emoglobin concentration measurement (mass/volume) 33 g/dL 32-36 Automated erythrocyte distribution width ratio 15. 0 % 10.0- 14.5 Automated blood platelet count (count/volume) 243 10*3/uL [...] 10*3 1.0-4.0 Blood monocytes automated count (number/volume) 0. 9 10*3 0.0-1.0 Automated eosinophil count 0.2 10*3/uL 0 .0-0.3 Automated blood basophil count (count/volume) 0.0 10*3/uL 0.0-0.1 Comprehensive metabolic panel - 02/27/18 05:39 Serum or plasma sodium measurement (moles/volume) 130 mmol/L 135-145 Serum or plasma potassium measurement (moles/volume) 4.4 mmol/L 3.6-5.0 Serum or plasma chloride measurement (moles/volume) 98 mmol/L 98-107 Carbon dioxide 23 mmol/L 21-32 Serum or plasma anion gap determination (moles/volume) 9 mmol/L 5-14 Serum or plasma urea nitrogen measurement (mass/volume ) 8 mg/dL 7-18 Serum or plasma creatinine measurement (mass/volume) 0.63 mg/dL 0.60-1.30 Serum or plasma urea nitrogen/creatinine mass ratio 13 NRG Serum or plasma creatinine measurement w ith calculation of estimated glomerular filtration rate > NRG Serum or plasma glucose measurement (mass/volume) 90 mg/dL 70-105 Serum or plasma calcium measurement (mass/volume) 9.0 mg/dL 8.5-10.1 Serum or plasma total bilirubin measurement (mass/volu me) 0.7 mg/dL 0.1-1.0 Serum or plasma alkaline phosphatase irineo surement (enzymatic activity/volume) 37 U/L 40-136 Serum or plasma aspartate aminotransfera se measurement (enzymatic activity/volume) 13 U/L 5-34 Serum or plasma alanine aminotransferase measurement (enzymatic activity/volume) 12 U/L 0-55 Serum or plasma protein measurement (mass/volume) 6.2 g/dL 6.4-8.2 Serum or plasma albumin measurement (mass/volume) 3.7 g/dL 3.2-4.5 CALCIUM CORRECTED 9.2 mg/dL 8.5-10.1 Methicillin resistant Staphylococcus aur eus (MRSA) screening culture - 12/07/18 09:00 Methicillin resistant Staphylococcus aureus (MRSA) scr eening culture NEG NRG Complete urinalysis with reflex to cultu re - 09/01/19 07:38 Urine color determination YELLOW NRG Urine clarity determination CLOUDY NR G Urine pH measurement by test strip 7.0 5-9 Specific gravity of urine by test strip 1.015 1.016-1.022 Urine protein assay by test strip, semi-quantitative NEGATIVE NEGATIVE Urine glucose detection by automated test strip NE GATIVE NEGATIVE Erythrocytes detection in urine sediment by light micr oscopy NEGATIVE NEGATIVE Urine ketones detection by automated test strip TR JAMILA NEGATIVE Urine nitrite detection by test strip POSITIVE NEGATIVE Urine total bilirubin detection by test strip NEGA TIVE NEGATIVE Urine urobilinogen measurement by automated test strip (mass/volume) 1.0 mg/dL < = 1.0 Urine leukocyte esterase detection by dipstick 1+ NEGATIVE Automated urine sediment erythrocyte cou nt by microscopy (number/high power field) NONE NRG Automated urine sediment leukocyte count by microscopy (number/high power field) [HPF] NRG Bacteria detection in urine sediment by light microsco py LARGE NRG Squamous epithelial cells detection in u rine sediment by light microscopy 10-25 NRG Crystals detection in urine sediment by light microsco py NONE NRG Casts detection in urine sediment by light microscopy NONE NRG Mucus detection in urine sediment by light microscopy NEGATIVE NRG Complete urinalysis with reflex to culture YES NRG Bacterial urine culture - 09/01/19 07:38 Bacterial urine culture SEE COMMEN NRG COLONY COUNT . NRG SUSCEPTIBILITY WITH >100,000ML OF AEROCOCCUS SPECI ES NRG Encounters ACCT No. Visit Date/Time Discharge Status Pt. Type Provider Facility Loc./Unit Complaint [id number] 09/01/2013 13:28:00 09/01/2013 23:59: 59 CLS Outpatient LINNEA FISHMAN APRN [id number] 09/01/2019 07:37:00 020 23:59:59 CLS Outpatient BAIRON ROTHMAN, HELENA Moya [facility] LABNPT [id number] 12/13/2018 07:50:00 11:40:00 DIS Outpatient JOSHUA MOORE MD [facility] GANGLION CYST [id number] 12/07/2018 07:56:00 10:38:00 DIS Outpatient JOSHUA MOORE MD [facility] PREOP GANGLION CYST [id number] 08/29/2018 09:58:00 019 23:59:59 CLS Outpatient HELENA WADDELL MD [facility] RAD GANGLION CYST LT WRIST, LT WRIST PAIN [id number] 02/25/2018 23:57:00 12:27:00 DIS Inpatient HELENA WADDELL MD [facility] 4TH VERTIGO,HYPONATREMIA [id number] 02/11/2017 07:45:00 017 23:59:59 CLS Outpatient STEPHANIE MICHELLE [facility] RAD BACK PAIN M54.9 [id number] 06/30/2015 00:07:00 016 23:59:59 CLS Preadmit CLAUDIA ARGUETA MD [facility] ANEMIA,IRON DEFICIENCY [id number] 04/11/2015 10:07:00 016 00:01:00 DIS Outpatient CLAUDIA ARGUETA MD [facility] ANEMIA,IRON DEFICIENCY [id number] 06/19/2015 00:09:00 016 23:59:59 CLS Preadmit CLAUDIA ARGUETA MD [facility] ANEMIA [id number] 03/21/2015 12:28:00 016 00:01:00 DIS Outpatient CLAUDIA ARGUETA MD [facility] ANEMIA [id number] 04/07/2015 10:44:00 015 13:20:00 DIS Outpatient ZACKARY ROTHMAN, CHEN [place] [facility] HX EROSIONS,GERD,STRIC TURE,IRON DEF. ANEMIA [id number] 03/31/2015 05:43:00 015 23:59:59 CLS Outpatient ZACKARY ROTHMAN, CHEN [place] [facility] PREOP EGD, POSSIBLE DILATION [id number] 08/05/2014 09:27:00 015 10:40:00 DIS Inpatient CLAUDIA ARGUETA MD [facility] 4TH SWB-HYPONATREMIA,BACK PAIN,TACYCARDIA [id number] 07/31/2014 15:09:00 015 09:06:00 DIS Inpatient CLAUDIA ARGUETA MD [facility] 4TH HYPONATREMIA,WEAKNESS,AMS,DEPRESSION [id number] 11/16/2013 15:21:00 014 23:59:59 CLS Outpatient DANE ZARATE [facility] RAD MEMORY LOSS [id number] 09/18/2019 08:49:[address] Emergency CORINA ROTHMAN, JAMI Werner [facility] ER FALL [id number] 07/10/2014 15:20:00 Document Registration [id number] 07/02/2014 03:51:00 Document Registration [id number] 08/06/2010 18:58:00 Document Registration 0000 12/09/2016 07:50:01 12/09/2016 23:59:5 9 CLS Outpatient Claudia Argueta
[2019-09-18] MEDS ORDERED: fentaNYL INJECTION 100 MCG/2 ML AMP IVP ONE (09:00)
--- NOTE | 2019-09-18 09:05 | ED Fall/Injury ---
General Chief Complaint: Trauma-Non Activation Stated Complaint: FALL Source: patient Exam Limitations: no limitations History of Present Illness Date Seen by Provider: September 18, 2019 Time Seen by Provider: 08:45 Initial Comments Patient presents ER by EMS from [facility] with chief complaint of just prior to arrival she was getting up from the breakfast table and going to the bathroom. When she got to the bathroom she opened the door and there was a large black spider which she attempted step on using her walker and instead lost her balance falling onto her right side. She's now having right sided, 10 out of 10 hip pain and low back pain. She has a chronic back pain with surgeries. She has a femoral past 25 [address] in [address]. She has hydrocodone as necessary but does not use this very frequently. She has not taken anything for pain from nursing staff or EMS. Last oral intake was half an hour ago. She denies striking her head nor loss of consciousness. She denies nausea sweats fevers chills cough or shortness of air. Allergies and Home Medications Allergies Coded Allergies: Penicillins (Verified Allergy, Intermediate, HIVES, EDEMA, 12/07/18) Home Medications Acetaminophen 500 Mg Tablet, 1,000 MG PO Q8H PRN for PAIN-MILD, (Reported) Calcium Carbonate/Vitamin D3 1 Each Tablet, 1 TAB PO BID, (Reported) Cyanocobalamin (Vitamin B-12) 1,000 Mcg/1 Ml Drops, 1,000 MCG PO DAILY, (Reported) Furosemide 20 Mg Tablet, 20 MG PO DAILY PRN for EDEMA, (Reported) Guaifenesin 100 Mg/5 Ml Liquid, 10 ML PO Q4H PRN for COUGH, (Reported) Hydrocodone Bit/Acetaminophen 1 Each Tablet, 1 TAB PO Q4H PRN for PAIN-MODERATE Prescribed by: AIMEE GUTIERREZ on 12/13/18 1109 L. Acidophilus/L.bulgaricus 1 Each Powd.pack, 1 PACKET PO TID, (Reported) Loratadine 10 Mg Tablet, 10 MG PO Q48H, (Reported) Melatonin 3 Mg Tablet, 3 MG PO HS, (Reported) Metoprolol Tartrate 50 Mg Tablet, 50 MG PO BID, (Reported) Multivitamin 1 Each Capsule, 1 CAP PO DAILY, (Reported) [place] Oil 30 Ml Oil, 1 DROP EACH EAR UD PRN for EAR WAX, (Reported) Polyethylene Glycol 3350 17 Gm Powd.pack, 17 GM PO DAILY PRN for CONSTIPATION- 2ND LINE, (Reported) Potassium Chloride 20 Meq Tablet.er, 20 MEQ PO BID, (Reported) Potassium Chloride 10 Meq Capsule.er, 10 MEQ PO DAILY PRN for EDME WITH FUROSEMIDE 20MG, (Reported) GIVE WITH FUROSEMIDE NEEDED FOR EDEMA/ WEIGHT GAIN >3 LBS IN 3 DAYS Patient Home Medication List Home Medication List Reviewed: Yes Review of Systems Review of Systems Constitutional: No chills, No diaphoresis Eyes: Denies Blindness, Denies Blurred Vision Ears, Nose, Mouth, Throat: denies ear pain, denies ear discharge Respiratory: No cough, No short of breath Cardiovascular: No chest pain, No palpitations Gastrointestinal: No abdominal pain, No nausea, No vomiting Genitourinary: No discharge, No dysuria Musculoskeletal: see HPI, back pain, joint pain All Other Systems Reviewed Negative Unless Noted: Yes Past Qdrvjuj-Petitd-Cncrge Hx Patient Social History Alcohol Use: Denies Use Recreational Drug Use: No Smoking Status: Unknown if Ever Smoked 2nd Hand Smoke Exposure: No Recent Hopitalizations: No Immunizations Up To Date Tetanus Booster (TDap): Unknown PED Vaccines UTD: Yes Date of Pneumonia Vaccine: Apr 07, 2010 Date of Influenza Vaccine: Feb 06, 2018 Seasonal Allergies Seasonal Allergies: No Past Medical History Surgeries: Yes (LUMBAR SURGERY; CARDIAC CATH WITH STENTS) Cardiac, Coronary Stent, Orthopedic, Tubal Ligation Respiratory: No Cardiac: Yes (STENTS) Coronary Artery Disease, Hypertension Neurological: Yes Dementia 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 Disorders: No 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: Tubal Ligation, Menopausal Sexually Transmitted Disease: No HIV/AIDS: No Genitourinary: No UTI-Chronic Gastrointestinal: No Chronic Constipation Musculoskeletal: Yes Osteoporosis, Arthritis Endocrine: No HEENT: Yes Loss of Vision: Denies Hearing Impairment: Denies Cancer: No Psychosocial: Yes Depression Integumentary: No Blood Disorders: No Adverse Reaction/Blood Tranf: No Family Medical History Cardiovascular disease Myocardial infarction 17 FATHER No Family History of: AIDS Abdominal aortic aneurysm Rod's disease Alcoholism Alzheimer's disease Aphasia Arthritis Asthma Cancer of mouth Cataracts Colon cancer Completed stroke Congenital disease Congenital heart disease Coronary thrombosis Cystic fibrosis Deafness or hearing loss Dementia Diabetes mellitus Drug abuse Dysphasia Fibrocystic disease of breast Gastroenteritis Glaucoma Headache disorder Hypercholesterolemia Hypertension Infertility Kidney disease Neoplasm Not obtainable due to adoption Osteoporosis Parkinson's disease Prostate cancer Psychosocial problem Respiratory disorder Seizure disorder Severe allergy Thyroid disease Tuberculosis Visual disorder Heart Disease, Hypertension Physical Exam Vital Signs Vital Signs - First Documented 09/18/19 09/18/19 08:48 09:24 Pulse 90 Resp 18 B/P (MAP) 141/76 (97) Pulse Ox 96 O2 Delivery Room Air O2 Flow Rate 2.00 Capillary Refill : Height, Weight, BMI Height: 5'0.00" Weight: 188lbs. 0.0oz. 85.910618kw; 36.7 BMI Method:Stated General Appearance: WD/WN, moderate distress HEENT: PERRL/EOMI, normal ENT inspection, TMs normal, pharynx normal, other (atraumatic head without Hagen sign or raccoon eyes. Negative for hemotympanum.) Neck: non-tender, full range of motion, supple, normal inspection Cardiovascular: normal peripheral pulses, regular rate, rhythm, no edema Respiratory: lungs clear, normal breath sounds, no respiratory distress, no accessory muscle use Peripheral Pulses: 1+ Dorsalis Pedis (R), 1+ Left Dors-Pedis (L); 2+ Radial Pulses (R), 2+ Radial Pulses (L) Gastrointestinal: normal bowel sounds, non tender, soft Extremities: normal inspection, normal capillary refill, other (tenderness to palpation over the right hip laterally upper extremities and left lower extremity nontender with good range of motion.) Neurologic/Psychiatric: alert, normal mood/affect, oriented x 3, other (sensation in all 4 extremities intact. No motor deficit.) [place] Coma Score Best Eye Response: (4) Open Spontaneously Best Verbal Response: (5) Oriented Best Motor Response: (6) Obeys Commands [place] Total: 15 Progress/Results/Core Measures Results/Orders Lab Results Laboratory Tests Test 09/18/19 09:00 09/18/19 11:59 Range/Units White Blood Count 13.3 H 4.3-11.0 10^3/uL Red Blood Count 4.94 4.35-5.85 10^6/uL Hemoglobin 13.6 11.5-16.0 G/DL Hematocrit 40 35-52 % Mean Corpuscular Volume 82 80-99 FL Mean Corpuscular Hemoglobin 28 25-34 PG Mean Corpuscular Hemoglobin Concent 34 32-36 G/DL Red Cell Distribution Width 15.4 H 10.0-14.5 % Platelet Count 271 130-400 10^3/uL Mean Platelet Volume 10.2 7.4-10.4 FL Neutrophils (%) (Auto) 80 H 42-75 % Lymphocytes (%) (Auto) 11 L 12-44 % Monocytes (%) (Auto) 7 0-12 % Eosinophils (%) (Auto) 2 0-10 % Basophils (%) (Auto) 0 0-10 % Neutrophils # (Auto) 10.6 H 1.8-7.8 X 10^3 Lymphocytes # (Auto) 1.5 1.0-4.0 X 10^3 Monocytes # (Auto) 0.9 0.0-1.0 X 10^3 Eosinophils # (Auto) 0.3 0.0-0.3 10^3/uL Basophils # (Auto) 0.1 0.0-0.1 10^3/uL Sodium Level 131 L 135-145 MMOL/L Potassium Level 4.0 3.6-5.0 MMOL/L Chloride Level 96 L 98-107 MMOL/L Carbon Dioxide Level 24 21-32 MMOL/L Anion Gap 11 5-14 MMOL/L Blood Urea Nitrogen 8 7-18 MG/DL Creatinine 0.70 0.60-1.30 MG/DL Estimat Glomerular Filtration Rate > 60 BUN/Creatinine Ratio 11 Glucose Level 165 H 70-105 MG/DL Calcium Level 9.1 8.5-10.1 MG/DL Corrected Calcium 9.7 8.5-10.1 MG/DL Total Bilirubin 0.7 0.1-1.0 MG/DL Aspartate Amino Transf (AST/SGOT) 16 5-34 U/L Alanine Aminotransferase (ALT/SGPT) 17 0-55 U/L Alkaline Phosphatase 55 40-136 U/L Total Protein 6.1 L 6.4-8.2 GM/DL Albumin 3.3 3.2-4.5 GM/DL Urine Color YELLOW Urine Clarity CLEAR Urine pH 7.0 5-9 Urine Specific [place] 1.015 L 1.016-1.022 Urine Protein NEGATIVE NEGATIVE Urine Glucose (UA) NEGATIVE NEGATIVE Urine Ketones NEGATIVE NEGATIVE Urine Nitrite NEGATIVE NEGATIVE Urine Bilirubin NEGATIVE NEGATIVE Urine Urobilinogen 0.2 < = 1.0 MG/DL Urine Leukocyte Esterase 3+ H NEGATIVE Urine RBC (Auto) NEGATIVE NEGATIVE Urine RBC NONE /HPF Urine WBC >100 H /HPF Urine Squamous Epithelial Cells >50 H /HPF Urine Crystals NONE /LPF Urine Bacteria LARGE H /HPF Urine Casts NONE /LPF Urine Mucus NEGATIVE /LPF Urine Culture Indicated YES My Orders Orders - JAMI ARRIAGA Cbc With Automated Diff (09/18/19 08:59) Chest 1 View, Ap/Pa Only (09/18/19 08:59) Comprehensive Metabolic Panel (09/18/19 08:59) Ua Culture If Indicated (09/18/19 08:59) Pelvis With Right Hip 2-3views (09/18/19 08:59) Ed Iv/Invasive Line Start (09/18/19 08:59) Fentanyl Injection (Sublimaze Injection (09/18/19 09:00) Ct Lumbar Spine Wo (09/18/19 08:59) Ct Head/Cervical Spine Wo (09/18/19 09:05) Urine Culture (09/18/19 11:59) Hydrocodone/Apap 5/325 Tablet (Lortab 5 (09/18/19 12:45) Medications Given in ED Current Medications Medications Dose Ordered Sig/Dennis Route Start Time Stop Time Status Last Admin Dose Admin Fentanyl Citrate 75 mcg ONCE ONCE IVP 09/18/19 09:00 09/18/19 09:04 DC 09/18/19 09:10 75 MCG Vital Signs/I&O 09/18/19 09/18/19 08:48 09:24 Pulse 90 Resp 18 B/P (MAP) 141/76 (97) Pulse Ox 96 89 O2 Delivery Room Air Nasal Cannula O2 Flow Rate 2.00 Progress Progress Note #1: Time: 09:[address] without IV contrast of the head, cervical and lumbar spines. X-ray of the right hip. Chest x-ray and collect some labs and urine looking for any complicating factors. She recently had a UTI and completed antibiotics a couple days ago, Macrobid. Patient's oxygen sats did get down to the low 80s when she fell sleep before we gave her the fentanyl so oxygen was initiated. Progress Note #2: Time: 12:43 Progress Note The patient's pain improved with the fentanyl but she still having significant pain. She thinks she would be okay to go home with pain medicine and attempt physical therapy. She is probably not going to be a good candidate for the adult, acute rehabilitation unit inpatient. We did offer her observation stay for pain control. We discussed that there is probably not going to be necessary surgery at this time for her back. Diagnostic Imaging Diagonstic Imaging: Xray Plain Films/CT/US/NM/MRI: chest (one view) Comments [facility] [place], [place] NAME: SUE OZUNA [facility] REC#: [id number] PT STATUS: REG ER : 1935 PHYSICIAN: JAMI ARRIAGA MD ADMIT DATE: 09/18/19/ER Draft Date of Exam:09/18/19 CHEST 1 VIEW, AP/PA ONLY INDICATION: Fall, pain. COMPARISON: 02/27/2018. FINDINGS: Some linear scarring in the left midlung is chronic. The upper limits heart size is stable. No effusion, pneumothorax, or focal consolidation. A few treated and untreated lower thoracic or thoracolumbar junction compression deformities are unchanged. There are severe chronic degenerative changes to the shoulders. No acute fracture deformity can be identified. IMPRESSION: Stable chronic findings. Dictated on workstation # [id number] Dict: 09/18/19 0959 Trans: 09/18/19 1003 [id number] Interpreted by: SALINAS BREEN Electronically signed by: Reviewed: Reviewed by Me Diagonstic Imaging: Xray Plain Films/CT/US/NM/MRI: pelvis, hip (right) Comments [facility] [employer] [place], [place] NAME: SUE OZUNA [facility] REC#: [id number] PT STATUS: REG ER : 1935 PHYSICIAN: JAMI ARRIAGA MD ADMIT DATE: 09/18/19/ER Signed Date of Exam:09/18/19 PELVIS WITH RIGHT HIP 2-3VIEWS INDICATION: Pelvic pain and right hip pain post fall. TECHNIQUE: An AP pelvis and AP and oblique views of the right hip were obtained. FINDINGS: There is osteopenia. There are moderate degenerative findings in the hip joints on both sides. There are diffuse degenerative changes of the SI joints. The patient has had previous lower lumbar kyphoplasty. No acute fracture is visualized. IMPRESSION: Osteopenia and chronic changes as described above. No acute fracture is visualized. Dictated by: Dictated on workstation # [id number] Dict: 09/18/19 1036 Trans: 09/18/19 1102 [id number] Interpreted by: BEVERLEY JAMES MD Electronically signed by: BEVERLEY JAMES MD 09/18/19 1102 Reviewed: Reviewed by Me Diagonstic Imaging: CT Plain Films/CT/US/NM/MRI: c-spine, head Comments [facility] [place] NAME: SUE OZUNA [facility] REC#: [id number] PT STATUS: REG ER : 1935 PHYSICIAN: JAMI ARRIAGA MD ADMIT DATE: 09/18/19/ER Signed Date of Exam:09/18/19 CT HEAD/CERVICAL SPINE WO PROCEDURE: CT head and CT cervical spine without contrast. TECHNIQUE: Multiple contiguous axial images were obtained through the brain and cervical spine without the use of intravenous contrast. Sagittal and coronal reformations through the cervical spine were then performed. Auto Exposure Controls were utilized during the CT exam to meet ALARA standards for radiation dose reduction. INDICATION: Fall. Neck pain. Scalp contusion. COMPARISON: CT head on 02/26/2018. FINDINGS: CT head: No large acute territorial ischemia, mass, or hemorrhage. No midline shift or mass effect. Decreased attenuation is seen in the periventricular and subcortical white matter. The ventricles and cortical sulci are prominent. The basilar cisterns are patent and unremarkable. The calvarium is intact. The visualized paranasal sinuses are clear. CT cervical spine: No acute fracture or dislocation is seen in the cervical spine. Generalized osteopenia is noted. Vertebral body heights are well-maintained. The craniocervical junction is well-maintained. Mild degenerative changes are seen in the cervical spine with disc osteophyte complexes and uncovertebral arthropathy. The included lung apices are clear. IMPRESSION: 1. No hemorrhage or focal intra-axial mass. No CT evidence of large acute territorial ischemia. 2. No acute fracture or dislocation in the cervical spine. 3. Chronic microvascular disease with generalized parenchymal volume loss. 4. Generalized osteopenia. Dictated by: Dictated on workstation # [id number] Dict: 09/18/1936 Trans: 09/18/19957 [id number] Interpreted by: HOLLI BUTCHER DO Electronically signed by: HOLLI BUTCHER DO 09/18/19957 Reviewed: Reviewed by Me Diagonstic Imaging: CT Plain Films/CT/US/NM/MRI: other (lumbar spine) Comments NAME: SUE OZUNA [facility] REC#: [id number] PT STATUS: REG ER : 1935 PHYSICIAN: JAMI ARRIAGA MD ADMIT DATE: 09/18/19/ER Draft Date of Exam:09/18/19 CT LUMBAR SPINE WO EXAMINATION: CT lumbar spine without contrast. TECHNIQUE: Multiple contiguous axial images were obtained through the lumbar spine without the use of intravenous contrast. Sagittal and coronal reformations were then performed. All CT scans use one or more of the following dose optimizing techniques: automated exposure control, MA and/or KvP adjustment based on a patient size and exam type, or iterative reconstruction. INDICATION: Fall. COMPARISON: 07/02/2014 FINDINGS: There has been vertebroplasty of L4 and L1. There is a stable severe compression fracture of L2. There is a severe compression fracture of L3, previously with only mild height loss. There is stable mild compression fracture of L5. There is a stable moderate T12 compression fracture. There is dextrocurvature of the lumbar spine. There are multilevel disc height loss and bulging, most pronounced at L1/L2 resulting in moderate spinal canal stenosis. There is severe multilevel facet arthropathy, most pronounced from L3-S1. This results in severe right L4/L5 neural foraminal stenosis on the right. There is [id number] neural foraminal stenosis at the other neural foramina from L3-S1. No soft tissue abnormality is seen. Abdominal aorta is atherosclerotic but normal in caliber. IMPRESSION: 1. Compression fractures of all lumbar spine levels, most of which are stable from the prior exam but there is new severe height loss at L3, previously only mild. This is concerning for acute worsening of the compression fracture. Dictated on workstation # [id number] Dict: 09/18/1952 Trans: 09/18/1959 [id number] Interpreted by: KWADWO VALDOVINOS MD Electronically signed by: Reviewed: Reviewed by Me Departure Communication (PCP) Discussed the case with Dr. Joshua Waddell at 1300 and discussed physical therapy. Impression Primary Impression: Fall Qualified Codes: W19.XXXA - Unspecified fall, initial encounter Additional Impression: Lumbar compression fracture Qualified Codes: S32.030A - Wedge compression fracture of third lumbar vertebra, initial encounter for closed fracture Disposition: 01 HOME, SELF-CARE Condition: Stable Departure-Patient Inst. Decision time for Depature: 13:00 Referrals: JOSHUA WADDELL MD (PCP/Family) Primary Care Physician Patient Instructions: Vertebral Compression Fracture (DC) Add. Discharge Instructions: Hydrocodone as prescribed previously or for pain 810 out of 10 and you can take 2 tablets every 4 hours. Make close follow-up with the primary care provider and discuss the need for physical therapy and mobility devices as necessary. All discharge instructions reviewed with patient and/or family. Voiced understanding. Scripts Hydrocodone/Acetaminophen (Hydrocodone-Acetamin 5-325 mg) 1 Each Tablet 2 EACH PO Q4H PRN for PAIN-BREAKTHROUGH, #30 TAB 0 Refills Prov: JAMI ARRIAGA 09/18/19 JAMI ARRIAGA September 18, 2019 09:05
[2019-09-18 09:08] LABS: BASOPHILS # (AUTO) 0.1 10^3/uL (0.0-0.1); BASOPHILS % (AUTO) 0 % (0-10); EOSINOPHILS # (AUTO) 0.3 10^3/uL (0.0-0.3); EOSINOPHILS % (AUTO) 2 % (0-10); HEMATOCRIT 40 % (35-52); HEMOGLOBIN 13.6 G/DL (11.5-16.0); LYMPHOCYTES # (AUTO) 1.5 X 10^3 (1.0-4.0); LYMPHOCYTES % (AUTO) 11 % (12-44); MEAN CORPUSCULAR HEMOGLOBIN 28 PG (25-34); MEAN CORPUSCULAR HGB CONC 34 G/DL (32-36); MEAN CORPUSCULAR VOLUME 82 FL (80-99); MEAN PLATELET VOLUME 10.2 FL (7.4-10.4); MONOCYTES # (AUTO) 0.9 X 10^3 (0.0-1.0); MONOCYTES % (AUTO) 7 % (0-12); NEUTROPHILS # (AUTO) 10.6 X 10^3 (1.8-7.8); NEUTROPHILS % (AUTO) 80 % (42-75); PLATELET COUNT 271 10^3/uL (130-400); RED CELL DISTRIBUTION WIDTH 15.4 % (10.0-14.5); WHITE BLOOD COUNT 13.3 10^3/uL (4.3-11.0)
[2019-09-18 09:19] LABS: ALBUMIN 3.3 GM/DL (3.2-4.5); CHLORIDE 96 MMOL/L (98-107); SODIUM 131 MMOL/L (135-145)
[2019-09-18 09:20] LABS: CALCIUM 9.1 MG/DL (8.5-10.1)
[2019-09-18 09:21] LABS: GLUCOSE 165 MG/DL (70-105)
[2019-09-18 09:22] LABS: TOTAL PROTEIN 6.1 GM/DL (6.4-8.2)
--- NOTE | 2019-09-18 09:22 | NUR ---
DAUGHTER VANE CAME TO DOOR UPSET BECAUSE SHE COULD NOT COME INTO ED. CONTACT NUMBER IS [phone]
[2019-09-18 09:23] LABS: BILIRUBIN,TOTAL 0.7 MG/DL (0.1-1.0); CARBON DIOXIDE 24 MMOL/L (21-32)
--- NOTE | 2019-09-18 09:23 | NUR ---
TO CT PER CART
[2019-09-18 09:25] LABS: ALKALINE PHOSPHATASE 55 U/L (40-136); GFR ESTIMATED > 60
[2019-09-18 09:26] LABS: BUN/CREATININE RATIO 11
[2019-09-18 09:28] LABS: ALANINE AMINOTRANSFERASE 17 U/L (0-55)
--- NOTE | 2019-09-18 09:44 | Diagnostic Imaging Report ---
PROCEDURE: CT head and CT cervical spine without contrast. TECHNIQUE: Multiple contiguous axial images were obtained through the brain and cervical spine without the use of intravenous contrast. Sagittal and coronal reformations through the cervical spine were then performed. Auto Exposure Controls were utilized during the CT exam to meet ALARA standards for radiation dose reduction. INDICATION: Fall. Neck pain. Scalp contusion. COMPARISON: CT head on 02/26/2018. FINDINGS: CT head: No large acute territorial ischemia, mass, or hemorrhage. No midline shift or mass effect. Decreased attenuation is seen in the periventricular and subcortical white matter. The ventricles and cortical sulci are prominent. The basilar cisterns are patent and unremarkable. The calvarium is intact. The visualized paranasal sinuses are clear. CT cervical spine: No acute fracture or dislocation is seen in the cervical spine. Generalized osteopenia is noted. Vertebral body heights are well-maintained. The craniocervical junction is well-maintained. Mild degenerative changes are seen in the cervical spine with disc osteophyte complexes and uncovertebral arthropathy. The included lung apices are clear. IMPRESSION: 1. No hemorrhage or focal intra-axial mass. No CT evidence of large acute territorial ischemia. 2. No acute fracture or dislocation in the cervical spine. 3. Chronic microvascular disease with generalized parenchymal volume loss. 4. Generalized osteopenia. Dictated by: Dictated on workstation # [id number]
--- NOTE | 2019-09-18 09:52 | NUR ---
BACK FROM CT.
--- NOTE | 2019-09-18 10:00 | Diagnostic Imaging Report ---
EXAMINATION: CT lumbar spine without contrast. TECHNIQUE: Multiple contiguous axial images were obtained through the lumbar spine without the use of intravenous contrast. Sagittal and coronal reformations were then performed. All CT scans use one or more of the following dose optimizing techniques: automated exposure control, MA and/or KvP adjustment based on a patient size and exam type, or iterative reconstruction. INDICATION: Fall. COMPARISON: 07/02/2014 FINDINGS: There has been vertebroplasty of L4 and L1. There is a stable severe compression fracture of L2. There is a severe compression fracture of L3, previously with only mild height loss. There is stable mild compression fracture of L5. There is a stable moderate T12 compression fracture. There is dextrocurvature of the lumbar spine. There are multilevel disc height loss and bulging, most pronounced at L1/L2 resulting in moderate spinal canal stenosis. There is severe multilevel facet arthropathy, most pronounced from L3-S1. This results in severe right L4/L5 neural foraminal stenosis on the right. There is [id number] neural foraminal stenosis at the other neural foramina from L3-S1. No soft tissue abnormality is seen. Abdominal aorta is atherosclerotic but normal in caliber. IMPRESSION: 1. Compression fractures of all lumbar spine levels, most of which are stable from the prior exam but there is new severe height loss at L3, previously only mild. This is concerning for acute worsening of the compression fracture. Dictated by: Dictated on workstation # [id number]
--- NOTE | 2019-09-18 10:03 | Diagnostic Imaging Report ---
INDICATION: Fall, pain. COMPARISON: 02/27/2018. FINDINGS: Some linear scarring in the left midlung is chronic. The upper limits heart size is stable. No effusion, pneumothorax, or focal consolidation. A few treated and untreated lower thoracic or thoracolumbar junction compression deformities are unchanged. There are severe chronic degenerative changes to the shoulders. No acute fracture deformity can be identified. IMPRESSION: Stable chronic findings. Dictated by: Dictated on workstation # [id number]
--- NOTE | 2019-09-18 10:38 | Diagnostic Imaging Report ---
INDICATION: Pelvic pain and right hip pain post fall. TECHNIQUE: An AP pelvis and AP and oblique views of the right hip were obtained. FINDINGS: There is osteopenia. There are moderate degenerative findings in the hip joints on both sides. There are diffuse degenerative changes of the SI joints. The patient has had previous lower lumbar kyphoplasty. No acute fracture is visualized. IMPRESSION: Osteopenia and chronic changes as described above. No acute fracture is visualized. Dictated by: Dictated on workstation # [id number]
[2019-09-18 12:07] LABS: BILIRUBIN,URINE NEGATIVE (NEGATIVE); CLARITY,URINE CLEAR; COLOR,URINE YELLOW; GLUCOSE, URINE (UA) NEGATIVE (NEGATIVE); KETONES,URINE NEGATIVE (NEGATIVE); LEUKOCYTE ESTERASE ,URINE 3+ (NEGATIVE); NITRITE,URINE NEGATIVE (NEGATIVE); PROTEIN,URINE NEGATIVE (NEGATIVE)
--- NOTE | 2019-09-18 12:09 | NUR ---
O2 REMOVED PLACED ON ROOM AIR.
[2019-09-18 12:27] LABS: BACTERIA,URINE LARGE /HPF; SQUAMOUS EPITHELIAL CELL,UR >50 /HPF; WBC,URINE >100 /HPF
[2019-09-18] MEDS ORDERED: HYDROcodone/APAP 5 MG/325 MG (LORTAB) TAB PO ONE (12:45)
[2019-09-18] MEDS ORDERED: HYDR-83 PO (13:00)
--- NOTE | 2019-09-18 13:10 | NUR ---
CALLED AND GAVE REPORT TO NURSING DR ARRIAGA CALLED AND TALKED WITH DAUGHTER VANE
--- NOTE | 2019-09-18 13:13 | NUR ---
PATIENT REPORTS ON O2 AT HS
[2019-09-18 13:19] VITALS: BP 131/81
== END 2019-09-18 13:25 | disposition home or self-care (01) ==
LOC: EDUNIT# 08:48 → ER 08:49
DX: S32.030A Wedge compression fracture of third lumbar vertebra, initial encounter for closed fracture (principal); I10 Essential (primary) hypertension; I25.10 Atherosclerotic heart disease of native coronary artery without angina pectoris; R40.2142 Coma scale, eyes open, spontaneous, at arrival to emergency department; R40.2252 Coma scale, best verbal response, oriented, at arrival to emergency department; R40.2362 Coma scale, best motor response, obeys commands, at arrival to emergency department; Z88.0 Allergy status to penicillin; Z95.5 Presence of coronary angioplasty implant and graft; Z82.49 Family history of ischemic heart disease and other diseases of the circulatory system; W18.39XA Other fall on same level, initial encounter; Y92.002 Bathroom of unspecified non-institutional (private) residence as the place of occurrence of the external cause
CPT/HCPCS: 36415; 70450; 71045; 72125; 72131; 80053; 81000; 85025; 87088

== ENCOUNTER 2019-10-10 12:19 | Emergency (ER) | payer MEDICARE, MEDICAID ==
[~2019-10-10] VITALS: Ht 152 cm; Wt 70.0 kg
[~2019-10-10 12:19] MED LIST changes: +HYDR-83 PO
[2019-10-10] MEDS ORDERED: fentaNYL INJECTION 100 MCG/2 ML AMP IVP ONE (13:45)
--- NOTE | 2019-10-10 13:50 | ED Abdominal Pain ---
General Chief Complaint: Back Problems Stated Complaint: ABD PAIN Nursing Triage Note: ARRIVED VIA WC WITH COMPLAINTS OF CONT LOWER BACK PAIN NOT RELIEVED BY A FENTENYL PATCH 25MCG. PT RECENTLY DX WITH A UTI AND STARTED ON CEFDINIR 300MG BID AND LASIX 20MG. PT REPEATS THAT HER BACK HURTS. WOULD NOT BEAR WT WHEN TRANSFERRED. Sepsis Screen: No Definite Risk Source of Information: Patient, Group Home Records Exam Limitations: No Limitations (FANY CHRIS MED STUDENT) History of Present Illness Date Seen by Provider: Oct 10, 2019 Time Seen by Provider: 12:46 Initial Comments Mrs. Ozuna is an 84 year old female that presents to the emergency department from [facility] with concerns of back and abdominal pain. Upon visiting with patient she is concerned of her chronic back pain that is uncontrolled by her pain medication (hydrocodone and fentanyl patch 25mcg). She complains of diffuse lower back pain and diffuse abdominal pain. She denies any problems or changes with urination and stool. She denies any recent trauma or fall. She does report some increase in fatigue as well as decrease in appetite the last 2 days. She states she is not longer independently ambulatory and uses a wheelchair. Mrs. Ozuna had a previous back surgery on her lumbar spine in 2014 and most recent lumbar CT done 08/2019 showing stable compression fractures Via records from [facility] the patient has been complaining of abdominal pain as well as urgency and frequency with urination. Sue has had minimal urine output throughout the week. Urine culture was done on 10/03/19 results showing usual urogenital leola. She was started on cefdinir 300mg BID on 10/06/19. Her last bowel movement was reported to be on 10/10/19 and formed. Timing/Duration: 2-3 Days Severity/Quality: Moderate Location: Other Modifying Factors: Improves With Lying down; Worsens With Movement Associated Symptoms: Back Pain; No Chest Pain, No Fever/Chills; Fatigue; No Headache, No Nausea/Vomiting, No Shortness of Air (FANY CHRIS MED STUDENT) Allergies and Home Medications Allergies Coded Allergies: Penicillins (Verified Allergy, Intermediate, HIVES, EDEMA, 12/07/18) Home Medications Acetaminophen 500 Mg Tablet, 1,000 MG PO Q8H PRN for PAIN-MILD, (Reported) Calcium Carbonate/Vitamin D3 1 Each Tablet, 1 TAB PO BID, (Reported) Cyanocobalamin (Vitamin B-12) 1,000 Mcg/1 Ml Drops, 1,000 MCG PO DAILY, (Reported) Furosemide 20 Mg Tablet, 20 MG PO DAILY PRN for EDEMA, (Reported) Guaifenesin 100 Mg/5 Ml Liquid, 10 ML PO Q4H PRN for COUGH, (Reported) Hydrocodone Bit/Acetaminophen 1 Each Tablet, 1 TAB PO Q4H PRN for PAIN-MODERATE Prescribed by: AIMEE GUTIERREZ on 12/13/18 1109 Hydrocodone/Acetaminophen 1 Each Tablet, 2 EACH PO Q4H PRN for PAIN-BREAKTHROUGH Prescribed by: JAMI ARRIAGA on 09/18/19 1300 L. Acidophilus/L.bulgaricus 1 Each Powd.pack, 1 PACKET PO TID, (Reported) Loratadine 10 Mg Tablet, 10 MG PO Q48H, (Reported) Melatonin 3 Mg Tablet, 3 MG PO HS, (Reported) Metoprolol Tartrate 50 Mg Tablet, 50 MG PO BID, (Reported) Multivitamin 1 Each Capsule, 1 CAP PO DAILY, (Reported) [place] Oil 30 Ml Oil, 1 DROP EACH EAR UD PRN for EAR WAX, (Reported) Polyethylene Glycol 3350 17 Gm Powd.pack, 17 GM PO DAILY PRN for CONSTIPATION- 2ND LINE, (Reported) Potassium Chloride 20 Meq Tablet.er, 20 MEQ PO BID, (Reported) Potassium Chloride 10 Meq Capsule.er, 10 MEQ PO DAILY PRN for EDME WITH FUROSEMIDE 20MG, (Reported) GIVE WITH FUROSEMIDE NEEDED FOR EDEMA/ WEIGHT GAIN >3 LBS IN 3 DAYS Patient Home Medication List Home Medication List Reviewed: Yes (FANY CHRIS,MED STUDENT) Review of Systems Review of Systems Constitutional: no symptoms reported EENTM: No Symptoms Reported Respiratory: No Symptoms Reported Cardiovascular: No Symptoms Reported Gastrointestinal: Denies Constipated, Denies Diarrhea, Denies Nausea; Poor Appetite; Denies Vomiting Genitourinary: Frequency, Incontinence, Urgency Musculoskeletal: see HPI (FANY CHRIS,ARELIS STUDENT) Past Ftgqvgl-Nfuqoj-Dzgekg Hx Patient Social History Alcohol Use: Denies Use Recreational Drug Use: No 2nd Hand Smoke Exposure: No Recent Foreign Travel: No Contact w/Someone Who Travel: No Recent Infectious Disease Expo: No Recent Hopitalizations: No (FANY CHRIS,MED STUDENT) Immunizations Up To Date Tetanus Booster (TDap): Unknown PED Vaccines UTD: Yes Date of Pneumonia Vaccine: Apr 07, 2010 Date of Influenza Vaccine: Feb 06, 2018 (FANY CHRIS MED STUDENT) Seasonal Allergies Seasonal Allergies: No (FANY CHRIS MED STUDENT) Past Medical History Surgeries: Yes (LUMBAR SURGERY; CARDIAC CATH WITH STENTS) Cardiac, Coronary Stent, Orthopedic, Tubal Ligation Respiratory: No Cardiac: Yes (STENTS) Coronary Artery Disease, Hypertension Neurological: Yes Dementia 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 Disorders: No [employer] History: Tubal Ligation, Menopausal Sexually Transmitted Disease: No HIV/AIDS: No Genitourinary: No UTI-Chronic Gastrointestinal: No Chronic Constipation Musculoskeletal: Yes Osteoporosis, Arthritis Endocrine: No HEENT: Yes Loss of Vision: Denies Hearing Impairment: Denies Cancer: No Psychosocial: Yes Depression Integumentary: No Blood Disorders: No Adverse Reaction/Blood Tranf: No (FANY CHRIS MED STUDENT) Family Medical History Cardiovascular disease Myocardial infarction 17 FATHER No Family History of: AIDS Abdominal aortic aneurysm Odin's disease Alcoholism Alzheimer's disease Aphasia Arthritis Asthma Cancer of mouth Cataracts Colon cancer Completed stroke Congenital disease Congenital heart disease Coronary thrombosis Cystic fibrosis Deafness or hearing loss Dementia Diabetes mellitus Drug abuse Dysphasia Fibrocystic disease of breast Gastroenteritis Glaucoma Headache disorder Hypercholesterolemia Hypertension Infertility Kidney disease Neoplasm Not obtainable due to adoption Osteoporosis Parkinson's disease Prostate cancer Psychosocial problem Respiratory disorder Seizure disorder Severe allergy Thyroid disease Tuberculosis Visual disorder Heart Disease, Hypertension (FANY CHRIS MED STUDENT) Physical Exam Vital Signs Vital Signs - First Documented 10/10/19 12:35 Temp 37.0 Pulse 80 Resp 16 B/P (MAP) 185/99 (127) Pulse Ox 94 O2 Delivery Room Air (STEPHANIE BARRIOS MD) Vital Signs Capillary Refill : Less Than 3 Seconds (FANY CHRIS MED STUDENT) Height/Weight/BMI Height: 5'0.00" Weight: 188lbs. 0.0oz. 85.368825ob; 30.00 BMI Method:Stated General Appearance: WD/WN, mild distress HEENT: PERRL/EOMI, other (mucous membranes mildly dry) Neck: non-tender Respiratory: chest non-tender, lungs clear, normal breath sounds, no respiratory distress, no accessory muscle use Cardiovascular: regular rate, rhythm, no murmur Gastrointestinal: normal bowel sounds, soft; No guarding, No rebound; tenderness (diffusely tender, worst at RLQ) Extremities: pedal edema (left>right) Back: other (limited exam due to limited patient mobility ) Neurologic/Psychiatric: no motor/sensory deficits, alert, normal mood/affect, oriented x 3 Skin: normal color, warm/dry (FANY CHRIS,MED STUDENT) Progress/Results/Core Measures Results/Orders Lab Results Laboratory Tests Test 10/10/19 14:03 10/10/19 14:10 Range/Units White Blood Count 8.7 4.3-11.0 10^3/uL Red Blood Count 4.78 4.35-5.85 10^6/uL Hemoglobin 13.1 11.5-16.0 G/DL Hematocrit 39 35-52 % Mean Corpuscular Volume 82 80-99 FL Mean Corpuscular Hemoglobin 27 25-34 PG Mean Corpuscular Hemoglobin Concent 34 32-36 G/DL Red Cell Distribution Width 15.9 H 10.0-14.5 % Platelet Count 274 130-400 10^3/uL Mean Platelet Volume 10.1 7.4-10.4 FL Neutrophils (%) (Auto) 70 42-75 % Lymphocytes (%) (Auto) 15 12-44 % Monocytes (%) (Auto) 12 0-12 % Eosinophils (%) (Auto) 3 0-10 % Basophils (%) (Auto) 0 0-10 % Neutrophils # (Auto) 6.0 1.8-7.8 X 10^3 Lymphocytes # (Auto) 1.3 1.0-4.0 X 10^3 Monocytes # (Auto) 1.0 0.0-1.0 X 10^3 Eosinophils # (Auto) 0.3 0.0-0.3 10^3/uL Basophils # (Auto) 0.0 0.0-0.1 10^3/uL Sodium Level 125 *L 135-145 MMOL/L Potassium Level 4.5 3.6-5.0 MMOL/L Chloride Level 93 L 98-107 MMOL/L Carbon Dioxide Level 22 21-32 MMOL/L Anion Gap 10 5-14 MMOL/L Blood Urea Nitrogen 8 7-18 MG/DL Creatinine 0.55 L 0.60-1.30 MG/DL Estimat Glomerular Filtration Rate > 60 BUN/Creatinine Ratio 15 Glucose Level 99 70-105 MG/DL Calcium Level 8.5 8.5-10.1 MG/DL Corrected Calcium 9.1 8.5-10.1 MG/DL Total Bilirubin 0.6 0.1-1.0 MG/DL Aspartate Amino Transf (AST/SGOT) 28 5-34 U/L Alanine Aminotransferase (ALT/SGPT) 14 0-55 U/L Alkaline Phosphatase 90 40-136 U/L C-Reactive Protein High Sensitivity 1.99 H 0.00-0.50 MG/DL Total Protein 6.0 L 6.4-8.2 GM/DL Albumin 3.2 3.2-4.5 GM/DL Lipase 16 8-78 U/L Urine Color YELLOW Urine Clarity CLEAR Urine pH 6.5 5-9 Urine Specific [place] 1.015 L 1.016-1.022 Urine Protein NEGATIVE NEGATIVE Urine Glucose (UA) NEGATIVE NEGATIVE Urine Ketones NEGATIVE NEGATIVE Urine Nitrite NEGATIVE NEGATIVE Urine Bilirubin NEGATIVE NEGATIVE Urine Urobilinogen 0.2 < = 1.0 MG/DL Urine Leukocyte Esterase NEGATIVE NEGATIVE Urine RBC (Auto) NEGATIVE NEGATIVE Urine RBC NONE /HPF Urine WBC 0-2 /HPF Urine Squamous Epithelial Cells 2-5 /HPF Urine Crystals NONE /LPF Urine Bacteria FEW H /HPF Urine Casts NONE /LPF Urine Mucus SMALL H /LPF Urine Culture Indicated NO (STEPHANIE BARRIOS MD) My Orders Orders - STEPHANIE BARRIOS MD Cbc With Automated Diff (10/10/19 13:08) Comprehensive Metabolic Panel (10/10/19 13:08) Hs C Reactive Protein (10/10/19 13:08) Ua Culture If Indicated (10/10/19 13:08) Ed Iv/Invasive Line Start (10/10/19 13:08) Lipase (10/10/19 13:39) Fentanyl Injection (Sublimaze Injection (10/10/19 13:45) Ns Iv 1000 Ml (Sodium Chloride 0.9%) (10/10/19 14:47) Ct Abdomen/Pelvis W (10/10/19 14:47) Iohexol Injection (Omnipaque 350 Mg/Ml 1 (10/10/19 15:00) Received Contrast (Hold Metformin- Contr (10/10/19 15:00) Sodium Chloride Flush (Catheter Flush Sy (10/10/19 15:00) Ns (Ivpb) (Sodium Chloride 0.9% Ivpb Bag (6/10/20 15:00) Catheter(Urinary) Care .0300, 1500 (10/10/19 16:09) (STEPHANIE BARRIOS MD) Medications Given in ED Current Medications Medications Dose Ordered Sig/Dennis Route Start Time Stop Time Status Last Admin Dose Admin Fentanyl Citrate 25 mcg ONCE ONCE IVP 10/10/19 13:45 10/10/19 13:46 DC 10/10/19 14:05 25 MCG Iohexol 100 ml ONCE ONCE IV 10/10/19 15:00 10/10/19 15:01 DC 10/10/19 15:13 85 ML Sodium Chloride 10 ml NEEDED PRN IV 10/10/19 15:00 10/10/19 16:57 DC 10/10/19 15:13 10 ML Sodium Chloride 100 ml ONCE ONCE IV 10/10/19 15:00 10/10/19 15:01 DC 10/10/19 15:13 80 ML (STEPHANIE BARRIOS MD) Vital Signs/I&O 10/10/19 10/10/19 12:35 16:52 Temp 37.0 Pulse 80 70 Resp 16 16 B/P (MAP) 185/99 (127) 157/81 Pulse Ox 94 100 O2 Delivery Room Air Room Air (STEPHANIE BARRIOS MD) Blood Pressure Mean: 127 Progress Progress Note #1: Time: 16:[address] scan revealed severe urinary retention. A Wiley catheter will be placed. Patient's of back and abdominal pain are likely due to severe bladder distention. Patient has had recent urine leaking and is being treated for urinary tract infection. She was also found to have hyponatremia. This may be due to recent addition of Lasix. I discussed the case with Dr. Waddell. He would like her to have a Wiley catheter placed and have her return to the custodial. He will work on the hyponatremia on an outpatient basis. Patient historically has a lower sodium on her prior labs. A liter of IV normal saline was infused to help with her hyponatremia today. Progress Note #2: Progress Note Folic acid are was placed by nursing staff. This yielded approximately 2 L of urine. Patient did report improvement in symptoms after that. (STEPHANIE BARRIOS MD) Diagnostic Imaging Diagonstic Imaging: CT Plain Films/CT/US/NM/MRI: abdomen, pelvis Comments CT abdomen and pelvis viewed by me and report reviewed. See report below: NAME: SUE OZUNA [facility] REC#: [id number] PT STATUS: REG ER : 1935 PHYSICIAN: STEPHANIE BARRIOS MD ADMIT DATE: 10/10/19/ER Signed Date of Exam:10/10/19 CT ABDOMEN/PELVIS W PROCEDURE: CT abdomen and pelvis with contrast. TECHNIQUE: Multiple contiguous axial images were obtained through the abdomen and pelvis after administration of intravenous contrast. Auto Exposure Controls were utilized during the CT exam to meet ALARA standards for radiation dose reduction. INDICATION: Lower abdominal pain. COMPARISON: None. FINDINGS: The lung bases demonstrate atelectasis and scarring. There is mild cardiomegaly. There is coronary atherosclerosis and aortic atherosclerosis with tortuosity of the aorta. The liver demonstrates no focal lesions. Small calculi are seen in the gallbladder. There is a calcified granuloma in the spleen. The pancreas appears normal. The adrenal glands are unremarkable. The kidneys demonstrate no focal lesions, although there is cortical scarring at the superior left kidney. There is a moderate-sized hiatal hernia. The bowel loops are nondistended without obstruction. There is extensive diverticulosis in the colon with no diverticulitis seen. There is diastasis of the abdominal wall anteriorly. No significant free fluid or free air is seen. There is severe distention of the urinary bladder, measuring 19.8 cm craniocaudal, and up to 14.2 x 12.0 cm on axial imaging. There is diffuse osteopenia. Severe degenerative changes and multilevel compression deformities are seen in the lumbar spine. These appear similar to 09/18/2019. IMPRESSION: 1. Urinary retention with severe distention of the bladder. No hydronephrosis is seen. 2. Colonic diverticulosis without diverticulitis. 3. Cholelithiasis. 4. Hiatal hernia. 5. Cardiomegaly. Dictated by: Dictated on workstation # [id number] Dict: 10/10/19 1525 Trans: 10/10/19 1644 AS6 [id number] Interpreted by: SONALI ARTEAGA MD Electronically signed by: SONALI ARTEAGA MD 10/10/19 1644 (STEPHANIE BARRIOS MD) Departure Impression Primary Impression: Urinary retention Additional Impressions: Abdominal pain Qualified Codes: R10.30 - Lower abdominal pain, unspecified Hyponatremia Disposition: 01 HOME, SELF-CARE Condition: Improved Departure-Patient Inst. Decision time for Depature: 16:16 (STEPHANIE BARIROS MD) Referrals: HELENA WADDELL MD (PCP/Family) Primary Care Physician Patient Instructions: Wiley Catheter, Female, Hyponatremia Add. Discharge Instructions: Keep Wiley catheter in place and follow-up with Dr. Waddell as soon as possible. Continue current medications as previously prescribed. Receive further instructions on medication management for hyponatremia from Dr. Waddell. Return to the emergency room if there are worsening symptoms. All discharge instructions reviewed with patient and/or family. Voiced understanding. This patient was interviewed, seen, and examined by me personally along with THANH Ovalle. I agree with MS4 history, physical, assessment, and documentation with the following additions: Exam: Gen.: Alert, oriented, no acute distress HEENT: normocephalic and atraumatic, mucous membranes somewhat dry Heart: Regular rate and rhythm without murmur Lungs: Clear to auscultation bilaterally with normal effort Abdomen: Soft, diffusely tender but most intense in the right lower quadrant, normal bowel sounds Extremities: Lower extremity edema with mild tenderness Neuro psych: Alert, oriented, no gross focal deficits See progress section above. Patient was discharged back to the custodial. (STEPHANIE BARRIOS MD) Copy Copies To 1: HELENA WADDELL MD, [place],MED STUDENT Oct 10, 2019 13:50 STEPHANIE BARRIOS MD Oct 10, 2019 16:19
--- NOTE | 2019-10-10 14:10 | NUR ---
continous pulse ox place on pt.
[2019-10-10 14:21] LABS: BASOPHILS % (AUTO) 0 % (0-10); EOSINOPHILS # (AUTO) 0.3 10^3/uL (0.0-0.3); EOSINOPHILS % (AUTO) 3 % (0-10); HEMATOCRIT 39 % (35-52); HEMOGLOBIN 13.1 G/DL (11.5-16.0); LYMPHOCYTES # (AUTO) 1.3 X 10^3 (1.0-4.0); LYMPHOCYTES % (AUTO) 15 % (12-44); MEAN CORPUSCULAR HEMOGLOBIN 27 PG (25-34); MEAN CORPUSCULAR HGB CONC 34 G/DL (32-36); MEAN CORPUSCULAR VOLUME 82 FL (80-99); MEAN PLATELET VOLUME 10.1 FL (7.4-10.4); MONOCYTES % (AUTO) 12 % (0-12); NEUTROPHILS % (AUTO) 70 % (42-75); PLATELET COUNT 274 10^3/uL (130-400); RED CELL DISTRIBUTION WIDTH 15.9 % (10.0-14.5); WHITE BLOOD COUNT 8.7 10^3/uL (4.3-11.0)
[2019-10-10 14:23] LABS: BILIRUBIN,URINE NEGATIVE (NEGATIVE); CLARITY,URINE CLEAR; COLOR,URINE YELLOW; GLUCOSE, URINE (UA) NEGATIVE (NEGATIVE); KETONES,URINE NEGATIVE (NEGATIVE); LEUKOCYTE ESTERASE ,URINE NEGATIVE (NEGATIVE); NITRITE,URINE NEGATIVE (NEGATIVE); PH,URINE 6.5 (5-9); PROTEIN,URINE NEGATIVE (NEGATIVE)
[2019-10-10 14:30] LABS: BACTERIA,URINE FEW /HPF; WBC,URINE 0-2 /HPF
[2019-10-10 14:38] LABS: ALBUMIN 3.2 GM/DL (3.2-4.5); CHLORIDE 93 MMOL/L (98-107); POTASSIUM 4.5 MMOL/L (3.6-5.0)
[2019-10-10 14:39] LABS: CALCIUM 8.5 MG/DL (8.5-10.1)
[2019-10-10 14:40] LABS: GLUCOSE 99 MG/DL (70-105)
[2019-10-10 14:42] LABS: BILIRUBIN,TOTAL 0.6 MG/DL (0.1-1.0); CARBON DIOXIDE 22 MMOL/L (21-32)
[2019-10-10 14:44] LABS: ALKALINE PHOSPHATASE 90 U/L (40-136); CREATININE SERUM 0.55 MG/DL (0.60-1.30); GFR ESTIMATED > 60
[2019-10-10 14:45] LABS: BUN/CREATININE RATIO 15; SODIUM 125 MMOL/L (135-145)
[2019-10-10 14:47] LABS: ALANINE AMINOTRANSFERASE 14 U/L (0-55); LIPASE 16 U/L (8-78)
[2019-10-10] MEDS ORDERED: NS IV 1000 ML 1,000 ML IV SCH (14:47)
[2019-10-10] MEDS ORDERED: CATHETER FLUSH 10 ML SYR IV PRN (15:00)
[2019-10-10] MEDS ORDERED: NS 100 ML (IVPB) BAG IV ONE (15:00)
[2019-10-10] MEDS ORDERED: HOLD METFORMIN - RECEIVED CONTRAST 20 ML VIAL IV SCH (15:00)
[2019-10-10] MEDS ORDERED: IOHEXOL 350 MG/ML 100 ML (OMNIPAQUE 350) VIAL IV ONE (15:00)
--- NOTE | 2019-10-10 15:36 | Diagnostic Imaging Report ---
PROCEDURE: CT abdomen and pelvis with contrast. TECHNIQUE: Multiple contiguous axial images were obtained through the abdomen and pelvis after administration of intravenous contrast. Auto Exposure Controls were utilized during the CT exam to meet ALARA standards for radiation dose reduction. INDICATION: Lower abdominal pain. COMPARISON: None. FINDINGS: The lung bases demonstrate atelectasis and scarring. There is mild cardiomegaly. There is coronary atherosclerosis and aortic atherosclerosis with tortuosity of the aorta. The liver demonstrates no focal lesions. Small calculi are seen in the gallbladder. There is a calcified granuloma in the spleen. The pancreas appears normal. The adrenal glands are unremarkable. The kidneys demonstrate no focal lesions, although there is cortical scarring at the superior left kidney. There is a moderate-sized hiatal hernia. The bowel loops are nondistended without obstruction. There is extensive diverticulosis in the colon with no diverticulitis seen. There is diastasis of the abdominal wall anteriorly. No significant free fluid or free air is seen. There is severe distention of the urinary bladder, measuring 19.8 cm craniocaudal, and up to 14.2 x 12.0 cm on axial imaging. There is diffuse osteopenia. Severe degenerative changes and multilevel compression deformities are seen in the lumbar spine. These appear similar to 09/18/2019. IMPRESSION: 1. Urinary retention with severe distention of the bladder. No hydronephrosis is seen. 2. Colonic diverticulosis without diverticulitis. 3. Cholelithiasis. 4. Hiatal hernia. 5. Cardiomegaly. Dictated by: Dictated on workstation # [id number]
--- NOTE | 2019-10-10 16:26 | NUR ---
YUNI RN AT [facility] NOTIFIED PT WAS READY TO COME BACK.
--- NOTE | 2019-10-10 16:36 | NUR ---
1900CC URINE DRAINED FROM THE CATHETER. DR CLARKEIED.
[2019-10-10 16:52] VITALS: BP 157/81
[2019-10-11] MEDS ORDERED: FENT1PAT8 TD (15:11)
[2019-10-11] MEDS ORDERED: LACT1CAP62 PO (15:11)
[2019-10-11] MEDS ORDERED: DOCU-143 PO (15:11)
[2019-10-11] MEDS ORDERED: CYAN100015 SL (15:11)
[2019-10-11] MEDS ORDERED: CEFD300C3 PO (15:11)
[2019-10-11] MEDS ORDERED: NYST15CR TOP (15:11)
[2019-10-11] MEDS ORDERED: CALC3.8S NSEACH (15:11)
[2019-10-11] MEDS ORDERED: POLY17PO6 PO (15:11)
[2019-10-11] MEDS ORDERED: HYDR-4226 PO (15:11)
[2019-10-11] MEDS ORDERED: CALC-83 PO (15:11)
== END 2019-10-10 16:52 | disposition home or self-care (01) ==
LOC: EDUNIT# 12:19 → ER 12:20
DX: R33.9 Retention of urine, unspecified (principal); R10.31 Right lower quadrant pain; I10 Essential (primary) hypertension; I25.10 Atherosclerotic heart disease of native coronary artery without angina pectoris; E87.1 Hypo-osmolality and hyponatremia; Z88.0 Allergy status to penicillin; Z95.5 Presence of coronary angioplasty implant and graft; Z82.49 Family history of ischemic heart disease and other diseases of the circulatory system
CPT/HCPCS: 36415; 51701; 51702; 74177; 80053; 81000; 83690; 85025; 86141

== ENCOUNTER 2019-10-11 09:16 | Inpatient (IN) | payer MEDICARE, MEDICAID ==
[~2019-10-11] VITALS: Ht 162.6 cm; Wt 71.6 kg
[2019-10-11] MEDS ORDERED: ONDANSETRON 4 MG/2 ML (SDV) Z0FRAN IVP ONE (09:30)
[2019-10-11 09:42] LABS: BASOPHILS % (AUTO) 0 % (0-10); EOSINOPHILS % (AUTO) 0 % (0-10); HEMATOCRIT 43 % (35-52); HEMOGLOBIN 14.5 G/DL (11.5-16.0); LYMPHOCYTES # (AUTO) 0.9 X 10^3 (1.0-4.0); LYMPHOCYTES % (AUTO) 5 % (12-44); MEAN CORPUSCULAR HEMOGLOBIN 28 PG (25-34); MEAN CORPUSCULAR HGB CONC 34 G/DL (32-36); MEAN CORPUSCULAR VOLUME 83 FL (80-99); MONOCYTES # (AUTO) 0.5 X 10^3 (0.0-1.0); MONOCYTES % (AUTO) 3 % (0-12); NEUTROPHILS # (AUTO) 18.2 X 10^3 (1.8-7.8); NEUTROPHILS % (AUTO) 92 % (42-75); PLATELET COUNT 308 10^3/uL (130-400); RED CELL DISTRIBUTION WIDTH 15.7 % (10.0-14.5); WHITE BLOOD COUNT 19.7 10^3/uL (4.3-11.0)
[2019-10-11] MEDS ORDERED: LACTATED RINGERS 1,000 ML IV ONE (09:51)
[2019-10-11] MEDS ORDERED: NS IV 1000 ML 1,000 ML ONE (09:53)
--- NOTE | 2019-10-11 09:53 | ED Abdominal Pain ---
General Chief Complaint: Abdominal/GI Problems Stated Complaint: VOMITING Source of Information: Patient, Shelter Records Exam Limitations: Other (dementia) (FANY CHRIS,MED STUDENT) History of Present Illness Date Seen by Provider: Oct 11, 2019 Time Seen by Provider: 09:29 Initial Comments Mrs. Ozuna is a 84 year old female that presents to the emergency department from [facility] with reports of coffee ground emesis. Per alf report Sue had 1 episode of 30 oz coffee ground emesis at breakfast this morning. She was seen in the emergency department yesterday and diagnosed with urinary retention from abdominal/pelvic CT and hyponatremia. A jolley catheter was placed and 1900 cc was drained. She noted some improvement in abdominal pain at that time. She was discharged to return to [facility] with the catheter in in place and to follow up with Dr. Waddell to manage her hyponatremia outpatient. Sue denies any episodes of vomiting this morning as well as nausea and abdominal pain, she states her abdomen feels much better since placement of the catheter yesterday. She continue to complain of chronic diffuse lower back pain. She is oriented to person, place, and time upon exam. Last reported bowel movement was 10/10/19 and formed. She began antibiotic therapy (cefdinir) 10/05/09 for a UTI, urine sample yesterday was unremarkable. She was also started on lasix last week due to pedal edema. (FANY CHRIS,MED STUDENT) Allergies and Home Medications Allergies Coded Allergies: Penicillins (Verified Allergy, Intermediate, HIVES, EDEMA, 12/07/18) Home Medications Acetaminophen 500 Mg Tablet, 1,000 MG PO Q8H PRN for PAIN-MILD, (Reported) Calcitonin,Leota,Synthetic 3.7 Ml [place].pump, 1 SPRAY NSEACH DAILY, (Reported) Calcium Carb/Vit D3/Minerals 1 Each Tablet, 1 EACH PO BID, (Reported) Cefdinir 300 Mg Capsule, 300 MG PO BID, (Reported) STARTED 10-05-2019 #14/7 DAY SUPPLY Cyanocobalamin (Vitamin B-12) 1,000 Mcg Tab.subl, 1,000 MCG SL DAILY, (Reported) Docusate Sodium 100 Mg Capsule, 100 MG PO DAILY, (Reported) Fentanyl 1 Each Patch.td72, 25 MCG TD Q72H, (Reported) Furosemide 20 Mg Tablet, 20 MG PO DAILY, (Reported) Guaifenesin 100 Mg/5 Ml Liquid, 10 ML PO Q4H PRN for COUGH, (Reported) Hydrocodone/Acetaminophen 1 Each Tablet, 1-2 TAB PO Q4-6HR PRN for PAIN-MODERATE (5-7), (Reported) Lactobacillus Acidophilus 1 Each Capsule, 1 EACH PO TID, (Reported) Loratadine 10 Mg Tablet, 10 MG PO Q48H, (Reported) Melatonin 3 Mg Tablet, 3-6 MG PO HS, (Reported) TAKES 1 TO 2 (3MG) TABS Metoprolol Tartrate 50 Mg Tablet, 50 MG PO BID, (Reported) HOLD FOR SBP<90 OR PULSE <50 Multivitamin 1 Each Capsule, 1 CAP PO DAILY, (Reported) Nystatin 15 Gm Cream..g., 1 APPLIC TOP BID, (Reported) APPLY TO NASRA AREA FOR GAULDING UNTIL RESOLVED [place] Oil 30 Ml Oil, 1 DROP EACH EAR UD PRN for EAR WAX, (Reported) 1 DROP EVERY 7 DAYS AT BEDTIME Polyethylene Glycol 3350 17 Gm Powd.pack, 17 GM PO Q12H PRN for CONSTIPATION-2ND LINE, (Reported) Polyethylene Glycol 3350 17 Gm Powd.pack, 17 GM PO DAILY, (Reported) Potassium Chloride 20 Meq Tablet.er, 20 MEQ PO BID, (Reported) Patient Home Medication List Home Medication List Reviewed: Yes (FANY CHRIS MED STUDENT) Review of Systems Review of Systems Constitutional: no symptoms reported EENTM: No Symptoms Reported Respiratory: Denies Cough, Denies Shortness of Air Cardiovascular: Denies Chest Pain; Edema Gastrointestinal: Denies Abdominal Pain, Denies Nausea; Vomiting Musculoskeletal: back pain (chronic lumbar) Skin: no symptoms reported Psychiatric/Neurological: Other (dementia) (FANY CHRIS MED STUDENT) Past Wmkoxhj-Fjvlkw-Buoagi Hx Patient Social History 2nd Hand Smoke Exposure: No Recent Hopitalizations: No (FANY CHRIS MED STUDENT) Immunizations Up To Date Tetanus Booster (TDap): Unknown PED Vaccines UTD: Yes Date of Pneumonia Vaccine: Apr 07, 2010 Date of Influenza Vaccine: Feb 06, 2018 (FANY CHRIS,ARELIS MUSTAFA) Seasonal Allergies Seasonal Allergies: No (FANY CHRIS MED STUDENT) Past Medical History Surgeries: Yes (LUMBAR SURGERY; CARDIAC CATH WITH STENTS) Cardiac, Coronary Stent, Orthopedic, Tubal Ligation Respiratory: No Cardiac: Yes (STENTS) Coronary Artery Disease, Hypertension Neurological: Yes Dementia 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 Disorders: 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 History: Tubal Ligation, Menopausal Sexually Transmitted Disease: No HIV/AIDS: No Genitourinary: No UTI-Chronic Gastrointestinal: No Chronic Constipation Musculoskeletal: Yes Osteoporosis, Arthritis Endocrine: No HEENT: Yes Loss of Vision: Denies Hearing Impairment: Denies Cancer: No Psychosocial: Yes Depression Integumentary: No Blood Disorders: No Adverse Reaction/Blood Tranf: No (FANY CHRIS MED STUDENT) Family Medical History Cardiovascular disease Myocardial infarction 17 FATHER No Family History of: AIDS Abdominal aortic aneurysm [place]'s disease Alcoholism Alzheimer's disease Aphasia Arthritis Asthma Cancer of mouth Cataracts Colon cancer Completed stroke Congenital disease Congenital heart disease Coronary thrombosis Cystic fibrosis Deafness or hearing loss Dementia Diabetes mellitus Drug abuse Dysphasia Fibrocystic disease of breast Gastroenteritis Glaucoma Headache disorder Hypercholesterolemia Hypertension Infertility Kidney disease Neoplasm Not obtainable due to adoption Osteoporosis Parkinson's disease Prostate cancer Psychosocial problem Respiratory disorder Seizure disorder Severe allergy Thyroid disease Tuberculosis Visual disorder Heart Disease, Hypertension (FANY CHRIS,ARELIS STUDENT) Physical Exam Vital Signs Vital Signs - First Documented 10/11/19 09:30 Temp 35.6 Pulse 121 Resp 18 B/P (MAP) 147/84 (105) Pulse Ox 96 O2 Delivery Nasal Cannula O2 Flow Rate 2.00 (STEPHANIE BARRIOS MD) Vital Signs Capillary Refill : (FANY CHRIS MED STUDENT) Height/Weight/BMI Height: 5'0.00" Weight: 188lbs. 0.0oz. 85.043110fe; 30.00 BMI Method:Stated General Appearance: WD/WN, moderate distress HEENT: PERRL/EOMI Neck: non-tender, supple Respiratory: chest non-tender, lungs clear, normal breath sounds, no respiratory distress, no accessory muscle use Cardiovascular: regular rate, rhythm, no murmur Peripheral Pulses: 2+ Radial Pulses (R), 2+ Radial Pulses (L) Gastrointestinal: normal bowel sounds, soft, no organomegaly; No guarding, No rebound; tenderness (diffuse) Genital/Rectal: other (jolley catheter in place and draining) Extremities: calf tenderness (bilateral), pedal edema (left> right) Back: no vertebral tenderness Neurologic/Psychiatric: alert, oriented x 3 Skin: normal color, warm/dry, other (remnants of coffe ground emesis dried al katelyn neck and chest) (FNAY CHRIS,MED STUDENT) Focused Exam Lactate Level 10/11/19 09:45: Lactic Acid Level 1.88 (STEPHANIE BARRIOS MD) Lactic Acid Level Laboratory Tests Test 10/11/19 09:45 Lactic Acid Level 1.88 MMOL/L (0.50-2.00) (STEPHANIE BARRIOS MD) Progress/Results/Core Measures Results/Orders Lab Results Laboratory Tests Test 10/11/19 09:34 10/11/19 09:45 10/11/19 09:52 Range/Units White Blood Count 19.7 H 4.3-11.0 10^3/uL Red Blood Count 5.19 4.35-5.85 10^6/uL Hemoglobin 14.5 11.5-16.0 G/DL Hematocrit 43 35-52 % Mean Corpuscular Volume 83 80-99 FL Mean Corpuscular Hemoglobin 28 25-34 PG Mean Corpuscular Hemoglobin Concent 34 32-36 G/DL Red Cell Distribution Width 15.7 H 10.0-14.5 % Platelet Count 308 130-400 10^3/uL Mean Platelet Volume 10.0 7.4-10.4 FL Neutrophils (%) (Auto) 92 H 42-75 % Lymphocytes (%) (Auto) 5 L 12-44 % Monocytes (%) (Auto) 3 0-12 % Eosinophils (%) (Auto) 0 0-10 % Basophils (%) (Auto) 0 0-10 % Neutrophils # (Auto) 18.2 H 1.8-7.8 X 10^3 Lymphocytes # (Auto) 0.9 L 1.0-4.0 X 10^3 Monocytes # (Auto) 0.5 0.0-1.0 X 10^3 Eosinophils # (Auto) 0.0 0.0-0.3 10^3/uL Basophils # (Auto) 0.0 0.0-0.1 10^3/uL Neutrophils % (Manual) 91 % Lymphocytes % (Manual) 4 % Monocytes % (Manual) 3 % Eosinophils % (Manual) 0 % Basophils % (Manual) 0 % Band Neutrophils 2 % Blood Morphology Comment NORMAL Prothrombin Time 14.5 12.2-14.7 SEC INR Comment 1.1 0.8-1.4 Activated Partial Thromboplast Time 32 24-35 SEC Sodium Level 127 L 135-145 MMOL/L Potassium Level 4.0 3.6-5.0 MMOL/L Chloride Level 92 L 98-107 MMOL/L Carbon Dioxide Level 23 21-32 MMOL/L Anion Gap 12 5-14 MMOL/L Blood Urea Nitrogen 9 7-18 MG/DL Creatinine 0.67 0.60-1.30 MG/DL Estimat Glomerular Filtration Rate > 60 BUN/Creatinine Ratio 13 Glucose Level 205 H 70-105 MG/DL Calcium Level 8.5 8.5-10.1 MG/DL Corrected Calcium 8.9 8.5-10.1 MG/DL Total Bilirubin 0.7 0.1-1.0 MG/DL Aspartate Amino Transf (AST/SGOT) 18 5-34 U/L Alanine Aminotransferase (ALT/SGPT) 16 0-55 U/L Alkaline Phosphatase 99 40-136 U/L C-Reactive Protein High Sensitivity 4.23 H 0.00-0.50 MG/DL Total Protein 6.5 6.4-8.2 GM/DL Albumin 3.5 3.2-4.5 GM/DL Lipase 8 8-78 U/L Lactic Acid Level 1.88 0.50-2.00 MMOL/L Urine Color YELLOW Urine Clarity SL CLOUDY Urine pH 6.5 5-9 Urine Specific Grahn 1.015 L 1.016-1.022 Urine Protein 1+ H NEGATIVE Urine Glucose (UA) NEGATIVE NEGATIVE Urine Ketones 2+ H NEGATIVE Urine Nitrite NEGATIVE NEGATIVE Urine Bilirubin NEGATIVE NEGATIVE Urine Urobilinogen 0.2 < = 1.0 MG/DL Urine Leukocyte Esterase 2+ H NEGATIVE Urine RBC (Auto) 3+ H NEGATIVE Urine RBC 5-10 H /HPF Urine WBC 5-10 H /HPF Urine Squamous Epithelial Cells NONE /HPF Urine Crystals NONE /LPF Urine Bacteria TRACE /HPF Urine Casts NONE /LPF Urine Mucus NEGATIVE /LPF Urine Culture Indicated CULTURE PENDING (STEPHANIE BARRIOS MD) My Orders Orders - STEPHANIE BARRIOS MD Cbc With Automated Diff (10/11/19 09:18) Comprehensive Metabolic Panel (10/11/19 09:18) Hs C Reactive Protein (10/11/19 09:18) Lipase (10/11/19 09:18) Ed Iv/Invasive Line Start (10/11/19 09:18) Ondansetron Injection (Zofran Injectio (10/11/19 09:30) Manual Differential (10/11/19 09:34) Blood Culture (10/11/19 09:45) Sputum Culture (10/11/19 09:45) Urinalysis (10/11/19 09:45) Urine Culture (10/11/19 09:45) Protime With Inr (10/11/19 09:45) Partial Thromboplastin Time (10/11/19 09:45) Chest 1 View, Ap/Pa Only (10/11/19 09:45) Ed Iv/Invasive Line Start (10/11/19 09:45) Vital Signs Adult Sepsis Patie Q15M (10/11/19 09:45) O2 (10/11/19 09:45) Remove Rings In Anticipation O (10/11/19 09:45) Lactic Acid Analyzer (10/11/19 09:45) Famotidine Injection (Pepcid Injection) (10/11/19 10:00) Pantoprazole Injection (Protonix Injecti (10/11/19 10:00) Lactated Ringers (Lr 1000 Ml Iv Solution (10/11/19 09:51) Ns Iv 1000 Ml (Sodium Chloride 0.9%) (10/11/19 09:53) Ns Iv 1000 Ml (Sodium Chloride 0.9%) (10/11/19 09:58) Ceftriaxone For Iv Use (Rocephin For I (10/11/19 11:45) (STEPHANIE BARRIOS MD) Medications Given in ED Current Medications Medications Dose Ordered Sig/Dennis Route Start Time Stop Time Status Last Admin Dose Admin Ceftriaxone Sodium 1000 mg/ Sterile Water 10 ml @ 200 mls/hr ONCE ONCE IV 10/11/19 11:45 10/11/19 11:47 DC 10/11/19 11:58 200 MLS/HR Famotidine 20 mg ONCE ONCE IVP 10/11/19 10:00 10/11/19 10:01 DC 10/11/19 09:59 20 MG Lactated Ringer's 1,000 ml @ 0 mls/hr Q0M ONCE IV 10/11/19 09:51 10/11/19 09:53 DC 10/11/19 11:45 0 MLS/HR Ondansetron HCl 4 mg ONCE ONCE IVP 10/11/19 09:30 10/11/19 09:31 DC 10/11/19 09:38 4 MG Pantoprazole 80 mg ONCE ONCE IV 10/11/19 10:00 10/11/19 10:01 DC 10/11/19 09:59 80 MG (STEPHANIE BARRIOS MD) Vital Signs/I&O 10/11/19 10/11/19 09:30 09:30 Temp 35.6 Pulse 121 Resp 18 B/P (MAP) 147/84 (105) Pulse Ox 96 96 O2 Delivery Nasal Cannula Nasal Cannula O2 Flow Rate 2.00 2.00 (STEPHANIE BARRIOS MD) Progress Progress Note : Time: 11:57 Progress Note IV fluids were immediately initiated due to hypotension. Her blood pressure rebounded to 95 systolic. Because she is still fairly low normotensive, we will go ahead and give a unit of packed red blood cells presuming her hypotension is from acute blood volume loss. She was treated with Pepcid 20 mg and Protonix 80 mg. Patient did have a tender abdomen for MS4 which may be from gastritis or ulcer disease causing bleeding. UA was clear when seen yesterday but showed some white and red blood cells today. Rocephin is being administered after blood cultures for treatment of UTI. Hypotension is not felt to be related to sepsis as lactic acid is normal and CRP is minimally elevated. Leukocytosis is likely due to acute physiologic stress from vomiting. Dr. Bolton was consulted due to suspicion for upper GI bleed. Dr. Waddell was contacted and case was reviewed for admission. (STEPHANIE BARRIOS MD) Diagnostic Imaging Diagonstic Imaging: Xray Plain Films/CT/US/NM/MRI: chest Comments NAME: SUE OZUNA [facility] REC#: [id number] PT STATUS: REG ER : 1935 PHYSICIAN: STEPHANIE BARRIOS MD ADMIT DATE: 10/11/19/ER Draft Date of Exam:10/11/19 CHEST 1 VIEW, AP/PA ONLY INDICATION: Vomiting COMPARISON: 09/18/2019 FINDINGS: Single frontal view of the chest demonstrates stable mild cardiomegaly. Pulmonary vasculature however is within normal limits. The lungs are well aerated and clear. No large pleural effusion or pneumothorax is seen. The visualized osseous structures show no acute abnormalities. There is calcified aortic atherosclerosis. IMPRESSION: 1. Cardiomegaly, but no evidence of failure or focal infiltrate. Dictated on workstation # [id number] Dict: 10/11/19 1033 Trans: 10/11/19 1036 [facility] [id number] Interpreted by: GAVIN SANZ MD (STEPHANIE BARRIOS MD) Departure Communication (Admissions) Time/Spoke to Admitting Phy: 11:45 Dr. Helena Waddell Time/Spoke to Consulting Phy: 11:50 Dr. Bolton (STEPHANIE BARRIOS MD) Impression Primary Impression: Hematemesis Qualified Codes: K92.0 - Hematemesis Additional Impressions: Hypotension Qualified Codes: I95.9 - Hypotension, unspecified Urinary tract infection Qualified Codes: N39.0 - Urinary tract infection, site not specified Generalized abdominal pain Hyponatremia Disposition: 01 HOME, SELF-CARE Condition: Improved Admissions Decision to Admit Reason: Admit from ER (General) Decision to Admit/Date: Oct 11, 2019 Time/Decision to Admit Time: 09:30 (STEPHANIE BARRIOS MD) Departure-Patient Inst. Referrals: HELENA WADDELL MD (PCP/Family) Primary Care Physician This patient was seen, examined, and interviewed by me personally along with THANH Ovalle. I agree with MS 4 history, physical, and assessment and documentation along with the following additions and corrections: Patient was found to be hypotensive shortly after arrival. IV fluids are immediately initiated. Blood pressure is marginally even after IV fluids. A unit of red blood cells was then infused. Patient was stable through the rest of her ER stay. Pepcid and Protonix were administered for treatment of possible gastritis and/or ulcer. Exam: Alert, well-developed, in no acute distress HEENT: Normocephalic and atraumatic Heart: Regular rate and rhythm without murmur Lungs: Clear to auscultation bilaterally with normal effort Abdomen: Soft, normal bowel sounds, nondistended, nontender (diffusely tender for MS 4) Neuropsych: Alert, oriented, no focal deficits, somnolent Skin: Warm and dry (STEPHANIE BARRIOS MD) FANY CHRIS,MED STUDENT Oct 11, 2019 09:53 STEPHANIE BARRIOS MD Oct 11, 2019 12:03
[2019-10-11 09:54] LABS: ALBUMIN 3.5 GM/DL (3.2-4.5); CHLORIDE 92 MMOL/L (98-107); SODIUM 127 MMOL/L (135-145)
[2019-10-11 09:55] LABS: CALCIUM 8.5 MG/DL (8.5-10.1)
[2019-10-11 09:56] LABS: GLUCOSE 205 MG/DL (70-105)
[2019-10-11 09:57] LABS: TOTAL PROTEIN 6.5 GM/DL (6.4-8.2)
[2019-10-11 09:58] LABS: BILIRUBIN,TOTAL 0.7 MG/DL (0.1-1.0); CARBON DIOXIDE 23 MMOL/L (21-32)
[2019-10-11] MEDS ORDERED: NS IV 1000 ML 1,000 ML IV SCH (09:58)
--- OUTSIDE RECORDS SUMMARY | 2019-10-11 09:58 | XMS REPORT | Continuity of Care Document ---
Author Organization Unknown Address Unknown Phone Unavailable Allergies Active Description Code Type Severity Reaction Onset Reported/Identified Relationship to Patient Clinical Status Yes Penicillins Drug Allergy N/A N/A 09/01/2013 Yes Penicillins [id number] Drug Aller gy Moderate HIVES, EDEMA 12/07/2018 Medications There is no data. Problems Date Dx Coded Attending Type Code Diagnosis Diagnosed By 08/06/2010 Ot 462 09/01/2013 LINNEA FISHMAN APRN 786.2 COUGH 07/02/2014 Ot 724.2 LUMBAGO 07/02/2014 Ot 733.00 OST EOPOROSIS NOS 07/02/2014 Ot 733.13 PAT HOLOGIC FRACTURE, VERTEBRAE 07/26/2014 DANE ZARATE [facility] Ot 331.9 07/26/2014 DANE ZARATE [facility] Ot 780.93 07/26/2014 Ot 733.13 07/26/2014 Ot 733.13 07/31/2014 DANE ZARATE [facility] Ot 331.9 07/31/2014 DANE ZARATE [facility] Ot 780.93 07/31/2014 Ot 733.13 08/01/2014 [...] V45.82 08/01/2014 Ot 733.13 08/01/2014 DANE ZARATE [employer] Ot 331.9 08/01/2014 DANE ZARATE [employer] Ot 780.93 08/01/2014 Ot 733.13 08/01/2014 KENDALL [...] KENDALL ROTHMAN, CLAUDIA A Ot 724.5 08/01/2014 KENADLL ROTHMAN, CLAUDIA A Ot 733.00 08/01/2014 KENDALL [...] KENDALL ROTHMAN, CLAUDIA A Ot 724.5 08/01/2014 KENDLAL ROTHMAN, CLAUDIA A Ot 733.00 08/01/2014 KENDALL [...] A Ot 276.8 HYPOPOTASSEMIA 08/05/2014 KENDALL ROTHMAN, CLAUDAI Constantino Ot 294.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, UNSPECIFIED, 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 08/05/2014 KENDALL ROTHMAN, CLAUDIA Constantino Ot 31 1 DEPRESSIVE DISORDER NEC 08/05/2014 KENDALL ROTHMAN, CLAUDIA A Ot 401.9 HYPERTENSION NOS 08/05/2014 KENDALL ROTHMAN, CLAUDIA A 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 08/05/2014 KENDALL ROTHMAN, CLAUDIA A Ot [...] ARGUETA MD 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 08/19/2014 CLAUDIA ARGUETA MD Ot 427.31 [...] ANGIOPLASTY 09/04/2014 Ot 733.13 09/05/2014 DANE ZARATE [employer] Ot 331.9 09/05/2014 DANE ZARATE [employer] Ot 780.93 09/05/2014 Ot 733.13 09/27/2014 ZARATEDANE [employer] Ot 331.9 09/27/2014 TESSADANE [employer] Ot 780.93 09/27/2014 Ot 733.13 03/20/2015 TESSADANE [employer] Ot 331.9 03/20/2015 TESSADANE [employer] Ot 780.93 03/20/2015 Ot 733.13 03/21/2015 KENDALL ROTHMAN, CLAUDIA A Ot D64.9 03/21/2015 KENDALL ROTHMAN, CLAUDIA A Ot D64.9 03/21/2015 KENDALL ROTHMAN, CLAUDIA A Ot D64.9 03/21/2015 KENDALL ROTHMAN, CLAUDIA A Ot D64.9 03/31/2015 TESSA DANE Campbell [employer] Ot 331.9 03/31/2015 TESSA DANE Campbell [employer] Ot 780.93 03/31/2015 Ot 733.13 03/31/2015 KENDALL [...] DEFICIENCY ANEMIA, UNSPECIFIED 02/10/2017 LACEY ZARATEHANJOSE Campbell [employer] 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 10 ATHSCL HEART DISEASE OF [place] CORONARY 02/27/2018 HELENA WADDELL MD, Ot I48. [...] 02/27/2018 HELENA WADDELL MD, Ot Z79.899 OTHER SHELTER (CURRENT) DRUG THERAPY 02/27/2018 HELENA WADDELL MD, [...] Ot I25. 10 ATHSCL HEART DISEASE OF [place] CORONARY 02/27/2018 HELENA WADDELL MD, Ot I48. 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 0 URINARY TRACT INFECTION, SITE NOT SPECIF 09/20/2019 JAMI ARRIAGA MD Ot I10 ESSENTIAL (PRIMARY) HYPERTENSION 09/20/2019 JAMI ARRIAGA MD Ot I25. 10 ATHSCL HEART DISEASE OF [place] CORONARY 09/20/2019 JAMI ARRIAGA MD Ot M54. 5 LOW BACK PAIN 09/20/2019 JAMI ARRIAGA MD Ot R40.2142 COMA SCALE, EYES OPEN, SPONTANEOUS, EMR 09/20/2019 JAMI ARRIAGA MD Ot R40.2252 COMA SCALE, BEST VERBAL RESPONSE, ORIENT 09/20/2019 JAMI ARRIAGA MD Ot R40.2362 COMA SCALE, BEST MOTOR RESPONSE, OBEYS C 09/20/2019 JAMI ARRIAGA MD Ot S32.030A WEDGE COMPRESSION FRACTURE OF THIRD LUMB 09/20/2019 JAMI ARRIAGA MD, Ot W18.39XA OTHER FALL ON SAME LEVEL, INITIAL ENCOUN 09/20/2019 JAMI ARRIAGA MD, Ot Y92.002 BATHRM OF [facility] NON-INSTITUT RESDNCE SNGL 09/20/2019 JAMI ARRIAGA MD, Ot Z82. 49 FAMILY HX OF ISCHEM HEART DIS AND OTH DI 09/20/2019 JAMI ARRIAGA MD, Ot Z88. 0 ALLERGY STATUS TO PENICILLIN 09/20/2019 JAMI ARRIAGA MD, Ot Z95. 5 PRESENCE OF CORONARY ANGIOPLASTY IMPLANT 09/21/2019 BAIRON ROTHMAN, HELENA Moya Ot N39. 0 URINARY TRACT INFECTION, SITE [...] culture - 02/26/18 00:21 Bacterial blood culture [facility] Influenza virus A and B antigen detectio n - 02/26/18 00:33 FLU RESULT NEGATIVE FOR INFLUENZA A AND B ANTIGENS BY [facility] Bacterial blood culture - 02/26/18 00:58 Bacterial [...] WITH >100,000ML OF AEROCOCCUS SPECI ES NRG Complete blood count (CBC) with automate d white blood cell (WBC) differential - 09/18/19 09:00 Blood leukocytes automated count (number/volume) 13.3 10*3/uL 4.3-11.0 Blood erythrocytes automated count (number/volume) 4.94 10*6/uL 4.35-5.85 Venous blood hemoglobin measurement (mass/volume) 13.6 g/dL 11.5-16.0 Blood hematocrit (volume fraction) 40 % 35-52 Automated erythrocyte mean corpuscular volume 82 [ foz_us] 80-99 Automated erythrocyte mean corpuscular h emoglobin (mass per erythrocyte) 28 pg 25-34 Automated erythrocyte mean corpuscular h emoglobin concentration measurement (mass/volume) 34 g/dL 32-36 Automated erythrocyte distribution width ratio 15. 4 % 10.0- 14.5 Automated blood platelet count (count/volume) 271 10*3/uL 130-400 Automated blood platelet mean volume measurement 10.2 [foz_us] 7.4-10.4 Automated blood neutrophils/100 leukocytes 80 % 42-75 Automated blood lymphocytes/100 leukocytes 11 % 12-44 Blood monocytes/100 leukocytes 7 % 0-12 Automated blood eosinophils/100 leukocytes 2 % 0-10 Automated blood basophils/100 leukocytes 0 % 0-10 Blood neutrophils automated count (number/volume) 10.6 10*3 1.8-7.8 Blood lymphocytes automated count (number/volume) 1.5 10*3 1.0-4.0 Blood monocytes automated count (number/volume) 0. 9 10*3 0.0-1.0 Automated eosinophil count 0.3 10*3/uL 0 .0-0.3 Automated blood basophil count (count/volume) 0.1 10*3/uL 0.0-0.1 Comprehensive metabolic panel - 09/18/19 09:00 Serum or plasma sodium measurement (moles/volume) 131 mmol/L 135-145 Serum or plasma potassium measurement (moles/volume) 4.0 mmol/L 3.6-5.0 Serum or plasma chloride measurement (moles/volume) 96 mmol/L 98-107 Carbon dioxide 24 mmol/L 21-32 Serum or plasma anion gap determination (moles/volume) 11 mmol/L 5-14 Serum or plasma urea nitrogen measurement (mass/volume ) 8 mg/dL 7-18 Serum or plasma creatinine measurement (mass/volume) 0.70 mg/dL 0.60-1.30 Serum or plasma urea nitrogen/creatinine mass ratio 11 NRG Serum or plasma creatinine measurement w ith calculation of estimated glomerular filtration rate > NRG Serum or plasma glucose measurement (mass/volume) 165 mg/dL 70-105 Serum or plasma calcium measurement (mass/volume) 9.1 mg/dL 8.5-10.1 Serum or plasma total bilirubin measurement (mass/volu me) 0.7 mg/dL 0.1-1.0 Serum or plasma alkaline phosphatase irineo surement (enzymatic activity/volume) 55 U/L 40-136 Serum or plasma aspartate aminotransfera se measurement (enzymatic activity/volume) 16 U/L 5-34 Serum or plasma alanine aminotransferase measurement (enzymatic activity/volume) 17 U/L 0-55 Serum or plasma protein measurement (mass/volume) 6.1 g/dL 6.4-8.2 Serum or plasma albumin measurement (mass/volume) 3.3 g/dL 3.2-4.5 CALCIUM CORRECTED 9.7 mg/dL 8.5-10.1 Complete urinalysis with reflex to cultu re - 09/18/19 11:59 Urine color determination YELLOW NRG Urine clarity determination CLEAR NR G Urine pH measurement by test [...] urobilinogen measurement by automated test strip (mass/volume) 0.2 mg/dL < = 1.0 Urine leukocyte esterase detection by dipstick 3+ NEGATIVE Automated urine sediment erythrocyte cou nt by microscopy (number/high power field) NONE NRG Automated urine sediment leukocyte count by microscopy (number/high power field) > [HPF] NRG Bacteria detection in urine sediment by light microsco py LARGE NRG Squamous epithelial cells detection in u rine sediment by light microscopy >50 NRG Crystals detection in urine sediment by light microsco py NONE NRG Casts detection in urine sediment by light microscopy NONE NRG Mucus detection in urine sediment by light microscopy NEGATIVE NRG Complete urinalysis with reflex to culture YES NRG Bacterial urine culture - 09/18/19 11:59 Bacterial urine culture 3 OR MORE NRG COLONY COUNT >100,000/ML NRG SUSCEPTIBILITY SUGGESTING PROBABLE COLLECTION NRG MRSA SCREEN CONTAMINATION WITH SKIN ABHI NRG RAPID ID NO SUSCEPTIBILITY PERFORMED N RG Complete blood count (CBC) with automate d white blood cell (WBC) differential - 10/10/19 14:03 Blood leukocytes automated count (number/volume) 8.7 10*3/uL 4.3-11.0 Blood erythrocytes automated count (number/volume) 4.78 10*6/uL 4.35-5.85 Venous blood hemoglobin measurement (mass/volume) 13.1 g/dL 11.5-16.0 Blood hematocrit (volume fraction) 39 % 35-52 Automated erythrocyte mean corpuscular volume 82 [ foz_us] 80-99 Automated erythrocyte mean corpuscular h emoglobin (mass per erythrocyte) 27 pg 25-34 Automated erythrocyte mean corpuscular h emoglobin concentration measurement (mass/volume) 34 g/dL 32-36 Automated erythrocyte distribution width ratio 15. 9 % 10.0- 14.5 Automated blood platelet count (count/volume) 274 10*3/uL 130-400 Automated blood platelet mean volume measurement 10.1 [foz_us] 7.4-10.4 Automated blood neutrophils/100 leukocytes 70 % 42-75 Automated blood lymphocytes/100 leukocytes 15 % 12-44 Blood monocytes/100 leukocytes 12 % 0-12 Automated blood eosinophils/100 leukocytes 3 % 0-10 Automated blood basophils/100 leukocytes 0 % 0-10 Blood neutrophils automated count (number/volume) 6.0 10*3 1.8-7.8 Blood lymphocytes automated count (number/volume) 1.3 10*3 1.0-4.0 Blood monocytes automated count (number/volume) 1. 0 10*3 0.0-1.0 Automated eosinophil count 0.3 10*3/uL 0 .0-0.3 Automated blood basophil count (count/volume) 0.0 10*3/uL 0.0-0.1 Comprehensive metabolic panel - 10/10/19 14:03 Serum or plasma sodium measurement (moles/volume) 125 mmol/L 135-145 Serum or plasma potassium measurement (moles/volume) 4.5 mmol/L 3.6-5.0 Serum or plasma chloride measurement (moles/volume) 93 mmol/L 98-107 Carbon dioxide 22 mmol/L 21-32 Serum or plasma anion gap determination (moles/volume) 10 mmol/L 5-14 Serum or plasma urea nitrogen measurement (mass/volume ) 8 mg/dL 7-18 Serum or plasma creatinine measurement (mass/volume) 0.55 mg/dL 0.60-1.30 Serum or plasma urea nitrogen/creatinine mass ratio 15 NRG Serum or plasma creatinine measurement w ith calculation of estimated glomerular filtration rate > NRG Serum or plasma glucose measurement (mass/volume) 99 mg/dL 70-105 Serum or plasma calcium measurement (mass/volume) 8.5 mg/dL 8.5-10.1 Serum or plasma total bilirubin measurement (mass/volu me) 0.6 mg/dL 0.1-1.0 Serum or plasma alkaline phosphatase irineo surement (enzymatic activity/volume) 90 U/L 40-136 Serum or plasma aspartate aminotransfera se measurement (enzymatic activity/volume) 28 U/L 5-34 Serum or plasma alanine aminotransferase measurement (enzymatic activity/volume) 14 U/L 0-55 Serum or plasma protein measurement (mass/volume) 6.0 g/dL 6.4-8.2 Serum or plasma albumin measurement (mass/volume) 3.2 g/dL 3.2-4.5 CALCIUM CORRECTED 9.1 mg/dL 8.5-10.1 Lipase - 10/10/19 14:03 Lipase 16 U/L 8-78 Serum or plasma C reactive protein measu rement (mass/volume) - 10/10/19 14:03 Serum or plasma C reactive protein measurement (mass/v olume) 1.99 mg/dL 0.00-0.50 Complete urinalysis with reflex to cultu re - 10/10/19 14:10 Urine color determination YELLOW NRG Urine clarity determination CLEAR NR G Urine pH measurement by test strip 6.5 5-9 Specific gravity of urine by test [...] urobilinogen measurement by automated test strip (mass/volume) 0.2 mg/dL < = 1.0 Urine leukocyte esterase detection by dipstick NEG ATIVE NEGATIVE Automated urine sediment erythrocyte cou nt by microscopy (number/high power field) NONE NRG Automated urine sediment leukocyte count by microscopy (number/high power field) [HPF] NRG Bacteria detection in urine sediment by light microsco py FEW NRG Squamous epithelial cells detection in u rine sediment by light microscopy 2-5 NRG Crystals detection in urine sediment by light microsco py NONE NRG Casts detection in urine sediment by light microscopy NONE NRG Mucus detection in urine sediment by light microscopy SMALL NRG Complete urinalysis with reflex to culture NO NRG Complete blood count (CBC) with automate d white blood cell (WBC) differential - 10/11/19 09:34 Blood leukocytes automated count (number/volume) 19.7 10*3/uL 4.3-11.0 Blood erythrocytes automated count (number/volume) 5.19 10*6/uL 4.35-5.85 Venous blood hemoglobin measurement (mass/volume) 14.5 g/dL 11.5-16.0 Blood hematocrit (volume fraction) 43 % 35-52 Automated erythrocyte mean corpuscular volume 83 [ foz_us] 80-99 Automated erythrocyte mean corpuscular h emoglobin (mass per erythrocyte) 28 pg 25-34 Automated erythrocyte mean corpuscular h emoglobin concentration measurement (mass/volume) 34 g/dL 32-36 Automated erythrocyte distribution width ratio 15. 7 % 10.0- 14.5 Automated blood platelet count (count/volume) 308 10*3/uL 130-400 Automated blood platelet mean volume measurement 10.0 [foz_us] 7.4-10.4 Automated blood neutrophils/100 leukocytes 92 % 42-75 Automated blood lymphocytes/100 leukocytes 5 % 12-44 Blood monocytes/100 leukocytes 3 % 0-12 Automated blood eosinophils/100 leukocytes 0 % 0-10 Automated blood basophils/100 leukocytes 0 % 0-10 Blood neutrophils automated count (number/volume) 18.2 10*3 1.8-7.8 Blood lymphocytes automated count (number/volume) 0.9 10*3 1.0-4.0 Blood monocytes automated count (number/volume) 0. 5 10*3 0.0-1.0 Automated eosinophil count 0.0 10*3/uL 0 .0-0.3 Automated blood basophil count (count/volume) 0.0 10*3/uL 0.0-0.1 Comprehensive metabolic panel - 10/11/19 09:34 Serum or plasma sodium measurement (moles/volume) 127 mmol/L 135-145 Serum or plasma potassium measurement (moles/volume) 4.0 mmol/L 3.6-5.0 Serum or plasma chloride measurement (moles/volume) 92 mmol/L 98-107 Serum or plasma albumin measurement (mass/volume) 3.5 g/dL 3.2-4.5 Encounters ACCT No. Visit Date/Time Discharge Status Pt. Type Provider Facility Loc./Unit Complaint [id number] 09/01/2013 13:28:00 09/01/2013 23:59: 59 CLS Outpatient LINNEA FISHMAN APRN [id number] 10/10/2019 12:20:00 020 16:52:00 DIS Emergency SOPHIE ROTHMAN, STEPHANIE Rodriguez [facility] ER ABD PAIN [id number] 09/18/2019 08:49:00 13:25:00 DIS Outpatient JAMI ARRIAGA MD [facility] ER FALL [id number] 09/01/2019 07:37:00 23:59:59 CLS Outpatient HELENA WADDELL MD [facility] LABNPT [id number] 12/13/2018 07:50:00 11:40:00 DIS Outpatient JOSHUA MOORE MD [facility] SDC GANGLION CYST [id number] 12/07/2018 07:56:00 10:38:00 DIS Outpatient JOSHUA MOORE MD [facility] PREOP GANGLION CYST [id number] 08/29/2018 09:58:00 23:59:59 CLS Outpatient HELENA WADDELL MD [facility] RAD GANGLION CYST LT WRIST, LT WRIST PAIN [id number] 02/25/2018 23:57:00 12:27:00 DIS Inpatient HELENA WADDELL MD [facility] 4TH VERTIGO,HYPONATREMIA [id number] 02/11/2017 07:45:00 017 23:59:59 CLS Outpatient STEPHANIE MICHELLE [facility] RAD BACK PAIN M54.9 [id number] 06/30/2015 00:07:00 016 23:59:59 CLS Preadmit CLAUDIA ARGUETA MD [facility] ANEMIA,IRON DEFICIENCY [id number] 04/11/2015 10:07:00 016 00:01:00 DIS Outpatient CLAUDIA ARGUETA MD [facility] ANEMIA,IRON DEFICIENCY [id number] 06/19/2015 00:09:00 23:59:59 CLS Preadmit CLAUDIA ARGUETA MD [facility] ANEMIA [id number] 03/21/2015 12:28:00 016 00:01:00 DIS Outpatient CLAUDIA ARGUETA MD [facility] ANEMIA [id number] 04/07/2015 10:44:00 015 13:20:00 DIS Outpatient CHEN RAYMUNDO MD [facility] HX EROSIONS,GERD,STRIC TURE,IRON DEF. ANEMIA [id number] 03/31/2015 05:43:00 015 23:59:59 CLS Outpatient CHEN RAYMUNDO MD [facility] PREOP EGD, POSSIBLE DILATION [id number] 08/05/2014 09:27:00 015 10:40:00 DIS Inpatient CLAUDIA ARGUETA MD [facility] 4TH SWB-HYPONATREMIA,BACK PAIN,TACYCARDIA [id number] 07/31/2014 15:09:00 015 09:06:00 DIS Inpatient CLAUDIA ARGUETA MD [facility] 4TH HYPONATREMIA,WEAKNESS,AMS,DEPRESSION [id number] 11/16/2013 15:21:00 014 23:59:59 CLS Outpatient DANE ZARATE [facility] RAD MEMORY LOSS [id number] 10/11/2019 09:43:00 Document Registration [id number] 07/10/2014 15:20:00 Document Registration [id number] 07/02/2014 03:51:00 Document Registration [id number] 08/06/2010 18:58:00 Document Registration 0000 12/09/2016 07:50:01 12/09/2016 23:59:5 9 CLS Outpatient Claudia Argueta
[2019-10-11 10:00] LABS: ALKALINE PHOSPHATASE 99 U/L (40-136); CREATININE SERUM 0.67 MG/DL (0.60-1.30); GFR ESTIMATED > 60
[2019-10-11] MEDS ORDERED: FAMOTIDINE 20MG/2ML IV (PEPCID) IVP ONE (10:00)
[2019-10-11] MEDS ORDERED: PANTOPRAZOLE 40 MG (PROTONIX) VIAL IV ONE (10:00)
[2019-10-11 10:01] LABS: BUN/CREATININE RATIO 13
[2019-10-11 10:03] LABS: ALANINE AMINOTRANSFERASE 16 U/L (0-55); INR 1.1 (0.8-1.4); LIPASE 8 U/L (8-78); PROTHROMBIN TIME PATIENT 14.5 SEC (12.2-14.7)
[2019-10-11 10:07] LABS: BAND NEUTROPHILS 2 %; BASOPHILS % (MANUAL) 0 %; EOSINOPHILS % (MANUAL) 0 %; LYMPHOCYTES % (MANUAL) 4 %; MONOCYTES % (MANUAL) 3 %; NEUTROPHILS % (MANUAL) 91 %; RBC MORPH NORMAL
--- NOTE | 2019-10-11 10:36 | Diagnostic Imaging Report ---
INDICATION: Vomiting COMPARISON: 09/18/2019 FINDINGS: Single frontal view of the chest demonstrates stable mild cardiomegaly. Pulmonary vasculature however is within normal limits. The lungs are well aerated and clear. No large pleural effusion or pneumothorax is seen. The visualized osseous structures show no acute abnormalities. There is calcified aortic atherosclerosis. IMPRESSION: 1. Cardiomegaly, but no evidence of failure or focal infiltrate. Dictated by: Dictated on workstation # [id number]
[2019-10-11 10:45] LABS: BILIRUBIN,URINE NEGATIVE (NEGATIVE); CLARITY,URINE SL CLOUDY; COLOR,URINE YELLOW; GLUCOSE, URINE (UA) NEGATIVE (NEGATIVE); KETONES,URINE 2+ (NEGATIVE); LEUKOCYTE ESTERASE ,URINE 2+ (NEGATIVE); NITRITE,URINE NEGATIVE (NEGATIVE); PH,URINE 6.5 (5-9); PROTEIN,URINE 1+ (NEGATIVE)
[2019-10-11 10:46] LABS: BACTERIA,URINE TRACE /HPF
[2019-10-11] MEDS ORDERED: cefTRIAXone FOR IV USE 1,000 MG in WATER (STERILE) FOR INJECTION 10 ML IV ONE (11:45)
[2019-10-11 12:55] VITALS: BP 94/54
[2019-10-11] MEDS ORDERED: NS IV 500 ML 500 ML IV SCH (13:15)
[2019-10-11] MEDS ORDERED: CATHETER FLUSH 10 ML SYR IV PRN (13:15)
[2019-10-11 13:25] VITALS: BP 133/80
[2019-10-11] MEDS: LACTATED RINGERS 1,000 ML IV SCH (13:31)
--- NOTE | 2019-10-11 13:31 | History & Physical ---
History of Present Illness History of Present Illness Reason for visit/HPI 84yo F with progressing dementia and physical decline, admitted for hypotension due to concern for an acute upper GI bleed. She is not on NSAIDs but has not been eating much lately due to back pain (from L1,L2,3 compression fractures). History of cement stabilization of T12, L4 for compression fractures. Daughter reports that this happened about 5 years ago and she was in the h [facility]spital 3 weeks recovering from a GI bleed that was secondary to pain medication gastritis that she was taking for her compression fractures. Of note she was seen in the ER yesterday for severe abdominal pain and urinary retention which a catheter was placed resulting in 1900cc of urine. Patient did report some improvement in her pain. Patient is also being treated for hyponatremia. Dr. Bolton consulted. Date of Admission Oct 11, 2019 at 12:07 Date Seen by a Provider: Oct 11, 2019 Time Seen by a Provider: 13:00 I consulted on this patient on 10/11/19 13:25 Attending Physician Joshua Waddell MD Admitting Physician Joshua Waddell MD Consult Dr. Bolton Allergies and Home Medications Allergies Coded Allergies: Penicillins (Verified Allergy, Intermediate, HIVES, EDEMA, 12/07/18) Home Medications Acetaminophen 500 Mg Tablet, 1,000 MG PO Q8H PRN for PAIN-MILD, (Reported) Calcitonin,Grant,Synthetic 3.7 Ml [place].pump, 1 SPRAY NSEACH DAILY, (Reported) Calcium Carb/Vit D3/Minerals 1 Each Tablet, 1 EACH PO BID, (Reported) Cefdinir 300 Mg Capsule, 300 MG PO BID, (Reported) STARTED 10-05-2019 #14/7 DAY SUPPLY Cyanocobalamin (Vitamin B-12) 1,000 Mcg Tab.subl, 1,000 MCG SL DAILY, (Reported) Docusate Sodium 100 Mg Capsule, 100 MG PO DAILY, (Reported) Fentanyl 1 Each Patch.td72, 25 MCG TD Q72H, (Reported) Furosemide 20 Mg Tablet, 20 MG PO DAILY, (Reported) Guaifenesin 100 Mg/5 Ml Liquid, 10 ML PO Q4H PRN for COUGH, (Reported) Hydrocodone/Acetaminophen 1 Each Tablet, 1-2 TAB PO Q4-6HR PRN for PAIN-MODERATE (5-7), (Reported) Lactobacillus Acidophilus 1 Each Capsule, 1 EACH PO TID, (Reported) Loratadine 10 Mg Tablet, 10 MG PO Q48H, (Reported) Melatonin 3 Mg Tablet, 3-6 MG PO HS, (Reported) TAKES 1 TO 2 (3MG) TABS Metoprolol Tartrate 50 Mg Tablet, 50 MG PO BID, (Reported) HOLD FOR SBP<90 OR PULSE <50 Multivitamin 1 Each Capsule, 1 CAP PO DAILY, (Reported) Nystatin 15 Gm Cream..g., 1 APPLIC TOP BID, (Reported) APPLY TO [place] AREA FOR GAULDING UNTIL RESOLVED [place] Oil 30 Ml Oil, 1 DROP EACH EAR UD PRN for EAR WAX, (Reported) 1 DROP EVERY 7 DAYS AT BEDTIME Polyethylene Glycol 3350 17 Gm Powd.pack, 17 GM PO Q12H PRN for CONSTIPATION-2ND LINE, (Reported) Polyethylene Glycol 3350 17 Gm Powd.pack, 17 GM PO DAILY, (Reported) Potassium Chloride 20 Meq Tablet.er, 20 MEQ PO BID, (Reported) Patient Home Medication List Home Medication List Reviewed: Yes Past Pmczvfa-Vfnple-Zhojqz Hx Patient Social History Alcohol Use: Denies Use Recreational Drug Use: No Smoking Status: Never a Smoker 2nd Hand Smoke Exposure: No Recent Foreign Travel: No Contact w/other who traveled: No Recent Hopitalizations: No Recent Infectious Disease Expo: No Immunizations Up To Date Tetanus Booster (TDap): Unknown Pediatric: Yes Date of Pneumonia Vaccine: Apr 07, 2010 Date of Influenza Vaccine: Feb 06, 2018 Seasonal Allergies Seasonal Allergies: No Surgeries Yes (LUMBAR SURGERY; CARDIAC CATH WITH STENTS) Cardiac, Coronary Stent, Orthopedic, Tubal Ligation Respiratory No Cardiovascular Yes (STENTS) Coronary Artery Disease, Hypertension Neurological Yes Dementia 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 System Hx 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 Disorders: No Sexually Transmitted Disease: No HIV/AIDS: No 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: Tubal Ligation, Menopausal Genitourinary No UTI-Chronic Gastrointestinal No Chronic Constipation Musculoskeletal Yes Osteoporosis, Arthritis Endocrine History of Endocrine Disorders: No HEENT History of HEENT Disorders: Yes Loss of Vision: Denies Hearing Impairment: Denies Cancer No Psychosocial History of Psychiatric Problem: Yes Behavioral Health Disorders: Depression Integumentary History of Skin or Integumenta: No Blood Transfusions History of Blood Disorders: No Adverse Reaction to a Blood Tr: No Family Medical History Significant Family History: Heart Disease, Hypertension Family Hx: Cardiovascular disease Myocardial infarction 19 FATHER No Family History of: AIDS Abdominal aortic aneurysm Gulf's disease Alcoholism Alzheimer's disease Aphasia Arthritis Asthma Cancer of mouth Cataracts Colon cancer Completed stroke Congenital disease Congenital heart disease Coronary thrombosis Cystic fibrosis Deafness or hearing loss Dementia Diabetes mellitus Drug abuse Dysphasia Fibrocystic disease of breast Gastroenteritis Glaucoma Headache disorder Hypercholesterolemia Hypertension Infertility Kidney disease Neoplasm Not obtainable due to adoption Osteoporosis Parkinson's disease Prostate cancer Psychosocial problem Respiratory disorder Seizure disorder Severe allergy Thyroid disease Tuberculosis Visual disorder Review of Systems Review of Systems ROS Unable to Obtain: not reliable due to dementia Physical Exam Vital Signs Vital Signs - First Documented 10/11/19 09:30 Temp 35.6 Pulse 121 Resp 18 B/P (MAP) 147/84 (105) Pulse Ox 96 O2 Delivery Nasal Cannula O2 Flow Rate 2.00 Capillary Refill : Less Than 3 Seconds Height, Weight, BMI Height: 5'0.00" Weight: 188lbs. 0.0oz. 85.944254ki; 25.00 BMI Method:Stated General Appearance: Mild Distress (uncomfortable) HEENT: PERRL/EOMI Neck: Non Tender, Supple Respiratory: Chest Non Tender, Lungs Clear, Normal Breath Sounds Cardiovascular: Regular Rate, Rhythm Gastrointestinal: Non Tender, Soft Rectal: Deferred Back: No CVA Tenderness, Vertebral Tenderness (discomfort in lumbar region) Extremity: Pedal Edema (left leg- painful with movement) Neurologic/Psychiatric: Alert Skin: Warm/Dry Assessment/Plan Assessment/Plan Admission Dx acute upper GI bleed hyponatremia elevated wbc Admission Status: Inpatient Order (span 2 midnights) Reason for Inpatient Admission: Admitted for coffee ground emesis- will need to observe over 2 midnights to see how she does or if she acutely worsens. She has multiple medical issues complicating her stay. Assessment and Plan admitted for concern for acute upper gi bleed protonix started. Dr. Bolton consulted. rocephin started for possible UTI and elevated WBCs- suspect they are reactive though and not true infection. She is not septic. -monitoring sodium level expect it to improve with IVFs. Spoke with patient's two daughters and they would like to know if her compression fractures can be cemented; She has been on calcitonin nasal spray and fentanyl patch added recently but still has pain. Covid-19 has affected her health living in isolation and her spirit/mood seems to be down and she made comments to speech therapy at [facility] about not continuing on. She was started on citalopram for this earlier this week. Problems: (1) Acute upper GI bleed (2) Hematemesis Qualifiers: Qualified Codes: K92.0 - Hematemesis (3) Compression fracture (4) Hyponatremia (5) Dementia (6) GERD (gastroesophageal reflux disease) (7) Hypotension Qualifiers: Qualified Codes: I95.9 - Hypotension, unspecified (8) Generalized abdominal pain (9) Urinary retention Assessment & Plan: catheter placed yesterday with 1900cc urine removed. -continue catheter- monitor output and electrolyte shifts. -starting bethanechol 10mg ACHS -starting flomax 0.4mg daily -remove catheter for voiding trial Tuesday10/14/19 JOSHUA WADDELL MD Oct 11, 2019 13:31
--- OUTSIDE RECORDS SUMMARY | 2019-10-11 14:49 | XMS REPORT | Continuity of Care Document ---
Author Organization Unknown Address Unknown Phone Unavailable Allergies Active Description Code Type Severity Reaction Onset Reported/Identified Relationship to Patient Clinical Status Yes Penicillins Drug Allergy N/A N/A 09/01/2013 Yes Penicillins [id number] Drug Aller gy Moderate HIVES, EDEMA 12/07/2018 Medications There is no data. Problems Date Dx Coded Attending Type Code Diagnosis Diagnosed By 08/06/2010 Ot 462 09/01/2013 LINNEA FISHMAN APRN 786.2 COUGH 07/02/2014 Ot 724.2 LUMBAGO 07/02/2014 Ot 733.00 OST EOPOROSIS NOS 07/02/2014 Ot 733.13 PAT HOLOGIC FRACTURE, VERTEBRAE 07/26/2014 DANE ZARATE [facility] Ot 331.9 07/26/2014 DANE ZARATE [facility] Ot 780.93 07/26/2014 Ot 733.13 07/26/2014 Ot 733.13 07/31/2014 DANE ZARATE [facility] Ot 331.9 07/31/2014 DANE ZARATE [facility] Ot 780.93 07/31/2014 Ot 733.13 08/01/2014 [...] V45.82 08/01/2014 Ot 733.13 08/01/2014 DANE ZARATE [employer] Ot 331.9 08/01/2014 DANE ZARATE [employer] Ot 780.93 08/01/2014 Ot 733.13 08/01/2014 KENDALL [...] CLAUDIA A Ot 414.01 CORONARY ATHEROSCLEROSIS OF [place] CORON 08/05/2014 KENDALL ROTHMAN, CLAUDIA A Ot [...] ROTHMAN, CLAUDIA Constantino Ot 733.00 08/16/2014 CLAUDIA BERNABE MD Ot V45.82 08/19/2014 CLAUDIA BERNABE MD Ot 041.7 PSEUDOMONAS INFECT NOS 08/19/2014 CLAUDIA BERNABE MD Ot 276.1 HYPOSMOLALITY 08/19/2014 CLAUDIA BERNABE MD Ot 276.8 HYPOPOTASSEMIA 08/19/2014 CLAUDIA BERNABE MD Ot 285.9 ANEMIA NOS 08/19/2014 CLAUDIA BERNABE MD Ot 294.20 DEMENTIA, UNSPECIFIED, 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 08/19/2014 CLAUDIA BERNABE MD Ot 31 1 DEPRESSIVE DISORDER NEC 08/19/2014 CLAUDIA BERNABE MD Ot 401.9 HYPERTENSION NOS 08/19/2014 CLAUDIA BERNABE MD Ot 414.01 CORONARY ATHEROSCLEROSIS OF [place] CORON 08/19/2014 CLAUDIA BERNABE MD Ot 427.31 ATRIAL FIBRILLATION 08/19/2014 CLAUDIA BERNABE MD Ot 530.3 ESOPHAGEAL STRICTURE 08/19/2014 CLAUDIA BERNABE MD Ot 532.90 DUODENAL ULCER NOS 08/19/2014 CLAUDIA BERNABE MD Ot 564.00 UNSPEC CONSTIPATION 08/19/2014 CLAUDIA BERNABE MD Ot 578.9 GASTROINTEST HEMORR NOS 08/19/2014 CLAUIDA BERNABE MD Ot 599.0 URIN TRACT INFECTION NOS 08/19/2014 CLAUDIA BERNABE MD Ot 715.90 OSTEOARTHROS NOS-UNSPEC 08/19/2014 CLAUDIA BERNABE MD Ot 724.5 BACKACHE NOS 08/19/2014 CLAUDIA BERNABE MD Ot 733.00 OSTEOPOROSIS NOS 08/19/2014 CLAUDIA BERNABE MD Ot V45.82 PERCUTANEOUS TRANSLUM CORON ANGIOPLASTY 09/04/2014 Ot 733.13 09/05/2014 DANE ZARATE [employer] Ot 331.9 09/05/2014 DANE ZARATE [employer] Ot 780.93 09/05/2014 Ot 733.13 09/27/2014 ZARATEDANE [employer] Ot 331.9 09/27/2014 TESSADANE [employer] Ot 780.93 09/27/2014 Ot 733.13 03/20/2015 TESSADANE [employer] Ot 331.9 03/20/2015 TESSADANE [employer] Ot 780.93 03/20/2015 Ot 733.13 03/21/2015 KENDALL ROTHMAN, CLAUDIA A Ot D64.9 03/21/2015 KENDALL ROTHMAN, CLAUDIA A Ot D64.9 03/21/2015 KENDALL ROTHMAN, CLAUDIA A Ot D64.9 03/21/2015 KENDALL ROTHMAN, CLAUDIA A Ot D64.9 03/31/2015 TESSA DANE Campbell [employer] Ot 331.9 03/31/2015 TESSA DANE Campbell [employer] Ot 780.93 03/31/2015 Ot 733.13 03/31/2015 KENDALL [...] DEFICIENCY ANEMIA, UNSPECIFIED 02/10/2017 LACEY ZARATEHANJOSE Campbell [employer] 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 02/10/2017 ZARATEDANE [employer] Ot 780.93 MEMORY LOSS 02/10/2017 Ot 733.13 [...] IRON DEFICIENCY ANEMIA, UNSPECIFIED 02/11/2017 DANE ZARATE [employer] 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 10 ATHSCL HEART DISEASE OF [place] CORONARY 02/27/2018 HELENA WADDELL MD, Ot I48. [...] 02/27/2018 HELENA WADDELL MD, Ot Z79.899 OTHER SKILLED NURSING (CURRENT) DRUG THERAPY 02/27/2018 HELENA WADDELL MD, [...] Ot I25. 10 ATHSCL HEART DISEASE OF [place] CORONARY 02/27/2018 HELENA WADDELL MD, Ot I48. 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 12/07/2018 DANE ZARATE [employer] Ot 780.93 MEMORY LOSS 12/07/2018 Ot 733.13 PAT HOLOGIC FRACTURE, VERTEBRAE 12/07/2018 ZACKARY ROTHMAN, CHEN Campbell Ot D50.9 IRON DEFICIENCY ANEMIA, UNSPECIFIED 12/07/2018 ZACKARY ROTHMAN, CHEN Campbell Ot K21.9 GASTRO-ESOPHAGEAL REFLUX DISEASE WITHOUT 12/07/2018 ZACKARY ROTHMAN, CHEN Campbell Ot Z01.818 ENCOUNTER FOR OTHER PREPROCEDURAL EXAMIN 12/07/2018 KENDALL ROTHMAN, CLAUDIA Constantino Ot D64.9 ANEMIA, UNSPECIFIED 12/07/2018 CLAUDIA BERNABE MD Ot D50.9 IRON DEFICIENCY ANEMIA, UNSPECIFIED [...] FOR OTHER PREPROCEDURAL EXAMIN 12/13/2018 DANE ZARATE [employer] 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 10 ATHSCL HEART DISEASE OF [place] CORONARY 09/20/2019 JAMI ARRIAGA MD Ot M54. [...] JAMI ARRIAGA MD, Ot Y92.002 BATHRM OF [facility] NON-INSTITUT RESDNCE SNGL 09/20/2019 [...] culture - 02/26/18 00:21 Bacterial blood culture [facility] Influenza virus A and B antigen detectio n - 02/26/18 00:33 FLU RESULT NEGATIVE FOR INFLUENZA A AND B ANTIGENS BY [facility] Bacterial blood culture - 02/26/18 00:58 Bacterial [...] measurement (moles/volume) 92 mmol/L 98-107 Carbon dioxide 23 mmol/L 21-32 Serum or plasma anion gap determination (moles/volume) 12 mmol/L 5-14 Serum or plasma urea nitrogen measurement (mass/volume ) 9 mg/dL 7-18 Serum or plasma creatinine measurement (mass/volume) 0.67 mg/dL 0.60-1.30 Serum or plasma urea nitrogen/creatinine mass ratio 13 NRG Serum or plasma creatinine measurement w ith calculation of estimated glomerular filtration rate > NRG Serum or plasma glucose measurement (mass/volume) 205 mg/dL 70-105 Serum or plasma calcium measurement (mass/volume) 8.5 mg/dL 8.5-10.1 Serum or plasma total bilirubin measurement (mass/volu me) 0.7 mg/dL 0.1-1.0 Serum or plasma alkaline phosphatase irineo surement (enzymatic activity/volume) 99 U/L 40-136 Serum or plasma aspartate aminotransfera se measurement (enzymatic activity/volume) 18 U/L 5-34 Serum or plasma alanine aminotransferase measurement (enzymatic activity/volume) 16 U/L 0-55 Serum or plasma protein measurement (mass/volume) 6.5 g/dL 6.4-8.2 Serum or plasma albumin measurement (mass/volume) 3.5 g/dL 3.2-4.5 CALCIUM CORRECTED 8.9 mg/dL 8.5-10.1 Lipase - 10/11/19 09:34 Lipase 8 U/L 8-78 Serum or plasma C reactive protein measu rement (mass/volume) - 10/11/19 09:34 Serum or plasma C reactive protein measurement (mass/v olume) 4.23 mg/dL 0.00-0.50 PT panel in platelet poor plasma by coag ulation assay - 10/11/19 09:34 Prothrombin time (PT) in platelet poor plasma by coagu lation assay 14.5 s 12.2-14.7 INR in platelet poor plasma or blood by coagulation as say 1.1 0.8-1.4 Activated partial thromboplastin time (a PTT) in platelet poor plasma bycoagulation assay - 10/11/19 09:34 Activated partial thromboplastin time (a PTT) in platelet poor plasma bycoagulation assay 32 s 24-35 Manual absolute plasma cell count - 09/30 05/21 09:34 Blood monocytes/100 leukocytes 3 % NRG Manual blood segmented neutrophils/100 leukocytes 91 % NRG Blood band neutrophils/100 leukocytes 2 % NRG Manual blood lymphocytes/100 leukocytes 4 % NRG Manual eosinophils/100 leukocytes in nose 0 % NRG Manual blood basophils/100 leukocytes 0 % NRG Blood erythrocyte morphology finding identification NORMAL NRG Blood lactic acid measurement (moles/vol ume) - 10/11/19 09:45 Blood lactic acid measurement (moles/volume) 1.88 mmol/L 0.50-2.00 Complete urinalysis with reflex to cultu re - 10/11/19 09:52 Urine color determination YELLOW NRG Urine clarity determination SL CLOUDY N RG Urine pH measurement by test strip 6.5 5-9 Specific gravity of urine by test strip 1.015 1.016-1.022 Urine protein assay by test strip, semi-quantitative 1+ NEGATIVE Urine glucose detection by automated test strip NE GATIVE NEGATIVE Erythrocytes detection in urine sediment by light micr oscopy 3+ NEGATIVE Urine ketones detection by automated test strip 2+ NEGATIVE Urine nitrite detection by test strip NEGATIVE NEGATIVE Urine total bilirubin detection by test strip NEGA TIVE NEGATIVE Urine urobilinogen measurement by automated test strip (mass/volume) 0.2 mg/dL < = 1.0 Urine leukocyte esterase detection by dipstick 2+ NEGATIVE Automated urine sediment erythrocyte cou nt by microscopy (number/high power field) [HPF] NRG Automated urine sediment leukocyte count by microscopy (number/high power field) [HPF] NRG Bacteria detection in urine sediment by light microsco py TRACE NRG Squamous epithelial cells detection in u rine sediment by light microscopy NONE NRG Crystals detection in urine sediment by light microsco py NONE NRG Casts detection in urine sediment by light microscopy NONE NRG Mucus detection in urine sediment by light microscopy NEGATIVE NRG Complete urinalysis with reflex to culture CULTURE PENDING NRG Encounters ACCT No. Visit Date/Time Discharge Status Pt. Type Provider Facility Loc./Unit Complaint [id number] 09/01/2013 13:28:00 09/01/2013 23:59: 59 CLS Outpatient SRAVANTHI RIVERANLINNEA [id number] 10/10/2019 12:20:00 16:52:00 DIS Emergency SOPHIE ROTHMAN, STEPHANIE Rodriguez [facility] ER ABD PAIN [id number] 09/18/2019 08:49:00 13:25:00 DIS Outpatient CORINA ROTHMAN, JAMI Werner [facility] ER FALL [id number] 09/01/2019 07:37:00 23:59:59 CLS Outpatient BAIRON ROTHMAN, HELENA Moya [facility] LABNPT [id number] 12/13/2018 07:50:00 11:40:00 DIS Outpatient TERESA ROTHMAN, JOSHUA Zelaya [facility] SDC GANGLION CYST [id number] 12/07/2018 07:56:00 019 10:38:00 DIS Outpatient JOSHUA MOORE MD [facility] PREOP GANGLION CYST [id number] 08/29/2018 09:58:00 019 23:59:59 CLS Outpatient HELENA WADDELL MD [facility] RAD GANGLION CYST LT WRIST, LT WRIST PAIN [id number] 02/25/2018 23:57:00 018 12:27:00 DIS Inpatient HELENA WADDELL MD [facility] 4TH VERTIGO,HYPONATREMIA [id number] 02/11/2017 07:45:00 017 23:59:59 CLS Outpatient STEPHANIE MICHELLE [facility] RAD BACK PAIN M54.9 [id number] 06/30/2015 00:07:00 016 23:59:59 CLS Preadmit CLAUDIA BERNABE MD [facility] ANEMIA,IRON DEFICIENCY [id number] 04/11/2015 10:07:00 016 00:01:00 DIS Outpatient CLAUDIA BERNABE MD [facility] ANEMIA,IRON DEFICIENCY [id number] 06/19/2015 00:09:00 016 23:59:59 CLS Preadmit CLAUDIA BERNABE MD [facility] ANEMIA [id number] 03/21/2015 12:28:00 016 00:01:00 DIS Outpatient CLAUDIA BERNABE MD [facility] ANEMIA [id number] 04/07/2015 10:44:00 015 13:20:00 DIS Outpatient CHEN RAYMUNDO MD [facility] HX EROSIONS,GERD,STRIC TURE,IRON DEF. ANEMIA [id number] 03/31/2015 05:43:00 015 23:59:59 CLS Outpatient CHEN RAYMUNDO MD [facility] PREOP EGD, POSSIBLE DILATION [id number] 08/05/2014 09:27:00 015 10:40:00 DIS Inpatient CLAUDIA BERNABE MD [facility] 4TH SWB-HYPONATREMIA,BACK PAIN,TACYCARDIA [id number] 07/31/2014 15:09:00 015 09:06:00 DIS Inpatient CLAUDIA BERNABE MD [facility] 4TH HYPONATREMIA,WEAKNESS,AMS,DEPRESSION [id number] 11/16/2013 15:21:00 014 23:59:59 CLS Outpatient DANE ZARATE [facility] RAD MEMORY LOSS [id number] 10/11/2019 09:43:00 Document Registration [id number] 07/10/2014 15:20:00 Document Registration [id number] 07/02/2014 03:51:00 Document Registration [id number] 08/06/2010 18:58:00 Document Registration 0000 12/09/2016 07:50:01 12/09/2016 23:59:5 9 CLS Outpatient Claudia Bernabe
[2019-10-11 14:50] LABS: BASOPHILS % (AUTO) 0 % (0-10); EOSINOPHILS % (AUTO) 0 % (0-10); HEMATOCRIT 43 % (35-52); HEMOGLOBIN 14.6 G/DL (11.5-16.0); LYMPHOCYTES # (AUTO) 1.8 X 10^3 (1.0-4.0); LYMPHOCYTES % (AUTO) 7 % (12-44); MEAN CORPUSCULAR HEMOGLOBIN 28 PG (25-34); MEAN CORPUSCULAR HGB CONC 34 G/DL (32-36); MEAN CORPUSCULAR VOLUME 83 FL (80-99); MEAN PLATELET VOLUME 10.5 FL (7.4-10.4); MONOCYTES # (AUTO) 1.4 X 10^3 (0.0-1.0); MONOCYTES % (AUTO) 6 % (0-12); NEUTROPHILS # (AUTO) 21.4 X 10^3 (1.8-7.8); NEUTROPHILS % (AUTO) 87 % (42-75); PLATELET COUNT 238 10^3/uL (130-400); WHITE BLOOD COUNT 24.7 10^3/uL (4.3-11.0)
[2019-10-11] MEDS ORDERED: FENT1PAT8 TD (15:11)
[2019-10-11] MEDS ORDERED: POLY17PO6 PO (15:11)
[2019-10-11] MEDS ORDERED: CALC-83 PO (15:11)
[2019-10-11] MEDS ORDERED: CEFD300C3 PO (15:11)
[2019-10-11] MEDS ORDERED: CYAN100015 SL (15:11)
[2019-10-11] MEDS ORDERED: DOCU-143 PO (15:11)
[2019-10-11] MEDS ORDERED: CALC3.8S NSEACH (15:11)
[2019-10-11] MEDS ORDERED: HYDR-4226 PO (15:11)
[2019-10-11] MEDS ORDERED: NYST15CR TOP (15:11)
[2019-10-11] MEDS ORDERED: LACT1CAP62 PO (15:11)
--- NOTE | 2019-10-11 15:13 | NUR ---
I ENTERED THE MED REC USING THE ORDER SUMMARY REPORT [facility] Addendum: 10/11/19 at 1518 by DEBBIE MURGUIA [facility] I SPOKE WITH THE FACILITY TO GET THE DATE PATIENT FENTANYL PATCH WAS APPLIED- THEY LET ME KNOW IT WAS 10-08-2019
[2019-10-11 15:50] VITALS: BP 116/58
[2019-10-11] MEDS: fentaNYL INJECTION 100 MCG/2 ML AMP IV PRN ×2 (16:11→19:58)
--- NOTE | 2019-10-11 17:15 | NUR ---
REC'D PER BED FROM [facility]. ALERT AND ORIENTED X1-2. SEE ASSESSMENT.
[2019-10-11 17:44] VITALS: BP 112/50
[2019-10-11 19:46] VITALS: BP 116/56
--- NOTE | 2019-10-11 19:46 | CONSULTATION REPORT ---
DATE OF SERVICE: 10/11/2019 ADMITTING PRIMARY CARE PHYSICIAN: Dr. Joshua Batista. HISTORY OF PRESENT ILLNESS: The patient is an 84-year-old female who was brought in by EMS from an extended care facility due to coffee ground emesis. The assisted staff had reported one episode of approximately 30 fluid ounces of coffee ground emesis after eating breakfast. The patient was also recently seen for urinary retention as well as hyponatremia. She was also recently found to have a urinary tract infection and is being treated with oral antibiotics. It is uncertain what her specific history encompasses due to her dementia. At this time, she is stable with stable vital signs. Her hemoglobin is stable and in normal range. Most likely she does have some level of gastritis, which causes a coffee ground emesis; however, at this time, she is stable and does not appear to be actively bleeding. The patient has also a do not resuscitate status. PAST MEDICAL HISTORY: Peptic ulcer disease, hypertension, coronary artery disease, dementia. PAST SURGICAL HISTORY: Lumbar vertebral ORIF, tubal ligation, cardiac catheterization and stent placement. ALLERGIES: PENICILLIN. MEDICATIONS: Acetaminophen 1000 mg q.8 hours p.r.n., Vitamin B12 daily, furosemide 20 mg daily, guaifenesin 100 mg q.4 hours, hydrocodone p.r.n., loratadine 10 mg q.48 hours, melatonin 3 mg at bedtime, metoprolol 50 mg b.i.d., MiraLax p.r.n., olive oil p.r.n. SOCIAL HISTORY: Negative smoke, negative alcohol. FAMILY HISTORY: Noncontributory. VITAL SIGNS: Temperature 36.7, blood pressure 116/58, pulse 115, respirations 18, pulse ox 96% on 1.5 liters nasal cannula. REVIEW OF SYSTEMS: Well-nourished female who does respond to voice; however, is confused. It does not appear that she has experiencing any shortness of breath, no difficulty breathing. No chest pain, palpitations, diaphoresis. She did have an episode of coffee-ground emesis this morning. She has not had any episodes since being admitted. She does have a history of constipation, no red blood per rectum, no dark tarry stools. No fever, chills, no recent inadvertent weight loss. All other review of systems negative. PHYSICAL EXAMINATION: CHEST: Scattered rales bilaterally. HEART: Regular, no murmurs. EXTREMITIES: No lower extremity edema, negative Homans sign. HEENT: No scleral icterus. NECK: No cervical lymphadenopathy. ABDOMEN: Soft, nontender, nondistended. SKIN: Warm, dry. LABORATORY DATA: WBC 19.7, hemoglobin 14.5, hematocrit 43, platelets 308. BUN 9, creatinine 0.67. ASSESSMENT AND PLAN: An 84-year-old female with a coffee ground emesis, most likely secondary to gastritis from medication as well as stress-induced. At this time, she is stable with stable vital signs and hemoglobin and has not had any episodes of emesis. We will recommend conservative management with PPI acid desktop support associate and monitoring. If she does have recurrent episodes of signs and symptoms of upper gastrointestinal bleeding, we will see if her family wants to proceed with an upper endoscopy for diagnosis as well as possible therapeutic options. Job ID: [id number] DocumentID: [id number] Dictated Date: 10/11/2019 17:04:48 Architectural Drafter Date: 10/11/2019 19:45:56 Dictated By: ARLENE PETERSEN MD MTDD
--- NOTE | 2019-10-11 20:10 | NUR ---
REMOVED PT'S FENTANYL PATCH FROM RIGHT SHOULDER, WASTED PATCH WITH FANI MEJIA RN
[2019-10-11] MEDS ORDERED: FAMOTIDINE 20MG/2ML IV (PEPCID) IV SCH (21:00)
[2019-10-12] VITALS (7 sets, daily range): BP systolic 88–149; BP diastolic 52–78
[2019-10-12 06:58] LABS: BASOPHILS % (AUTO) 0 % (0-10); EOSINOPHILS # (AUTO) 0.1 10^3/uL (0.0-0.3); EOSINOPHILS % (AUTO) 0 % (0-10); HEMATOCRIT 34 % (35-52); HEMOGLOBIN 11.1 G/DL (11.5-16.0); LYMPHOCYTES # (AUTO) 1.3 X 10^3 (1.0-4.0); LYMPHOCYTES % (AUTO) 8 % (12-44); MEAN CORPUSCULAR HEMOGLOBIN 27 PG (25-34); MEAN CORPUSCULAR HGB CONC 33 G/DL (32-36); MEAN CORPUSCULAR VOLUME 84 FL (80-99); MEAN PLATELET VOLUME 10.1 FL (7.4-10.4); MONOCYTES # (AUTO) 0.9 X 10^3 (0.0-1.0); MONOCYTES % (AUTO) 6 % (0-12); NEUTROPHILS % (AUTO) 86 % (42-75); PLATELET COUNT 235 10^3/uL (130-400); RED CELL DISTRIBUTION WIDTH 16.1 % (10.0-14.5); WHITE BLOOD COUNT 16.3 10^3/uL (4.3-11.0)
[2019-10-12 07:08] LABS: CHLORIDE 98 MMOL/L (98-107); POTASSIUM 3.5 MMOL/L (3.6-5.0); SODIUM 130 MMOL/L (135-145)
[2019-10-12 07:09] LABS: GLUCOSE 108 MG/DL (70-105)
[2019-10-12 07:11] LABS: CARBON DIOXIDE 22 MMOL/L (21-32)
[2019-10-12 07:13] LABS: CREATININE SERUM 0.53 MG/DL (0.60-1.30); GFR ESTIMATED > 60
[2019-10-12 07:14] LABS: BUN/CREATININE RATIO 19
[2019-10-12] MEDS: LACTATED RINGERS 1,000 ML IV SCH (08:02)
[2019-10-12] MEDS: PANTOPRAZOLE 40 MG (PROTONIX) VIAL IV SCH (08:03)
[2019-10-12] MEDS: FAMOTIDINE 20MG/2ML IV (PEPCID) IV SCH (08:03)
[2019-10-12] MEDS ORDERED: ACETAMINOPHEN 500 MG TAB (TYLENOL) PO PRN (08:45)
[2019-10-12] MEDS ORDERED: polyethylene glycoL POWDER 17 GM (MIRALAX) PACK PO PRN (08:45)
--- NOTE | 2019-10-12 08:46 | Progress Note ---
Subjective Subjective Date Seen by Provider: Oct 12, 2019 Time Seen by Provider: 08:41 Appears to be uncomfortable. Leaning to the left- difficult to understand her speech. She is unsure of what she wants to do at this point. WBC improved from yesterday- attributed to reactive Hgb from 14 to 11- will continue to monitor. Review of Systems ROS Unable to Obtain: not reliable due to dementia Objective Exam Vital Signs Vital Signs Date Time Temp Pulse Resp B/P (MAP) Pulse Ox O2 Delivery O2 Flow Rate FiO2 10/12/19 08:14 96 Nasal Cannula 1.50 10/12/19 07:03 109 10/12/19 04:00 36.6 121 16 121/78 (92) 96 Nasal Cannula 1.50 10/12/19 01:00 110 10/12/19 00:00 36.4 105 16 127/75 (92) 95 Nasal Cannula 1.50 10/11/19 20:05 Nasal Cannula 1.00 10/11/19 19:46 36.6 94 16 116/56 (76) 97 Nasal Cannula 1.50 10/11/19 19:00 125 10/11/19 17:44 36.5 100 14 112/50 (70) 98 Nasal Cannula 1.50 10/11/19 17:38 Nasal Cannula 1.00 10/11/19 16:00 96 Nasal Cannula 1.50 10/11/19 15:50 115 18 116/58 (77) 96 Nasal Cannula 3.00 10/11/19 14:08 Nasal Cannula 3.00 10/11/19 13:25 111 16 133/80 (97) Nasal Cannula 3.00 10/11/19 12:55 36.7 118 16 94/54 (67) Nasal Cannula 2.00 10/11/19 12:54 123 10/11/19 12:44 36.0 114 18 119/66 (105) 97 Nasal Cannula 2.00 10/11/19 09:30 35.6 121 18 147/84 (105) 96 Nasal Cannula 2.00 10/11/19 09:30 96 Nasal Cannula 2.00 I & O 10/12/19 07:00 Intake Total 2310 ml Output Total 1325 ml Balance 985 ml General Appearance: Mild Distress (uncomfortable) HEENT: PERRL/EOMI Neck: Non Tender, Supple Respiratory: Chest Non Tender, Lungs Clear, Normal Breath Sounds Cardiovascular: Regular Rate, Rhythm Gastrointestinal: Non Tender, Soft Rectal: Deferred Back: No CVA Tenderness, Vertebral Tenderness (discomfort in lumbar region) Extremity: Pedal Edema (left leg- painful with movement) Neurologic/Psychiatric: Alert Skin: Warm/Dry Results Lab Laboratory Tests 10/11/19 09:34: White Blood Count 19.7H, Red Blood Count 5.19, Hemoglobin 14.5, Hematocrit 43, Mean Corpuscular Volume 83, Mean Corpuscular Hemoglobin 28, Mean Corpuscular Hemoglobin Concent 34, Red Cell Distribution Width 15.7H, Platelet Count 308, Mean Platelet Volume 10.0, Neutrophils (%) (Auto) 92H, Lymphocytes (%) (Auto) 5L , Monocytes (%) (Auto) 3, Eosinophils (%) (Auto) 0, Basophils (%) (Auto) 0, Neutrophils # (Auto) 18.2H, Lymphocytes # (Auto) 0.9L, Monocytes # (Auto) 0.5, Eosinophils # (Auto) 0.0, Basophils # (Auto) 0.0, Neutrophils % (Manual) 91, Lymphocytes % (Manual) 4, Monocytes % (Manual) 3, Eosinophils % (Manual) 0, Basophils % (Manual) 0, Band Neutrophils 2, Blood Morphology Comment NORMAL, Prothrombin Time 14.5, INR Comment 1.1, Activated Partial Thromboplast Time 32, Sodium Level 127L, Potassium Level 4.0, Chloride Level 92L, Carbon Dioxide Level 23, Anion Gap 12, Blood Urea Nitrogen 9, Creatinine 0.67, Estimat Glomerular Filtration Rate > 60, BUN/Creatinine Ratio 13, Glucose Level 205H, Calcium Level 8.5, Corrected Calcium 8.9, Total Bilirubin 0.7, Aspartate Amino Transf (AST/SGOT) 18, Alanine Aminotransferase (ALT/SGPT) 16, Alkaline Phosphatase 99, C-Reactive Protein High Sensitivity 4.23H, Total Protein 6.5, Albumin 3.5, Lipase 8 10/11/19 09:45: Lactic Acid Level 1.88 10/11/19 09:52: Urine Color YELLOW, Urine Clarity SL CLOUDY, Urine pH 6.5, Urine Specific [place] 1.015L, Urine Protein 1+H, Urine Glucose (UA) NEGATIVE, Urine Ketones 2+H, Urine Nitrite NEGATIVE, Urine Bilirubin NEGATIVE, Urine Urobilinogen 0.2, Urine Leukocyte Esterase 2+H, Urine RBC (Auto) 3+H, Urine RBC 5-10H, Urine WBC 5-10H, Urine Squamous Epithelial Cells NONE, Urine Crystals NONE, Urine Bacteria TRACE, Urine Casts NONE, Urine Mucus NEGATIVE, Urine Culture Indicated CULTURE PENDING 10/11/19 14:40: White Blood Count 24.7H, Red Blood Count 5.18, Hemoglobin 14.6, Hematocrit 43, Mean Corpuscular Volume 83, Mean Corpuscular Hemoglobin 28, Mean Corpuscular Hemoglobin Concent 34, Red Cell Distribution Width 16.0H, Platelet Count 238, Mean Platelet Volume 10.5H, Neutrophils (%) (Auto) 87H, Lymphocytes (%) (Auto) 7L, Monocytes (%) (Auto) 6, Eosinophils (%) (Auto) 0, Basophils (%) (Auto) 0, Neutrophils # (Auto) 21.4H, Lymphocytes # (Auto) 1.8, Monocytes # (Auto) 1.4H, Eosinophils # (Auto) 0.0, Basophils # (Auto) 0.0 10/12/19 06:25: White Blood Count 16.3H, Red Blood Count 4.07L, Hemoglobin 11.1#L, Hematocrit 34L, Mean Corpuscular Volume 84, Mean Corpuscular Hemoglobin 27, Mean Corpuscular Hemoglobin Concent 33, Red Cell Distribution Width 16.1H, Platelet Count 235, Mean Platelet Volume 10.1, Neutrophils (%) (Auto) 86H, Lymphocytes (%) (Auto) 8L, Monocytes (%) (Auto) 6, Eosinophils (%) (Auto) 0, Basophils (%) (Auto) 0, Neutrophils # (Auto) 14.0H, Lymphocytes # (Auto) 1.3, Monocytes # (Auto) 0.9, Eosinophils # (Auto) 0.1, Basophils # (Auto) 0.0, Sodium Level 130L, Potassium Level 3.5L, Chloride Level 98, Carbon Dioxide Level 22, Anion Gap 10, Blood Urea Nitrogen 10, Creatinine 0.53L, Estimat Glomerular Filtration Rate > 60, BUN/Creatinine Ratio 19, Glucose Level 108H, Calcium Level 8.0L Radiology 09/18/2019 CT lumbar There has been vertebroplasty of L4 and L1. There is a stable severe compression fracture of L2. There is a severe compression fracture of L3, previously with only mild height loss. There is stable mild compression fracture of L5. There is a stable moderate T12 compression fracture. There is dextrocurvature of the lumbar spine. There are multilevel disc height loss and bulging, most pronounced at L1/L2 resulting in moderate spinal canal stenosis. There is severe multilevel facet arthropathy, most pronounced from L3-S1. This results in severe right L4/L5 neural foraminal stenosis on the right. There is [id number] neural foraminal stenosis at the other neural foramina from L3-S1. Assessment/Plan Assessment/Plan Admission Dx acute upper GI bleed hyponatremia elevated wbc Assessment and Plan 10/11/19 admitted for concern for acute upper gi bleed protonix started. Dr. Bolton consulted Spoke with patient's two daughters and they would like to know if her compression fractures can be cemented; She has been on calcitonin nasal spray and fentanyl patch added recently but still has pain. Covid-19 has affected her health living in isolation and her spirit/mood seems to be down and she made comments to [place] [facility] continuing [place]. She was started on citalopram for this earlier this week. 10/12/19- hgb down from 14 to 11. Will recheck in AM. Consider orthopedics consult but I do not think anyone is available to consult to consider cementing her lumbar compression fractures. She has been on calcitonin nasal spray since mid-August. [address] Ward at [facility] cemented L1, L4. She would need cardiac clearance as well- follows with [facility]. -given all of her co-morbidities and progressive decline in the last 6 months- I mentioned to her 2 daughters via phone last night that hospice is an option. -increased her fentanyl patch to 50mcg. Problems: (1) Acute upper GI bleed (2) Hematemesis Qualifiers: Qualified Codes: K92.0 - Hematemesis (3) Compression fracture (4) Hyponatremia (5) Dementia (6) GERD (gastroesophageal reflux disease) (7) Hypotension Qualifiers: Qualified Codes: I95.9 - Hypotension, unspecified (8) Generalized abdominal pain (9) Urinary retention Assessment & Plan: catheter placed yesterday with 1900cc urine removed. -continue catheter- monitor output and electrolyte shifts. -starting bethanechol 10mg ACHS -starting flomax 0.4mg daily -remove catheter for voiding trial Tuesday10/14/19 (10) Hypokalemia Assessment & Plan: replacing Admission Dx acute upper GI bleed hyponatremia elevated wbc Clinical Quality Measures Admission Status Admission Dx acute upper GI bleed hyponatremia elevated wbc DVT/VTE Risk/Contraindication: Risk Factor Score Per Nursin RFS Level Per Nursing on Admit: 4+=Very High HELENA WADDELL MD Oct 12, 2019 08:46
[2019-10-12] MEDS: LORATADINE (CLARITIN) 10 MG TAB PO SCH (09:30)
[2019-10-12] MEDS: KCL 10 MEQ TAB (MICRO K) PO SCH ×2 (09:30→18:28)
[2019-10-12] MEDS: FUROSEMIDE 20 MG (LASIX) TAB PO SCH (09:30)
[2019-10-12] MEDS: POTASSIUM CL 10MEQ/50ML IVPB 50 ML IV SCH ×4 (09:30→14:02)
[2019-10-12] MEDS: polyethylene glycoL POWDER 17 GM (MIRALAX) PACK PO SCH (09:31)
[2019-10-12] MEDS: CALCITONIN NASAL 200 INTLU/AC (FORTICAL) 3.7 ML BTL SCH (09:31)
[2019-10-12] MEDS: DOCUSATE SODIUM 100 MG (COLACE) CAP PO SCH (09:33)
[2019-10-12] MEDS: BETHANECHOL 10 MG (URECHOLINE) TAB PO SCH ×3 (11:40→20:52)
[2019-10-12] MEDS ORDERED: cefTRIAXone 1,000 MG/SWFI 10 ML IV PUSH IV SCH ×2 (12:00)
[2019-10-12] MEDS: cefTRIAXone 1,000 MG/SWFI 10 ML IV PUSH IV SCH ×2 (12:41)
[2019-10-12] MEDS: fentaNYL INJECTION 100 MCG/2 ML AMP IV PRN (12:53)
[2019-10-12] MEDS: fentaNYL PATCH 50 MCG (DURAGESIC) TD SCH (14:54)
--- NOTE | 2019-10-12 16:00 | NUR ---
DR. ARGUETA WAS CALLED FOR PT'S BLOOD PRESSURE 88/52. ORDERS WERE TO INCREASE FLUIDS TO 150 MLS/HR FOR 2 HRA THEN DOWN TO 75 MLS HR AND CALL HER BACK.
--- NOTE | 2019-10-12 18:00 | NUR ---
was called to report blood pressure was 110/61. diet changed to 3 dysfagia
[2019-10-12] MEDS: TAMSULOSIN 0.4 MG (FLOMAX) CAP PO SCH (18:28)
[2019-10-12] MEDS: ONDANSETRON 4 MG/2 ML (SDV) Z0FRAN IV PRN (18:32)
--- NOTE | 2019-10-12 22:39 | NUR ---
PT'S DAUGHTER, VANE, CALLED THIS RN FOR UPDATE ON PT. CORRECT PASSWORD GIVEN. PT UPDATE GIVEN TO FAMILY. THIS RN ANSWERED ALL QUESTIONS AND CONCERNS THE FAMILY HAD. THERAPEUTIC COMMUNICATION OBSERVED. THIS RN INFORMED FAMILY THAT THEY WOULD BE NOTIFIED OF ANY CHANGES IN PT CONDITION.
[2019-10-13] VITALS (7 sets, daily range): BP systolic 100–155; BP diastolic 50–74
[2019-10-13] MEDS: fentaNYL INJECTION 100 MCG/2 ML AMP IV PRN ×2 (04:29→20:11)
[2019-10-13] MEDS: LACTATED RINGERS 1,000 ML IV SCH ×2 (05:23→16:44)
[2019-10-13] MEDS: BETHANECHOL 10 MG (URECHOLINE) TAB PO SCH ×4 (06:01→20:09)
[2019-10-13 06:07] LABS: BASOPHILS % (AUTO) 0 % (0-10); EOSINOPHILS # (AUTO) 0.3 10^3/uL (0.0-0.3); EOSINOPHILS % (AUTO) 2 % (0-10); HEMATOCRIT 32 % (35-52); HEMOGLOBIN 10.4 G/DL (11.5-16.0); LYMPHOCYTES # (AUTO) 1.3 X 10^3 (1.0-4.0); LYMPHOCYTES % (AUTO) 12 % (12-44); MEAN CORPUSCULAR HEMOGLOBIN 28 PG (25-34); MEAN CORPUSCULAR HGB CONC 33 G/DL (32-36); MEAN CORPUSCULAR VOLUME 86 FL (80-99); MEAN PLATELET VOLUME 10.1 FL (7.4-10.4); MONOCYTES # (AUTO) 0.9 X 10^3 (0.0-1.0); MONOCYTES % (AUTO) 8 % (0-12); NEUTROPHILS # (AUTO) 8.8 X 10^3 (1.8-7.8); NEUTROPHILS % (AUTO) 78 % (42-75); PLATELET COUNT 207 10^3/uL (130-400); RED CELL DISTRIBUTION WIDTH 15.8 % (10.0-14.5); WHITE BLOOD COUNT 11.3 10^3/uL (4.3-11.0)
[2019-10-13 06:18] LABS: CHLORIDE 99 MMOL/L (98-107); POTASSIUM 4.1 MMOL/L (3.6-5.0); SODIUM 131 MMOL/L (135-145)
[2019-10-13 06:20] LABS: GLUCOSE 92 MG/DL (70-105)
[2019-10-13 06:21] LABS: CARBON DIOXIDE 24 MMOL/L (21-32)
[2019-10-13 06:24] LABS: CREATININE SERUM 0.48 MG/DL (0.60-1.30); GFR ESTIMATED > 60
[2019-10-13 06:25] LABS: BUN/CREATININE RATIO 19
[2019-10-13] MEDS: DOCUSATE SODIUM 100 MG (COLACE) CAP PO SCH (08:30)
[2019-10-13] MEDS: KCL 10 MEQ TAB (MICRO K) PO SCH ×2 (08:30→16:43)
[2019-10-13] MEDS: polyethylene glycoL POWDER 17 GM (MIRALAX) PACK PO SCH (08:31)
[2019-10-13] MEDS: FAMOTIDINE 20MG/2ML IV (PEPCID) IV SCH (08:31)
[2019-10-13] MEDS: PANTOPRAZOLE 40 MG (PROTONIX) VIAL IV SCH (08:31)
[2019-10-13] MEDS: CALCITONIN NASAL 200 INTLU/AC (FORTICAL) 3.7 ML BTL SCH (08:32)
[2019-10-13] MEDS: FUROSEMIDE 20 MG (LASIX) TAB PO SCH (08:35)
--- NOTE | 2019-10-13 09:44 | Progress Note ---
Subjective Subjective Date Seen by Provider: Oct 13, 2019 Time Seen by Provider: 09:10 PT IS AN 84 Y/O FEMALE WHO IS A CLINIC PATIENT OF DR. 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 SHE REPORTS THAT SHE JUST DOES NOT FEEL WELL, SHE REPORTS PAIN IN HER FEET. SHE DENIES CHEST PAIN, IS UNSURE IF SHE IS SHORT OF BREATH, BUT COMPLAINS ABOUT NASAL DRAINAGE AND HAVING TROUBLE WIPING HER NOSE DUE TO THE OXYGEN TUBING. SHE STATES THAT SHE DOES NOT HAVE MUCH OF AN APPETITE. SHE IS ALSO NOT SURE THAT SHE WANTS TO HAVE THE CATHETER REMOVED BECAUSE IT WILL HURT TO GET UP TO THE RESTROOM. Review of Systems ROS Unable to Obtain: not reliable due to dementia General: No Chills; Fatigue, Malaise HEENT: No Head Aches, No Dysphasia, No Sore Throat Pulmonary: No Dyspnea, No Cough Cardiovascular: No: Chest Pain Gastrointestinal: Other (DECREASED APPETITE); No: Nausea, Abdominal Pain Genitourinary: Other (LEBRON IN PLACE) Musculoskeletal: back pain, foot pain Neurological: Weakness, Confusion All Other Systems Reviewed All Other Systems Reviewed: Yes Objective Exam Vital Signs Vital Signs - First Documented 10/11/19 09:30 Temp 35.6 Pulse 121 Resp 18 B/P (MAP) 147/84 (105) Pulse Ox 96 O2 Delivery Nasal Cannula O2 Flow Rate 2.00 Capillary Refill : Less Than 3 SecondsLess Than 3 Seconds General Appearance: No Apparent Distress, WD/WN HEENT: PERRL/EOMI Neck: Non Tender, Supple Respiratory: Chest Non Tender, Decreased Breath Sounds ( WITH FAINT WHEEZING NOTED) Cardiovascular: Regular Rate, Rhythm Gastrointestinal: Non Tender, Soft Rectal: Deferred Back: Vertebral Tenderness (discomfort in lumbar region) Extremity: Pedal Edema (left leg- painful with movement), Other (KYPHOSIS) Neurologic/Psychiatric: Alert, Other (FLAT AFFECT) Skin: Normal Color, Warm/Dry Lymphatic: No Adenopathy Results Lab Laboratory Tests 10/13/19 05:52: White Blood Count 11.3H, Red Blood Count 3.74L, Hemoglobin 10.4L, Hematocrit 32L , Mean Corpuscular Volume 86, Mean Corpuscular Hemoglobin 28, Mean Corpuscular Hemoglobin Concent 33, Red Cell Distribution Width 15.8H, Platelet Count 207, Mean Platelet Volume 10.1, Neutrophils (%) (Auto) 78H, Lymphocytes (%) (Auto) 12, Monocytes (%) (Auto) 8, Eosinophils (%) (Auto) 2, Basophils (%) (Auto) 0, Neutrophils # (Auto) 8.8H, Lymphocytes # (Auto) 1.3, Monocytes # (Auto) 0.9, Eosinophils # (Auto) 0.3, Basophils # (Auto) 0.0, Sodium Level 131L, Potassium Level 4.1, Chloride Level 99, Carbon Dioxide Level 24, Anion Gap 8, Blood Urea Nitrogen 9, Creatinine 0.48L, Estimat Glomerular Filtration Rate > 60, BUN/Creatinine Ratio 19, Glucose Level 92, Calcium Level 8.0L Microbiology 10/11/19 Blood Culture - Preliminary, Resulted No growth 10/11/19 Urine Culture - Final, Complete NO GROWTH Assessment/Plan Assessment/Plan Admission Status: Inpatient Order (span 2 midnights) Problems: (1) Acute upper GI bleed Assessment & Plan: APPEARS TO BE STABILIZED, SLIGHT DROP IN HGB, SUSPECT DUE TO HYDRATION WITH IV FLUIDS. REPEAT CBC TOMORROW MORNING (2) Hematemesis Qualifiers: Qualified Codes: K92.0 - Hematemesis (3) Compression fracture Assessment & Plan: FENTANYL PATCH PLACED FOR ADEQUATE PAIN RELIEF, MONITOR SYMPTOMS. (4) Hyponatremia Assessment & Plan: IMPROVED WITH IV FLUIDS (5) Dementia Assessment & Plan: STABLE (6) GERD (gastroesophageal reflux disease) Assessment & Plan: ON PROTONIX (7) Hypotension Qualifiers: Qualified Codes: I95.9 - Hypotension, unspecified Assessment & Plan: NOW RESOLVED (8) Generalized abdominal pain Assessment & Plan: IMPROVED (9) Urinary retention Assessment & Plan: PT ON BETHANECHOL, FLOMAX, LEBRON IN PLACE, WILL REMOVE 10/14/2019 (10) Hypokalemia Assessment & Plan: IMPROVED WITH REPLACEMENT (11) Foot pain, bilateral Assessment & Plan: VOLTAREN GEL TO BE STARTED FOR TOPICAL TREATMENT OF FOOT PAIN Clinical Quality Measures DVT/VTE Risk/Contraindication: Risk Factor Score Per Nursin RFS Level Per Nursing on Admit: 4+=Very High CLAUDIA ARGUETA MD Oct 13, 2019 09:44
--- NOTE | 2019-10-13 10:05 | NUR ---
PATIENT'S DAUGHTER CAME TO VISIT. AFTER TALKING WITH FAMILY AND DR WADDELL YESTERDAY THEY HAVE PRETTY MUCH DECIDED TO GO WITH HOSPICE. THEY TALKED TO THE [facility] AND FAMILY WOULD BE ABLE TO VISIT WITH HOSPICE CARE. SABI WOULD LIKE [facility] AT [facility]. SHE HAS A COUPLE OF SISTERS WHO WOULD ALSO LIKE TO MEET AND TALK WITH [facility]. THEY WOULD BE WILLING TO MEET SOMEPLACE OTHER THAT THE HOSPITAL IF NEEDED. (SINCE WE ONLY ALLOW ONE VISITOR PER PATIENT PER DAY)
[2019-10-13] MEDS: DICLOFENAC 1% GEL 100 GM (VOLTAREN) TUBE TOP SCH ×4 (10:23→20:12)
[2019-10-13] MEDS: cefTRIAXone 1,000 MG/SWFI 10 ML IV PUSH IV SCH ×2 (12:40)
[2019-10-13] MEDS: TAMSULOSIN 0.4 MG (FLOMAX) CAP PO SCH (16:43)
[2019-10-14] MEDS: fentaNYL INJECTION 100 MCG/2 ML AMP IV PRN ×6 (01:48→23:20)
[2019-10-14 05:24] LABS: HEMOGLOBIN 10.1 G/DL (11.5-16.0); MEAN PLATELET VOLUME 10.1 FL (7.4-10.4); RED CELL DISTRIBUTION WIDTH 15.8 % (10.0-14.5); WHITE BLOOD COUNT 10.5 10^3/uL (4.3-11.0)
[2019-10-14 05:39] LABS: CHLORIDE 94 MMOL/L (98-107); POTASSIUM 3.3 MMOL/L (3.6-5.0); SODIUM 129 MMOL/L (135-145)
[2019-10-14 05:40] LABS: CALCIUM 7.7 MG/DL (8.5-10.1); GLUCOSE 89 MG/DL (70-105)
[2019-10-14 05:42] LABS: CARBON DIOXIDE 26 MMOL/L (21-32)
[2019-10-14 05:44] LABS: CREATININE SERUM 0.46 MG/DL (0.60-1.30); GFR ESTIMATED > 60
[2019-10-14 05:45] LABS: BUN/CREATININE RATIO 13
[2019-10-14] MEDS: BETHANECHOL 10 MG (URECHOLINE) TAB PO SCH ×4 (06:29→21:05)
[2019-10-14] MEDS: LACTATED RINGERS 1,000 ML IV SCH (06:29)
[2019-10-14 08:00] VITALS: BP 137/69
--- NOTE | 2019-10-14 08:40 | Progress Note ---
Subjective Subjective Date Seen by Provider: Oct 14, 2019 Time Seen by Provider: 08:40 PT IS AN 84 Y/O FEMALE WHO IS A CLINIC PATIENT OF DR. 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 SHE IS GROGGY, DOES NOT WAKE WELL FOR CONVERSATION STAFF REPORTS PT IS DOING WELL. Review of Systems ROS Unable to Obtain: not reliable due to dementia General: No Chills; Fatigue; No Malaise HEENT: No Head Aches, No Dysphasia, No Sore Throat Pulmonary: No Dyspnea, No Cough Cardiovascular: No: Chest Pain Gastrointestinal: Other (DECREASED APPETITE); No: Nausea, Abdominal Pain Genitourinary: Other (LEBRON IN PLACE) Musculoskeletal: back pain, foot pain Neurological: Weakness, Confusion All Other Systems Reviewed All Other Systems Reviewed: Yes Objective Exam Vital Signs Vital Signs - First Documented 10/11/19 09:30 Temp 35.6 Pulse 121 Resp 18 B/P (MAP) 147/84 (105) Pulse Ox 96 O2 Delivery Nasal Cannula O2 Flow Rate 2.00 Capillary Refill : Less Than 3 SecondsLess Than 3 Seconds General Appearance: No Apparent Distress, WD/WN HEENT: PERRL/EOMI Neck: Non Tender, Supple Respiratory: Chest Non Tender, Decreased Breath Sounds ( WITH FAINT WHEEZING NOTED) Cardiovascular: Regular Rate, Rhythm Gastrointestinal: Non Tender, Soft Rectal: Deferred Back: Vertebral Tenderness (discomfort in lumbar region) Extremity: Pedal Edema (left leg- painful with movement), Other (KYPHOSIS) Neurologic/Psychiatric: Alert, Other (FLAT AFFECT) Skin: Normal Color, Warm/Dry Lymphatic: No Adenopathy Results Lab Laboratory Tests 10/14/19 05:06: White Blood Count 10.5, Red Blood Count 3.64L, Hemoglobin 10.1L, Hematocrit 31L, Mean Corpuscular Volume 84, Mean Corpuscular Hemoglobin 28, Mean Corpuscular Hemoglobin Concent 33, Red Cell Distribution Width 15.8H, Platelet Count 217, Mean Platelet Volume 10.1, Sodium Level 129L, Potassium Level 3.3L, Chloride Level 94L, Carbon Dioxide Level 26, Anion Gap 9, Blood Urea Nitrogen 6L, Creatinine 0.46L, Estimat Glomerular Filtration Rate > 60, BUN/Creatinine Ratio 13, Glucose Level 89, Calcium Level 7.7L Microbiology 10/11/19 Blood Culture - Preliminary, Resulted Staph, Coag Neg (CANE WEIGHER) 10/11/19 Urine Culture - Final, Complete NO GROWTH Assessment/Plan Assessment/Plan Problems: (1) Acute upper GI bleed Assessment & Plan: APPEARS TO BE STABILIZED, SLIGHT DROP IN HGB, SUSPECT DUE TO HYDRATION WITH IV FLUIDS. REPEAT CBC TOMORROW MORNING (2) Hematemesis Qualifiers: Qualified Codes: K92.0 - Hematemesis (3) Compression fracture Assessment & Plan: FENTANYL PATCH PLACED FOR ADEQUATE PAIN RELIEF, MONITOR SYMPTOMS. (4) Hyponatremia Assessment & Plan: IMPROVED WITH IV FLUIDS (5) Dementia Assessment & Plan: STABLE (6) GERD (gastroesophageal reflux disease) Assessment & Plan: ON PROTONIX (7) Hypotension Qualifiers: Qualified Codes: I95.9 - Hypotension, unspecified Assessment & Plan: NOW RESOLVED (8) Generalized abdominal pain Assessment & Plan: IMPROVED (9) Urinary retention Assessment & Plan: PT ON BETHANECHOL, FLOMAX, LEBRON IN PLACE, PLAN TO REMOVE TODAY (10) Hypokalemia Assessment & Plan: IMPROVED WITH REPLACEMENT (11) Foot pain, bilateral Assessment & Plan: VOLTAREN GEL TO BE STARTED FOR TOPICAL TREATMENT OF FOOT PAIN Clinical Quality Measures DVT/VTE Risk/Contraindication: Risk Factor Score Per Nursin RFS Level Per Nursing on Admit: 4+=Very High CLAUDIA ARGUETA MD Oct 14, 2019 08:40
[2019-10-14] MEDS: DOCUSATE SODIUM 100 MG (COLACE) CAP PO SCH (09:53)
[2019-10-14] MEDS: FAMOTIDINE 20MG/2ML IV (PEPCID) IV SCH (09:53)
[2019-10-14] MEDS: KCL 10 MEQ TAB (MICRO K) PO SCH ×2 (09:53→16:27)
[2019-10-14] MEDS: LORATADINE (CLARITIN) 10 MG TAB PO SCH (09:53)
[2019-10-14] MEDS: FUROSEMIDE 20 MG (LASIX) TAB PO SCH (09:53)
[2019-10-14] MEDS: polyethylene glycoL POWDER 17 GM (MIRALAX) PACK PO SCH (09:54)
[2019-10-14] MEDS: PANTOPRAZOLE 40 MG (PROTONIX) VIAL IV SCH (09:54)
[2019-10-14] MEDS: DICLOFENAC 1% GEL 100 GM (VOLTAREN) TUBE TOP SCH ×4 (09:55→21:06)
[2019-10-14] MEDS: CALCITONIN NASAL 200 INTLU/AC (FORTICAL) 3.7 ML BTL SCH (09:56)
[2019-10-14] MEDS: cefTRIAXone 1,000 MG/SWFI 10 ML IV PUSH IV SCH ×2 (11:52)
[2019-10-14 12:00] VITALS: BP 150/73
[2019-10-14 16:11] VITALS: BP 114/66
[2019-10-14] MEDS: TAMSULOSIN 0.4 MG (FLOMAX) CAP PO SCH (16:27)
[2019-10-14 19:40] VITALS: BP 155/83
--- NOTE | 2019-10-14 21:03 | NUR ---
DNR AND BLOOD BRACELET REMOVED AT THIS TIME. BANDS WERE TOO TIGHT ON RIGHT ARM. WILL CONTINUE TO MONITOR.
[2019-10-15 00:30] VITALS: BP 132/70
[2019-10-15] MEDS: fentaNYL INJECTION 100 MCG/2 ML AMP IV PRN ×5 (01:50→21:59)
--- NOTE | 2019-10-15 04:00 | NUR ---
PT HAS HAD A ROUGH NIGHT WITH VERY MINIMAL SLEEP. HOWEVER, PT IS SLEEPING PEACEFULLY AT THIS TIME. VITAL SIGNS NOT TAKEN AT THIS TIME IN ORDER TO LET PT SLEEP.
[2019-10-15] MEDS: BETHANECHOL 10 MG (URECHOLINE) TAB PO SCH ×4 (05:52→21:59)
[2019-10-15 08:12] VITALS: BP 128/73
[2019-10-15] MEDS: FAMOTIDINE 20MG/2ML IV (PEPCID) IV SCH (09:13)
[2019-10-15] MEDS: PANTOPRAZOLE 40 MG (PROTONIX) VIAL IV SCH (09:13)
[2019-10-15] MEDS: polyethylene glycoL POWDER 17 GM (MIRALAX) PACK PO SCH (09:14)
[2019-10-15] MEDS: DICLOFENAC 1% GEL 100 GM (VOLTAREN) TUBE TOP SCH ×4 (09:14→21:59)
[2019-10-15] MEDS: FUROSEMIDE 20 MG (LASIX) TAB PO SCH (09:15)
[2019-10-15] MEDS: CALCITONIN NASAL 200 INTLU/AC (FORTICAL) 3.7 ML BTL SCH (09:15)
[2019-10-15] MEDS: DOCUSATE SODIUM 100 MG (COLACE) CAP PO SCH (09:15)
[2019-10-15] MEDS: LACTATED RINGERS 1,000 ML IV SCH (09:16)
[2019-10-15] MEDS ORDERED: KCL 20 MEQ TAB (K-DUR) PO ONE (09:18)
[2019-10-15] MEDS: KCL 10 MEQ TAB (MICRO K) PO SCH ×2 (09:24→18:00)
[2019-10-15 11:38] VITALS: BP 103/73
[2019-10-15] MEDS: cefTRIAXone 1,000 MG/SWFI 10 ML IV PUSH IV SCH ×2 (12:13)
--- NOTE | 2019-10-15 14:57 | NUR ---
"RD ASSESSMENT PMHx: dementia; CAD; HTN; chronic-UTI; chronic constipation; osteoporosis PT INTERACTION: Pt was semi-awake and pleasant during nutrition assessment. Note pt has dementia, per chart review. Pt states current appetite is okay. Note avg PO intake <25% of meals, per chart review. Pt states following a regular diet at home, and has no issues with chewing/swalloiwng food. Pt states no recent issues with nausea, vomiting, constipation, or diarrhea. Note last BM was 10/11 and pt currently on bowel regimen of colace qd, and senna qd, per chart review. Pt states unsure of recent wt changes. Note unable to determine recent wt hx, per chart review. ABNORMAL NUTRITION-RELATED LAB VALUES LOW: Na 129; K 3.3; BUN 6; cr 0.46; Ca 7.7 HIGH: Est. kcal needs: 0125-7232 kcal | 20-25 kcal/kg Est. Pro needs: 60-74 g Pro | 0.8-1.0 g Pro/kg PES STATEMENT: Inadequate oral intake (NI-2.1) related to loss of appetite as evidenced by pt interview | avg PO intake <25% meals INTERVENTION: Continue with current diet order of Ulcer/Peptic [place] diet, with modifier of DYSADV/GRM. Add Ensure Enlive (vary) to meals TID, for increased kcal intake. Provides 350 kcal and 13 g Pro per serving. Will continue to follow and reassess as pt needs, intake, and status change. MONITOR/EVALUATE: PO Intake; Plan of Care; Hydration Status; Weight Status; Lab Values Asuncion Mann, MS, RD, LD"
[2019-10-15] MEDS ORDERED: FENTANYL PATCH REMOVAL TP SCH (14:59)
--- NOTE | 2019-10-15 15:09 | Progress Note ---
Subjective Subjective Date Seen by Provider: Oct 15, 2019 Time Seen by Provider: 12:50 Sitting up in bed with aid trying to feed her- she has difficulty with swallowing food/water. Met with daughters today and they would like Celi to go [place] [facility] [place] [facility]. Review of Systems General: No Chills; Fatigue; No Malaise HEENT: No Head Aches, No Dysphasia, No Sore Throat Pulmonary: No Dyspnea, No Cough Cardiovascular: No: Chest Pain Gastrointestinal: Other (DECREASED APPETITE); No: Nausea, Abdominal Pain Genitourinary: Other (LEBRON IN PLACE) Musculoskeletal: back pain, foot pain Neurological: Weakness, Confusion All Other Systems Reviewed All Other Systems Reviewed: Yes Objective Exam Vital Signs Vital Signs Date Time Temp Pulse Resp B/P (MAP) Pulse Ox O2 Delivery O2 Flow Rate FiO2 10/15/19 11:38 36.2 61 18 103/73 (83) 93 Nasal Cannula 1.00 10/15/19 08:12 36.8 118 20 128/73 (91) 94 Nasal Cannula 1.00 10/15/19 00:30 132/70 (90) 10/15/19 00:00 36.7 144 16 95 Nasal Cannula 1.00 10/14/19 20:27 Nasal Cannula 1.00 10/14/19 19:40 37.0 73 16 155/83 (107) 96 Nasal Cannula 1.00 10/14/19 16:11 37.4 102 16 114/66 (82) 93 Nasal Cannula 1.00 10/14/19 15:45 Nasal Cannula 1.00 I & O 10/15/19 07:00 Intake Total 1340 ml Output Total 1850 ml Balance -510 ml General Appearance: No Apparent Distress, WD/WN HEENT: PERRL/EOMI Neck: Non Tender, Supple Respiratory: Chest Non Tender, Decreased Breath Sounds Cardiovascular: Regular Rate, Rhythm Gastrointestinal: Non Tender, Soft Rectal: Deferred Back: Vertebral Tenderness (discomfort in lumbar region) Extremity: Pedal Edema (left leg- painful with movement), Other (KYPHOSIS) Neurologic/Psychiatric: Alert, Other (FLAT AFFECT) Skin: Normal Color, Warm/Dry Lymphatic: No Adenopathy Results Lab Microbiology 10/11/19 Blood Culture - Preliminary, Resulted Staph, Coag Neg (YARROW GATHERER) 10/11/19 Urine Culture - Final, Complete NO GROWTH Assessment/Plan Assessment/Plan Admission Dx acute upper GI bleed hyponatremia elevated wbc Assessment and Plan 10/11/19 admitted for concern for acute upper gi bleed protonix started. Dr. Bolton consulted Spoke with patient's two daughters and they would like to know if her compression fractures can be cemented; She has been on calcitonin nasal spray and fentanyl patch added recently but still has pain. Covid-19 has affected her health living in isolation and her spirit/mood seems to be down and she made comments to speech therapy at [facility] about not continuing on. She was started on citalopram for this earlier this week. 10/12/19- hgb down from 14 to 11. Will recheck in AM. Consider orthopedics consult but I do not think anyone is available to consult to consider cementing her lumbar compression fractures. She has been on calcitonin nasal spray since mid-August. [address] [facility] cemented L1, L4. She would need cardiac clearance as well- follows with [place] [facility]. -given all of her co-morbidities and progressive decline in the last 6 months- I mentioned to her 2 daughters via phone last night that hospice is an option. -increased her fentanyl patch to 50mcg. 10/12,- no significant change in events. 10/15/19- lebron still in due to urinary retention and decreased mobility- will keep for now to decrease skin breakdown. Plan to [place] [facility] [place]- she has had significant decline in function from the multiple lumbar compression fractures, urinary retention, unable to walk, recurrent UTIs, weight loss from difficulty swallowing. Patient is not interested in further intervention at this time. Problems: (1) Acute upper GI bleed Assessment & Plan: APPEARS TO BE STABILIZED, Hgb 10 (2) Hematemesis Qualifiers: Qualified Codes: K92.0 - Hematemesis (3) Compression fracture Assessment & Plan: FENTANYL PATCH PLACED FOR ADEQUATE PAIN RELIEF, MONITOR SYMPTOMS. (4) Hyponatremia Assessment & Plan: IMPROVED WITH IV FLUIDS (5) Dementia Assessment & Plan: STABLE (6) GERD (gastroesophageal reflux disease) Assessment & Plan: ON PROTONIX (7) Hypotension Qualifiers: Qualified Codes: I95.9 - Hypotension, unspecified Assessment & Plan: NOW RESOLVED (8) Generalized abdominal pain Assessment & Plan: IMPROVED (9) Urinary retention Assessment & Plan: PT ON BETHANECHOL, FLOMAX, LEBRON IN PLACE (10) Hypokalemia Assessment & Plan: IMPROVED WITH REPLACEMENT (11) Foot pain, bilateral Assessment & Plan: VOLTAREN GEL Admission Dx acute upper GI bleed hyponatremia elevated wbc Clinical Quality Measures Admission Status Admission Dx acute upper GI bleed hyponatremia elevated wbc DVT/VTE Risk/Contraindication: Risk Factor Score Per Nursin RFS Level Per Nursing on Admit: 4+=Very High HELENA WADDELL MD Oct 15, 2019 15:09
[2019-10-15] MEDS: fentaNYL PATCH 50 MCG (DURAGESIC) TD SCH (15:18)
--- NOTE | 2019-10-15 16:02 | NUR ---
Pastoral care visit.
[2019-10-15 16:11] VITALS: BP 122/79
--- NOTE | 2019-10-15 16:33 | NUR ---
DISCHARGE PLANNING: after reading chart it was discovered that the plan might be for return her previous placement at [facility] with [facility]. Referral sent for likely discharge on Tuesday.
[2019-10-15] MEDS: TAMSULOSIN 0.4 MG (FLOMAX) CAP PO SCH (18:22)
[2019-10-16 00:34] VITALS: BP 120/69
[2019-10-16] MEDS: BETHANECHOL 10 MG (URECHOLINE) TAB PO SCH ×4 (06:30→20:01)
[2019-10-16 08:39] VITALS: BP 128/67
[2019-10-16] MEDS: FAMOTIDINE 20MG/2ML IV (PEPCID) IV SCH (09:00)
[2019-10-16] MEDS: LACTATED RINGERS 1,000 ML IV SCH (09:00)
[2019-10-16] MEDS: polyethylene glycoL POWDER 17 GM (MIRALAX) PACK PO SCH (09:00)
[2019-10-16] MEDS: PANTOPRAZOLE 40 MG (PROTONIX) VIAL IV SCH (09:00)
[2019-10-16] MEDS: DOCUSATE SODIUM 100 MG (COLACE) CAP PO SCH (09:00)
[2019-10-16] MEDS: KCL 10 MEQ TAB (MICRO K) PO SCH (09:21)
[2019-10-16] MEDS: FUROSEMIDE 20 MG (LASIX) TAB PO SCH (09:24)
[2019-10-16] MEDS: LORATADINE (CLARITIN) 10 MG TAB PO SCH (09:24)
[2019-10-16] MEDS: DICLOFENAC 1% GEL 100 GM (VOLTAREN) TUBE TOP SCH ×4 (09:25→20:01)
[2019-10-16] MEDS: CALCITONIN NASAL 200 INTLU/AC (FORTICAL) 3.7 ML BTL SCH (09:25)
[2019-10-16] MEDS: HYDROcodone/APAP 5 MG/325 MG (LORTAB) TAB PO PRN ×3 (11:55→22:45)
--- NOTE | 2019-10-16 13:23 | NUR ---
DISCHARGE PLANNING/PALLIATIVE CARE: Patient will be discharge to her previous placement with - and have [facility] to assist with the end of life needs. I have spoken with both daughters on the phone, answering questions and hopefully alleviating some concerns that they have regarding the choice for hospice. I then spoke with Dr Batista and updated him on the plan for discharge tomorrow with [facility]. He will sign [facility] comfort care order set in the morning. Will have PT assess her ability to get in w/c for transport back to [facility]
--- NOTE | 2019-10-16 14:03 | Physical Therapy Evaluation ---
PT Evaluation-General Medical Diagnosis Admission Date Oct 11, 2019 at 12:07 Medical Diagnosis: Hematemesis/UTI/hypotension Onset Date: Oct 11, 2019 Therapy Diagnosis Therapy Diagnosis: debility Height/Weight Height (Feet): 5 Height (Inches): 0.00 Weight (Pounds): 188 Weight (Ounces): 0.0 Precautions Precautions/Isolations: Fall Prevention, Standard Precautions, Pressure Ulcer Weight Bear Status Right Lower Extremity: Right Weight Bearing/Tolerated Left Lower Extremity: Left Weight Bearing/Tolerated Referral Physician: Lester Reason for Referral: Evaluation/Treatment Medical History Pertinent Medical History: Atrial Fib, CAD, Dementia, HTN, OA Current History ER secondary to coffee ground emesis Reviewed History: Yes Social History Home: Retirement Prior Prior Level of Function SCALE: Activities may be completed with or without assistive devices. 8-Qhwjqtovfv-[id number] completes the activity by him/herself with no assistance from a helper. 5-Set-up or Clean-up Assistance-helper sets up or cleans up; patient completes activity. [place] assists only prior to or following the activity. 4-Supervision or Touching Assistance-helper provides verbal cues and/or touching/steadying and/or contact guard assistance as patient completes activity. Assistance may be provided throughout the activity or intermittently. 3-Partial/Moderate Assistance-helper does LESS THAN HALF the effort. [place] lifts, holds or supports trunk or limbs, but provides less than half the effort. 2-Substantial/Maximal Assistance-helper does MORE THAN HALF the effort. [place] lifts or holds trunk or limbs and provides more than half the effort. 7-Srxiscijt-wmpumw does ALL the effort. Patient does none of the effort to complete the activity. Or, the assistance of 2 or more helpers is required for the patient to complete the activity. If activity was not attempted, code reason: 7-Patient Refused. 9-Not Applicable-not attempted and the patient did not perform the activity before the current illness, exacerbation or injury. 10-Not Attempted due to Environmental Limitations-(lack of equipment, weather restraints, etc.). 88-Not Attempted due to Medical Conditions or Safety Concerns. Bed Mobility: 1 Transfers (B,C,W/C): 1 Gait: 9 Stairs: 9 Wheelchair Mobility: 1 Indoor Mobility (Ambulation): Not [place] Stairs: Not [place] Prior Devices Use: Manual wheelchair PT Evaluation-Current Subjective Patient is in bed and confused. PT to assess ability to tolerate w/c for transfer. Objective Patient Orientation: Confused ROM/Strength ROM Lower Extremities bilateral LE WFL Strength Lower Extremities 3-/5 grossly bilateral LE Integumentary/Posture Integumentary refer to nursing notes Bladder Incontinence: Wiley Cath Posture WFL Neuromuscular (Tone, Coordination, Reflexes) diminished with all Sensory Hearing: Impaired Transfers Roll Left to Right (QC): 1 Sit to Lying (QC): 1 Lying to Sitting/Side of Bed(Q: 1 Sit to Stand (QC): 1 Chair/Gex-qy-Vykpk Xfer(QC): 1 dependent assist with gait belt use Balance Sitting Static: Fair Sitting Dynamic: Fair Standing Static: Poor Standing Dynamic: Poor Assessment/Needs 84 y.o. female, assessed by PT to determine patient's ability to tolerate w/c for transfer back to [place]. Patient is safe to sit in w/c with foot rests in situ. Pallative care informed. Rehab Potential: Poor PT Plan Treatment/Plan Treatment Plan: Discontinue PT, goals met Treatment Duration: Oct 16, 2019 Frequency: 1 time per week Estimated Hrs Per Day: .25 hour per day Time/GCodes Time In: 1340 Time Out: 1355 Total Billed Treatment Time: 15 [facility] SONG M[facility]A PT Oct 16, 2019 14:03
[2019-10-16] MEDS: LORazepam 0.5 MG (ATIVAN) TABLET PO PRN (14:37)
[2019-10-16 16:00] VITALS: BP 132/74
[2019-10-16] MEDS: TAMSULOSIN 0.4 MG (FLOMAX) CAP PO SCH (17:52)
[2019-10-16] MEDS: KCL 20 MEQ TAB (K-DUR) PO SCH (20:01)
--- NOTE | 2019-10-16 23:28 | Progress Note ---
Subjective Subjective Date Seen by Provider: Oct 16, 2019 Time Seen by Provider: 12:35 sleeping complained of being in pain. IV blew so medications changed to po. She was unable to take the 10mEq potassium so it was changed to 20mEq dosage as it breaks up/dissolved easier. Palliative care consulted. Review of Systems General: No Chills; Fatigue; No Malaise HEENT: No Head Aches, No Dysphasia, No Sore Throat Pulmonary: No Dyspnea, No Cough Cardiovascular: No: Chest Pain Gastrointestinal: Other (DECREASED APPETITE); No: Nausea, Abdominal Pain Genitourinary: Other (LEBRON IN PLACE) Musculoskeletal: back pain, foot pain Neurological: Weakness, Confusion All Other Systems Reviewed All Other Systems Reviewed: Yes Objective Exam Vital Signs Vital Signs - First Documented 10/11/19 09:30 Temp 35.6 Pulse 121 Resp 18 B/P (MAP) 147/84 (105) Pulse Ox 96 O2 Delivery Nasal Cannula O2 Flow Rate 2.00 Capillary Refill : Less Than 3 SecondsLess Than 3 Seconds General Appearance: No Apparent Distress, WD/WN HEENT: PERRL/EOMI Neck: Non Tender, Supple Respiratory: Chest Non Tender, Decreased Breath Sounds Cardiovascular: Regular Rate, Rhythm Gastrointestinal: Non Tender, Soft Rectal: Deferred Back: Vertebral Tenderness (discomfort in lumbar region) Extremity: Pedal Edema (left leg- painful with movement), Other (KYPHOSIS) Neurologic/Psychiatric: Alert, Other (FLAT AFFECT) Skin: Normal Color, Warm/Dry Lymphatic: No Adenopathy Results Lab Microbiology 10/11/19 Blood Culture - Final, Complete Staph, Coag Neg (TEXTILE DYER) 10/11/19 Urine Culture - Final, Complete NO GROWTH Assessment/Plan Assessment/Plan Admission Dx acute upper GI bleed hyponatremia elevated wbc Assessment and Plan 10/11/19 admitted for concern for acute upper gi bleed protonix started. Dr. Bolton consulted Spoke with patient's two daughters and they would like to know if her compression fractures can be cemented; She has been on calcitonin nasal spray and fentanyl patch added recently but still has pain. Covid-19 has affected her health living in isolation and her spirit/mood seems to be down and she made comments to speech therapy at [facility] about not continuing on. She was started on citalopram for this earlier this week. 10/12/19- hgb down from 14 to 11. Will recheck in AM. Consider orthopedics consult but I do not think anyone is available to consult to consider cementing her lumbar compression fractures. She has been on calcitonin nasal spray since mid-August. [address] Ward at [facility] cemented L1, L4. She would need cardiac clearance as well- follows with [place] [facility]. -given all of her co-morbidities and progressive decline in the last 6 months- I mentioned to her 2 daughters via phone last night that hospice is an option. -increased her fentanyl patch to 50mcg. 10/12,- no significant change in events. 10/15/19- lebron still in due to urinary retention and decreased mobility- will keep for now to decrease skin breakdown. Plan to transfer to [facility] on hospice- she has had significant decline in function from the multiple lumbar compression fractures, urinary retention, unable to walk, recurrent UTIs, weight loss from difficulty swallowing. Patient is not interested in further intervention at this time. 10/16/19- will transfer to [facility] tomorrow with [facility] - for protein calorie malnutrition- significant weight loss- failure to thrive- combined with the above multiple comorbidities she is likely to in the next six months. I have explained to patient and daughters that she could improve and come off hospice- she will be frequently reassessed by staff for changes. -lebron will remain in as noted above. -hospice protocol placed Problems: (1) Acute upper GI bleed Assessment & Plan: APPEARS TO BE STABILIZED, Hgb 10 (2) Hematemesis Qualifiers: Qualified Codes: K92.0 - Hematemesis (3) Compression fracture Assessment & Plan: FENTANYL PATCH PLACED FOR ADEQUATE PAIN RELIEF, MONITOR SYMPTOMS. (4) Hyponatremia Assessment & Plan: IMPROVED WITH IV FLUIDS (5) Dementia Assessment & Plan: STABLE (6) GERD (gastroesophageal reflux disease) Assessment & Plan: ON PROTONIX (7) Hypotension Qualifiers: Qualified Codes: I95.9 - Hypotension, unspecified Assessment & Plan: NOW RESOLVED (8) Generalized abdominal pain Assessment & Plan: IMPROVED (9) Urinary retention Assessment & Plan: PT ON BETHANECHOL, FLOMAX, LEBRON IN PLACE (10) Hypokalemia Assessment & Plan: IMPROVED WITH REPLACEMENT (11) Foot pain, bilateral Assessment & Plan: VOLTAREN GEL Admission Dx acute upper GI bleed hyponatremia elevated wbc Clinical Quality Measures Admission Status Admission Dx acute upper GI bleed hyponatremia elevated wbc DVT/VTE Risk/Contraindication: Risk Factor Score Per Nursin RFS Level Per Nursing on Admit: 4+=Very High HELENA WADDELL MD Oct 16, 2019 23:28
[2019-10-17 00:22] VITALS: BP 116/68
[2019-10-17] MEDS: LORazepam 0.5 MG (ATIVAN) TABLET PO PRN (01:35)
[2019-10-17] MEDS: BETHANECHOL 10 MG (URECHOLINE) TAB PO SCH (06:48)
[2019-10-17 08:00] VITALS: BP 107/60
[2019-10-17] MEDS: FUROSEMIDE 20 MG (LASIX) TAB PO SCH (08:54)
[2019-10-17] MEDS: KCL 20 MEQ TAB (K-DUR) PO SCH (08:54)
[2019-10-17] MEDS ORDERED: PANTOPRAZOLE 40 MG (PROTONIX) TAB PO SCH (09:00)
[2019-10-17] MEDS ORDERED: FAMOTIDINE 20 MG (PEPCID) TABLET PO SCH (09:00)
[2019-10-17] MEDS: DICLOFENAC 1% GEL 100 GM (VOLTAREN) TUBE TOP SCH (09:03)
[2019-10-17] MEDS: CALCITONIN NASAL 200 INTLU/AC (FORTICAL) 3.7 ML BTL SCH (09:03)
[2019-10-17] MEDS ORDERED: FENT1PAT9 TD (09:07)
[2019-10-17] MEDS ORDERED: DICL100G18 TOP (09:07)
--- NOTE | 2019-10-17 09:11 | Discharge Summary ---
Discharge Summary Hospital Course Was the Problem List Reviewed?: Yes Problems/Dx: (1) Acute upper GI bleed Status: Acute (2) Hematemesis Status: Acute Qualifiers: Qualified Codes: K92.0 - Hematemesis (3) Compression fracture (4) Hyponatremia Status: Chronic (5) Dementia Status: Chronic (6) GERD (gastroesophageal reflux disease) Status: Chronic (7) Hypotension Status: Acute Qualifiers: Qualified Codes: I95.9 - Hypotension, unspecified (8) Generalized abdominal pain Status: Acute (9) Urinary retention (10) Hypokalemia (11) Foot pain, bilateral Hospital Course Date of Admission: Oct 11, 2019 at 12:07 Admission Diagnosis : Family Physician/Provider: Joshua Waddell MD Date of Discharge: 10/17/19 Discharge Diagnosis: [ ] Hospital Course: Discharged on hospice back [place] [facility]- since we are leaving the jolley in I stopped the bethanecol and flomax to reduce the number of pills she has to swallow as difficulty swallowing is increasing. Labs and Pending Lab Test: Microbiology 10/11/19 Blood Culture - Final, Complete Staph, Coag Neg (CLOTHER IN) 10/11/19 Urine Culture - Final, Complete NO GROWTH Home Meds Active Reported Nystatin 15 Gm Cream..g. 1 Applic TOP BID APPLY TO NASRA AREA FOR GAULDING UNTIL RESOLVED Miralax (Polyethylene Glycol 3350) 17 Gm Powd.pack 17 Gm PO DAILY Hydrocodone/Acetaminophen 5 MG/325 MG TAB (Hydrocodone/Acetaminophen) 1 Each Tablet 1-2 Tab PO Q4-6HR PRN MDD 10 TABS Fentanyl Patch 25 MCG (Fentanyl) 1 Each Patch.td72 25 Mcg TD Q72H Colace (Docusate Sodium) 100 Mg Capsule 100 Mg PO DAILY Cefdinir 300 Mg Capsule 300 Mg PO BID 7 Days STARTED 10-05-2019 #14/7 DAY SUPPLY Calcium 600+D Plus Minerals Tb (Calcium Carb/Vit D3/Minerals) 1 Each Tablet 1 Each PO BID Calcitonin-[place] (Calcitonin,[place],Synthetic) 3.7 Ml Welch.pump 1 Welch NSEACH DAILY Probiotic (Lactobacillus Acidophilus) 1 Each Capsule 1 Each PO TID Vitamin B-12 (Cyanocobalamin (Vitamin B-12)) 1,000 Mcg Tab.subl 1,000 Mcg SL DAILY Miralax (Polyethylene Glycol 3350) 17 Gm Powd.pack 17 Gm PO Q12H PRN Ruba-Tussin (Guaifenesin) 100 Mg/5 Ml Liquid 10 Ml PO Q4H PRN Potassium Chloride 20 Meq Tablet.er 20 Meq PO BID Multivitamins (Multivitamin) 1 Each Capsule 1 Cap PO DAILY Melatonin 3 Mg Tablet 3-6 Mg PO HS TAKES 1 TO 2 (3MG) TABS Acetaminophen Extra Strength (Acetaminophen) 500 Mg Tablet 1,000 Mg PO Q8H PRN Loratadine 10 Mg Tablet 10 Mg PO Q48H Sweet Oil (Homer Oil) 30 Ml Oil 1 Drop EACH EAR UD PRN 1 DROP EVERY 7 DAYS AT BEDTIME Metoprolol Tartrate 50 Mg Tablet 50 Mg PO BID HOLD FOR SBP<90 OR PULSE <50 Lasix (Furosemide) 20 Mg Tablet 20 Mg PO DAILY Assessment/Pt Instructions Discharged [place] [facility] for protein calorie malnutrition and significant weight loss. Discharge Planning: <30 minutes discharge planning Discharge Instructions Discharge Diet: No Restrictions, Regular Diet Activity as Tolerated: Yes Discharge Physical Examination Vital Signs Vital Signs Date Time Temp Pulse Resp B/P (MAP) Pulse Ox O2 Delivery O2 Flow Rate FiO2 10/17/19 00:22 36.4 121 18 116/68 (84) 96 Nasal Cannula 1.00 General Appearance: No Apparent Distress HEENT: PERRL/EOMI Respiratory: Chest Non Tender, Decreased Breath Sounds (a little rattle sounds upper airway from uncleared secretions.) Cardiovascular: Regular Rate, Rhythm Gastrointestinal: Non Tender, Soft Skin: Normal Color, Warm/Dry Neurologic/Psychiatric: Alert Allergies: Coded Allergies: Penicillins (Verified Allergy, Intermediate, HIVES, EDEMA, 12/07/18) Discharge Summary Date of Admission Oct 11, 2019 at 12:07 Date of Discharge Discharge Diagnosis (1) Acute upper GI bleed Status: Acute Assessment & Plan: APPEARS TO BE STABILIZED, Hgb 10 (2) Hematemesis Status: Acute Qualifiers: Qualified Codes: K92.0 - Hematemesis (3) Compression fracture Assessment & Plan: FENTANYL PATCH PLACED FOR ADEQUATE PAIN RELIEF, MONITOR SYMPTOMS. (4) Hyponatremia Status: Chronic Assessment & Plan: IMPROVED WITH IV FLUIDS (5) Dementia Status: Chronic Assessment & Plan: STABLE (6) GERD (gastroesophageal reflux disease) Status: Chronic Assessment & Plan: ON PROTONIX (7) Hypotension Status: Acute Assessment & Plan: NOW RESOLVED Qualifiers: Qualified Codes: I95.9 - Hypotension, unspecified (8) Generalized abdominal pain Status: Acute Assessment & Plan: IMPROVED (9) Urinary retention Assessment & Plan: PT ON BETHANECHOL, FLOMAX, JOLLEY IN PLACE (10) Hypokalemia Assessment & Plan: IMPROVED WITH REPLACEMENT (11) Foot pain, bilateral Assessment & Plan: VOLTAREN GEL Clinical Quality Measures DVT/VTE Risk/Contraindication: Risk Factor Score Per Nursin RFS Level Per Nursing on Admit: 4+=Very High JOSHUA WADDELL MD Oct 17, 2019 09:11
[2019-10-17] MEDS: DOCUSATE SODIUM 100 MG (COLACE) CAP PO SCH (09:26)
[2019-10-17] MEDS: polyethylene glycoL POWDER 17 GM (MIRALAX) PACK PO SCH (09:26)
[2019-10-17] MEDS: HYDROcodone/APAP 5 MG/325 MG (LORTAB) TAB PO PRN (11:09)
== END 2019-10-17 11:35 | disposition hospice, inpatient (51) | DRG 378 ==
LOC: EDUNIT# 09:16 → ER 09:18 → ICU 12:07 → CSD 12:13 → 4TH 17:15
PROVIDERS: ADMIT Family Medicine; ATTEND Family Medicine
DX: K29.61 Other gastritis with bleeding (principal); E87.1 Hypo-osmolality and hyponatremia; N39.0 Urinary tract infection, site not specified; M80.88XA Other osteoporosis with current pathological fracture, vertebra(e), initial encounter for fracture; T50.905A Adverse effect of unspecified drugs, medicaments and biological substances, initial encounter; F43.9 Reaction to severe stress, unspecified; I95.9 Hypotension, unspecified; R33.9 Retention of urine, unspecified; Z66 Do not resuscitate; M54.5 Low back pain; R60.0 Localized edema; K21.9 Gastro-esophageal reflux disease without esophagitis; F03.90 Unspecified dementia, unspecified severity, without behavioral disturbance, psychotic disturbance, mood disturbance, and anxiety; I25.10 Atherosclerotic heart disease of native coronary artery without angina pectoris; I10 Essential (primary) hypertension; Z95.5 Presence of coronary angioplasty implant and graft; E87.6 Hypokalemia; M19.91 Primary osteoarthritis, unspecified site; F32.9 Major depressive disorder, single episode, unspecified; M79.672 Pain in left foot; M79.671 Pain in right foot; Z87.11 Personal history of peptic ulcer disease
CPT/HCPCS: 36415; 51701; 51702; 71045; 74177; 80048; 80053; 81000; 83605; 83690; 85007; 85025; 85027; 85610; 85730; 86141; 87040; 87088; 96361; 96374; 96375